=== PATIENT | male | born 1945 | race Caucasian/White ===

== ENCOUNTER 2023-07-24 22:46 | Observation (INO) | payer MEDICARE, OTHER, SELFPAY ==
[2023-07-24 19:12] VITALS: BMI 24.3
[2023-07-24 19:15] VITALS: BP 149/91
[2023-07-24 21:04] LABS: % Basophils 0.2 % (0-2); % Eosinophils 0.1 % (0-6); % Immature Granulocytes 0.5 % (0-0.5); % Lymphocytes 11.3 % (20.5-51.1); % Monocytes 7.7 % (1.7-9.3); % Neutrophils 80.2 % (42.2-75.2); Absolute Immature Granulocytes 0.1 10^3/uL (0-0.05); Absolute Lymphocytes 1.2 10^3/uL (1.2-3.4); Absolute Monocytes 0.8 10^3/uL (0.1-0.6); Absolute Neutrophils 8.4 10^3/uL (1.4-6.5); Hemoglobin 15.6 g/dL (13.0-18.0); Mean Corp Hgb Conc. 35.5 g/dL (33.0-37.0); Mean Corpuscular Hgb 31.8 pg (27.0-31.0); Mean Corpuscular Volume 89.6 fL (80.0-94.0); Mean Platelet Volume 10.4 fL (7.4-10.4); Nucleated Red Blood Cells % 0 % (-); Platelet Count 174 10^3/uL (130-400); Red Blood Cell Count 4.91 10^6/uL (4.70-6.10); Red Cell Dist. Width 12.9 % (11.5-14.5); White Blood Cell Count 10.5 10^3/uL (4.8-10.8)
[2023-07-24 21:11] LABS: Urine Albumin Negative (Neg - Trace); Urine Bilirubin Negative (Negative); Urine Character Clear (Clear); Urine Color Yellow; Urine Glucose Negative (Negative); Urine Ketone Negative (Negative); Urine Leukocyte Negative (Negative); Urine Nitrite Negative (Negative); Urine Occult Blood Negative (Negative); Urine Urobilinogen Negative (Neg - 1+)
[2023-07-24 21:13] LABS: Blood Urea Nitrogen 25 mg/dl (9-20); Calcium 9.8 mg/dl (8.4-10.2); Carbon Dioxide 23 mmol/L (22-30); Chloride 101 mmol/L (98-107); Estimated Creatinine Clearance 96 ml/min; Glucose 106 mg/dl (70-99); Potassium 3.7 mmol/L (3.5-5.1); Sodium 137 mmol/L (135-145); eGFR > 60.00
--- NOTE | 2023-07-24 21:36 | ED.GENMED ---
History of Present Illness
General
Chief Complaint: Fall
Source: patient and spouse
Time Seen by Provider: 07/24/23 20:45
Travel History
Have you had any contact with someone who has COVID-19?: No
Do you have any symptoms of coronavirus? Fever > 100 degrees, chills, cough, shortness of breath, sore throat, loss of taste or smell, muscle aches, or headache?: No
History of Present Illness
History of Present Illness:
77-year-old male with past medical history of Parkinson's disease, COPD, hypertension, hyperlipidemia, CAD, atrial fibrillation presenting to the emergency department after he had an accidental fall today injuring his right posterolateral ribs,
difficult time with deep inspiration secondary to pain, no other injury sustained in this fall. Spouse notes that patient has had 2-3 falls every day for the last week or so but has been falling more persistently over the last month. They note
that they recently moved to a new house which is the likely cause for increased falls over the last week. Patient is on Eliquis due to his history of atrial fibrillation. Patient normally ambulates with a cane. He denies any other concerns at
this time. Patient does note a history of substance abuse and states he is unable to take any opiate medications nor benzodiazepines.
Past History
Past History
ED Past Medical History: Arrthythmia (A. 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
ED Past Surgical History: Cardiac (Bypass surgery CABG times 09/2020) and Other (umbilical herniorrhaphy, surgical resection malignant melanoma)
Social History
Tobacco: Former smoker
Alcohol: Former (discontinued approximately 1989)
Drug: None
Personal: Single
Living: with family
Employment: Employed
Family History
Family History: Other
Review of Systems
Review of Systems
All Other Systems: ROS reviewed and negative except as documented in HPI and ROS
Phy Exam
Physical Exam
Physical Exam:
GENERAL: Alert , in no apparent distress
EYE: conjunctiva clear
NECK: Supple, no significant adenopathy.
ENT: o/p clr, mmm.
CARDIAC: Regular rate and rhythm
LUNGS: Clear breath sounds bilaterally, no acute respiratory distress, no wheezes/rales/rhonchi
Chest wall: Mild to moderate tenderness in the right posterior lateral ribs around rib 5. No flail chest
NEUROLOGICAL: Alert and oriented
SKIN: Warm and dry, skin intact.
MUSCULOSKELETAL: well perfused.
PSYCH: Normal and appropriate interaction.
Scores
Heart Failure Risk
Heart Failure Risk Score: Not Applicable
Heart Score for Chest Pain Patients
STEMI patient?: Not applicable
Withdrawal Assessment of Alcohol
Withdrawal Assessment Completed?: Not applicable
Course
Orders/Labs/Results
Orders:
Orders
07/24/23 19:19
EKG [Electrocardiogram (*1)] Urgent
Reason for Study: Fatigue / Weakness
EKG- Treatment ONCE
07/24/23 20:01
CR Ribs-right 3 Vw W/pa Chest* Urgent
Comment:
Reason For Exam: t
07/24/23 20:46
CT Head W/o Iv Contrast Urgent
Comment:
Reason For Exam: fall, on eliquis, known rib fx
07/24/23 21:00
Basic Metabolic Panel Urgent
Complete Blood Count/With Diff Urgent
07/24/23 21:04
Urinalysis Reflex To Culture Urgent
Date Specimen was Collected: 07/24/23
Time Specimen was Collected: 21:03
07/24/23 21:35
Acetaminophen [Tylenol] 1,000 mg PO NOW STA
Cyclobenzaprine HCl [Flexeril] 5 mg PO NOW STA
Lidocaine [Lidocaine 4% Patch] 1 patch TOPICAL NOW STA
07/24/23 22:09
Admit/Transfer Patient As Directed
Co-Sign Provider:
Level of Care: Observation services
Assign to:: Telemetry
Physician / Group: shauna
Diagnosis: ambulatory dysfunction
Reason for Telemetry: Arrhythmia
Date to Stop Telemetry: 07/27/23
Time to Stop Telemetry: 11:00
07/24/23 22:11
Code Status As Directed
Resuscitation Status: Full Code
07/27/23 11:00
DC Protocol for Telemetry ONCE
Abnormal Lab Results
07/24/23
21:00
MCH 31.8 H pg
(27.0-31.0)
Abs Immat Gran (auto) 0.1 H 10^3/uL
(0-0.05)
Absolute Neuts (auto) 8.4 H 10^3/uL
(1.4-6.5)
Absolute Monos (auto) 0.8 H 10^3/uL
(0.1-0.6)
Neutrophils % 80.2 H %
(42.2-75.2)
Lymphocytes % 11.3 L %
(20.5-51.1)
BUN 25 H mg/dl
(9-20)
Glucose 106 H mg/dl
(70-99)
07/24/23 21:00
07/24/23 21:00
Vital Signs
Initial and Last Documented VS:
Initial Vital Signs
Pulse Resp BP Pulse Ox
74 17 149/91 94
07/24/23 19:15 07/24/23 19:15 07/24/23 19:15 07/24/23 19:15
Last Documented Vital Signs
Pulse Resp BP Pulse Ox
71 16 152/90 94
07/24/23 22:15 07/24/23 22:15 07/24/23 22:15 07/24/23 22:15
MDM/Problems Addressed
Differential Diagnosis Includes:
Falls secondary to Parkinson's, deconditioning, electrolyte disturbance, rib fracture, pneumothorax, visceral injury
MDM/Problems Addressed:
77-year-old male presenting to the emergency department for evaluation after he sustained a fall today but has been falling excessively over the last few weeks. I suspect patient's falls are related to his Parkinson's disease but I have significant
concern for continued injury as well as possible head injury especially given the fact patient is anticoagulated. Labs and x-ray were ordered from triage. I ordered a CT of the head as well due to patient's anticoagulated status. Will treat with
Tylenol as I need to avoid NSAIDs due to the patient's anticoagulated status as well as he is unable to take any opioids or benzodiazepines. Cyclobenzaprine and Lidoderm patch ordered as well for pain.
Chronic conditions affecting care: Neurological disorder
Acute Exacerbation and/or Progression of Chronic Illness: Neurological disorder
*Radiology
Radiology exam reviewed: preliminary read by ED provider (Fifth and sixth rib fracture) and radiology read reviewed
*Pulse Oximetry
Patient hypoxic: no
*EKG
Interpreted by ED Provider?: Yes
Comparison EKG: changes noted
Heart Rate: 74
Rate: normal
Rhythm: sinus and PAC's
*Critical Care Note
Total Time (30-74mins, 75-104mins- exclusive of procedures): Not Applicable
Data Reviewed
Review of Other/Old Records Reveals: Labs and Radiology Studies
Source: patient and family
Patient Management
Discussion with other providers: Hospitalist
Escalation/DeEscalation of care consider admission/obs:
Hospitalist is aware and accepts patient for continued evaluation and treatment for his rib fractures as well as to likely be seen by physical therapy and patient will likely need to be seen by cardiology to determine risk versus benefit of
continued anticoagulation status with his multiple falls.
ED Attending Note
-
Portions of this chart may have been created with voice recognition software.� Occasional wrong word or��sound alike� substitutions may have occurred due to the inherent limitations of voice recognition software.
Discharge Plan
Departure
Patient Disposition: Admit
Date of Disposition: 07/24/23
Time of Disposition: 21:36
Presentation/result/management discussed w/ accepting MD/DO: Hospitalist
Discharge Problem:
Right rib fracture, Parkinson's disease, Multiple falls
Interventions
Interventions:
*Risk Screen - Suicide Last Done: 07/24/23 19:15
*General Assessment Last Done: 07/24/23 19:15
*Neglect/Abuse Screening Last Done: 07/24/23 19:15
*ED COVID-19 Vaccine History Last Done: 07/24/23 19:15
ED-Musculoskeletal Assessment Last Done: 07/24/23 20:42
ED- Neurological Assessment Last Done: 07/24/23 20:42
ED-Skin Assessment Last Done: 07/24/23 20:42
--- NOTE | 2023-07-24 21:40 | HPS.HSE ---
Addendum entered and electronically signed by Luisa Portillo MD 07/24/23 22:31:
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
falls after moving into a new house recently.� CT head negative.� Rib x-ray shows nondisplaced fractures of posterior lateral right fifth and sixth ribs.� Patient already took Eliquis tonight.� Tylenol, lidocaine patch, Flexeril for pain.� Patient
refusing benzodiazepines and opiates due to worsening mental status with Parkinson's.� PT/OT.
Original Note:
Family Physician
-
Family Physician: Yari Webb
Chief Complaint
-
fall
back pain
History of Present Illness
77 year old with PMH for atrial, fib, CAD, cancer, COPD, GERD, HTN, HLD, Parkinson presented to us with frequent fall since moved to the new house on Thursday. he did not get adjusted to the new house. as per he is losing his balance. denied
dizzy, lightheaded or syncope. denied fever, chills, chest pain, sob.denied abdominal pain,n,v,d. denied dysuria or hematuria. since Thursday, he fell three times. denied hitting his head. he fell on his right side all the time.
Ribs x ray with lateral right fifth and sixth ribs.�received Flexeril, lidocaine in the ER. admitting for further managment.
Medical History
Past Medical History
Past Medical History: Reports Other
Additional Past Medical History:
Parkinson disease
atrial fib
cad
copd
gerd
htn
hld
Past Surgical History: Reports Other
Additional Past Surgical History:
coronary artery bypass graft
umbical herniorrhaphy,
surgical resection of malignant melanoma
Social History
Tobacco: Former Smoker
Alcohol: Former
Drug: None
Personal:
Living: With Family
Family History
Family History: Not pertinent
Allergies / Home Medications
Allergies reflects when Allergies were last updated in [facility].
Home Medications with original date entered in [facility]
Allergy/Medication List:
Allergies
Allergy/AdvReac Type Severity Reaction Status Date / Time
atropine Allergy nose bleeds Verified 07/25/22 05:24
cat dander Allergy Hayfever Verified 07/25/22 05:24
house dust Allergy Hayfever Verified 07/25/22 05:24
house dust mite Allergy Hayfever Verified 07/25/22 05:24
iodine Allergy Anaphylaxis Verified 07/25/22 05:24
lorazepam [From Ativan] Allergy change in Verified 07/25/22 05:24
mentation
midodrine Allergy hallucinati Verified 07/25/22 05:24
on
Opioids-Meperidine and Allergy Unknown Verified 07/25/22 05:24
Related
zolpidem [From Ambien] Allergy hallucinations/ Verified 07/25/22 05:24
change in
mentation
Home Medications
albuterol sulfate 90 mcg/actuation aerosol inhaler 1 puff inhalation R Q4HPRN PRN sob,copd 10/22/20
atorvastatin 80 mg tablet 80 mg PO HS High cholesterol 10/22/20
duloxetine 60 mg capsule,delayed release 60 mg PO DAILY Depression 10/01/21
finasteride 5 mg tablet 5 mg PO DAILY Urinary issue 10/01/21
Saccharomyces boulardii 250 mg capsule 250 mg PO DAILY Supplement 03/04/22
apixaban 5 mg tablet (Eliquis) 5 mg PO BID Blood clot prevention/tx 03/04/22
fludrocortisone 0.1 mg tablet 0.1 mg PO DAILY Orthostatic hypotension #30 tabs 03/07/22
ferrous sulfate 325 mg (65 mg iron) tablet 325 mg PO Q48H Supplement 06/20/22
cholecalciferol (vitamin D3) 25 mcg (1,000 unit) capsule (Vitamin D3) 25 mcg PO DAILY Supplement 06/21/22
docusate sodium 100 mg capsule (Colace) 100 mg PO BIDPRN PRN constipation 06/21/22
acetaminophen 500 mg tablet 1,000 mg PO TID@0700,1300,2000 PRN mild pain 07/24/23
albuterol sulfate 90 mcg/actuation aerosol inhaler 1 puff inhalation R DAILY 07/24/23
ascorbic acid (vitamin C) 500 mg tablet (Vitamin C) 500 mg PO Q48H@1100 07/24/23
benralizumab 30 mg/mL subcutaneous syringe (Fasenra) 30 mg SC .Q6-8WEEKS 07/24/23
carbidopa ER 61.25 mg-levodopa 245 mg capsule,extended release (Rytary) 1 cap PO TID 07/24/23
fluticasone fur. 100 mcg-umeclid 62.5 mcg-vilant 25 mcg inhalat.powder (Trelegy Ellipta) 1 inh inhalation R DAILY 07/24/23
magnesium 1 tab PO HS 07/24/23
melatonin 10 mg tablet,extended release 10 mg PO HS 07/24/23
mirabegron 50 mg tablet,extended release 24 hr (Myrbetriq) 50 mg PO HS 07/24/23
nifedipine 60 mg tablet,extended release 60 mg PO BID 07/24/23
omeprazole 20 mg capsule,delayed release 20 mg PO DAILY 07/24/23
sennosides 8.6 mg tablet (senna) 17.2 mg PO HS 07/24/23
vitamin B complex 1 tab PO DAILY@1400 07/24/23
Review of Systems
-
Constitutional: Reports No Symptoms
EENT: Reports No Symptoms
Respiratory: Reports No Symptoms
Cardiac: Reports No Symptoms
Abdomen/GI: Reports No Symptoms
: Reports No Symptoms
Musculoskeletal: Reports Other (right sided ribs pain)
Skin: Reports No Symptoms
Neurological: Reports No Symptoms
Endocrine: Reports No Symptoms
Hematologic/Lymphatic: Reports No Symptoms
Psych: Reports No Symptoms
Physical Exam
Vital Signs
Vital Signs
Pulse Resp BP Pulse Ox
74 17 149/91 94
07/24/23 19:15 07/24/23 19:15 07/24/23 19:15 07/24/23 19:15
Physical Exam
General: Well Developed, Well Nourished and No Apparent Distress
HEENT: NormoCephalic, Moist mucous membranes and Atraumatic
Respiratory: Clear
Cardiac: S1/S2 and Regular Rhythm; No Murmur or Rub
GI: Soft, Non Tender, Non Distended and Normal Bowel Sounds; No Organomegaly
Rectal: Deferred by Provider
Musculoskeletal: No Clubbing, No Cyanosis and No Edema
Skin: No Rash
Neuro: AO x 3 and Nonfocal/grossly intact
Psych: Calm
Laboratory Results
-
07/24/23 21:00
07/24/23 21:00
Data Reviewed
-
Diagnostic Radiology: Report Reviewed by me
Lab Data: Labs Reviewed by me
Impression/Plan
-
# Frequent falls/ ambulatory dysfunction/rib fracture
-PT/OT consult
-Obtain orthostatics
-Head CT with impression of No acute intracranial process.Moderate volume loss. Moderate leukoaraiosis most consistent with chronic small vessel disease.Moderate atherosclerotic vascular disease.
-Ribs, chest x-ray with impression of Nondisplaced fractures of the posterior lateral right fifth and sixth ribs. No pneumothorax.Mild bibasilar atelectasis and pleural parenchymal changes right greater than left. cardiomegaly.
-EKG did reveal sinus rhythm with a degree AV block with PACs, right bundle branch block
-Flexeril
-lidocaine patch
-Tylenol 1000 TID
#ASCVD HX
�- Continue� ASA
-� cw Eliquis
�- Note no prior history of coronary stenting.
#hxt of COPD
-not in acute exacerbation
-nebs from home continued
#HLD
-statin continued
#HTN
-nifedipine continued
#GERD
-PPI continued
�
# paroxysmal A Fib� unable to specify
-eliquis continued
-EKG as above
# Parkinson's Disease with chronic� gait dysfunction, seems advanced with cognitive impairment.
�- Continue carbidopa-levodopa
#depression
-duloxetine continued
#iron def anemia
=ferrous sulfate continued
#orthostatic hypotension
-fludrocortisone continued
# BPH
�- Stable.� Continue finasteride / tamsulosin.
DVT Prophylaxis:� Eliquis
Code Status:� Full
[2023-07-24] MEDS: FLEXERIL 5 MG PO (22:06)
[2023-07-24] MEDS: TYLENOL 1000 MG PO (22:06)
[2023-07-24] MEDS: LIDOCAINE 4% PATCH 1 PATCH TOPICAL (22:11)
[2023-07-24 22:15] VITALS: BP 152/90
[2023-07-24 23:49] VITALS: BP 146/96
[2023-07-24 23:51] VITALS: BMI 23.8
[2023-07-25] VITALS (8 sets, daily range): BP systolic 82–154; BP diastolic 53–94; PULSE 75–80; O2SAT 92; BMI 23.8
[2023-07-25] MEDS: TYLENOL 1000 MG PO ×3 (06:08→21:51)
[2023-07-25] MEDS: FLEXERIL 5 MG PO (06:09)
[2023-07-25 07:13] LABS: Hematocrit 42.7 % (39.0-52.0); Hemoglobin 14.9 g/dL (13.0-18.0); Mean Corp Hgb Conc. 34.9 g/dL (33.0-37.0); Mean Corpuscular Hgb 30.9 pg (27.0-31.0); Mean Corpuscular Volume 88.6 fL (80.0-94.0); Mean Platelet Volume 10.4 fL (7.4-10.4); Platelet Count 165 10^3/uL (130-400); Red Blood Cell Count 4.82 10^6/uL (4.70-6.10); Red Cell Dist. Width 12.9 % (11.5-14.5); White Blood Cell Count 7.4 10^3/uL (4.8-10.8)
[2023-07-25 07:40] LABS: Blood Urea Nitrogen 17 mg/dl (9-20); Calcium 9.3 mg/dl (8.4-10.2); Carbon Dioxide 24 mmol/L (22-30); Chloride 105 mmol/L (98-107); Estimated Creatinine Clearance 115 ml/min; Glucose 97 mg/dl (70-99); Potassium 3.3 mmol/L (3.5-5.1); Sodium 135 mmol/L (135-145); eGFR > 60.00
[2023-07-25] MEDS: ProAIR HFA INHALER 1 PUFF INH (07:43)
[2023-07-25] MEDS: NON-FORMULARY ITEM 1 INH INH (07:45)
[2023-07-25] MEDS: NON-FORMULARY ITEM 1 CAP PO ×6 (08:59→21:51)
[2023-07-25] MEDS: PROCARDIA XL (EXTENDED RELEASE) 60 MG PO ×2 (08:59→20:35)
[2023-07-25] MEDS: PROTONIX 40 MG PO (08:59)
[2023-07-25] MEDS: COLACE 100 MG PO (08:59)
[2023-07-25] MEDS: ELIQUIS 5 MG PO ×2 (08:59→20:34)
[2023-07-25] MEDS: FLORINEF 0.100000000000000006 MG PO (08:59)
[2023-07-25] MEDS: VITAMIN D3 (cholecalciferol) 50 MCG PO (08:59)
[2023-07-25] MEDS: FLORASTOR 250 MG PO (08:59)
[2023-07-25] MEDS: LIDOCAINE 4% PATCH 1 PATCH TOPICAL (09:00)
[2023-07-25] MEDS: PROSCAR 5 MG PO (09:03)
--- NOTE | 2023-07-25 10:55 | W.PN.HOSP.TC ---
Today's Communication/Plan
-
.
Assessment / Plan
Assessment / Plan
Physical Exam
General: Chronically ill looking. No Apparent Distress
HEENT: Normocephalic, Moist mucous membranes and Atraumatic
Respiratory: limited, no wheezes.
Cardiac: S1/S2 and Regular Rhythm; No Murmur or Rub
GI: Soft, Non Tender, Non Distended.
Rectal: No rectal bleeding.
Musculoskeletal: No Edema
Skin: No Rash
Neuro: AO to self and surroundings , he followed commands. + stiffness noted on exam c/w his illness.
Psych: Calm
# Ribs pain
X- ray showed nondisplaced fractures of the posterior lateral right fifth and sixth ribs. No pneumothorax. Mild bibasilar atelectasis and pleural parenchymal changes right greater than left.
C/W Tylenol TID. Add PRN low dose Tramadol.
Encouraged to take deep breaths.
# Frequent falls/ ambulatory dysfunction
Patient has Parkinson's disease
Will c/w PT/OT
-Head CT with impression of No acute intracranial process.Moderate volume loss. Moderate leukoaraiosis most consistent with chronic small vessel disease.Moderate atherosclerotic vascular disease.
-Ribs, chest x-ray with impression of Nondisplaced fractures of the posterior lateral right fifth and sixth ribs. No pneumothorax.Mild bibasilar atelectasis and pleural parenchymal changes right greater than left. cardiomegaly.
-EKG did reveal sinus rhythm with a degree AV block with PACs, right bundle branch block
-Stopped Flexeril, it will not help.
-lidocaine patch
-Tylenol 1000 TID
- Can add low dose Tramadol if Tylenol does not help. was concerned about use of opioid.
#CAD
No chest pain.
�- Continue� ASA
-� cw Eliquis
�- Note no prior history of coronary stenting.
# Hypokalemia
c/w oral KCl.
#hxt of COPD/ Pulmonary atelectasis.
-not in acute exacerbation
-nebs from home continued
#HLD
-statin continued
#Primary HTN
-nifedipine continued
#GERD
-PPI continued
�
# paroxysmal A Fib�
-Eliquis continued
-EKG as above
# Parkinson's Disease with chronic� gait dysfunction, seems advanced with cognitive impairment.
�- Continue carbidopa-levodopa
#depression
-duloxetine continued
#iron def anemia
=ferrous sulfate continued
#orthostatic hypotension
-fludrocortisone continued
# BPH
�- Stable.� Continue finasteride / tamsulosin.
DVT Prophylaxis:� Eliquis
Code Status:� Full
Total time spent to see the patient, examine the patient on the floor, review data and lab results, discuss treatment plan with patient, and nursing staff around 55 minutes
Anticipated Discharge: 24 - 48 hours
Subjective/Interval History
-
Date of Service: July 25, 2023
Right rib pain
No sob
No chest pain
Objective Data
-
Labs:
Laboratory Results
07/25/23
06:37
WBC 7.4
Hgb 14.9
Hct 42.7
Plt Count 165
Sodium 135
Potassium 3.3 L
Chloride 105
Carbon Dioxide 24
BUN 17
Creatinine 0.6 L
Glucose 97
Calcium 9.3
Vital Signs:
Vital Signs
Temp Pulse Resp BP Pulse Ox
98.0 F 73 16 127/81 92
07/25/23 07:00 07/25/23 08:59 07/25/23 07:47 07/25/23 08:59 07/25/23 07:47
I&O
07/24/23 07/25/23 07/26/23
06:59 06:59 06:59
Intake Total 60 / 60
Output Total 100 / 100 250 / 250
Balance -40 / -40 -250 / -250
--- NOTE | 2023-07-25 13:32 | CM ---
Addendum entered by Nimco Arriaga 07/25/23 14:33:
CM spoke with patient and she is reluctant to complete OBS/MILES form and would like patient to go to [facility] or SNF as she does not feel that patient is able to come home. Patient open to [facility] referral if [facility] is not able to accept him and
does not want patient to go to [facility].
Original Note:
Patient seen at bedside, patient states that he lives with his in a 2 story home with a walker and a cane. Patient confirmed his Parkinsons and stated that his is coming this am. CM reviewed OBS/MILES form and provided form for patient to
review with . Patient stated that he did not have VN services prior to admission. CM will continue to follow for discharge planning needs.
Plan; home with VN vs SNF
[2023-07-25] MEDS: CYMBALTA DELAYED RELEASE 60 MG PO (14:30)
[2023-07-25] MEDS: LIPITOR 80 MG PO (20:37)
[2023-07-25] MEDS: SENOKOT 17.1999999999999993 MG PO (20:37)
[2023-07-25] MEDS: NON-FORMULARY ITEM 50 MG PO (21:51)
[2023-07-25] MEDS: MELATONIN 10 MG PO (21:51)
[2023-07-26 03:50] VITALS: BP 155/89
[2023-07-26] MEDS: NON-FORMULARY ITEM 1 INH INH (07:14)
[2023-07-26] MEDS: ProAIR HFA INHALER 1 PUFF INH (07:14)
[2023-07-26 07:30] VITALS: BP 124/73
[2023-07-26] MEDS: PROCARDIA XL (EXTENDED RELEASE) 60 MG PO (08:58)
[2023-07-26] MEDS: PROTONIX 40 MG PO (08:58)
[2023-07-26] MEDS: TYLENOL 1000 MG PO ×3 (08:58→21:41)
[2023-07-26] MEDS: LIDOCAINE 4% PATCH 1 PATCH TOPICAL (09:02)
[2023-07-26] MEDS: NON-FORMULARY ITEM 1 CAP PO ×6 (09:02→23:09)
[2023-07-26] MEDS: FLORINEF 0.100000000000000006 MG PO (09:03)
[2023-07-26] MEDS: ELIQUIS 5 MG PO ×2 (09:03→21:41)
[2023-07-26] MEDS: PROSCAR 5 MG PO (09:03)
--- NOTE | 2023-07-26 10:37 | W.PN.HOSP.TC ---
Today's Communication/Plan
-
.
Assessment / Plan
Assessment / Plan
Physical Exam
General: Chronically ill looking. No Apparent Distress
HEENT: Normocephalic, Moist mucous membranes and Atraumatic
Respiratory: limited, no wheezes.
Cardiac: S1/S2 and Regular Rhythm; No Murmur or Rub
GI: Soft, Non Tender, Non Distended.
Rectal: No rectal bleeding.
Musculoskeletal: No Edema
Skin: No Rash
Neuro: AO to self and surroundings , he followed commands. + stiffness noted on exam c/w his illness.
Psych: Calm
# Ribs pain
X- ray showed nondisplaced fractures of the posterior lateral right fifth and sixth ribs. No pneumothorax. Mild bibasilar atelectasis and pleural parenchymal changes right greater than left.
C/W Tylenol TID. Add PRN low dose Tramadol.
Encouraged to take deep breaths.
# Frequent falls/ ambulatory dysfunction
Patient has Parkinson's disease
Will c/w PT/OT
wants acute rehab. Consulted Dr Coelho
-Head CT with impression of No acute intracranial process.Moderate volume loss. Moderate leukoaraiosis most consistent with chronic small vessel disease.Moderate atherosclerotic vascular disease.
-Ribs, chest x-ray with impression of Nondisplaced fractures of the posterior lateral right fifth and sixth ribs. No pneumothorax.Mild bibasilar atelectasis and pleural parenchymal changes right greater than left. cardiomegaly.
-EKG did reveal sinus rhythm with a degree AV block with PACs, right bundle branch block
-Stopped Flexeril, it will not help.
-lidocaine patch
-Tylenol 1000 TID
- Can add low dose Tramadol if Tylenol does not help. was concerned about use of opioid.
#orthostatic hypotension
Most likely due to autonomic dysregulation associated with Parkinson's disease
Still significant upon PT evaluation
will cut back on his Nifedipine from 60 BID to once a day.
-fludrocortisone continued
#CAD
No chest pain.
�- Continue� ASA
-� cw Eliquis
�- Note no prior history of coronary stenting.
# Hypokalemia
c/w oral KCl.
#hxt of COPD/ Pulmonary atelectasis.
-not in acute exacerbation
-nebs from home continued
#HLD
-statin continued
#Primary HTN
-nifedipine continued
#GERD
-PPI continued
�
# paroxysmal A Fib�
-Eliquis continued
-EKG as above
# Parkinson's Disease with chronic� gait dysfunction, seems advanced with cognitive impairment.
�- Continue carbidopa-levodopa
#depression
-duloxetine continued
#iron def anemia
=ferrous sulfate continued
# BPH
�- Stable.� Continue finasteride / tamsulosin.
DVT Prophylaxis:� Eliquis
Code Status:� Full
Total time spent to see the patient, examine the patient on the floor, review data and lab results, discuss treatment plan with patient, and nursing staff around 55 minutes
Anticipated Discharge: Within 24 hours
Subjective/Interval History
-
Date of Service: July 26, 2023
No sob
No chest pain
same rib pain
Objective Data
-
Vital Signs:
Vital Signs
Temp Pulse Resp BP Pulse Ox
97.8 F 78 18 124/73 90
07/26/23 07:30 07/26/23 08:58 07/26/23 07:30 07/26/23 08:58 07/26/23 07:30
I&O
07/25/23 07/26/23 07/27/23
06:59 06:59 06:59
Intake Total 60 / 60 210 / 210
Output Total 100 / 100 1150 / 1150
Balance -40 / -40 -940 / -940
--- NOTE | 2023-07-26 13:15 | CM ---
Referrals sent to [facility], awaiting response. CM will continue to follow for discharge planning needs.
PLan; SNF vs Acute Rehab
[2023-07-26] MEDS: CYMBALTA DELAYED RELEASE 60 MG PO (14:10)
[2023-07-26 15:30] VITALS: BP 119/75
[2023-07-26] MEDS: LIPITOR 80 MG PO (21:42)
[2023-07-26] MEDS: SENOKOT 17.1999999999999993 MG PO (21:47)
[2023-07-26] MEDS: NON-FORMULARY ITEM 50 MG PO (23:08)
[2023-07-26] MEDS: MELATONIN 10 MG PO (23:08)
[2023-07-26 23:37] VITALS: BP 152/84
[2023-07-27 07:30] VITALS: BP 148/95
[2023-07-27] MEDS: PROCARDIA XL (EXTENDED RELEASE) 60 MG PO (08:27)
[2023-07-27] MEDS: ELIQUIS 5 MG PO (08:27)
[2023-07-27] MEDS: TYLENOL 1000 MG PO ×3 (08:27→22:57)
[2023-07-27] MEDS: FLORINEF 0.100000000000000006 MG PO (08:27)
[2023-07-27] MEDS: PROTONIX 40 MG PO (08:27)
[2023-07-27] MEDS: LIDOCAINE 4% PATCH 1 PATCH TOPICAL (08:27)
[2023-07-27] MEDS: PROSCAR 5 MG PO (08:28)
[2023-07-27] MEDS: NON-FORMULARY ITEM 1 CAP PO ×6 (08:28→22:58)
--- NOTE | 2023-07-27 08:28 | W.PN.HOSP.TC ---
Today's Communication/Plan
-
Psychiatry evaluation. Monitor mental status and behavior. Stop Eliquis and start aspirin.
Assessment / Plan
Assessment / Plan
Physical Exam
General: Chronically ill looking. No Apparent Distress
HEENT: Normocephalic, Moist mucous membranes and Atraumatic
Respiratory: limited, no wheezes.
Cardiac: S1/S2 and Regular Rhythm; No Murmur or Rub
GI: Soft, Non Tender, Non Distended.
Rectal: No rectal bleeding.
Musculoskeletal: No Edema
Skin: No Rash
Neuro: Alert and disoriented, he followed simple commands. + Increased rigidity noted on exam c/w his illness.
Psych: Calm
A/P:
#Metabolic encephalopathy/delirium
Psychiatry consult
Discussed with significant other today and she tells me he has periods of cognitive decline prior to admission and that he is also very sensitive to medications.
She wants him to go to rehab but I expressed concerns about his mentation now before he move forward with any rehabilitation program so we will reevaluate.
Noticed CT scan of the head on 07/24 unremarkable for acute findings.
Will review all his medications to make sure no contributing factors.
# Ribs pain
X- ray showed nondisplaced fractures of the posterior lateral right fifth and sixth ribs. No pneumothorax. Mild bibasilar atelectasis and pleural parenchymal changes right greater than left.
C/W Tylenol TID. Hold off on Tramadol-do not see order at this point, anyway.
Encouraged to take deep breaths.
# Frequent falls/ ambulatory dysfunction
Patient has Parkinson's disease
Will c/w PT/OT
wants acute rehab. Consulted Dr Coelho
-Head CT with impression of No acute intracranial process.Moderate volume loss. Moderate leukoaraiosis most consistent with chronic small vessel disease.Moderate atherosclerotic vascular disease.
-Ribs, chest x-ray with impression of Nondisplaced fractures of the posterior lateral right fifth and sixth ribs. No pneumothorax.Mild bibasilar atelectasis and pleural parenchymal changes right greater than left. cardiomegaly.
-EKG did reveal sinus rhythm with a degree AV block with PACs, right bundle branch block
-Stopped Flexeril, it will not help. I agree no Flexeril
-lidocaine patch
-Tylenol 1000 TID
-Avoid narcotics
#orthostatic hypotension
Most likely due to autonomic dysregulation associated with Parkinson's disease
Still significant upon PT evaluation
will cut back on his Nifedipine from 60 BID to once a day.
-fludrocortisone continued
#CAD
No chest pain.
�-Restarted ASA, to start tomorrow
�- Note no prior history of coronary stenting.
# Hypokalemia
c/w oral KCl.
#hxt of COPD/ Pulmonary atelectasis.
-not in acute exacerbation
-nebs from home continued
#HLD
-statin continued
#Primary HTN
-nifedipine continued but adjusted doses due to orthostasis
#GERD
-PPI continued
�
# paroxysmal A Fib�
-Discussed with exercise physiology professor who sees him outpatient Dr. Montez today on 07/27 and recommend to discontinue Eliquis and replace with aspirin given risk of falls and bleeding
-EKG as above
# Parkinson's Disease with chronic� gait dysfunction, seems advanced with cognitive impairment.
�- Continue carbidopa-levodopa
#depression
-duloxetine continued
#iron def anemia
=ferrous sulfate continued
# BPH
�- Stable.� Continue finasteride / tamsulosin.
DVT Prophylaxis:� Eliquis
Code Status:� Full
Total time spent on today's encounter was 52 minutes which included time spent in counseling the patient/family regarding diagnosis and treatment plan as listed above, goals of care, and symptom management. Case was discussed with nursing staff,
specialists, and care coordinators/case management. All labs and imaging personally reviewed by me. Remainder the time spent in detailed review of previous records, lab data, imaging, and other medical provider documentation.
Anticipated Discharge: 24 - 48 hours
Subjective/Interval History
-
Date of Service: July 27, 2023
Patient seen and examined. Alert and disoriented. RN reports agitation on and off.
Objective Data
-
Vital Signs:
Vital Signs
Temp Pulse Resp BP Pulse Ox
98.0 F 73 20 148/95 95
07/27/23 07:30 07/27/23 07:30 07/27/23 07:30 07/27/23 07:30 07/27/23 07:30
I&O
07/26/23 07/27/23 07/28/23
06:59 06:59 06:59
Intake Total 210 / 210 120 / 120
Output Total 1150 / 1150 650 / 650 350 / 350
Balance -940 / -940 -530 / -530 -350 / -350
[2023-07-27] MEDS: ProAIR HFA INHALER 1 PUFF INH (08:33)
[2023-07-27] MEDS: NON-FORMULARY ITEM 1 INH INH (08:33)
--- NOTE | 2023-07-27 09:11 | CON.MD ---
Documented by User: Kimberly Zhu PA-C 07/28/23 16:59
Consultation - Medical
-
Referring Provider: Gia Wallace
Chief Complaint: Ambulatory dysfunction/rib fractures/frequent falls
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
on 07/24/2023 after he had an accidental fall today injuring his right posterolateral ribs, difficult time with deep inspiration secondary to pain, no other injury sustained in this fall.� Spouse notes that patient has had 2-3 falls every day for the
last week or so but has been falling more persistently over the last month.� They note that they recently moved to a new house which is the likely cause for increased falls over the last week.� Patient is on Eliquis due to his history of atrial
fibrillation.� Patient normally ambulates with a cane. CT head negative.� Rib x-ray shows nondisplaced fractures of posterior lateral right fifth and sixth ribs.
Head CT with impression of No acute intracranial process.Moderate volume loss. Moderate leukoaraiosis most consistent with chronic small vessel disease.Moderate atherosclerotic vascular disease.
-Ribs, chest x-ray with impression of Nondisplaced fractures of the posterior lateral right fifth and sixth ribs. No pneumothorax.Mild bibasilar atelectasis and pleural parenchymal changes right greater than left. cardiomegaly.
-EKG did reveal sinus rhythm with a degree AV block with PACs, right bundle branch block
-Flexeril
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
Procedure History: coronary artery bypass graft, umbical herniorrhaphy, surgical resection of malignant melanoma
Family History: Non contributory
Social History:
Functional Level Premorbidly: Independent with cane, rolling walker. takes care of all household tasks.
Functional Level Currently: Decreased safety awareness and appeared to have difficulty following commands at times. Bed mobility�supine to sit�moderate assistance. Assist needed for legs and trunk. Manager Of Regulatory Affairs needed to assist patient with scooting
to edge of bed. Transfer�sit to stand-mod assist, stand to sit, stand/pivot/sit�max assist. Assist of 2 for lift off and balance. Standing patient becomes hypotensive and less responsive when standing. Ambulation deferred due to orthostatic
hypotension.
Tobacco:Former Smoker
Alcohol: Former
Drug use: Denies
Lives with: Family
24-hour assistance available:
Number of floors: Multilevel
# steps to enter: 3
# steps to second floor: Bedroom on second floor.
Potential First floor set up:
Driving: ?
Occupation: retired
�
Allergies:
Allergy/AdvReac Type Severity Reaction Status Date / Time
atropine Allergy nose bleeds Verified 07/25/22 05:24
cat dander Allergy Hayfever Verified 07/25/22 05:24
house dust Allergy Hayfever Verified 07/25/22 05:24
house dust mite Allergy Hayfever Verified 07/25/22 05:24
iodine Allergy Anaphylaxis Verified 07/25/22 05:24
lorazepam [From Ativan] Allergy change in Verified 07/25/22 05:24
mentation
midodrine Allergy hallucinati Verified 07/25/22 05:24
on
Opioids-Meperidine and Allergy parkinsons Verified 07/24/23 23:30
Related coma
zolpidem [From Ambien] Allergy hallucinations/ Verified 07/25/22 05:24
change in
mentation
Review of Systems:
Constitutional: (x) Normal _
Eye: (x) Normal _
Ear/Nose/Throat: (x) Normal _
Respiratory: (x) Normal _
Cardiovascular: (x) paroxysmal A-fib
Gastrointestinal: (x) Normal _
Genitourinary: (x) Normal _
Musculoskeletal: Right-sided rib pain, right flank, back, ambulatory dysfunction
Integumentary: (x) Normal _
Neurologic: (x) Parkinson disease
Psychiatric: (x) Normal _
Endocrine: (x) Normal _
Hematologic/Lymphatic: (x) Normal _
Allergic/Immunologic: (x) Normal _
Medications:
Active Current Visit Medication List
Category Date Time Status
Acetaminophen [Tylenol] Med 07/25/23 08:00 Active
1,000 mg PO TID
Albuterol [ProAIR HFA INHALER] Med 07/25/23 08:00 Active
1 puff INH R DAILY
Albuterol [ProAIR HFA INHALER] Med 07/24/23 23:26 Active
1 puff INH R Q4HPRN PRN
Aspirin Chewable [Low Strength Aspirin] Med 07/28/23 08:00 Active
81 mg PO DAILY
Atorvastatin [Lipitor] Med 07/25/23 22:00 Active
80 mg PO HS
Duloxetine Delayed Release [Cymbalta Delayed Release] Med 07/25/23 14:00 Active
60 mg PO DAILY@1400
Finasteride [Proscar] Med 07/25/23 08:00 Active
5 mg PO DAILY
Fludrocortisone Acetate [Florinef] Med 07/25/23 08:00 Active
0.1 mg PO DAILY
Flush (0.9% Sodium Chloride) [Flush (Nss)] Med 07/24/23 23:00 Active
See Dose Instructions IV PER PROTOCOL
Lidocaine [Lidocaine 4% Patch] Med 07/25/23 08:00 Active
1 patch TOPICAL DAILY
Melatonin Med 07/25/23 22:00 Active
10 mg PO HS
NIFEdipine EXTENDED RELEASE [Procardia Xl (Extended Med 07/27/23 08:00 Active
Release)]
60 mg PO DAILY
Nonf Med 07/25/23 08:00 Active
1 inh INH R DAILY
Pantoprazole [Protonix] Med 07/25/23 08:00 Active
40 mg PO DAILY
Remove Patch [Remove Lidocaine Patch] Med 07/25/23 20:00 Active
1 patch REMOVE DAILY@1999
Sennosides [Senokot] Med 07/25/23 22:00 Active
17.2 mg PO HS
carbidopa-levodopa [Rytary] Med 07/25/23 08:00 Active
0 cap PO TID
carbidopa-levodopa [Rytary] Med 07/25/23 08:00 Active
1 cap PO TID
mirabegron [Myrbetriq] Med 07/25/23 22:00 Active
50 mg PO HS
Vitals:
Temp Pulse Resp BP Pulse Ox
98.5 F 74 14 154/105 92
07/28/23 07:00 07/28/23 08:12 07/28/23 07:46 07/28/23 08:12 07/28/23 07:46
Height 6 ft
Actual Weight 79.56 kg
Body Mass Index (BMI) 23.8
Physical Exam:
General Appearance/Observation: Well-developed, well-nourished individual in no apparent distress.
Pain/Comfort Assessment: Right-sided rib pain, flank to back
Mood/Affect: Delirious, cognitively impaired
Integumentary/Operative Site:
�� Pressure Ulcer Evaluation: absent over heels.
�
�� Other Type of Wound: absent
��
Eyes: Conjunctiva/Lids: normal ��� Pupils: pupils equal round
Ears/Nose/Throat: oral mucosa moist,� throat-not fully visualized������������ Lips/Teeth/Gums: unable to fully visualize
Neck: muscle tightness
Cardiovascular: Heart: regular, no murmur
Pulses: dorsalis pedis 2+ bilaterally
Respiratory: Respiratory Effort/Chest Expansion: diminished ������ Auscultation: grossly clear to auscultation bilaterally
Gastrointestinal: abdomen not tender, no distension, normal abdominal bowel sounds
Genitourinary: No [place]. Adult brief
Extremities: Edema: None Cyanosis: None Trophic changes: None
Neurology Exam:
Orientation: Alert, not oriented to self, Time, except Place-said [place]
Memory: unable to assess. Mumbling, incoherent
Higher cortical function
Repetition:unable to assess
Comprehension:unable to assess
Two step command: n/a
Naming: n/a
Cranial Nerves: Unable to assess. Patient cognitively impaired and does not follow instructions.
� CNII: Pupillary light reflex: Intact��� Visual Field:
�� CN III, IV, : Extraocular muscles:
�� CN V: Facial Sensation at Forehead: Maxilla: Mandible:
�� CN VII: Facial movement: Symmetric
�� CN VIII: Hearing: Normal
�� CN IX/X: Speech & swallow: low volume Position of Uvula: not able to visualize
�� CN XI: Shoulder shrug:
�� CN XII: Tongue protrusion:
Sensory:
�� Light touch: Intact in bilateral upper and lower extremities
��
Reflexes:
�� Biceps: 3+ bilaterally
�� Brachioradialis: 3+ bilaterally
�� Triceps: 3+ bilaterally
�� Patellar: 2+ bilaterally
�� Achilles: 2+ bilaterally
�� Babinski: Down going bilaterally
�� Clonus: None
�� Gopi: Negative bilaterally- moderate tremor of hands
Cerebellar: Dysmetria/Ataxia: deferred
Musculoskeletal:
Motor: (Manual muscle scale 0-5) Unable to fully assess due to patient's cooperation. 2/
Tone: Increased tone in upper extremities. Elbows not fully extending
Range of Motion: Passively within normal limits in lower extremities
Lab Results
Labs
WBC 7.4 10^3/uL (4.8-10.8) 07/28/23 08:36
RBC 4.49 10^6/uL (4.70-6.10) L 07/28/23 08:36
Hgb 14.3 g/dL (13.0-18.0) 07/28/23 08:36
Hct 40.0 % (39.0-52.0) 07/28/23 08:36
MCV 89.1 fL (80.0-94.0) 07/28/23 08:36
MCH 31.8 pg (27.0-31.0) H 07/28/23 08:36
MCHC 35.8 g/dL (33.0-37.0) 07/28/23 08:36
RDW 13.0 % (11.5-14.5) 07/28/23 08:36
Plt Count 173 10^3/uL (130-400) 07/28/23 08:36
MPV 10.6 fL (7.4-10.4) H 07/28/23 08:36
Abs Immat Gran (auto) 0.0 10^3/uL (0-0.05) 07/28/23 08:36
Absolute Neuts (auto) 5.6 10^3/uL (1.4-6.5) 07/28/23 08:36
Absolute Lymphs (auto) 1.0 10^3/uL (1.2-3.4) L 07/28/23 08:36
Absolute Monos (auto) 0.7 10^3/uL (0.1-0.6) H 07/28/23 08:36
Absolute Eos (auto) 0.0 10^3/uL (0-0.7) 07/28/23 08:36
Absolute Basos (auto) 0.0 10^3/uL (0-0.2) 07/28/23 08:36
Immature Gran % 0.5 % (0-0.5) 07/28/23 08:36
Neutrophils % 76.7 % (42.2-75.2) H 07/28/23 08:36
Lymphocytes % 13.2 % (20.5-51.1) L 07/28/23 08:36
Monocytes % 9.5 % (1.7-9.3) H 07/28/23 08:36
Eosinophils % 0.0 % (0-6) 07/28/23 08:36
Basophils % 0.1 % (0-2) 07/28/23 08:36
Nucleated RBC % 0 % (-) 07/28/23 08:36
Sodium 136 mmol/L (135-145) 07/28/23 08:36
Potassium 3.8 mmol/L (3.5-5.1) 07/28/23 08:36
Chloride 107 mmol/L (98-107) 07/28/23 08:36
Carbon Dioxide 23 mmol/L (22-30) 07/28/23 08:36
BUN 18 mg/dl (9-20) 07/28/23 08:36
Creatinine 0.8 mg/dL (0.7-1.3) 07/28/23 08:36
Estimated Creat Clear 86 ml/min 07/28/23 08:36
eGFR > 60.00 07/28/23 08:36
Glucose 109 mg/dl (70-99) H 07/28/23 08:36
Calcium 9.3 mg/dl (8.4-10.2) 07/28/23 08:36
Urine Color Yellow 07/24/23 21:04
Urine Clarity Clear (Clear) 07/24/23 21:04
Urine pH 6.0 (5.0-9.0) 07/24/23 21:04
Ur Specific [place] 1.020 (<1.030) 07/24/23 21:04
Urine Ketones Negative (Negative) 07/24/23 21:04
Ur Occult Blood Reflex Negative (Negative) 07/24/23 21:04
Urine Nitrite (Reflex) Negative (Negative) 07/24/23 21:04
Urine Bilirubin Negative (Negative) 07/24/23 21:04
Urine Urobilinogen Negative (Neg - 1+) 07/24/23 21:04
Leukocyte Esterase Rfl Negative (Negative) 07/24/23 21:04
Urine Glucose Negative (Negative) 07/24/23 21:04
Urine Albumin (Reflex) Negative (Neg - Trace) 07/24/23 21:04
�
Diagnostic Results: as per HPI
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 Presented to ED on 07/24/[address] scan negative. Xrays shows nondisplaced fractures of posterior lateral right fifth and sixth ribs. Patient with ambulatory dysfunction and metabolic encephalopathy/delirium
Plan
PT/OT to increase independence with ADLs, improve balance, coordination, endurance, strength, mobility, community reintegration, decreased burden of care on others and family education.
Ambulatory Dysfunction/Fractures of 5th and 6th ribs. Would benefit from PT/OT
Cognitive impairment/delirium- psych follow up needed- Medication adjustments
Spasticity:� Adjust medications as needed.� Continue range of motion exercises and stretching program.�
Parkinson disease with chronic gait dysfunction- seems advanced with cognitive impairment. Continue carbidopa�levodopa
Falls: Likely multifactorial. Parkinson's disease: Medications adjustments as needed. Use cane, rolling waker
HTN: nifedipine dose was decreased to 30mg qd due to low blood pressure, monitor closely
Orthostatic hypotension- Continue fludrocortisone. Patient allergic to Midodrine-hallucinations. Adjust medication as needed. Consider compression stocking. monitor BMP
HLD: Statin
Coronary artery disease : Aspirin, statin, beta-gurpreet
Paroxysmal atrial fibrillation:� Eliquis d/isabelle per cardiology and replaced with aspirin. Rate control medications.������������������������������������������
BPH:�Continue finasteride / tamsulosin.
COPD: Continue nebulizer treatments as needed.�
Iron deficiency anemia: Likely multifactorial.� Continue ferrous sulfate and monitor.
Thrombocytopenia: Continue to monitor. With platelets less than 50,000 recommend keeping therapies to bedside. If platelets less than 20,000 will use further caution with activity levels and hold therapy for platelets less than 10,000.
Psych: depression. Psychology consult � Duloxetine. monitor mood.
Skin: monitor for pressure sores/rashes/lesions.
Pain: acetaminophen, Lidoderm patch, Bengay as needed.
Bowel: Colace and Senna, PRN bisacodyl.
Bladder: Time void, PVRs, PRN straight cath.
GI Prophylaxis: Pantoprazole
DVT Prophylaxis: Mechanical and aspirin
Pulmonary: Incentive spirometry
Safety: Continue to reinforce assistance with all transfers.
Code Status:� Full code
Dispo (date/plan/equipment needs): Home with family care.� Social history reviewed.
Functional and Medical Goals: Modified Independent with ADL�s, ambulation, transfers
Discharge Destination: Would recommend acute inpatient rehabilitation once medically stable and cognitively stable. Would appreciate Psych follow up.
Summary of recommendations:
- Discharge Destination: Acute inpatient rehabilitation for PT/OT to increase independence with ADLs back to his baseline, improve balance, coordination, endurance, strength, mobility, community reintegration, decreased burden of care on others and
family education.
Ambulatory Dysfunction/Fractures of 5th and 6th ribs. Would benefit from PT/OT
Cognitive Impairment/delirium- psych follow up needed- Medication adjustments as needed. Recommending repeating U/A to r/o UTI as potential cause for mental status change.
Spasticity:� Adjust medications as needed.� Continue range of motion exercises and stretching program.�
Parkinson disease with chronic gait dysfunction- seems advanced with cognitive impairment. Continue carbidopa�levodopa
Falls: Likely multifactorial. Parkinson's disease: Medications adjustments as needed. Use cane, rolling waker
HTN: nifedipine dose was decreased to 60mg qd due to low blood pressure, monitor closely
Orthostatic hypotension- Continue fludrocortisone. Patient allergic to Midodrine-hallucinations. Adjust medication as needed. Consider compression stocking. monitor BMP
Pain: acetaminophen, Lidoderm patch, Bengay as needed.
Bowel: Colace and Senna, PRN bisacodyl.
Bladder: Time void, PVRs, PRN straight cath.
GI Prophylaxis: Pantoprazole
DVT Prophylaxis: Mechanical
Pulmonary: Incentive spirometry
Paroxysmal atrial fibrillation:� Eliquis stopped per cardiology recommendation and replaced with aspirin due to risk of fall and bleeding. medications.��������������������
Thank you for allowing me to care for your patient. Please contact me with any questions or concerns.
This note was dictated using a voice recognition system. Please excuse any typographical errors from livestock agent. If you believe there are any discrepancies, please notify our office.

Documented by User: Yordy Coelho MD 07/28/23 21:14
Consultation - Medical
-
Referring Provider: Gia Wallace
Chief Complaint: Ambulatory dysfunction/rib fractures/frequent falls
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
on 07/24/2023 after he had an accidental fall today injuring his right posterolateral ribs, difficult time with deep inspiration secondary to pain, no other injury sustained in this fall.� Spouse notes that patient has had 2-3 falls every day for the
last week or so but has been falling more persistently over the last month.� They note that they recently moved to a new house which is the likely cause for increased falls over the last week.� Patient is on Eliquis due to his history of atrial
fibrillation.� Patient normally ambulates with a cane. CT head negative.� Rib x-ray shows nondisplaced fractures of posterior lateral right fifth and sixth ribs.
Head CT with impression of No acute intracranial process.Moderate volume loss. Moderate leukoaraiosis most consistent with chronic small vessel disease.Moderate atherosclerotic vascular disease.
-Ribs, chest x-ray with impression of Nondisplaced fractures of the posterior lateral right fifth and sixth ribs. No pneumothorax.Mild bibasilar atelectasis and pleural parenchymal changes right greater than left. cardiomegaly.
-EKG did reveal sinus rhythm with a degree AV block with PACs, right bundle branch block
-Flexeril
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
Procedure History: coronary artery bypass graft, umbical herniorrhaphy, surgical resection of malignant melanoma
Family History: Non contributory
Social History:
Functional Level Premorbidly: Independent with cane, rolling walker. takes care of all household tasks.
Functional Level Currently: Decreased safety awareness and appeared to have difficulty following commands at times. Bed mobility�supine to sit�moderate assistance. Assist needed for legs and trunk. Manager Of Regulatory Affairs needed to assist patient with scooting
to edge of bed. Transfer�sit to stand-mod assist, stand to sit, stand/pivot/sit�max assist. Assist of 2 for lift off and balance. Standing patient becomes hypotensive and less responsive when standing. Ambulation deferred due to orthostatic
hypotension.
Tobacco:Former Smoker
Alcohol: Former
Drug use: Denies
Lives with: Family
24-hour assistance available: Yes
Number of floors: Multilevel
# steps to enter: 3
# steps to second floor: full flight
Potential First floor set up: Possibly
Driving: No
Occupation: retired
�
Allergies:
Allergy/AdvReac Type Severity Reaction Status Date / Time
atropine Allergy nose bleeds Verified 07/25/22 05:24
cat dander Allergy Hayfever Verified 07/25/22 05:24
house dust Allergy Hayfever Verified 07/25/22 05:24
house dust mite Allergy Hayfever Verified 07/25/22 05:24
iodine Allergy Anaphylaxis Verified 07/25/22 05:24
lorazepam [From Ativan] Allergy change in Verified 07/25/22 05:24
mentation
midodrine Allergy hallucinati Verified 07/25/22 05:24
on
Opioids-Meperidine and Allergy parkinsons Verified 07/24/23 23:30
Related coma
zolpidem [From Ambien] Allergy hallucinations/ Verified 07/25/22 05:24
change in
mentation
Review of Systems:
Constitutional: (x) abNormal _ fatigue
Eye: (x) Normal _
Ear/Nose/Throat: (x) Normal _
Respiratory: (x) Normal _
Cardiovascular: (x) paroxysmal A-fib
Gastrointestinal: (x) abNormal _constipation history
Genitourinary: (x) Normal _
Musculoskeletal: Right-sided rib pain, right flank, back, ambulatory dysfunction
Integumentary: (x) Normal _
Neurologic: (x) Parkinson disease
Psychiatric: (x) Normal _
Endocrine: (x) Normal _
Hematologic/Lymphatic: (x) Normal _
Allergic/Immunologic: (x) Normal _
Medications:
Active Current Visit Medication List
Category Date Time Status
Acetaminophen [Tylenol] Med 07/25/23 08:00 Active
1,000 mg PO TID
Albuterol [ProAIR HFA INHALER] Med 07/25/23 08:00 Active
1 puff INH R DAILY
Albuterol [ProAIR HFA INHALER] Med 07/24/23 23:26 Active
1 puff INH R Q4HPRN PRN
Aspirin Chewable [Low Strength Aspirin] Med 07/28/23 08:00 Active
81 mg PO DAILY
Atorvastatin [Lipitor] Med 07/25/23 22:00 Active
80 mg PO HS
Duloxetine Delayed Release [Cymbalta Delayed Release] Med 07/25/23 14:00 Active
60 mg PO DAILY@1400
Finasteride [Proscar] Med 07/25/23 08:00 Active
5 mg PO DAILY
Fludrocortisone Acetate [Florinef] Med 07/25/23 08:00 Active
0.1 mg PO DAILY
Flush (0.9% Sodium Chloride) [Flush (Nss)] Med 07/24/23 23:00 Active
See Dose Instructions IV PER PROTOCOL
Lidocaine [Lidocaine 4% Patch] Med 07/25/23 08:00 Active
1 patch TOPICAL DAILY
Melatonin Med 07/25/23 22:00 Active
10 mg PO HS
NIFEdipine EXTENDED RELEASE [Procardia Xl (Extended Med 07/27/23 08:00 Active
Release)]
60 mg PO DAILY
Nonf Med 07/25/23 08:00 Active
1 inh INH R DAILY
Pantoprazole [Protonix] Med 07/25/23 08:00 Active
40 mg PO DAILY
Remove Patch [Remove Lidocaine Patch] Med 07/25/23 20:00 Active
1 patch REMOVE DAILY@1999
Sennosides [Senokot] Med 07/25/23 22:00 Active
17.2 mg PO HS
carbidopa-levodopa [Rytary] Med 07/25/23 08:00 Active
0 cap PO TID
carbidopa-levodopa [Rytary] Med 07/25/23 08:00 Active
1 cap PO TID
mirabegron [Myrbetriq] Med 07/25/23 22:00 Active
50 mg PO HS
Vitals:
Temp Pulse Resp BP Pulse Ox
98.5 F 74 14 154/105 92
07/28/23 07:00 07/28/23 08:12 07/28/23 07:46 07/28/23 08:12 07/28/23 07:46
Height 6 ft
Actual Weight 79.56 kg
Body Mass Index (BMI) 23.8
Physical Exam:
General Appearance/Observation: Well-developed, well-nourished male in no apparent distress. Mild tremor.
Pain/Comfort Assessment: Right-sided rib pain, flank to back
Mood/Affect: Anxious
Integumentary/Operative Site:
�� Pressure Ulcer Evaluation: absent over heels.
Eyes: Conjunctiva/Lids: normal ��� Pupils: pupils equal round
Ears/Nose/Throat: oral mucosa moist,� throat-not fully visualized������������ Lips/Teeth/Gums: unable to fully visualize
Neck: muscle tightness
Cardiovascular: Heart: regular, no murmur
Pulses: dorsalis pedis 2+ bilaterally
Respiratory: Respiratory Effort/Chest Expansion: diminished ������ Auscultation: grossly clear to auscultation bilaterally
Gastrointestinal: abdomen not tender, no distension, normal abdominal bowel sounds
Genitourinary: No [place]. Adult brief
Extremities: Edema: None Cyanosis: None Trophic changes: None
Neurology Exam:
Orientation: Alert, oriented to self. Not oriented to Time, except Place-said [place]
Memory: Able to recall some info. Impaired. Mumbling
Higher cortical function
Repetition:unable to assess
Comprehension:unable to assess
Two step command: impaired
Cranial Nerves: Limited with cognition and command following.
� CNII: Pupillary light reflex: Intact��� Visual Field: unable to assess
�� CN III, IV, : Extraocular muscles:
�� � CN V:�Facial Sensation�at�Forehead: Intact,�Maxilla: Intact,�Mandible: Intact
�� CN VII: Facial movement: Decreased facial movement bilaterally
�� CN VIII: Hearing: impaired
�� CN IX/X: Speech & swallow: Low volume, dysarthric. Position of Uvula: not able to visualize
�� CN XI: Shoulder shrug: symmetric
�� CN XII: Tongue protrusion:
Sensory:
�� Light touch: Intact in bilateral upper and lower extremities
��
Reflexes:
�� Biceps: 3+ bilaterally
�� Brachioradialis: 3+ bilaterally
�� Triceps: 3+ bilaterally
�� Patellar: 2+ bilaterally
�� Achilles: 2+ bilaterally
�� Babinski: Down going bilaterally
�� Clonus: None
�� Gopi: Negative bilaterally- moderate tremor of hands
Cerebellar: Dysmetria/Ataxia: deferred
Musculoskeletal:
�Motor: (Manual muscle scale 0-5)
� � �
Muscle� � ���� ���SA�� � ���EF� � ���� ���WE� � ���� ���EE� � ���� ���FF� � ���� ���FA� � ���� ���HF� � ���� ���KE� � ���� ���DF� � ���� ���EHL� � ���� ���PF�� �
� � ��Right� ���� � ���4� �5� �� �5� �5� �� 3� �5� �5� �� �5
� � ��Left�� � ��4� �5� � �5� �5� �� �3+ �5� �5� �� �5
� � ���� ����� ����� ����� ����� ����� ����� ����� ����� ����� ����� ����� �
Tone: Increased tone in upper extremities more than lower.
Range of Motion: Passively within normal limits in lower extremities
Lab Results
Labs
WBC 7.4 10^3/uL (4.8-10.8) 07/28/23 08:36
RBC 4.49 10^6/uL (4.70-6.10) L 07/28/23 08:36
Hgb 14.3 g/dL (13.0-18.0) 07/28/23 08:36
Hct 40.0 % (39.0-52.0) 07/28/23 08:36
MCV 89.1 fL (80.0-94.0) 07/28/23 08:36
MCH 31.8 pg (27.0-31.0) H 07/28/23 08:36
MCHC 35.8 g/dL (33.0-37.0) 07/28/23 08:36
RDW 13.0 % (11.5-14.5) 07/28/23 08:36
Plt Count 173 10^3/uL (130-400) 07/28/23 08:36
MPV 10.6 fL (7.4-10.4) H 07/28/23 08:36
Abs Immat Gran (auto) 0.0 10^3/uL (0-0.05) 07/28/23 08:36
Absolute Neuts (auto) 5.6 10^3/uL (1.4-6.5) 07/28/23 08:36
Absolute Lymphs (auto) 1.0 10^3/uL (1.2-3.4) L 07/28/23 08:36
Absolute Monos (auto) 0.7 10^3/uL (0.1-0.6) H 07/28/23 08:36
Absolute Eos (auto) 0.0 10^3/uL (0-0.7) 07/28/23 08:36
Absolute Basos (auto) 0.0 10^3/uL (0-0.2) 07/28/23 08:36
Immature Gran % 0.5 % (0-0.5) 07/28/23 08:36
Neutrophils % 76.7 % (42.2-75.2) H 07/28/23 08:36
Lymphocytes % 13.2 % (20.5-51.1) L 07/28/23 08:36
Monocytes % 9.5 % (1.7-9.3) H 07/28/23 08:36
Eosinophils % 0.0 % (0-6) 07/28/23 08:36
Basophils % 0.1 % (0-2) 07/28/23 08:36
Nucleated RBC % 0 % (-) 07/28/23 08:36
Sodium 136 mmol/L (135-145) 07/28/23 08:36
Potassium 3.8 mmol/L (3.5-5.1) 07/28/23 08:36
Chloride 107 mmol/L (98-107) 07/28/23 08:36
Carbon Dioxide 23 mmol/L (22-30) 07/28/23 08:36
BUN 18 mg/dl (9-20) 07/28/23 08:36
Creatinine 0.8 mg/dL (0.7-1.3) 07/28/23 08:36
Estimated Creat Clear 86 ml/min 07/28/23 08:36
eGFR > 60.00 07/28/23 08:36
Glucose 109 mg/dl (70-99) H 07/28/23 08:36
Calcium 9.3 mg/dl (8.4-10.2) 07/28/23 08:36
Urine Color Yellow 07/24/23 21:04
Urine Clarity Clear (Clear) 07/24/23 21:04
Urine pH 6.0 (5.0-9.0) 07/24/23 21:04
Ur Specific [place] 1.020 (<1.030) 07/24/23 21:04
Urine Ketones Negative (Negative) 07/24/23 21:04
Ur Occult Blood Reflex Negative (Negative) 07/24/23 21:04
Urine Nitrite (Reflex) Negative (Negative) 07/24/23 21:04
Urine Bilirubin Negative (Negative) 07/24/23 21:04
Urine Urobilinogen Negative (Neg - 1+) 07/24/23 21:04
Leukocyte Esterase Rfl Negative (Negative) 07/24/23 21:04
Urine Glucose Negative (Negative) 07/24/23 21:04
Urine Albumin (Reflex) Negative (Neg - Trace) 07/24/23 21:04
�
Diagnostic Results: as per HPI
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 Presented to ED on 07/24/[address] scan negative. Xrays shows nondisplaced fractures of posterior lateral right fifth and sixth ribs. Patient with ambulatory dysfunction and metabolic encephalopathy/delirium
Plan
PT/OT to increase independence with ADLs, improve balance, coordination, endurance, strength, mobility, community reintegration, decreased burden of care on others and family education.
Parkinson disease with chronic gait dysfunction- seems advanced with cognitive impairment. Continue carbidopa�levodopa
-Increased tone:� Adjust medications as needed.� Continue range of motion exercises and stretching program.�
Rib Fractures: of 5th and 6th ribs. PT/OT, pain control
Cognitive impairment/delirium- psych follow up needed- Medication adjustments
Hypophonia with dysarthria: Speech
Falls: Likely multifactorial. Parkinson's disease: Medications adjustments as needed. Use cane, rolling waker
HTN: nifedipine dose was decreased to 30mg qd due to low blood pressure, monitor closely
Orthostatic hypotension- fludrocortisone. Patient allergic to Midodrine?-hallucinations. Adjust medication as needed. Consider compression stocking. monitor BMP
HLD: Statin
Coronary artery disease : Aspirin, statin, beta-gurpreet
Paroxysmal atrial fibrillation:�Eliquis d/isabelle per cardiology and replaced with aspirin. Rate control medications.������������������������������������������
BPH:�Continue finasteride / tamsulosin.
COPD: Continue nebulizer treatments as needed.�
Iron deficiency anemia: Likely multifactorial.� Ferrous sulfate and monitor.
Psych: depression. Psychology consult � Duloxetine. monitor mood.
Skin: monitor for pressure sores/rashes/lesions.
Pain: acetaminophen, Lidoderm patch, Bengay as needed. Does not tolerate opioids well.
Chronic Constipation: Colace and Senna, PRN bisacodyl.
Bladder: Time void, PVRs, PRN straight cath. Mybetriq
GI Prophylaxis: Pantoprazole
DVT Prophylaxis: Mechanical and aspirin
Pulmonary: Incentive spirometry
Safety: Continue to reinforce assistance with all transfers.
Code Status:� Full code
Dispo (date/plan/equipment needs): Home with family care.� Social history reviewed.
Functional and Medical Goals: Modified Independent with ADL�s, ambulation, transfers
Discharge Destination: Would recommend acute inpatient rehabilitation once medically stable and cognitively stable. Would appreciate Psych follow up.
Attending Statement:
I saw and examined the patient today.� Reviewed care plan with patient, therapy, nursing, and physician pet care assistant.� I agree with the above subjective and physical exam, and plan as documented.
Summary of recommendations:
- Discharge Destination: Acute inpatient rehabilitation for PT/OT to increase independence with ADLs back to his baseline, improve balance, coordination, endurance, strength, mobility, community reintegration, decreased burden of care on others and
family education.
Ambulatory Dysfunction/Fractures of 5th and 6th ribs. Would benefit from PT/OT
Cognitive Impairment/delirium- psych follow up needed- Medication adjustments as needed. Recommending repeating U/A to r/o UTI as potential cause for mental status change.
Spasticity:� Adjust medications as needed.� Continue range of motion exercises and stretching program.�
Parkinson disease with chronic gait dysfunction- seems advanced with cognitive impairment. Continue carbidopa�levodopa
Falls: Likely multifactorial. Parkinson's disease: Medications adjustments as needed. Use cane, rolling waker
HTN: nifedipine dose was decreased to 60mg qd due to low blood pressure, monitor closely
Orthostatic hypotension- Continue fludrocortisone. Patient allergic to Midodrine-hallucinations. Adjust medication as needed. Consider compression stocking. monitor BMP
Pain: acetaminophen, Lidoderm patch, Bengay as needed. Does not tolerate opioids well.
Bowel: Colace and Senna, PRN bisacodyl.
Bladder: Time void, PVRs, PRN straight cath.
GI Prophylaxis: Pantoprazole
DVT Prophylaxis: Mechanical
Pulmonary: Incentive spirometry
Paroxysmal atrial fibrillation:� Eliquis stopped per cardiology recommendation and replaced with aspirin due to risk of fall and bleeding. medications.��������������������
Thank you for allowing me to care for your patient. Please contact me with any questions or concerns.
This note was dictated using a voice recognition system. Please excuse any typographical errors from livestock agent. If you believe there are any discrepancies, please notify our office.
[2023-07-27] MEDS: KCL 40 MEQ PO (14:38)
[2023-07-27] MEDS: CYMBALTA DELAYED RELEASE 60 MG PO (14:38)
--- NOTE | 2023-07-27 15:30 | CS.PSYCHR ---
Consult Summary - Psychiatry
-
Pt is a 77 yo male with history of Parkinson's, dementia, who presented after loss of balance and falling on right side. Pt found to have nondisplaced right rib fractures. Psychiatry asked to see due to delirium. Pt reportedly cannot tolerate
benzo's/Ativan or opioids.
Pt seen resting/ lying across bed, holding his hand up to the side of face/ear and talking into it as if it were a phone. Pt alert, fairly cooperative, calm, oriented to self and [place] only. No overt hallucinations, no agitation or aggression.
Psych hx: none noted other than previous consult for delirium 2020, possible hx of depression- Rx'd Cymbalta 60 mg QD
PMH: CAD S/P CABG 2020 with post-op delirium, COPD, GERD, HLD, KASSANDRA, Parkinson's dz
Neurology eval at 2021- cognitive impairment with some hallucinations, sx typical of Parkinson's dz
SH: unable to obtain
MSE: Pt calm, alert, oriented to self and [place], not to situation. Pt unable to give any history. No overt signs of psychosis
Imp: Dementia in setting of Parkinson's disease
R/o superimposed delirium, although pt is alert, sensorium appears mostly intact
Rec: If pt develops agitation, would consider lowest dose of Seroquel- 12.5 to 25 mg as needed, given dx of Parkinson's dz
Will follow
[2023-07-27 15:45] VITALS: BP 130/82
--- NOTE | 2023-07-27 16:19 | CM ---
Chart reviewed.
Family requesting [facility]/snf
For PM&R consult
Jacek at [facility] following
security services manager will follow for d/c needs
--- NOTE | 2023-07-27 20:51 | PTCARENOTE ---
At beginning of shift, pt's at bedside and voicing her concerns of pt's declining mental state. at that times, pt aaox3, ate dinner with . Pt's family left at approx 1999. During 2099 rounds, this RN and PCT attempted to change pt, where he
became agitated and combative. Pt stating that he is 'going to neri this place to the ground,' calling staff profanities. Attempted to explain, educate and assess pt's orientation, pt refused and replied 'why don't you leave me the hell alone.'
Bed alarm remains active.
[2023-07-27] MEDS: MELATONIN 10 MG PO (22:58)
[2023-07-27] MEDS: LIPITOR PO (23:04)
[2023-07-27] MEDS: NON-FORMULARY ITEM PO (23:05)
[2023-07-27] MEDS: SENOKOT PO (23:05)
--- NOTE | 2023-07-28 00:10 | PTCARENOTE ---
Assumed care of Pt. assessment unchanged. Pt cooperative but confused. condom cath replaced. pt changed and repositioned. Pt ripped off condom cath and threw it on the floor. Pt has attends in place, c/d/i.
[2023-07-28 07:00] VITALS: BP 154/105
[2023-07-28] MEDS: ProAIR HFA INHALER 1 PUFF INH (07:43)
[2023-07-28] MEDS: NON-FORMULARY ITEM 1 INH INH (07:43)
[2023-07-28] MEDS: PROTONIX 40 MG PO (08:12)
[2023-07-28] MEDS: TYLENOL 1000 MG PO ×3 (08:12→21:56)
[2023-07-28] MEDS: PROCARDIA XL (EXTENDED RELEASE) 60 MG PO (08:12)
[2023-07-28] MEDS: FLORINEF 0.100000000000000006 MG PO (08:13)
[2023-07-28] MEDS: PROSCAR 5 MG PO (08:13)
[2023-07-28] MEDS: LOW STRENGTH ASPIRIN 81 MG PO (08:13)
[2023-07-28] MEDS: NON-FORMULARY ITEM 1 CAP PO ×6 (08:14→21:59)
[2023-07-28] MEDS: LIDOCAINE 4% PATCH 1 PATCH TOPICAL (08:15)
--- NOTE | 2023-07-28 08:47 | W.PN.HOSP.TC ---
Today's Communication/Plan
-
rehab eval
Assessment / Plan
Assessment / Plan
Physical Exam
General: Chronically ill looking. No Apparent Distress
HEENT: Normocephalic, Moist mucous membranes and Atraumatic
Respiratory: limited, no wheezes.
Cardiac: S1/S2 and Regular Rhythm; No Murmur or Rub
GI: Soft, Non Tender, Non Distended.
Rectal: No rectal bleeding.
Musculoskeletal: No Edema
Skin: No Rash
Neuro: Alert and disoriented, he followed simple commands. + Increased rigidity noted on exam c/w his illness.
Psych: Calm
A/P:
Metabolic encephalopathy/delirium--> appreciated psych consult, can use low-dose Seroquel if agitation develops. CT of the head unremarkable. Updated significant other, Jeanie. Awaiting for rehab evaluation.
Ribs pain--> continue Tylenol and Lidoderm patch; pain appears controlled
Frequent falls/ ambulatory dysfunction--> PT OT recommends skilled rehab, rehab eval pending, if not acute rehab then likely will need subacute rehab. CM on board.
Parkinson's disease--> continue carbidopa levodopa home doses, PT eval.
Orthostatic hypotension-->cut back on his Nifedipine from 60 BID to once a day, cont fludrocortisone, monitor orthostatic
CAD-->no chest pain, restarted ASA
Hypokalemia--> improved
COPD and atelectasis--> stable, continue home inhalers
HLD--> cont statin
HTN--> cont nifedipine continued but adjusted doses due to orthostasis
GERD--> cont PPI
�
Paroxysmal A Fib--> discussed with hookman yesterday (Dr. Montez) and recommend to discontinue Eliquis and replace with aspirin given risk of falls and bleeding
Depression--> cont duloxetine
Iron def anemia--> cont ferrous sulfate
BPH-->stable, continue finasteride / tamsulosin.
DVT Prophylaxis--> SCD
Code Status-->Full
Anticipated Discharge: 24 - 48 hours
Subjective/Interval History
-
Date of Service: July 28, 2023
Patient alert but pleasantly disoriented.
Objective Data
-
Labs:
Laboratory Results
07/28/23
08:36
WBC Pending
Hgb Pending
Hct Pending
Plt Count Pending
Sodium Pending
Potassium Pending
Chloride Pending
Carbon Dioxide Pending
BUN Pending
Creatinine Pending
Glucose Pending
Calcium Pending
Vital Signs:
Vital Signs
Temp Pulse Resp BP Pulse Ox
98.5 F 74 14 154/105 92
07/28/23 07:00 07/28/23 08:12 07/28/23 07:46 07/28/23 08:12 07/28/23 07:46
I&O
07/27/23 07/28/23 07/29/23
06:59 06:59 06:59
Intake Total 120 / 120 440 / 440
Output Total 650 / 650 1050 / 1050
Balance -530 / -530 -610 / -610
Review of Systems
-
Unable to obtain full review of systems at this time due to: Dementia
[2023-07-28 09:03] LABS: % Basophils 0.1 % (0-2); % Immature Granulocytes 0.5 % (0-0.5); % Lymphocytes 13.2 % (20.5-51.1); % Monocytes 9.5 % (1.7-9.3); % Neutrophils 76.7 % (42.2-75.2); Absolute Monocytes 0.7 10^3/uL (0.1-0.6); Absolute Neutrophils 5.6 10^3/uL (1.4-6.5); Hemoglobin 14.3 g/dL (13.0-18.0); Mean Corp Hgb Conc. 35.8 g/dL (33.0-37.0); Mean Corpuscular Hgb 31.8 pg (27.0-31.0); Mean Corpuscular Volume 89.1 fL (80.0-94.0); Mean Platelet Volume 10.6 fL (7.4-10.4); Nucleated Red Blood Cells % 0 % (-); Platelet Count 173 10^3/uL (130-400); Red Blood Cell Count 4.49 10^6/uL (4.70-6.10); White Blood Cell Count 7.4 10^3/uL (4.8-10.8)
[2023-07-28 09:10] LABS: Blood Urea Nitrogen 18 mg/dl (9-20); Calcium 9.3 mg/dl (8.4-10.2); Carbon Dioxide 23 mmol/L (22-30); Chloride 107 mmol/L (98-107); Estimated Creatinine Clearance 86 ml/min; Glucose 109 mg/dl (70-99); Potassium 3.8 mmol/L (3.5-5.1); Sodium 136 mmol/L (135-145); eGFR > 60.00
[2023-07-28 11:00] VITALS: BP 152/96
[2023-07-28] MEDS: CYMBALTA DELAYED RELEASE 60 MG PO (15:00)
[2023-07-28 15:36] VITALS: BP 161/118
[2023-07-28 16:00] VITALS: BP 156/98
[2023-07-28] MEDS: LIPITOR 80 MG PO (21:56)
[2023-07-28] MEDS: MELATONIN 10 MG PO (21:56)
[2023-07-28] MEDS: NON-FORMULARY ITEM 50 MG PO (21:58)
[2023-07-28] MEDS: SENOKOT PO (22:45)
[2023-07-28 23:20] VITALS: BP 157/80
[2023-07-29 07:00] VITALS: BP 148/88
[2023-07-29 07:31] LABS: Blood Urea Nitrogen 22 mg/dl (9-20); Calcium 9.5 mg/dl (8.4-10.2); Carbon Dioxide 20 mmol/L (22-30); Chloride 105 mmol/L (98-107); Estimated Creatinine Clearance 99 ml/min; Glucose 100 mg/dl (70-99); Potassium 3.8 mmol/L (3.5-5.1); Sodium 137 mmol/L (135-145); eGFR > 60.00
[2023-07-29] MEDS: ProAIR HFA INHALER 1 PUFF INH (07:36)
[2023-07-29] MEDS: NON-FORMULARY ITEM 1 INH INH (07:36)
[2023-07-29] MEDS: TYLENOL 1000 MG PO ×3 (08:08→21:52)
[2023-07-29] MEDS: PROCARDIA XL (EXTENDED RELEASE) 60 MG PO (08:08)
[2023-07-29] MEDS: PROSCAR 5 MG PO (08:08)
[2023-07-29] MEDS: PROTONIX 40 MG PO (08:09)
[2023-07-29] MEDS: LOW STRENGTH ASPIRIN 81 MG PO (08:09)
[2023-07-29] MEDS: FLORINEF 0.100000000000000006 MG PO (08:09)
[2023-07-29] MEDS: NON-FORMULARY ITEM 1 CAP PO ×6 (08:09→21:53)
[2023-07-29] MEDS: LIDOCAINE 4% PATCH TOPICAL ×2 (08:09→08:15)
[2023-07-29 11:00] VITALS: BP 134/87; BP 144/77; PULSE 59; PULSE 62
--- NOTE | 2023-07-29 11:27 | W.PN.UPDATE ---
Update Note
Progress Note Update
patient seen chart reviewed. discussed w nursing. the patient today is calm although he has had periods of agitation . he was almost sleeping but woke when i spoke to him although did not speak. he remains confused. he seemed uncomfortable in bed
(legs were hanging off and body was at an angle). he was cooperative with community organization aide and this proposal manager writer repositioning him although he offered little in the way of communication. he is taking cymbalta for depression. dr romo suggested seroquel if
he needs something for agitation which given PD is a reasonable choice. psych will sign off. please call us if you need us to return.
--- NOTE | 2023-07-29 12:25 | W.PN.HOSP.TC ---
Today's Communication/Plan
-
Continue current care
Assessment / Plan
Assessment / Plan
Gen-awake, alert, NAD
HEENT-NC, AT, anicteric, clear oral mm
Neck-supple
CV-reg, no M, +S1/S2
Lungs-clear B/L
Abd-soft, NT, ND
Ext-no edema
Musculoskeletal-no cyanosis, clubbing
Skin-warm and dry
Neuro-grossly non-focal
Psych-calm, cooperative
Acute metabolic encephalopathy/delirium--> appreciated psych consult, can use low-dose Seroquel if agitation develops. CT of the head unremarkable. Updated significant other, Jeanie. Awaiting for rehab evaluation.
Acute nondisplaced traumatic rib fractures - continue Tylenol and Lidoderm patch; pain appears controlled. X-ray confirms nondisplaced fractures of the posterior lateral right fifth and sixth ribs. No pneumothorax. Suspect rib fractures due to
fall prior to admission.
Frequent falls/ ambulatory dysfunction--> PT OT recommends skilled rehab, rehab eval pending, if not acute rehab then likely will need subacute rehab. CM on board.
Parkinson's disease--> continue carbidopa levodopa home doses, PT eval.
Orthostatic hypotension-->cut back on his Nifedipine from 60 BID to once a day, cont fludrocortisone, monitor orthostatic
CAD-->no chest pain, restarted ASA
Hypokalemia--> improved
COPD and atelectasis--> stable, continue home inhalers
HLD--> cont statin
Essential HTN--> cont nifedipine continued but adjusted doses due to orthostasis
GERD--> cont PPI
�
Paroxysmal A Fib--> discussed with field artillery senior sergeant yesterday (Dr. Montez) and recommend to discontinue Eliquis and replace with aspirin given risk of falls and bleeding
Depression--> cont duloxetine
Iron def anemia--> cont ferrous sulfate
BPH-->stable, continue finasteride / tamsulosin.
DVT Prophylaxis--> SCD
Code Status-->Full
Dispo -will need SNF versus long-term care.
Anticipated Discharge: Within 24 hours
Subjective/Interval History
-
Date of Service: July 29, 2023
Patient seen and examined. Confused, no complaints.
Objective Data
-
Labs:
Laboratory Results
07/29/23
06:09
Sodium 137
Potassium 3.8
Chloride 105
Carbon Dioxide 20 L
BUN 22 H
Creatinine 0.7
Glucose 100 H
Calcium 9.5
Vital Signs:
Vital Signs
Temp Pulse Resp BP Pulse Ox
98.1 F 63 16 148/88 94
07/29/23 07:00 07/29/23 08:08 07/29/23 07:40 07/29/23 08:08 07/29/23 07:40
I&O
07/28/23 07/29/23 07/30/23
06:59 06:59 06:59
Intake Total 440 / 440 120 / 120
Output Total 1050 / 1050
Balance -610 / -610 120 / 120
Review of Systems
-
Unable to obtain full review of systems at this time due to: Dementia
[2023-07-29 12:38] VITALS: BP 129/80; BP 159/90; PULSE 66; O2SAT 93
[2023-07-29 12:39] VITALS: BP 129/80; BP 159/90; PULSE 66; O2SAT 93
--- NOTE | 2023-07-29 14:57 | CM ---
Spoke with attending who stated that patient will most likely need SNF. Made attending aware of obs status. Spoke with PT. Patient becoming increasingly confused. PT stated that patient struggling to participate in PT for the entire duration if at
all and has become increasingly paranoid.
Plan: Case management will continue to follow and assist with discharge planning. Patient is observation status and has Medicare therefore has not received a 3 night stay for SNF.
[2023-07-29 15:00] VITALS: BP 108/70
[2023-07-29] MEDS: CYMBALTA DELAYED RELEASE 60 MG PO (15:30)
[2023-07-29] MEDS: LIPITOR 80 MG PO (21:52)
[2023-07-29] MEDS: SENOKOT 17.1999999999999993 MG PO (21:52)
[2023-07-29] MEDS: MELATONIN 10 MG PO (21:52)
[2023-07-29] MEDS: NON-FORMULARY ITEM 50 MG PO (21:53)
[2023-07-29 23:00] VITALS: BP 122/75
--- NOTE | 2023-07-30 03:11 | W.PN.UPDATE ---
Update Note
Progress Note Update
RN notified patient woke up agitated. stable VS. no other complains. Will give Seroquel 25 mg PO x1 per psych recommendation.
[2023-07-30] MEDS: SEROQUEL 25 MG PO (03:18)
[2023-07-30 07:00] VITALS: BP 152/88
[2023-07-30] MEDS: NON-FORMULARY ITEM 1 INH INH (07:45)
[2023-07-30] MEDS: ProAIR HFA INHALER 1 PUFF INH (07:45)
[2023-07-30] MEDS: NON-FORMULARY ITEM 61.25 CAP PO ×3 (07:49→21:15)
[2023-07-30] MEDS: NON-FORMULARY ITEM 1 CAP PO ×3 (07:49→21:08)
[2023-07-30] MEDS: TYLENOL 1000 MG PO ×3 (07:51→21:09)
[2023-07-30] MEDS: PROSCAR 5 MG PO (07:52)
[2023-07-30] MEDS: PROCARDIA XL (EXTENDED RELEASE) 60 MG PO (07:52)
[2023-07-30] MEDS: FLORINEF 0.100000000000000006 MG PO (07:52)
[2023-07-30] MEDS: PROTONIX 40 MG PO (07:52)
[2023-07-30] MEDS: LOW STRENGTH ASPIRIN 81 MG PO (07:52)
[2023-07-30] MEDS: LIDOCAINE 4% PATCH 1 PATCH TOPICAL (07:53)
--- NOTE | 2023-07-30 09:09 | W.PN.HOSP.TC ---
Addendum entered and electronically signed by Guillermo Nuno DO 07/30/23 14:41:
If there is any potential for improvement in his strength, then SNF is warranted.
Can subsequently transition him to director long term care care afterwards. Discussed with case management.
Addendum entered and electronically signed by Guillermo Nuno DO 07/30/23 11:27:
I updated patient's significant other (Jeanie) on the phone.
I mentioned that unfortunately [facility] does not meet criteria for inpatient and therefore it will be very difficult placing him in rehab.
I believe he would best be served in long-term care such as a memory care unit. I also believe that even if we could get him to SNF his delirium may worsen.
He may need to be transition to hospice as his dementia and Parkinson's progresses over time. This was also mention to his significant other. All questions were answered.
Discussed with case management.
Original Note:
Today's Communication/Plan
-
Discharge planning
Assessment / Plan
Assessment / Plan
Gen-awake, alert, NAD
HEENT-NC, AT, anicteric, clear oral mm
Neck-supple
CV-reg, no M, +S1/S2
Lungs-clear B/L
Abd-soft, NT, ND
Ext-no edema
Musculoskeletal-no cyanosis, clubbing
Skin-warm and dry
Neuro-grossly non-focal
Psych-calm, cooperative
Acute metabolic encephalopathy/delirium--> appreciated psych consult, can use low-dose Seroquel if agitation develops. CT of the head unremarkable.
Acute nondisplaced traumatic rib fractures - continue Tylenol and Lidoderm patch; pain appears controlled. X-ray confirms nondisplaced fractures of the posterior lateral right fifth and sixth ribs. No pneumothorax. Suspect rib fractures due to
fall prior to admission.
Frequent falls/ ambulatory dysfunction--> PT OT recommends skilled rehab.
Parkinson's disease--> continue carbidopa levodopa home doses, PT eval.
Orthostatic hypotension-->cut back on his Nifedipine from 60 BID to once a day, cont fludrocortisone, monitor orthostatic
CAD-->no chest pain, restarted ASA
Hypokalemia--> improved
COPD and atelectasis--> stable, continue home inhalers
HLD--> cont statin
Essential HTN--> cont nifedipine continued but adjusted doses due to orthostasis
GERD--> cont PPI
�
Paroxysmal A Fib--> discussed with fur sorter yesterday (Dr. Montez) and recommend to discontinue Eliquis and replace with aspirin given risk of falls and bleeding
Depression--> cont duloxetine
Iron def anemia--> cont ferrous sulfate
BPH-->stable, continue finasteride / tamsulosin.
DVT Prophylaxis--> SCD
Code Status-->Full
Dispo -ideally needs long-term care such as a memory care unit for his dementia. Case management aware. Medically stable for placement.
Anticipated Discharge: Today
Subjective/Interval History
-
Date of Service: July 30, 2023
Patient seen and examined. No new complaints. Was sleeping when I walked in.
Objective Data
-
Vital Signs:
Vital Signs
Temp Pulse Resp BP Pulse Ox
98.0 F 67 16 152/88 94
07/30/23 07:00 07/30/23 08:01 07/30/23 08:01 07/30/23 07:52 07/30/23 08:01
I&O
07/29/23 07/30/23 07/31/23
06:59 06:59 06:59
Intake Total 120 / 120
Output Total 250 / 250
Balance 120 / 120 -250 / -250
Review of Systems
-
Unable to obtain full review of systems at this time due to: Dementia
History Source: Patient
All other systems: Reviewed and negative
--- NOTE | 2023-07-30 12:00 | CM ---
Addendum entered by Cristy José, [facility] 07/30/23 17:27:
Placed a call to patient's S.O and reviewed that the following faciltiies will take patient on a waiver: , [facility], [facility], [facility], [facility], [facility], [facility], [facility], [email or web address],
[facility], [facility].
Patient's S.O choice in this order 1. [facility] 2. [facility] 3. [place] 4. [facility].
Will fax through [employer]
Addendum entered by Cristy José [facility] 07/30/23 14:53:
Spoke with supervisor carding and [facility] area representative, Perla, who stated that she had just been educated about a waiver in which patient may be eligible which would bypass the 3 night stay obstacle.
Spoke with attending who stated that he is going to right a note stating that patient is appropriate.
Addendum entered by Cristy José, [facility] 07/30/23 14:50:
Spoke with patient's s.o who called back. She was updated that patient is obs status and therefore he won't have coverage for SNF. Patient's s.o was upset as she stated that he really needs rehab.
Original Note:
Spoke with attending who requested that patient's S.O get a call as she had a lot of questions. Placed a call to patient's S.O however a female picked up and stated that she was in the shower. Will return call if no return call has been received.
Plan: Case management will continue to follow and assist with discharge planning. Will discuss plan with S.O for discharge.
[2023-07-30 15:00] VITALS: BP 122/78
[2023-07-30] MEDS: CYMBALTA DELAYED RELEASE 60 MG PO (15:09)
[2023-07-30] MEDS: LIPITOR 80 MG PO (21:09)
[2023-07-30] MEDS: MELATONIN 10 MG PO (21:09)
[2023-07-30] MEDS: NON-FORMULARY ITEM 50 MG PO (21:10)
[2023-07-30] MEDS: SENOKOT 17.1999999999999993 MG PO (21:10)
[2023-07-30 23:00] VITALS: BP 121/69
[2023-07-31] MEDS: TYLENOL 650 MG PO (03:31)
[2023-07-31 07:00] VITALS: BP 146/90
[2023-07-31] MEDS: ProAIR HFA INHALER 1 PUFF INH (07:57)
[2023-07-31] MEDS: FLORINEF 0.100000000000000006 MG PO (07:58)
[2023-07-31] MEDS: PROCARDIA XL (EXTENDED RELEASE) 60 MG PO (07:58)
[2023-07-31] MEDS: TYLENOL 1000 MG PO ×3 (07:58→21:16)
[2023-07-31] MEDS: PROTONIX 40 MG PO (07:58)
[2023-07-31] MEDS: LOW STRENGTH ASPIRIN 81 MG PO (07:58)
[2023-07-31] MEDS: NON-FORMULARY ITEM 1 INH INH (07:58)
[2023-07-31] MEDS: NON-FORMULARY ITEM 1 CAP PO ×6 (07:59→21:18)
[2023-07-31] MEDS: PROSCAR 5 MG PO (07:59)
[2023-07-31] MEDS: LIDOCAINE 4% PATCH 1 PATCH TOPICAL (08:00)
[2023-07-31 10:59] VITALS: BP 144/85; BP 164/91; PULSE 64; PULSE 69
--- NOTE | 2023-07-31 13:34 | W.PN.HOSP.TC ---
Today's Communication/Plan
-
DC to rehab when bed available
Assessment / Plan
Assessment / Plan
Acute metabolic encephalopathy/delirium--> appreciated psych consult, can use low-dose Seroquel if agitation develops. CT of the head unremarkable. Patient calm and cooperative.
Acute nondisplaced traumatic rib fractures - continue Tylenol and Lidoderm patch; pain appears controlled. X-ray confirms nondisplaced fractures of the posterior lateral right fifth and sixth ribs. No pneumothorax. Suspect rib fractures due to
fall prior to admission. Pain adequately controlled.
Frequent falls/ ambulatory dysfunction--> PT OT recommends skilled rehab.
Parkinson's disease--> continue carbidopa levodopa home doses, PT eval.
Orthostatic hypotension-->cut back on his Nifedipine from 60 BID to once a day, cont fludrocortisone, monitor orthostatic
CAD-->no chest pain, restarted ASA
COPD and atelectasis--> stable, continue home inhalers
HLD--> cont statin
Essential HTN--> cont nifedipine continued but adjusted doses due to orthostasis
GERD--> cont PPI
�
Paroxysmal A Fib--> Dr Nuno discussed with director global development (Dr. Montez) and recommend to discontinue Eliquis and replace with aspirin given risk of falls and bleeding
Depression--> cont duloxetine
Iron def anemia--> cont ferrous sulfate
BPH-->stable, continue finasteride / tamsulosin.
DVT Prophylaxis--> SCD
Code Status-->Full
Dispo -ideally needs long-term care such as a memory care unit for his dementia. Case management aware. Medically stable for placement.
Anticipated Discharge: Today
Subjective/Interval History
-
Date of Service: July 31, 2023
Adequate pain control from the right chest wall. No shortness of breath. No fever or chills. No cough.
Objective Data
-
Vital Signs:
Vital Signs
Temp Pulse Resp BP Pulse Ox
97.6 F 63 16 146/90 96
07/31/23 07:00 07/31/23 07:55 07/31/23 07:55 07/31/23 07:00 07/31/23 08:15
I&O
07/30/23 07/31/23 08/01/23
06:59 06:59 06:59
Intake Total 720 / 720
Output Total 250 / 250 550 / 550
Balance -250 / -250 170 / 170
Review of Systems
-
Abdomen/GI: Denies Abdominal Pain, Nausea or Vomiting
Neuro: Denies Dizzy
Physical Exam
-
General: No Apparent Distress
HEENT: Moist Mucous Membranes
Respiratory: Clear to Auscultation and Non Labored Respirations; Negative Accessory Resp Muscle Use
Cardiac: Regular Rhythm and S1/S2; Negative Tachycardic
GI: Soft
Neuro: AO x 3
[2023-07-31] MEDS: CYMBALTA DELAYED RELEASE 60 MG PO (13:44)
[2023-07-31 15:00] VITALS: BP 115/78
--- NOTE | 2023-07-31 15:48 | CM ---
Addendum entered by DAYAMI Rich 07/31/23 16:47:
Will continue to attempt to find a bed.
Addendum entered by BEL RichW 07/31/23 16:44:
Received call from Ebony in admissions at [facility] who stated that she does not have any male beds.
Original Note:
Reviewed chart, [facility] Perla lowery called facilities which are in network with [facility] however was not successful in finding a bed. She placed a call to all facilities in the network however was unsuccessful. Resent referrals. Placed a call to
[facility] and spoke with Dipika who stated that she has no male beds this weekend.
Placed a call to Lynn in admissions at [facility] who stated that she can accept an application and potentially accept patient private pay.
Will keep trying facilities.
Plan: Case management will continue to follow and assist with discharge planning. Hopeful transfer to facility under [facility] waiver.
[2023-07-31 16:27] VITALS: BP 108/70; BP 112/66; PULSE 71; O2SAT 95
[2023-07-31] MEDS: NON-FORMULARY ITEM 50 MG PO (21:14)
[2023-07-31] MEDS: MELATONIN 10 MG PO (21:17)
[2023-07-31] MEDS: SENOKOT 17.1999999999999993 MG PO (21:17)
[2023-07-31] MEDS: LIPITOR 80 MG PO (21:17)
[2023-07-31 23:39] VITALS: BP 124/87; BP 141/90; PULSE 70; PULSE 72
[2023-08-01 08:20] VITALS: BP 157/98
[2023-08-01] MEDS: NON-FORMULARY ITEM 1 INH INH (08:50)
[2023-08-01] MEDS: ProAIR HFA INHALER 1 PUFF INH (08:51)
[2023-08-01] MEDS: TYLENOL 1000 MG PO ×3 (08:56→21:07)
[2023-08-01] MEDS: LOW STRENGTH ASPIRIN 81 MG PO (08:56)
[2023-08-01] MEDS: PROTONIX 40 MG PO (08:56)
[2023-08-01] MEDS: PROCARDIA XL (EXTENDED RELEASE) 60 MG PO (08:56)
[2023-08-01] MEDS: FLORINEF 0.100000000000000006 MG PO (08:57)
[2023-08-01] MEDS: NON-FORMULARY ITEM 1 CAP PO ×6 (08:57→21:03)
[2023-08-01] MEDS: PROSCAR 5 MG PO (08:57)
[2023-08-01] MEDS: LIDOCAINE 4% PATCH 1 PATCH TOPICAL (08:57)
--- NOTE | 2023-08-01 10:00 | W.PN.HOSP.TC ---
Today's Communication/Plan
-
Ongoing disposition efforts
Assessment / Plan
Assessment / Plan
Acute metabolic encephalopathy/delirium--> appreciated psych consult, can use low-dose Seroquel if agitation develops. CT of the head unremarkable. Patient remains calm and cooperative.
Acute nondisplaced traumatic rib fractures - continue Tylenol and Lidoderm patch; pain appears controlled. X-ray confirms nondisplaced fractures of the posterior lateral right fifth and sixth ribs. No pneumothorax. Suspect rib fractures due to
fall prior to admission. Pain adequately controlled.
Frequent falls/ ambulatory dysfunction--> PT OT recommends skilled rehab.
Parkinson's disease--> continue carbidopa levodopa home doses, PT eval.
Orthostatic hypotension-->cut back on his Nifedipine from 60 BID to once a day, cont fludrocortisone, monitor orthostatic
CAD-->no chest pain, restarted ASA
COPD and atelectasis--> stable, continue home inhalers
HLD--> cont statin
Essential HTN--> cont nifedipine continued but adjusted doses due to orthostasis
GERD--> cont PPI
�
Paroxysmal A Fib--> Dr Nuno discussed with barrel rifler hook (Dr. Montez) and recommend to discontinue Eliquis and replace with aspirin given risk of falls and bleeding
Depression--> cont duloxetine
Iron def anemia--> cont ferrous sulfate
BPH-->stable, continue finasteride / tamsulosin.
DVT Prophylaxis--> SCD
Code Status-->Full
Dispo -ideally needs long-term care such as a memory care unit for his dementia. Case management aware. Medically stable for placement.
Await placement
Anticipated Discharge: Today
Subjective/Interval History
-
Date of Service: August 01, 2023
Improved pain from the right ribs. Denies any dizziness with standing.
Objective Data
-
Vital Signs:
Vital Signs
Temp Pulse Resp BP Pulse Ox
98.5 F 69 16 157/98 95
08/01/23 08:20 08/01/23 08:55 08/01/23 08:55 08/01/23 08:20 08/01/23 08:55
I&O
07/31/23 08/01/23 08/02/23
06:59 06:59 06:59
Intake Total 720 / 720 960 / 960
Output Total 550 / 550 100 / 100
Balance 170 / 170 860 / 860
Review of Systems
-
Constitutional: Denies Fever
EENT: Denies Sore Throat
Respiratory: Denies Cough or Trouble Breathing
Cardiac: Denies Chest Pain
Abdomen/GI: Denies Abdominal Pain, Nausea or Vomiting
Physical Exam
-
General: No Apparent Distress
HEENT: Moist Mucous Membranes
Respiratory: Clear to Auscultation
Cardiac: Regular Rhythm and S1/S2
GI: Soft
Neuro: AO x 3
Psych: Calm; Negative Confused
[2023-08-01] MEDS: CYMBALTA DELAYED RELEASE 60 MG PO (13:20)
[2023-08-01 15:07] VITALS: BP 129/73
[2023-08-01 17:39] VITALS: BP 134/76; BP 142/82; PULSE 71; PULSE 80
[2023-08-01] MEDS: SENOKOT 17.1999999999999993 MG PO (21:06)
[2023-08-01] MEDS: LIPITOR 80 MG PO (21:07)
[2023-08-01] MEDS: MELATONIN 10 MG PO (21:07)
[2023-08-01] MEDS: NON-FORMULARY ITEM 50 MG PO (21:08)
[2023-08-01 23:23] VITALS: BP 156/95
[2023-08-01 23:24] VITALS: BP 155/86; BP 156/95; PULSE 72; PULSE 73
[2023-08-02 07:23] VITALS: BP 157/108
[2023-08-02] MEDS: NON-FORMULARY ITEM 1 CAP PO ×6 (07:31→22:00)
[2023-08-02] MEDS: LIDOCAINE 4% PATCH 1 PATCH TOPICAL (07:32)
[2023-08-02] MEDS: PROCARDIA XL (EXTENDED RELEASE) 60 MG PO (07:33)
[2023-08-02] MEDS: PROSCAR 5 MG PO (07:34)
[2023-08-02] MEDS: FLORINEF 0.100000000000000006 MG PO (07:34)
[2023-08-02] MEDS: PROTONIX 40 MG PO (07:34)
[2023-08-02] MEDS: LOW STRENGTH ASPIRIN 81 MG PO (07:34)
[2023-08-02] MEDS: TYLENOL 1000 MG PO ×3 (07:34→21:59)
[2023-08-02] MEDS: NON-FORMULARY ITEM 1 INH INH (08:57)
[2023-08-02] MEDS: ProAIR HFA INHALER 1 PUFF INH (08:57)
[2023-08-02 10:31] VITALS: BMI 23.8
--- NOTE | 2023-08-02 11:49 | W.PN.HOSP.TC ---
Today's Communication/Plan
-
Ongoing dispo efforts
Assessment / Plan
Assessment / Plan
Acute metabolic encephalopathy/delirium--> appreciated psych consult, can use low-dose Seroquel if agitation develops. CT of the head unremarkable. Patient remains calm and cooperative.
Acute nondisplaced traumatic rib fractures - continue Tylenol and Lidoderm patch; pain appears controlled. X-ray confirms nondisplaced fractures of the posterior lateral right fifth and sixth ribs. No pneumothorax. Suspect rib fractures due to
fall prior to admission. Pain adequately controlled.
Frequent falls/ ambulatory dysfunction--> PT OT recommends skilled rehab.
Parkinson's disease--> continue carbidopa levodopa home doses, PT eval.
Orthostatic hypotension-->cut back on his Nifedipine from 60 BID to once a day, cont fludrocortisone, monitor orthostatic
CAD-->no chest pain, restarted ASA
COPD and atelectasis--> stable, continue home inhalers
HLD--> cont statin
Essential HTN--> cont nifedipine continued but adjusted doses due to orthostasis
GERD--> cont PPI
�
Paroxysmal A Fib--> Dr Nuno discussed with bonding molder (Dr. Montez) and recommend to discontinue Eliquis and replace with aspirin given risk of falls and bleeding
Depression--> cont duloxetine
Iron def anemia--> cont ferrous sulfate
BPH-->stable, continue finasteride / tamsulosin.
DVT Prophylaxis--> SCD
Code Status-->Full
Dispo - Medically stable for DC
Await placement
Anticipated Discharge: Within 24 hours
Subjective/Interval History
-
Date of Service: August 02, 2023
Pain okay from chest wall.
Is questioning whether he really needs to go to rehab. Advised him that we will have to follow with the PT today.
No shortness of breath.
Objective Data
-
Vital Signs:
Vital Signs
Temp Pulse Resp BP Pulse Ox
98.1 F 95 16 157/108 95
08/02/23 07:23 08/02/23 08:59 08/02/23 08:59 08/02/23 07:33 08/02/23 08:59
I&O
08/01/23 08/02/23 08/03/23
06:59 06:59 06:59
Intake Total 960 / 960 340 / 340
Output Total 100 / 100 350 / 350
Balance 860 / 860 -10 / -10
Review of Systems
-
Constitutional: Denies Fever
EENT: Denies Sore Throat
Respiratory: Denies Cough or Trouble Breathing
Abdomen/GI: Denies Abdominal Pain, Nausea or Vomiting
Neuro: Denies Dizzy
Physical Exam
-
General: No Apparent Distress
HEENT: Moist Mucous Membranes
Respiratory: Clear to Auscultation
Cardiac: Regular Rhythm and S1/S2
Neuro: AO x 3
Psych: Calm
[2023-08-02 12:44] VITALS: BP 118/80; PULSE 72; O2SAT 95
[2023-08-02] MEDS: CYMBALTA DELAYED RELEASE 60 MG PO (13:57)
[2023-08-02 15:03] VITALS: BP 127/86
[2023-08-02] MEDS: SENOKOT 17.1999999999999993 MG PO (21:59)
[2023-08-02] MEDS: LIPITOR 80 MG PO (21:59)
[2023-08-02] MEDS: MELATONIN 10 MG PO (21:59)
[2023-08-02] MEDS: NON-FORMULARY ITEM 50 MG PO (22:00)
[2023-08-02 23:14] VITALS: BP 159/78
[2023-08-03 05:26] VITALS: BMI 23.8
[2023-08-03 07:00] VITALS: BP 130/83
[2023-08-03] MEDS: TYLENOL 1000 MG PO ×2 (08:41→15:32)
[2023-08-03] MEDS: LOW STRENGTH ASPIRIN 81 MG PO (08:41)
[2023-08-03] MEDS: PROTONIX 40 MG PO (08:41)
[2023-08-03] MEDS: FLORINEF 0.100000000000000006 MG PO (08:41)
[2023-08-03] MEDS: PROCARDIA XL (EXTENDED RELEASE) 60 MG PO (08:41)
[2023-08-03] MEDS: NON-FORMULARY ITEM 1 CAP PO ×2 (08:42→15:33)
[2023-08-03] MEDS: NON-FORMULARY ITEM 61.25 CAP PO ×2 (08:42→15:32)
[2023-08-03] MEDS: PROSCAR 5 MG PO (08:42)
[2023-08-03] MEDS: LIDOCAINE 4% PATCH 1 PATCH TOPICAL (08:43)
[2023-08-03] MEDS: ProAIR HFA INHALER 1 PUFF INH (08:59)
[2023-08-03] MEDS: NON-FORMULARY ITEM 1 INH INH (08:59)
--- NOTE | 2023-08-03 10:31 | CM ---
Addendum entered by Cristy José [facility] 08/03/23 16:06:
Did not receive return call back from Allyson in admissions at . [place] back from Lona from [facility] who stated that she received authorization through the [facility] waiver for [facility].
Placed a call to [facility] and spoke with Dariana in admissions who confirmed acceptance. # For report [phone] and fax#[phone].
Placed a call to patient's S.O who stated that she is agreeable to [facility] as it is the only accepting facility thus far and patient is medically cleared.
Imm reviewed and on chart.
Medical necessity and transfer sheet provided to [employer].
Addendum entered by Cristy José [facility] 08/03/23 14:21:
Have not as of yet heard back from Allyson in admissions at . Received a return text from Lona from [facility] who stated that she received authorization for patient to go to [facility]. She requested that the Demographic sheet be faxed
along with Dr. Latif's note. Faxed all requested items to: [phone]. Faxed all information.
Addendum entered by Cristy José [facility] 08/03/23 12:33:
Placed a call to patient's S.O to update about acceptance at [facility]. She stated that as is under new ownership, she would like for them to be faxed a referral as well.
Placed a call to and spoke with Allyson in admissions who stated that referral should be sent and then she will review and render determination regarding acceptance.
Referral sent.
Will await determination.
Addendum entered by Cristy José [facility] 08/03/23 11:04:
Dariana called CM back and confirmed acceptance for patient. TT Lona [facility] who stated that the attending will need to write a note indicating that patient needs rehab and detail why. TT Dr. Latif to ask if he would write note so that
patient can have authorization under the [facility] waiver program. Awaiting confirmation.
Original Note:
Reviewed chart, [facility], sent message through [employer] that they may be able to take patient. Placed a call to Dariana in admissions who answered and stated that she will confirm with her staff. Advised her that patient is medically
stable and can be cleared for discharge per attending upon finding an accepting facility. She stated that she would return call.
Plan: Case management will continue to follow and assist with discharge planning/hopeful acceptance at [facility].
[2023-08-03 12:08] VITALS: BP 126/77
--- NOTE | 2023-08-03 12:41 | W.PN.HOSP.TC ---
Today's Communication/Plan
-
DC to rehab
Assessment / Plan
Assessment / Plan
Acute metabolic encephalopathy/delirium--> appreciated psych consult, can use low-dose Seroquel if agitation develops. CT of the head unremarkable. Patient remains calm and cooperative.
Acute nondisplaced traumatic rib fractures - continue Tylenol and Lidoderm patch; pain appears controlled. X-ray confirms nondisplaced fractures of the posterior lateral right fifth and sixth ribs. No pneumothorax. Suspect rib fractures due to
fall prior to admission. Pain adequately controlled.
Frequent falls/ ambulatory dysfunction--> PT OT continues to recommend skilled rehab.
Parkinson's disease--> continue carbidopa levodopa home doses, PT eval.
Orthostatic hypotension-->cut back on his Nifedipine from 60 BID to once a day, cont fludrocortisone, monitor orthostatic
CAD-->no chest pain, restarted ASA
COPD and atelectasis--> stable, continue home inhalers
HLD--> cont statin
Essential HTN--> cont nifedipine continued but adjusted doses due to orthostasis
GERD--> cont PPI
�
Paroxysmal A Fib--> Dr Nuno discussed with upholsterer limousine and hearse (Dr. Montez) and recommend to discontinue Eliquis and replace with aspirin given risk of falls and bleeding
Depression--> cont duloxetine
Iron def anemia--> cont ferrous sulfate
BPH-->stable, continue finasteride / tamsulosin.
DVT Prophylaxis--> SCD
Code Status-->Full
Dispo - Medically stable for DC
DW CM today
DC to rehab
More than 30 minutes spent in discharge including
Final examination of the patient
Summarizing hospital stay
Instructions for continuing care to all relevant caregivers
Preparation of discharge records, prescriptions, and referral forms
Total time spent (in minutes): 32
Anticipated Discharge: Today
Subjective/Interval History
-
Date of Service: August 03, 2023
He is voicing no specific complaints. Denies any chest pain or shortness of breath. No nausea vomiting.
He thought he was in a rehab already. Was easily able to direct him.
Denies RAYO .
Objective Data
-
Vital Signs:
Vital Signs
Temp Pulse Resp BP Pulse Ox
97.4 F 74 16 130/83 93
08/03/23 07:00 08/03/23 09:02 08/03/23 09:02 08/03/23 08:41 08/03/23 09:28
I&O
08/02/23 08/03/23 08/04/23
06:59 06:59 06:59
Intake Total 340 / 340 720 / 720
Output Total 350 / 350
Balance -10 / -10 720 / 720
Review of Systems
-
Constitutional: Denies Fever or Chills
EENT: Denies Sore Throat
Respiratory: Denies Cough or Trouble Breathing
Cardiac: Denies Chest Pain
Abdomen/GI: Denies Abdominal Pain, Nausea or Vomiting
Neuro: Denies Dizzy
Physical Exam
-
General: No Apparent Distress
HEENT: Moist Mucous Membranes
Respiratory: Clear to Auscultation
Cardiac: Regular Rhythm and S1/S2; Negative Tachycardic
GI: Soft and Nontender
Neuro: Awake, Alert, Oriented (self and person ) and No Motor Deficits
Psych: Calm; Negative Agitated
--- NOTE | 2023-08-03 12:48 | W.DS.TRANS ---
DC Summary - Pit Manager
-
Discharge Instructions:
Sleep Apnea Risk Intermediate
Discharge Diagnosis/Procedures Parkinson disease, ambulatory dysfunction, none
displaced traumatic rib fractures on the right
side after fall, acute metabolic encephalopathy
Orthostatic hypotension, CAD, paroxysmal atrial
fibrillation, essential hypertension
Diet 2 Gram Sodium
Activity As tolerated
Driving Restrictions Not until seen by your Dr
Bathing Restrictions None
Other Services PT,OT
Specialty Instructions Weigh Daily
Instructions:
Stand-Alone Forms:
Changes to Home Medications: Yes
Discharge Medications:
DC Medications w/original date entered in [facility]
albuterol sulfate 90 mcg/actuation aerosol inhaler 1 puff inhalation R Q4HPRN PRN sob,copd 10/22/20
atorvastatin 80 mg tablet 80 mg PO HS High cholesterol 10/22/20
duloxetine 60 mg capsule,delayed release 60 mg PO DAILY@1400 Depression 10/01/21
finasteride 5 mg tablet 5 mg PO DAILY Urinary issue 10/01/21
Saccharomyces boulardii 250 mg capsule 250 mg PO DAILY Supplement 03/04/22
fludrocortisone 0.1 mg tablet 0.1 mg PO DAILY Orthostatic hypotension #30 tabs 03/07/22
ferrous sulfate 325 mg (65 mg iron) tablet 325 mg PO Q48H@1100 Supplement 06/20/22
cholecalciferol (vitamin D3) 25 mcg (1,000 unit) capsule (Vitamin D3) 50 mcg PO DAILY Supplement 06/21/22
docusate sodium 100 mg capsule (Colace) 100 mg PO BID Constipation 06/21/22
acetaminophen 500 mg tablet 1,000 mg PO TID@0700,1300,2000 PRN mild pain 07/24/23
albuterol sulfate 90 mcg/actuation aerosol inhaler 1 puff inhalation R DAILY Lung/Breathing Issues 07/24/23
ascorbic acid (vitamin C) 500 mg tablet (Vitamin C) 500 mg PO Q48H@1100 Supplement 07/24/23
benralizumab 30 mg/mL subcutaneous syringe (Fasenra) 30 mg SC .Q6-8WEEKS Lung/Breathing Issues 07/24/23
carbidopa ER 23.75 mg-levodopa 95 mg capsule,extended release (Rytary) 1 cap PO TID Neurological Condition 07/24/23
carbidopa ER 61.25 mg-levodopa 245 mg capsule,extended release (Rytary) 1 cap PO TID Neurological Condition 07/24/23
fluticasone fur. 100 mcg-umeclid 62.5 mcg-vilant 25 mcg inhalat.powder (Trelegy Ellipta) 1 inh inhalation R DAILY Lung/Breathing Issues 07/24/23
magnesium 1 tab PO HS Supplement 07/24/23
melatonin 10 mg tablet,extended release 10 mg PO HS Sleep 07/24/23
mirabegron 50 mg tablet,extended release 24 hr (Myrbetriq) 50 mg PO HS Urinary Issue 07/24/23
omeprazole 20 mg capsule,delayed release 20 mg PO DAILY Gastrointestinal Issue 07/24/23
sennosides 8.6 mg tablet (senna) 17.2 mg PO HS Constipation 07/24/23
vitamin B complex 1 tab PO DAILY@1400 Supplement 07/24/23
aspirin 81 mg chewable tablet (Children's Aspirin) 81 mg PO DAILY #1 tab 08/03/23
nifedipine 60 mg tablet,extended release 60 mg PO DAILY #1 tab 08/03/23
Home Medication Changes
Change in medication-his Eliquis was switched to aspirin because of falls; dose of nifedipine decreased to once a day
Pending Results: No
[2023-08-03] MEDS: CYMBALTA DELAYED RELEASE 60 MG PO (13:02)
[2023-08-03 15:00] VITALS: BP 110/67
--- NOTE | 2023-08-03 15:29 | W.DCSUMMARY ---
Discharge Summary
Discharge Data
Date of Admission: 07/24/23
Date of Discharge: 08/03/23
-
Pending Results: No
Hospital Course
Primary diagnosis:
Acute nondisplaced traumatic right-sided rib fracture
Acute metabolic encephalopathy
Secondary diagnosis:
Frequent falls
Operative dysfunction
Parkinson's disease
Chronic orthostatic hypotension
Coronary artery disease
Essential hypertension
Paroxysmal atrial fibrillation
Depression
Hyperlipidemia
Gastroesophageal reflux disease
Hospital course:
Patient with known Parkinson's disease noted in the home and has been having frequent falls. He had 3 falls in his chart. So came to the ER. His review x-ray showed a right fifth and sixth rib fracture without any local complication. He was
having right-sided chest pain over the fractures but no hypoxia. Was able to manage with oral pain medication.
When physiatry interviewed apparently was having 2-3 falls every day for the week before presentation and also been falling more persistently over the last month.
It was suspected his falls are related to bladder dysfunction. He is known to have Parkinson disease. He had a CT head without any acute intracranial normalities. It was felt at this point that being on Eliquis for anticoagulation for A-fib has
more risk than benefit and after speaking with his frequency checker was switched to aspirin.
He was seen by PT and also manufacturing technology professor and felt he would require SNF and was discharged to SNF.
He had issues with the encephalopathy requiring medication for agitation suspected probably medication related and that resolved.
Consultants on board:
Psychiatry-Dr. Alejandro Engle
Discharge Plan
-
Patient Disposition: Fdc/SNF
Discharge Diagnosis/Procedures: Parkinson disease, ambulatory dysfunction, none displaced traumatic rib fractures on the right side after fall, acute metabolic encephalopathy
Orthostatic hypotension, CAD, paroxysmal atrial fibrillation, essential hypertension
Diet: 2 Gram Sodium
Activity: As tolerated
Driving Restrictions: Not until seen by your Dr
Bathing Restrictions: None
Other Services: PT and OT
Specialty Instructions: Weigh Daily- Call MD for wt gain/loss 3 lbs overnight/5 lbs in 1 week
Referrals:
Yari Webb MD [Family Provider] -
Prescriptions:
New
aspirin [Children's Aspirin] 81 mg Tablet,Chewable
81 mg PO DAILY Qty: 1 0RF
nifedipine 60 mg Tablet Extended Release
60 mg PO DAILY Qty: 1 0RF
Continued
atorvastatin 80 MG tablet
80 mg PO HS
albuterol sulfate 1 PUFF HFA aerosol inhaler
1 puff inhalation R Q4HPRN PRN (Reason: sob,copd)
finasteride 5 MG tablet
5 mg PO DAILY
duloxetine 60 MG capsule,delayed release(DR/EC)
60 mg PO DAILY@1400
Saccharomyces boulardii 250 mg Capsule
250 mg PO DAILY
fludrocortisone 0.1 mg Tablet
0.1 mg PO DAILY Qty: 30 0RF
ferrous sulfate 325 mg (65 mg iron) Tablet
325 mg PO Q48H@1100
docusate sodium [Colace] 100 mg Capsule
100 mg PO BID
cholecalciferol (vitamin D3) [Vitamin D3] 25 mcg (1,000 unit) Capsule
50 mcg PO DAILY
vitamin B complex Tablet Extended Release
1 tab PO DAILY@1400
ascorbic acid (vitamin C) [Vitamin C] 500 mg Tablet
500 mg PO Q48H@1100
omeprazole 20 mg capsule,delayed release(DR/EC)
20 mg PO DAILY
albuterol sulfate 90 mcg/actuation HFA aerosol inhaler
1 puff INHALATION R DAILY
Myrbetriq 50 mg tablet extended release 24 hr
50 mg PO HS
melatonin 10 mg Tablet Extended Release
10 mg PO HS
Rytary 61.25-245 mg capsule, extended release
1 cap PO TID
Trelegy Ellipta 100-62.5-25 mcg Blister With Device
1 inh INHALATION R DAILY
Fasenra 30 mg/mL Syringe
30 mg SC .Q6-8WEEKS
Patient Comments:
07/24/2023: Per spouse Pt is due for next dose on Thursday07/27/23
magnesium
1 tab PO HS
Patient Comments:
07/24/2023: Per Spouse pt takes MagMind by Georgina
sennosides [senna] 8.6 mg tablet
17.2 mg PO HS
acetaminophen 500 mg tablet
1,000 mg PO TID@0700,1300,2000 PRN (Reason: mild pain)
Rytary 23.75-95 mg Capsule, Extended Release
1 cap PO TID
Discontinued
Eliquis 5 MG tablet
5 mg PO BID
nifedipine 60 mg tablet extended release
60 mg PO BID
Discharge Orders:
Discharge Patient (As Directed); Ordered 08/03/23
Ordered By: Gerry Latif
== END 2023-08-03 19:00 ==
LOC: 3 WEST ACU 22:46
PROVIDERS: Hospitalist; Physician Assistant Medical; Registered Nurse; ADMITTING PHYSICIAN Hospitalist; ATTENDING PHYSICIAN Internal Medicine; CONSULT PHYSICIAN Physical Medicine & Rehabilitation; EMERGENCY PHYSICIAN Emergency Medicine; FAMILY PHYSICIAN Internal Medicine; OTHER PHYSICIAN Psychiatry & Neurology Psychiatry
DX: S22.41XA Multiple fractures of ribs, right side, initial encounter for closed fracture (principal); G20.A1 Parkinson's disease without dyskinesia, without mention of fluctuations; R41.0 Disorientation, unspecified; G93.41 Metabolic encephalopathy; F02.80 Dementia in other diseases classified elsewhere, unspecified severity, without behavioral disturbance, psychotic disturbance, mood disturbance, and anxiety; W19.XXXA Unspecified fall, initial encounter; Y93.9 Activity, unspecified; Y92.009 Unspecified place in unspecified non-institutional (private) residence as the place of occurrence of the external cause; R53.1 Weakness; R53.83 Other fatigue; I10 Essential (primary) hypertension; J44.9 Chronic obstructive pulmonary disease, unspecified; E78.5 Hyperlipidemia, unspecified; K21.9 Gastro-esophageal reflux disease without esophagitis; E78.00 Pure hypercholesterolemia, unspecified; I25.10 Atherosclerotic heart disease of native coronary artery without angina pectoris; F10.91 Alcohol use, unspecified, in remission; J30.89 Other allergic rhinitis; J98.11 Atelectasis; F11.11 Opioid abuse, in remission; N40.0 Benign prostatic hyperplasia without lower urinary tract symptoms; I95.1 Orthostatic hypotension; D50.9 Iron deficiency anemia, unspecified; F32.A Depression, unspecified; I73.9 Peripheral vascular disease, unspecified; I45.10 Unspecified right bundle-branch block; E87.6 Hypokalemia; D69.6 Thrombocytopenia, unspecified; J30.81 Allergic rhinitis due to animal (cat) (dog) hair and dander; I48.0 Paroxysmal atrial fibrillation; R29.6 Repeated falls; Z91.81 History of falling; Z79.01 Long term (current) use of anticoagulants; Z87.891 Personal history of nicotine dependence; Z86.11 Personal history of tuberculosis; Z95.1 Presence of aortocoronary bypass graft; Z85.820 Personal history of malignant melanoma of skin; M54.9 Dorsalgia, unspecified; Z88.5 Allergy status to narcotic agent; Z88.8 Allergy status to other drugs, medicaments and biological substances; Z91.041 Radiographic dye allergy status; Z79.51 Long term (current) use of inhaled steroids
CPT/HCPCS: 70450; 71101; 80048; 81003; 85025; 85027; 93005; 94640; 97116; 97129; 97163; 97167; 97530; 99285; G0378

== ENCOUNTER 2023-12-22 03:05 | Emergency (ER) | payer MEDICARE, OTHER, SELFPAY ==
[2023-12-22] VITALS (12 sets, daily range): BP systolic 148–204; BP diastolic 96–142; PULSE 73; O2SAT 92; BMI 23.3
[2023-12-22 05:59] LABS: % Basophils 0.1 % (0-2); % Immature Granulocytes 0.5 % (0-0.5); % Lymphocytes 13.3 % (20.5-51.1); % Monocytes 9.6 % (1.7-9.3); % Neutrophils 76.5 % (42.2-75.2); Absolute Lymphocytes 1.1 10^3/uL (1.2-3.4); Absolute Monocytes 0.8 10^3/uL (0.1-0.6); Absolute Neutrophils 6.3 10^3/uL (1.4-6.5); Hematocrit 41.6 % (39.0-52.0); Mean Corp Hgb Conc. 36.1 g/dL (33.0-37.0); Mean Corpuscular Hgb 31.4 pg (27.0-31.0); Mean Platelet Volume 10.3 fL (7.4-10.4); Nucleated Red Blood Cells % 0 % (-); Platelet Count 157 10^3/uL (130-400); Red Blood Cell Count 4.78 10^6/uL (4.70-6.10); Red Cell Dist. Width 12.8 % (11.5-14.5); White Blood Cell Count 8.3 10^3/uL (4.8-10.8)
--- NOTE | 2023-12-22 06:10 | ED.GENMED ---
History of Present Illness
General
Chief Complaint: Abdominal Pain
Source: patient
Exam Limitations: none
Time Seen by Provider: 12/22/23 06:03
Nursing documentation reviewed up to this point in time: agreed with
History of Present Illness
History of Present Illness:
78-year-old male history of Parkinson's, presents with lower pelvic pain right greater than left, fell a week ago
He states he tripped, no fever or chills, no chest pain he has chronic shortness of breath no dysuria or frequency, has been using Tylenol
No head strike
Past History
Past History
ED Past Medical History: Arrthythmia (A. 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
ED Past Surgical History: Cardiac (Bypass surgery CABG times 09/2020) and Other (umbilical herniorrhaphy, surgical resection malignant melanoma)
Social History
Tobacco: Former smoker
Alcohol: Former (discontinued approximately 1989)
Drug: None
Personal: Single
Living: with family
Employment: Employed
Family History
Family History: Other
Review of Systems
Review of Systems
All Other Systems: Not applicable
Constitutional: Denies fever, fatigue or chills
Respiratory: Reports trouble breathing (Chronic)
Cardiac: Reports no symptoms
ABD/GI: Reports abdominal pain (Points to the low pelvis right greater than left)
: Denies frequency or dark urine
Musculoskeletal: Reports muscle stiffness
Neurological: Reports weakness
Phy Exam
Physical Exam
Physical Exam:
Physical Exam
General: 78 male no overt signs of head or neck trauma
Neck: No jaundice no tongue bite
Heart: s1/s2 regular rate and rhythm, no murmur. equal radial pulses.
Lungs: Faint crackles at the
Abdomen: Soft minimal tenderness low anterior abdomen right greater than
Neuro: alert and oriented. Slight tremor, globally weak
Skin: no rash
Psychiatric: well kept. interactive and cooperative
Extremities: no edema.
Course
Orders/Labs/Results
Orders:
Orders
12/22/23 05:53
Complete Blood Count/With Diff Urgent
Comprehensive Metabolic Panel Urgent
Lipase Urgent
NT-proBNP Urgent
Comment: ADD ON
12/22/23 06:08
CR Chest - 2 Views Urgent
Comment:
Reason For Exam: sob
Pelvis, 1 or 2 Views CR [CR Pelvis - 1 Or 2 Views ] Urgent
Comment:
Reason For Exam: fall
12/22/23 06:11
Electrocardiogram (*1) Urgent
Reason for Study: Abnormal EKG
EKG- Treatment ONCE
12/22/23 07:16
Add On- LAB Urgent
Tests Added?: pBNP
12/22/23 07:30
Troponin I Urgent
12/22/23 08:47
Physical Therapy Consult [Pt Eval And Treat] Urgent
Activity Level: Out of Bed-Early Mobility
Abnormal Lab Results
12/22/23
05:53
MCH 31.4 H pg
(27.0-31.0)
Absolute Lymphs (auto) 1.1 L 10^3/uL
(1.2-3.4)
Absolute Monos (auto) 0.8 H 10^3/uL
(0.1-0.6)
Neutrophils % 76.5 H %
(42.2-75.2)
Lymphocytes % 13.3 L %
(20.5-51.1)
Monocytes % 9.6 H %
(1.7-9.3)
Glucose 106 H mg/dl
(70-99)
12/22/23 05:53
12/22/23 05:53
Vital Signs
Initial and Last Documented VS:
Initial Vital Signs
Temp Pulse Resp BP Pulse Ox
98.1 F 66 24 148/96 94
12/22/23 03:07 12/22/23 03:07 12/22/23 03:07 12/22/23 03:07 12/22/23 03:07
Last Documented Vital Signs
Temp Pulse Resp BP Pulse Ox
98.5 F 75 23 183/106 91
12/22/23 06:53 12/22/23 08:15 12/22/23 08:15 12/22/23 08:00 12/22/23 08:15
MDM/Problems Addressed
Differential Diagnosis Includes:
Deconditioning pelvic fracture electrolyte abnormality urinary tract pathology
MDM/Problems Addressed:
Fall with pelvic pain
Chronic conditions affecting care: Neurological disorder
Acute Exacerbation and/or Progression of Chronic Illness: Neurological disorder
*Radiology
Radiology exam reviewed: preliminary read by ED provider
*Pulse Oximetry
Patient hypoxic: no
Comment: 93
*EKG
Interpreted by ED Provider?: Yes
Interpretation: abnormal
Comparison EKG: no comparison EKG present
Heart Rate: 88
Rate: normal
QRS Pattern: right bundle branch block
Ischemia: non-specific ST changes
*Mash Filter Operator Interpretation
Rate: normal and Mash Filter Operator- N/A
Interpretation: normal
Heart Rate: 7
Rhythm: sinus
*Critical Care Note
Total Time (30-74mins, 75-104mins- exclusive of procedures): Not Applicable
Update Note
Update Note:
Update, apparent slip and fall, pelvic pain x-ray noted no obvious fracture labs are noted try some Tylenol or ibuprofen as per PT evaluation
Pulse ox is borderline chest x-ray looks underpenetrated his chronic dyspnea will check troponin, proBNP await formal report
proBNP troponin noted briefly reviewed physical therapy patient known to the service from previously, called, patient has an appointment with a outpatient physician today she would like to take him to
ED Attending Note
-
Portions of this chart may have been created with voice recognition software.� Occasional wrong word or��sound alike� substitutions may have occurred due to the inherent limitations of voice recognition software.
Discharge Plan
Departure
Patient Disposition: Home (Routine Discharge)
Date of Disposition: 12/22/23
Time of Disposition: 10:12
Patient with high blood pressure during this ER visit?: No
Condition: Good
Discharge Problem:
Orthostasis, Ambulatory dysfunction, Parkinson's disease
Prescriptions:
No Action
atorvastatin 80 MG tablet
80 mg PO HS
albuterol sulfate 1 PUFF HFA aerosol inhaler
1 puff inhalation R Q4HPRN PRN (Reason: sob,copd)
finasteride 5 MG tablet
5 mg PO DAILY
duloxetine 60 MG capsule,delayed release(DR/EC)
60 mg PO DAILY@1400
Saccharomyces boulardii 250 mg Capsule
250 mg PO DAILY
fludrocortisone 0.1 mg Tablet
0.1 mg PO DAILY Qty: 30 0RF
ferrous sulfate 325 mg (65 mg iron) Tablet
325 mg PO Q48H@1100
cholecalciferol (vitamin D3) [Vitamin D3] 25 mcg (1,000 unit) Capsule
50 mcg PO DAILY
vitamin B complex Tablet Extended Release
1 tab PO DAILY@1400
ascorbic acid (vitamin C) [Vitamin C] 500 mg Tablet
500 mg PO Q48H@1100
albuterol sulfate 90 mcg/actuation HFA aerosol inhaler
1 puff INHALATION R DAILY
mirabegron [Myrbetriq] 50 mg tablet extended release 24 hr
50 mg PO HS
melatonin 10 mg Tablet Extended Release
10 mg PO HS
Rytary 61.25-245 mg capsule, extended release
1 cap PO TID
Trelegy Ellipta 100-62.5-25 mcg Blister With Device
1 inh INHALATION R DAILY
Fasenra 30 mg/mL Syringe
30 mg SC .Q6-8WEEKS
Patient Comments:
07/24/2023: Per spouse Pt is due for next dose on Thursday07/27/23
magnesium
1 tab PO HS
Patient Comments:
07/24/2023: Per Spouse pt takes MagMind by Georgina
acetaminophen 500 mg tablet
1,000 mg PO TID@0700,1300,2000 PRN (Reason: mild pain)
Rytary 23.75-95 mg Capsule, Extended Release
1 cap PO TID
aspirin [Children's Aspirin] 81 mg Tablet,Chewable
81 mg PO DAILY Qty: 1 0RF
Referrals:
Yari Webb MD [Family Provider] -
Interventions
Interventions:
*Risk Screen - Suicide Last Done: 12/22/23 03:07
*General Assessment Last Done: 12/22/23 06:53
*Neglect/Abuse Screening Last Done: 12/22/23 03:07
ED- Fall Risk Assessment Last Done: 12/22/23 06:53
*ED COVID-19 Vaccine History Last Done: 12/22/23 06:53
PX-Juzfhc-Lasrpclsqc Assessment Last Done: 12/22/23 06:53
Discharge Date and Time
Print Language: YAKUT
[2023-12-22 06:17] LABS: ALT (SGPT) 13 U/L (0-50); AST (SGOT) 28 U/L (17-59); Albumin 4.4 g/dl (3.5-5.0); Alkaline Phosphatase 79 U/L (38-126); Blood Urea Nitrogen 20 mg/dl (9-20); Calcium 9.5 mg/dl (8.4-10.2); Carbon Dioxide 25 mmol/L (22-30); Chloride 104 mmol/L (98-107); Glucose 106 mg/dl (70-99); Lipase 111 U/L (23-300); Potassium 3.9 mmol/L (3.5-5.1); Sodium 137 mmol/L (135-145); Total Bilirubin 1.1 mg/dl (0.2-1.3); Total Protein 6.5 g/dl (6.3-8.2); eGFR > 60.00
--- NOTE | 2023-12-22 07:22 | EDRN ---
the pt started to call out, 'Nurse nurse please help me, help me', this RN and PCT entered the pts room and the pt stated that he had to urinate, this RN assisted the pt with urinating into the urinal with no issues, this RN noticed that an EKG was
ordered, PCT performed EKG, Troponin ordered, will draw and sent to lab, the pt is resting in the stretcher in the lowest position, side rails up x2, call shipman within reach, HOB elevated, no s/s of distress, the pt has intermittent central chest
pain that is 2/10 and sharp, the pt is AAO however the pt has periods of confusion, this RN will continue to re orient the pt, will continue to monitor the pt closely
--- NOTE | 2023-12-22 07:35 | EDRN ---
the pt started calling out, 'Please help me nurse help help', this RN entered the pts room and the pt stated to this RN, 'I have to pee i forget how to do it can you please help me', this RN provided the pt with the urinal and the pt was able to
urinate in urinal with no issues, this RN re oriented the pt to the use of the call shipman, this RN andrae and sent troponin, the pt was repositioned in stretcher for comfort, the pt is resting in stretcher in the lowest position, side rails up x2, call
shipman within reach, HOB elevated, no s/s of distress, will continue to monitor the pt closely
[2023-12-22 08:29] LABS: Troponin I < 0.012 ng/ml
[2023-12-22 08:56] LABS: NT-proBNP 111 pg/ml
--- NOTE | 2023-12-22 09:51 | EDRN ---
Physical therapy currently at the pts bedside
== END 2023-12-22 11:07 | disposition home or self-care (01) ==
LOC: EMR 03:05
PROVIDERS: EMERGENCY PHYSICIAN Emergency Medicine; FAMILY PHYSICIAN Internal Medicine
DX: G20.A1 Parkinson's disease without dyskinesia, without mention of fluctuations (principal); R10.2 Pelvic and perineal pain; R06.02 Shortness of breath; R07.89 Other chest pain; R26.2 Difficulty in walking, not elsewhere classified; W01.0XXA Fall on same level from slipping, tripping and stumbling without subsequent striking against object, initial encounter; I45.10 Unspecified right bundle-branch block; I48.91 Unspecified atrial fibrillation; I25.10 Atherosclerotic heart disease of native coronary artery without angina pectoris; I10 Essential (primary) hypertension; J44.9 Chronic obstructive pulmonary disease, unspecified; K21.9 Gastro-esophageal reflux disease without esophagitis; E78.00 Pure hypercholesterolemia, unspecified; R29.818 Other symptoms and signs involving the nervous system; Z95.1 Presence of aortocoronary bypass graft; Z85.820 Personal history of malignant melanoma of skin; Z87.891 Personal history of nicotine dependence; Z79.01 Long term (current) use of anticoagulants; Z79.82 Long term (current) use of aspirin; Z88.5 Allergy status to narcotic agent; Z88.8 Allergy status to other drugs, medicaments and biological substances; Z91.048 Other nonmedicinal substance allergy status
CPT/HCPCS: 99284; 71046; 72170; 80053; 83690; 83880; 84484; 85025; 93005

== ENCOUNTER 2024-02-17 15:05 | Observation (INO) | payer MEDICARE, OTHER, SELFPAY ==
[2024-02-17] VITALS (17 sets, daily range): BP systolic 130–199; BP diastolic 97–159; PULSE 73–74; O2SAT 94; BMI 21.8
[2024-02-17] MEDS: NSS 500 IV (06:35)
[2024-02-17 06:53] LABS: % Basophils 0.2 % (0-2); % Immature Granulocytes 0.5 % (0-0.5); % Lymphocytes 11.8 % (20.5-51.1); % Monocytes 8.2 % (1.7-9.3); % Neutrophils 79.3 % (42.2-75.2); Absolute Immature Granulocytes 0.1 10^3/uL (0-0.05); Absolute Lymphocytes 1.1 10^3/uL (1.2-3.4); Absolute Monocytes 0.8 10^3/uL (0.1-0.6); Absolute Neutrophils 7.6 10^3/uL (1.4-6.5); Hematocrit 43.7 % (39.0-52.0); Hemoglobin 15.4 g/dL (13.0-18.0); Mean Corp Hgb Conc. 35.2 g/dL (33.0-37.0); Mean Corpuscular Hgb 31.1 pg (27.0-31.0); Mean Corpuscular Volume 88.3 fL (80.0-94.0); Mean Platelet Volume 10.5 fL (7.4-10.4); Nucleated Red Blood Cells % 0 % (-); Platelet Count 179 10^3/uL (130-400); Red Blood Cell Count 4.95 10^6/uL (4.70-6.10); White Blood Cell Count 9.6 10^3/uL (4.8-10.8)
--- NOTE | 2024-02-17 06:57 | ED.GENMED ---
History of Present Illness
General
Chief Complaint: Weakness
Source: patient
Exam Limitations: none
Time Seen by Provider: 02/17/24 06:03
History of Present Illness
History of Present Illness:
78-year-old male states he got in a argument with his early this morning. This seemed to have prompted the phone call. Patient's is not here. Patient denies acute medical complaints. Has had gradual increasing weakness with his
Parkinson's but this has been a gradual process over months if not longer. Falls frequently.
Past History
Past History
ED Past Medical History: Arrthythmia (A. 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
ED Past Surgical History: Cardiac (Bypass surgery CABG times 09/2020) and Other (umbilical herniorrhaphy, surgical resection malignant melanoma)
Social History
Tobacco: Former smoker
Alcohol: Former (discontinued approximately 1989)
Drug: None
Personal: Single
Living: with family
Employment: Employed
Family History
Family History: Other
Review of Systems
Review of Systems
All Other Systems: Not applicable
Constitutional: Denies fever
Respiratory: Reports no symptoms
Cardiac: Reports no symptoms
ABD/GI: Reports no symptoms
Phy Exam
Physical Exam
Physical Exam:
GENERAL: Alert and oriented in no apparent distress. Generally weak and frail appearing. No sign of scalp or any other significant trauma
EYE: Orbits normal.
NECK: Supple, no significant adenopathy.
ENT: Pharynx without erythema
CARDIAC: Regular rate and rhythm without any obvious murmurs.
LUNGS: Clear breath sounds,normal
ABDOMEN: Soft, without focal tenderness or distention
NEUROLOGICAL: Alert and oriented , slow to answer questions. Nonfocal exam. Tremor mostly left arm.
SKIN: Warm and dry, no rash or lesion, no discoloration, skin intact.
MUSCULOSKELETAL: No edema,no deformity.Good color
PSYCH: Normal and appropriate interaction.
Course
Orders/Labs/Results
Orders:
Orders
02/17/24 06:13
Electrocardiogram (*1) Urgent
Reason for Study: Fatigue / Weakness
CT Head W/o Iv Contrast Urgent
Comment:
Reason For Exam: Progressive weakness. Frequent falls
Case Management Consult ONCE
Case Management Consult: Discharge Planning
IV Insert/Care/Rem.- Treatment PRN
0.9% Sodium Chloride 500 ml [Nss] 500 ml IV BOLUS
02/17/24 06:14
EKG- Treatment ONCE
02/17/24 06:35
Complete Blood Count/With Diff Urgent
Comprehensive Metabolic Panel Urgent
Urinalysis Reflex To Culture Urgent
Date Specimen was Collected: 02/17/24
Time Specimen was Collected: 06:17
02/17/24 Lunch
Regular
At Your Request: Non-Participating
02/17/24 14:46
Admit/Transfer Patient As Directed
Co-Sign Provider:
Level of Care: Observation services
Assign to:: Medical/Surgical
Physician / Group: Brittny Ashley
Diagnosis: ambulatory dysfunction
PRN Pain Medication Management As Directed
May give lesser potent ordered pain med per pt: Yes
preference::
Protocol:: Medication orders for pain may be administered in a
manner that supports deferring to patient preference
when the pt is:
- Requesting an ordered lesser potent pain medication.
Least to most potent pain medications are defined
as: acetaminophen < NSAID < tramadol < opioids
(morphine, oxycodone, hydromorphone).
- Requesting a lesser dose of the same medication IF
ORDERED.
- Requesting a less intrusive route of administration
if both routes are prescribed by the provider (PO <
IV).
02/17/24 14:48
Code Status As Directed
Resuscitation Status: Do not resuscitate
Reached after discussion with pt or family/Healthcare POA: Yes
DNR Bracelet Application ONCE
02/17/24 14:52
Duloxetine Delayed Release [Cymbalta Delayed Release] 60 mg PO NOW STA
02/17/24 16:23
Acetaminophen [Tylenol] 1,000 mg PO TIDPRN PRN
Albuterol [ProAIR HFA INHALER] 2 puff INH R Q4HPRN PRN
Aspirin Chewable [Low Strength Aspirin] 81 mg PO DAILY
Bisacodyl [Dulcolax] 10 mg RECTAL [id number] PRN
Docusate W/Senna [Senokot-S] 1 tablet PO BIDPRN PRN
Fludrocortisone Acetate [Florinef] 0.1 mg PO DAILY
Polyethylene Glycol Powder [Miralax] 17 grams PO DAILYPRN PRN
grwznivlfbw-thufcispy-bfszedxm [Trelegy Ellipta] 1 inh INH R DAILY
02/17/24 16:23
Activity As Directed
Activity Level: As Tolerated
Vital Signs As Directed
Frequency: Per unit guidelines
OT Consult [Ot Eval And Treat] Routine
Physical Therapy Consult [Pt Eval And Treat] Routine
Activity Level: As Tolerated
DX Deep Vein Thrombosis Video Routine
02/17/24 18:00
Enoxaparin Sodium [Lovenox] 40 mg SC QPM
02/17/24 22:00
Atorvastatin [Lipitor] 80 mg PO HS
Gabapentin [Neurontin] 100 mg PO HS
Melatonin 10 mg PO HS
Mirabegron Extended Release [Myrbetriq Extended Release] 50 mg PO HS
02/18/24 08:00
Albuterol [ProAIR HFA INHALER] 2 puff INH R DAILY
Finasteride [Proscar] 5 mg PO DAILY
Pantoprazole [Protonix] 40 mg PO DAILY
02/18/24 11:00
Ascorbic Acid [Vitamin C] 500 mg PO DAILY@1100
02/18/24 14:00
Duloxetine Delayed Release [Cymbalta Delayed Release] 60 mg PO DAILY@1400
Abnormal Lab Results
02/17/24
06:35
MCH 31.1 H pg
(27.0-31.0)
MPV 10.5 H fL
(7.4-10.4)
Abs Immat Gran (auto) 0.1 H 10^3/uL
(0-0.05)
Absolute Neuts (auto) 7.6 H 10^3/uL
(1.4-6.5)
Absolute Lymphs (auto) 1.1 L 10^3/uL
(1.2-3.4)
Absolute Monos (auto) 0.8 H 10^3/uL
(0.1-0.6)
Neutrophils % 79.3 H %
(42.2-75.2)
Lymphocytes % 11.8 L %
(20.5-51.1)
Glucose 111 H mg/dl
(70-99)
02/17/24 06:35
02/17/24 06:35
Vital Signs
Initial and Last Documented VS:
Initial Vital Signs
Temp Pulse Resp BP Pulse Ox
97.8 F 80 22 174/104 95
02/17/24 04:54 02/17/24 04:54 02/17/24 04:54 02/17/24 04:54 02/17/24 04:54
Last Documented Vital Signs
Temp Pulse Resp BP Pulse Ox
97.5 F 69 18 141/86 95
02/18/24 07:44 02/18/24 08:25 02/18/24 08:25 02/18/24 07:44 02/18/24 08:25
MDM/Problems Addressed
Differential Diagnosis Includes:
Patient seems somewhat unsure as to exactly what the goal in coming to the ER today is. This seems to be more of an ADL issue. We tried to call his significant other but the phone did not answer. Medical testing to rule out serious acute issue
which I think clinically is unlikely. We will get case management and physical therapy involved.
*Pulse Oximetry
Patient hypoxic: no
*EKG
Interpretation: abnormal
Comparison EKG: no changes
Heart Rate: 68
Rate: normal
Rhythm: sinus
[place]: normal axis
Interval: normal interval
QRS Pattern: right bundle branch block
Ischemia: no ischemia
*Critical Care Note
Total Time (30-74mins, 75-104mins- exclusive of procedures): Not Applicable
Update Note
Update Note:
Patient with progressive ADL issues gait issues. Clearly cannot be at home. Required 2 people to help him ambulate. Will admit medically.
ED Attending Note
-
Portions of this chart may have been created with voice recognition software.� Occasional wrong word or��sound alike� substitutions may have occurred due to the inherent limitations of voice recognition software.
Discharge Plan
Departure
Patient Disposition: Admit
Date of Disposition: 02/17/24
Time of Disposition: 12:38
Presentation/result/management discussed w/ accepting MD/DO: Hospitalist
Discharge Problem:
Severe ambulatory dysfunctional, Parkinson's disease
Interventions
Interventions:
*Risk Screen - Suicide Last Done: 02/17/24 06:40
*General Assessment Last Done: 02/17/24 04:54
*Neglect/Abuse Screening Last Done: 02/17/24 06:40
ED- Fall Risk Assessment Last Done: 02/17/24 04:54
*ED COVID-19 Vaccine History Last Done: 02/17/24 04:54
*Nursing Disposition Last Done: 02/17/24 16:19
ED- Cardiac Assessment Last Done: 02/17/24 06:40
ED- Neurological Assessment Last Done: 02/17/24 06:40
ED- Pulmonary Assessment Last Done: 02/17/24 06:40
Discharge Date and Time
Discharge Date/Time: 02/17/24 16:19
[2024-02-17 07:04] LABS: ALT (SGPT) 13 U/L (0-50); AST (SGOT) 32 U/L (17-59); Albumin 4.5 g/dl (3.5-5.0); Alkaline Phosphatase 81 U/L (38-126); Blood Urea Nitrogen 20 mg/dl (9-20); Calcium 9.5 mg/dl (8.4-10.2); Carbon Dioxide 28 mmol/L (22-30); Chloride 103 mmol/L (98-107); Estimated Creatinine Clearance 91 ml/min; Glucose 111 mg/dl (70-99); Potassium 3.8 mmol/L (3.5-5.1); Sodium 138 mmol/L (135-145); Total Bilirubin 1.1 mg/dl (0.2-1.3); Total Protein 6.7 g/dl (6.3-8.2); eGFR > 60.00
[2024-02-17 07:26] LABS: Urine Albumin Negative (Neg - Trace); Urine Bilirubin Negative (Negative); Urine Character Clear (Clear); Urine Color Yellow; Urine Glucose Negative (Negative); Urine Ketone Negative (Negative); Urine Leukocyte Negative (Negative); Urine Nitrite Negative (Negative); Urine Occult Blood Negative (Negative); Urine Urobilinogen Negative (Neg - 1+)
--- NOTE | 2024-02-17 10:01 | CM ---
Addendum entered by Katty Cisneros 02/17/24 15:59:
PCP: Dr. Yari Webb
Pharmacy: [facility] in [place]
Addendum entered by Katty Cisneros 02/17/24 15:42:
Spoke with and explained to her that patient is a [employer] patient and would qualify for waiver service. She verbalized understanding and agreed to plan
CM reviewed patient's chart. Spoke with patient at bedside. CM introduced self and role. Significant other, Jeanie, also in room.
Living situation: Patient lives with his significant. They live in a multi-level home. Steps to enter.
Finances: Patient denies any social insecurities. He is able to afford his housing, clothing, medications, food, utilities and transportation. He is retired.
DME/Ambulation: Per Jeanie, patient ambulates independently, but has been 'freezing up' more frequently and falling. He owns a walker, but refuses to use it.
Transportation: Patient's significant other, Jeanie will provide transportation once he is discharged. Patient does not drive.
Agreeable to home health care?: Yes, if needed.
ANTICIPATED DISCHARGE DISPOSITION:
Short term rehab vs. home health PT/OT.
CM will continue to follow case and available for further assistance.
Addendum entered by Katty Cisneros 02/17/24 11:28:
Patient's significant other, Jeanie, present in room. She shared that she is a bit overwhelmed with caring for patient. She also reiterated that patient is not able to afford STR. She shared with CM that patient was referred to [facility] but no one
has given them a call back with an appointment. CM called [facility] and was told patient has a therapist for 02/24, but there is no time.
CM also shared that she would make a referral to [facility]. Jeanie and Raciel were agreeable to this.
Original Note:
CM consult placed for placement. Chart reviwed. Case discussed with attending. Per PT notes, patient is a mod-max assist and they were recommending STR. Explained recommendations to patient and that he has 'straight' medicare and it would be out of
pocket. Patient started to discuss that he needs to go the bathroom and has wet the whole bed. CM offered a urinal to patient, but realized he has a condom cath on. Patient could not grasp the concept of a condom cath. CM realized patient is
confused. He asked CM 'could you get me a couple more of those things'.
With patient's permission, CM called patient's significant other, Jeanie. She shared that patient may be more stiff because of not taking his meds this AM. She also shared, (before CM shared) that he can quickly aquire hospital delirium. CM then
shared that patient is confused and asking to go home because he has so much work to finish up and complete.
Jeanie shared that patient would not be able to afford rehab but that she'd be at the hospital in about 30-45 minutes. She'd like to give him his morning medication and see if he is less 'stiff' and more coherent once they are metabolizing in his
body. She also wants to ask the doctor for some gabapentin to see if that will also help with his side effects. She said it's worked in the past, but the dose of 300mg was too much for him and he was in 'like a coma'.
CM will discuss visiting nurses vs. private care givers once Jaenie arrives. Above shared with attending physician.
--- NOTE | 2024-02-17 14:06 | HPS.HSE ---
Family Physician
-
Family Physician: Yari Webb
Chief Complaint
-
gait imbalance
History of Present Illness
Mr. Raciel Lucas is a 78 yo man with hx atrial fibrillation on Eliquis, CAD (s/p CABG 09/2020), COPD, GERD, HTN, HLD, Parkinson's presents to the ER with increasing weakness in setting of Parkinson's with frequent falls.
Patient has had progressive weakness and trouble sleeping. Difficult for partner at home. He has had frequent falls.
currently denies pain, upset about staying in the hospital. No fevers/chills. No chest pain. No nausea/vomiting. No LE swelling.
He was hospitalized 08/08 for fall resulting in right 5th and 6th rib fracture.
Medical History
Past Medical History
Past Medical History: Reports Other
Additional Past Medical History:
Parkinson disease
atrial fib
cad
copd
gerd
htn
hld
Past Surgical History: Reports Other
Additional Past Surgical History:
coronary artery bypass graft
umbical herniorrhaphy,
surgical resection of malignant melanoma
Social History
Tobacco: Former Smoker
Alcohol: Former
Drug: None
Personal:
Living: With Family
Family History
Family History: Not pertinent
Allergies / Home Medications
Allergies reflects when Allergies were last updated in [facility].
Home Medications with original date entered in [facility]
Allergy/Medication List:
Allergies
Allergy/AdvReac Type Severity Reaction Status Date / Time
atropine Allergy nose bleeds Verified 02/17/24 04:54
cat dander Allergy Hayfever Verified 02/17/24 04:54
house dust Allergy Hayfever Verified 02/17/24 04:54
house dust mite Allergy Hayfever Verified 02/17/24 04:54
lorazepam [From Ativan] Allergy change in Verified 02/17/24 04:54
mentation
midodrine Allergy hallucinati Verified 02/17/24 04:54
on
Opioids-Meperidine and Allergy parkinsons Verified 02/17/24 04:54
Related coma
zolpidem [From Ambien] Allergy hallucinations/ Verified 02/17/24 04:54
change in
mentation
Home Medications
albuterol sulfate 90 mcg/actuation aerosol inhaler 2 puff inhalation R Q4HPRN PRN sob,copd 10/22/20
atorvastatin 80 mg tablet 80 mg PO HS High cholesterol 10/22/20
duloxetine 60 mg capsule,delayed release 60 mg PO DAILY@1400 Depression 10/01/21
finasteride 5 mg tablet 5 mg PO DAILY Urinary issue 10/01/21
Saccharomyces boulardii 250 mg capsule 250 mg PO DAILY Supplement 03/04/22
fludrocortisone 0.1 mg tablet 0.1 mg PO DAILY Orthostatic hypotension #30 tabs 03/07/22
ferrous sulfate 325 mg (65 mg iron) tablet 325 mg PO Q48H@1100 Supplement 06/20/22
cholecalciferol (vitamin D3) 25 mcg (1,000 unit) capsule (Vitamin D3) 100 mcg PO DAILY Supplement 06/21/22
acetaminophen 500 mg tablet 1,000 mg PO TIDPRN PRN mild pain 07/24/23
albuterol sulfate 90 mcg/actuation aerosol inhaler 2 puff inhalation R DAILY Lung/Breathing Issues 07/24/23
ascorbic acid (vitamin C) 500 mg tablet (Vitamin C) 500 mg PO DAILY@1100 Supplement 07/24/23
benralizumab 30 mg/mL subcutaneous syringe (Fasenra) 30 mg SC .Q6-8WEEKS asthma COPD 07/24/23
carbidopa ER 23.75 mg-levodopa 95 mg capsule,extended release (Rytary) 1 cap PO TID@0800,1400,1999 Neurological Condition 07/24/23
carbidopa ER 61.25 mg-levodopa 245 mg capsule,extended release (Rytary) 1 cap PO TID@0800,1400,1999 Neurological Condition 07/24/23
fluticasone fur. 100 mcg-umeclid 62.5 mcg-vilant 25 mcg inhalat.powder (Trelegy Ellipta) 1 inh inhalation R DAILY Lung/Breathing Issues 07/24/23
magnesium 1 tab PO HS Supplement 07/24/23
melatonin 10 mg tablet,extended release 10 mg PO HS Sleep 07/24/23
mirabegron 50 mg tablet,extended release 24 hr (Myrbetriq) 50 mg PO HS Urinary Issue 07/24/23
vitamin B complex 1 tab PO DAILY@1400 Supplement 07/24/23
aspirin 81 mg chewable tablet (Children's Aspirin) 81 mg PO DAILY #1 tab 08/03/23
Cbn/Cbd Gummy 1 dose PO HS 02/17/24
Poop Doc - Magnesium Product 1 dose PO DAILY 02/17/24
coenzyme Q10 10 mg capsule (Co Q-10) 30 mg PO QPM 02/17/24
milk thistle 150 mg capsule 300 mg PO DAILY Supplement 02/17/24
omeprazole 20 mg capsule,delayed release 20 mg PO DAILY 02/17/24
valerian root 500 mg capsule 500 mg PO HS 02/17/24
Review of Systems
-
History Source: Patient
A 12 point ROS was completed and negative except as noted: Yes
Physical Exam
Vital Signs
Vital Signs
Temp Pulse Resp BP Pulse Ox
97.8 F 81 24 167/107 91
02/17/24 04:54 02/17/24 10:18 02/17/24 10:18 02/17/24 09:30 02/17/24 09:30
Physical Exam
General: No Apparent Distress and Other (frail appearing)
Respiratory: Clear; No Wheezes
Cardiac: S1/S2 and Regular Rhythm
GI: Soft and Non Tender
Musculoskeletal: No Edema
Skin: Warm and Dry; No Rash
Neuro: Awake and Alert
Psych: Anxious
Laboratory Results
-
02/17/24 06:35
02/17/24 06:35
Laboratory Results
Total Bilirubin 1.1 mg/dl (0.2-1.3) 02/17/24 06:35
AST 32 U/L (17-59) 02/17/24 06:35
ALT 13 U/L (0-50) 02/17/24 06:35
Alkaline Phosphatase 81 U/L (38-126) 02/17/24 06:35
Data Reviewed
-
Diagnostic Radiology: Report Reviewed by me
Lab Data: Labs Reviewed by me
Impression/Plan
-
Mr. Raciel Lucas is a 78 yo man with hx atrial fibrillation on Eliquis, CAD (s/p CABG 09/2020), COPD, GERD, HTN, HLD, Parkinson's presents to the ER with increasing weakness in setting of Parkinson's with frequent falls.
Triage VS: T 97.8, P 80, RR 22, BP 174/105, SpO2 95
LABS: WBC 9.6, Hg 15.4, PLT 179, Na 138, K+ 3.8, BUN 20, Cr 0.7, Glucose [address]
IMPRESSION:
No acute intracranial abnormalities.
Findings again seen compatible with diffuse cortical atrophy with nonspecific white matter changes as described above.
Parkinson's Disease
Insomnia
Ambulatory Dysfunction
Frequent Falls
-admit to observation
-PT/OT
-TELEGRAPH OPERATOR Rytary (left message for to bring in from home)
Lumbar Radiculopathy
-trial gabapentin 100mg PO qhs
-PT/OT
Coronary Artery Disease
-s/p CABG 09/2020
-TELEGRAPH OPERATOR aspirin/statin
GERD
-TELEGRAPH OPERATOR PPI
Orthostatic hypotension
-TELEGRAPH OPERATOR Fludrocortisone
BPH
-TELEGRAPH OPERATOR Finasteride
COPD
-TELEGRAPH OPERATOR inhalers
DVT PPx Lovenox subQ
DNR - discussed with at bedside
[2024-02-17] MEDS: NON-FORMULARY ITEM 1 UNIT PO ×4 (15:59→21:25)
[2024-02-17] MEDS: CYMBALTA DELAYED RELEASE 60 MG PO (16:01)
[2024-02-17] MEDS: LOVENOX 40 MG SC (17:06)
[2024-02-17] MEDS: FLORINEF 0.1 MG PO (17:11)
[2024-02-17] MEDS: LOW STRENGTH ASPIRIN 81 MG PO (17:11)
[2024-02-17] MEDS: SPIRIVA RESPIMAT 2.5 MCG 2 PUFF INH (19:29)
[2024-02-17] MEDS: SYMBICORT 80/4.5 MCG INHALER 2 PUFF INH (19:29)
[2024-02-17] MEDS: MELATONIN 10 MG PO (21:27)
[2024-02-17] MEDS: LIPITOR 80 MG PO (21:28)
[2024-02-17] MEDS: MYRBETRIQ EXTENDED RELEASE 50 MG PO (21:28)
[2024-02-17] MEDS: NEURONTIN 100 MG PO (21:28)
[2024-02-18 07:44] VITALS: BP 141/86
[2024-02-18] MEDS: ProAIR HFA INHALER 2 PUFF INH (08:18)
[2024-02-18] MEDS: SPIRIVA RESPIMAT 2.5 MCG 2 PUFF INH (08:18)
[2024-02-18] MEDS: SYMBICORT 80/4.5 MCG INHALER 2 PUFF INH ×2 (08:18→19:45)
[2024-02-18] MEDS: PROTONIX 40 MG PO (09:04)
[2024-02-18] MEDS: LOW STRENGTH ASPIRIN 81 MG PO (09:04)
[2024-02-18] MEDS: PROSCAR 5 MG PO (09:04)
[2024-02-18] MEDS: FLORINEF 0.1 MG PO (09:04)
[2024-02-18] MEDS: NON-FORMULARY ITEM 1 UNIT PO ×6 (09:05→20:08)
--- NOTE | 2024-02-18 10:36 | W.PN.HOSP.TC ---
Today's Communication/Plan
-
dispo planning
Assessment / Plan
Assessment / Plan
Mr. Raciel Lucas is a 78 yo man with hx atrial fibrillation on Eliquis, CAD (s/p CABG 09/2020), COPD, GERD, HTN, HLD, Parkinson's presents to the ER with increasing weakness in setting of Parkinson's with frequent falls.
HEAD CT
IMPRESSION:
No acute intracranial abnormalities.
Findings again seen compatible with diffuse cortical atrophy with nonspecific white matter changes as described above.
Parkinson's Disease
Insomnia
Ambulatory Dysfunction
Frequent Falls
-admitted to observation
-PT/OT
-PRESCRIPTION BENEFIT SPECIALIST Rytary
Lumbar Radiculopathy
-trial gabapentin 100mg PO qhs
-PT/OT
Coronary Artery Disease
-s/p CABG 09/2020
-PRESCRIPTION BENEFIT SPECIALIST aspirin/statin
GERD
-PRESCRIPTION BENEFIT SPECIALIST PPI
Orthostatic hypotension
-PRESCRIPTION BENEFIT SPECIALIST Fludrocortisone
BPH
-PRESCRIPTION BENEFIT SPECIALIST Finasteride
COPD
-PRESCRIPTION BENEFIT SPECIALIST inhalers
DVT PPx Lovenox subQ
DNR - discussed with at bedside
Anticipated Discharge: Within 24 hours
Subjective/Interval History
-
Date of Service: February 18, 2024
denies pain
Objective Data
-
Vital Signs:
Vital Signs
Temp Pulse Resp BP Pulse Ox
97.5 F 69 18 141/86 95
02/18/24 07:44 02/18/24 08:25 02/18/24 08:25 02/18/24 07:44 02/18/24 08:25
I&O
02/17/24 02/18/24 02/19/24
06:59 06:59 06:59
Output Total 500 / 500
Balance -500 / -500
Review of Systems
-
History Source: Patient
All other systems: Reviewed and negative
Physical Exam
-
General: No Apparent Distress and Appears Chronically Ill
HEENT: Moist Mucous Membranes
Respiratory: Clear to Auscultation
Cardiac: Regular Rhythm and S1/S2; Negative Tachycardic
GI: Soft and Nontender
Neuro: Awake and Alert
Psych: Calm; Negative Agitated
Data Reviewed
-
Diagnostic Radiology: Report Reviewed by me
Labs: Labs Reviewed by me
[2024-02-18] MEDS: NON-FORMULARY ITEM PO (10:37)
--- NOTE | 2024-02-18 10:40 | CM ---
Addendum entered by Nimco Arriaga 02/18/24 16:05:
[facility] has accepted patient, still waiting for PM&R/[place] assessment at patient significant other request.
Addendum entered by Nimco Arriaga 02/18/24 13:21:
Patient significant other spoke with CM and will review OBS/MILES form. She requested referral to [facility], physician updated and requested PM&R consult. Significant other also agreed to referrals to [facility] and possibly [facility]. CM will continue
to follow for discharge planning needs.
Original Note:
Patient sleeping. CM left VM for patient significant other to review OBS/MILES status and [facility] options. CM will continue to follow for discharge planning needs.
[2024-02-18] MEDS: VITAMIN C 500 MG PO (10:42)
[2024-02-18 11:20] VITALS: BP 137/95; BP 144/89; PULSE 67; O2SAT 94
[2024-02-18 11:31] VITALS: BP 137/95; BP 144/89; PULSE 67; O2SAT 94
[2024-02-18] MEDS: CYMBALTA DELAYED RELEASE 60 MG PO (14:14)
[2024-02-18 15:22] VITALS: BP 117/89
[2024-02-18] MEDS: NEURONTIN 100 MG PO ×2 (17:27→21:27)
[2024-02-18] MEDS: LOVENOX 40 MG SC (17:32)
--- NOTE | 2024-02-18 18:57 | CON.MD ---
Documented by User: Laura Ledbetter MD, Resident 02/19/24 14:55
Consultation - Medical
-
Referring Provider:
Chief Complaint: Progressive Weakness/ Ambulatory dysfunction/frequent falls
History of Present Illness: The patient is a 78-year-old male who presented to ER on 02/17/24 complaining from progressive weakness and having frequent falls. The patient has a PMH of A-fib (on Eliquis), CAD ( (s/p CABG 09/2020), GERD, HTN, HLD,
Parkinson's. Head CT was negative. The patient had been hospitalized on 08/08 for fall resulting in right 5th and 6th rib fracture. The patient was seen in his bed today and he reported he came to ER to understand if he had anything wrong with
health or not. He told that coming ER is the fastest way because he was feeling more weakness since last month. And this made him to feel nervous. Reported he started to fall more frequently in last 2 years and especially feels more weak since last
month. The patient reports theta he was given a walker last year but he prefers to use his cane.He understands that walker is safer for his situation. Reports he has his at home and his has difficulty of taking care of him.
Past Medical History: Parkinson disease, A-fib, CAD, COPD, GERD, HTN, HLD,
Procedure History: coronary artery bypass graft, umbical herniorrhaphy, surgical resection of malignant melanoma
Family History: Not pertinent
Social History:
Functional Level Premorbidly: By patient report, was ambulating with a cane
Functional Level Currently: Bed Mobility: -Supine to sit- Moderate assistance, -Sit to supine- Minimal assistance, -Rolling- Not tested, Transfer: -Sit to stand- Maximum assistance, -Stand to sit- Maximum assistance, -Stand/pivot/sit- Not tested ,
Ambulation was not assessed due safety concerns
Tobacco:Former Smoker
Alcohol: Former
Drug use: Denies
Lives with: Family
24-hour assistance available: No
Number of floors: Multilevel
# steps to enter: 3
# steps to second floor: Bedroom on second floor.
Potential First floor set up:
Driving: No
Occupation: retired
Allergies
Allergy/AdvReac Type Severity Reaction Status Date / Time
atropine Allergy nose bleeds Verified 02/17/24 04:54
cat dander Allergy Hayfever Verified 02/17/24 04:54
house dust Allergy Hayfever Verified 02/17/24 04:54
house dust mite Allergy Hayfever Verified 02/17/24 04:54
lorazepam [From Ativan] Allergy change in Verified 02/17/24 04:54
mentation
midodrine Allergy hallucinati Verified 02/17/24 04:54
on
Opioids-Meperidine and Allergy parkinsons Verified 02/17/24 04:54
Related coma
zolpidem [From Ambien] Allergy hallucinations/ Verified 02/17/24 04:54
change in
mentation
Home Medications
albuterol sulfate 90 mcg/actuation aerosol inhaler 2 puff inhalation R Q4HPRN PRN sob,copd 10/22/20
atorvastatin 80 mg tablet 80 mg PO HS High cholesterol 10/22/20
duloxetine 60 mg capsule,delayed release 60 mg PO DAILY@1400 Depression 10/01/21
finasteride 5 mg tablet 5 mg PO DAILY Urinary issue 10/01/21
Saccharomyces boulardii 250 mg capsule 250 mg PO DAILY Supplement 03/04/22
fludrocortisone 0.1 mg tablet 0.1 mg PO DAILY Orthostatic hypotension #30 tabs 03/07/22
ferrous sulfate 325 mg (65 mg iron) tablet 325 mg PO Q48H@1100 Supplement 06/20/22
cholecalciferol (vitamin D3) 25 mcg (1,000 unit) capsule (Vitamin D3) 100 mcg PO DAILY Supplement 06/21/22
acetaminophen 500 mg tablet 1,000 mg PO TIDPRN PRN mild pain 07/24/23
albuterol sulfate 90 mcg/actuation aerosol inhaler 2 puff inhalation R DAILY Lung/Breathing Issues 07/24/23
ascorbic acid (vitamin C) 500 mg tablet (Vitamin C) 500 mg PO DAILY@1100 Supplement 07/24/23
benralizumab 30 mg/mL subcutaneous syringe (Fasenra) 30 mg SC .Q6-8WEEKS asthma COPD 07/24/23
carbidopa ER 61.25 mg-levodopa 245 mg capsule,extended release (Rytary) 1 cap PO TID@0800,1400,1999 Neurological Condition 07/24/23
fluticasone fur. 100 mcg-umeclid 62.5 mcg-vilant 25 mcg inhalat.powder (Trelegy Ellipta) 1 inh inhalation R DAILY Lung/Breathing Issues 07/24/23
magnesium 1 tab PO HS Supplement 07/24/23
melatonin 10 mg tablet,extended release 10 mg PO HS Sleep 07/24/23
mirabegron 50 mg tablet,extended release 24 hr (Myrbetriq) 50 mg PO HS Urinary Issue 07/24/23
vitamin B complex 1 tab PO DAILY@1400 Supplement 07/24/23
aspirin 81 mg chewable tablet (Children's Aspirin) 81 mg PO DAILY #1 tab 08/03/23
Cbn/Cbd Gummy 1 dose PO HS Sleep 02/17/24
Poop Doc - Magnesium Product 1 dose PO DAILY Supplement 02/17/24
coenzyme Q10 10 mg capsule (Co Q-10) 30 mg PO QPM Supplement 02/17/24
milk thistle 150 mg capsule 300 mg PO DAILY Supplement 02/17/24
omeprazole 20 mg capsule,delayed release 20 mg PO DAILY Gastrointestinal Issue 02/17/24
valerian root 500 mg capsule 500 mg PO HS Supplement 02/17/24
carbidopa ER 23.75 mg-levodopa 95 mg capsule,extended release (Rytary) 1 cap PO TID@0800,1400,1999 Neurological Condition #90 caps 02/18/24
Review of Systems:
Constitutional: (x) Normal _
Eye: (x) Normal _
Ear/Nose/Throat: (x) Normal _
Respiratory: (x) Normal _
Cardiovascular: (x) paroxysmal A-fib
Gastrointestinal: (x) Normal _
Genitourinary: (x) Normal _
Musculoskeletal: (x) Some rigidity on Upper and lower Extremities
Integumentary: (x) Normal _
Neurologic: (x) Parkinson, Mild tremor, mild rigidity on bilateral upper and lower extremities
Psychiatric: (x) Normal _
Endocrine: (x) Normal _
Hematologic/Lymphatic: (x) Normal _
Allergic/Immunologic: (x) Normal _
Vitals:
Vital Signs
Temp Pulse Resp BP Pulse Ox
98 F 76 14 153/99 95
02/19/24 07:51 02/19/24 07:55 02/19/24 07:55 02/19/24 07:51 02/19/24 07:55
Physical Exam:
General Appearance/Observation: Elderly, adequate hygiene
Pain/Comfort Assessment: Denies
Mood/Affect: Appropriate
Integumentary/Operative Site:
Pressure Ulcer Evaluation: absent over heels.
Eyes: Conjunctiva/Lids: normal Pupils: pupils equal round and reactive to light and Accommodation
Ears/Nose/Throat: oral mucosa moist, throat clear. Lips/Teeth/Gums: normal
Neck: No muscle spasm or tenderness
Cardiovascular: Heart: regular, no murmur
Pulses: dorsalis pedis 2+ bilaterally
Respiratory: Respiratory Effort/Chest Expansion: normal Auscultation: Clear to auscultation bilaterally
Gastrointestinal: abdomen not tender, no distension, normal abdominal bowel sounds
Genitourinary: No Juarez
Rectal Exam: Deferred
Extremities: Edema: None Cyanosis: None Trophic changes: None
Neurology Exam:
Orientation: Alert, Oriented to self, Time, Place
Memory: Intact immediately
Comprehension: Intact
Two step command: Intact
Naming: some difficulty
Cranial Nerves:
CNII: Pupillary light reflex: Intact Visual Field: Intact
CN III, IV, : Extraocular muscles: Intact
CN V: Facial Sensation at Forehead: Intact, Maxilla: Intact, Mandible: Intact
CN VII: Facial movement: Symmetric
CN VIII: Hearing: Normal
CN IX/X: Speech & swallow: Normal, Position of Uvula: Midline
CN XI: Shoulder shrug: Symmetric
CN XII: Tongue protrusion: Midline
Sensory:
Light touch: Intact in bilateral upper and lower extremities
Reflexes:
Biceps: 1+ bilaterally
Brachioradialis: 1+ bilaterally
Triceps:1+ bilaterally
Patellar: 1+ bilaterally
Achilles:1+ bilaterally
Babinski: Down going bilaterally
Clonus: None
Gopi: Negative bilaterally
Cerebellar: Dysmetria/Ataxia: deferred
Musculoskeletal:
Motor: (Manual muscle scale 0-5)
Bilateral Upper and Lower Extremity Motor Muscle Strength 3- 4/5 due debility. Unable to fully assess due to patient's cooperation. No focal weakness
Tone:rigidity on extremities
Range of Motion: Passively within normal limits in all extremities
Lab Results
Laboratory Data
Total Bilirubin 1.1 mg/dl (0.2-1.3) 02/17/24 06:35
AST 32 U/L (17-59) 02/17/24 06:35
ALT 13 U/L (0-50) 02/17/24 06:35
Alkaline Phosphatase 81 U/L (38-126) 02/17/24 06:35
Diagnostic Results: as per HPI
02/17/24:Head CT: IMPRESSION: No acute intracranial abnormalities. Findings again seen compatible with diffuse cortical atrophy with nonspecific white matter changes as described above
Assessment
78 year old male presented to ER with the concern of his frequent falls and feeling progressive weakness since last month. The patient reported he started to have more falls since last 2 years and receiving home care 2 days/week. The patient
reports having difficulty using walker and prefers having his cane while walking. During examination, patient fall asleep 2 times and he easily woke up with verbal stimulation. Head CT negative. The patient has ambulatory dysfunction and
Parkinson.
Plan
PM&R PT/OT to increase independence with ADLs, improve balance, coordination, endurance, strength, mobility, community reintegration, decreased burden of care on others and family education. SNF is the appropriate for the patient to improve his
physical skills.
Falls: Likely multifactorial, PT/OT
-Parkinson's Disease: On Carbidopa/Levodopa. Needs Neurology follow up. Neurology input would be appreciated
Insomnia: Melatonin
A-fib:Eliquis stopped per cardiology recommendation and replaced with aspirin due to risk of fall and bleeding at previous admission on 07/27/23 (Per chart, Had been discussed with his fashion marketer who sees him outpatient Dr. Montez on 07/27/23
and recommend to discontinue Eliquis and replace with aspirin given risk of falls and bleeding)
Spasticity: Continue range of motion exercises and stretching program.
Lumbar Radiculopathy: gabapentin 100mg PO qhs, PT/OT
Coronary Artery Disease: (CABG 09/2020) aspirin, statin
GERD: PPI
Orthostatic hypotension: Continue fludrocortisone. Patient allergic to Midodrine-hallucinations. Adjust medication as needed. Consider compression stocking. monitor BMP
BPH: Continue finasteride / tamsulosin.
COPD: Continue nebulizer treatments as needed.
DVT: Lovenox subQ and mechanical
Psych:Monitor mood, adjust medications as needed.
Skin: monitor for pressure sores/rashes/lesions.
Pain: acetaminophen or oxycodone as needed.
Bowel: Colace and Senna, PRN bisacodyl.
Bladder: Time void, PVRs, PRN straight cath.
Pulmonary: Incentive spirometry
Safety: Continue to reinforce assistance with all transfers.
Code Status: DNR - discussed with at bedside
Dispo (date/plan/equipment needs): SNF
Functional and Medical Goals: Modified Independent with ADL�s, ambulation, transfers
Discharge Destination: Would recommend SNF( Custodial Facility) once medically stable.
Please do not hesitate to contact me with any questions or concerns. Thanks Dr Coelho for involving me in this patient`s care.
Laura Ledbetter MD
[facility]

Documented by User: Yordy Coelho MD 02/19/24 18:05
Consultation - Medical
-
Referring Provider:
Chief Complaint: Progressive Weakness/ Ambulatory dysfunction/frequent falls
History of Present Illness: The patient is a 78-year-old male who presented to ER on 02/17/24 complaining from progressive weakness and having frequent falls. The patient has a PMH of A-fib (on Eliquis), CAD ( (s/p CABG 09/2020), GERD, HTN, HLD,
Parkinson's. Head CT was negative. The patient had been hospitalized on 08/08 for fall resulting in right 5th and 6th rib fracture. The patient was seen in his bed today and he reported he came to ER to understand if he had anything wrong with
health or not. He told that coming ER is the fastest way because he was feeling more weakness since last month. And this made him to feel nervous. Reported he started to fall more frequently in last 2 years and especially feels more weak since last
month. The patient reports theta he was given a walker last year but he prefers to use his cane.He understands that walker is safer for his situation. Reports he has his at home and his has difficulty of taking care of him.
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
Procedure History: coronary artery bypass graft, umbical herniorrhaphy, surgical resection of malignant melanoma
Family History: None pertinent
Social History:
Functional Level Premorbidly: By patient report, was ambulating with a cane
Functional Level Currently: Bed Mobility: -Supine to sit- Moderate assistance, -Sit to supine- Minimal assistance, -Rolling- Not tested, Transfer: -Sit to stand- Maximum assistance, -Stand to sit- Maximum assistance, -Stand/pivot/sit- Not tested ,
Ambulation was not assessed due safety concerns
Tobacco:Former Smoker
Alcohol: Former
Drug use: Denies
Lives with: Family
24-hour assistance available: No
Number of floors: Multilevel
# steps to enter: 3
# steps to second floor: Bedroom on second floor.
Potential First floor set up: Yes
Driving: No
Occupation: retired
Allergies
Allergy/AdvReac Type Severity Reaction Status Date / Time
atropine Allergy nose bleeds Verified 02/17/24 04:54
cat dander Allergy Hayfever Verified 02/17/24 04:54
house dust Allergy Hayfever Verified 02/17/24 04:54
house dust mite Allergy Hayfever Verified 02/17/24 04:54
lorazepam [From Ativan] Allergy change in Verified 02/17/24 04:54
mentation
midodrine Allergy hallucinati Verified 02/17/24 04:54
on
Opioids-Meperidine and Allergy parkinsons Verified 02/17/24 04:54
Related coma
zolpidem [From Ambien] Allergy hallucinations/ Verified 02/17/24 04:54
change in
mentation
Home Medications
albuterol sulfate 90 mcg/actuation aerosol inhaler 2 puff inhalation R Q4HPRN PRN sob,copd 10/22/20
atorvastatin 80 mg tablet 80 mg PO HS High cholesterol 10/22/20
duloxetine 60 mg capsule,delayed release 60 mg PO DAILY@1400 Depression 10/01/21
finasteride 5 mg tablet 5 mg PO DAILY Urinary issue 10/01/21
Saccharomyces boulardii 250 mg capsule 250 mg PO DAILY Supplement 03/04/22
fludrocortisone 0.1 mg tablet 0.1 mg PO DAILY Orthostatic hypotension #30 tabs 03/07/22
ferrous sulfate 325 mg (65 mg iron) tablet 325 mg PO Q48H@1100 Supplement 06/20/22
cholecalciferol (vitamin D3) 25 mcg (1,000 unit) capsule (Vitamin D3) 100 mcg PO DAILY Supplement 06/21/22
acetaminophen 500 mg tablet 1,000 mg PO TIDPRN PRN mild pain 07/24/23
albuterol sulfate 90 mcg/actuation aerosol inhaler 2 puff inhalation R DAILY Lung/Breathing Issues 07/24/23
ascorbic acid (vitamin C) 500 mg tablet (Vitamin C) 500 mg PO DAILY@1100 Supplement 07/24/23
benralizumab 30 mg/mL subcutaneous syringe (Fasenra) 30 mg SC .Q6-8WEEKS asthma COPD 07/24/23
carbidopa ER 61.25 mg-levodopa 245 mg capsule,extended release (Rytary) 1 cap PO TID@0800,1400,1999 Neurological Condition 07/24/23
fluticasone fur. 100 mcg-umeclid 62.5 mcg-vilant 25 mcg inhalat.powder (Trelegy Ellipta) 1 inh inhalation R DAILY Lung/Breathing Issues 07/24/23
magnesium 1 tab PO HS Supplement 07/24/23
melatonin 10 mg tablet,extended release 10 mg PO HS Sleep 07/24/23
mirabegron 50 mg tablet,extended release 24 hr (Myrbetriq) 50 mg PO HS Urinary Issue 07/24/23
vitamin B complex 1 tab PO DAILY@1400 Supplement 07/24/23
aspirin 81 mg chewable tablet (Children's Aspirin) 81 mg PO DAILY #1 tab 08/03/23
Cbn/Cbd Gummy 1 dose PO HS Sleep 02/17/24
Poop Doc - Magnesium Product 1 dose PO DAILY Supplement 02/17/24
coenzyme Q10 10 mg capsule (Co Q-10) 30 mg PO QPM Supplement 02/17/24
milk thistle 150 mg capsule 300 mg PO DAILY Supplement 02/17/24
omeprazole 20 mg capsule,delayed release 20 mg PO DAILY Gastrointestinal Issue 02/17/24
valerian root 500 mg capsule 500 mg PO HS Supplement 02/17/24
carbidopa ER 23.75 mg-levodopa 95 mg capsule,extended release (Rytary) 1 cap PO TID@0800,1400,2000 Neurological Condition #90 caps 02/18/24
Review of Systems:
Constitutional: (x) Normal _
Eye: (x) Normal _
Ear/Nose/Throat: (x) Normal _
Respiratory: (x) Normal _
Cardiovascular: (x) paroxysmal A-fib
Gastrointestinal: (x) Normal _
Genitourinary: (x) Normal _
Musculoskeletal: (x) Some rigidity on Upper and lower Extremities
Integumentary: (x) Normal _
Neurologic: (x) Parkinson, Mild tremor, mild rigidity on bilateral upper and lower extremities
Psychiatric: (x) Normal _
Endocrine: (x) Normal _
Hematologic/Lymphatic: (x) Normal _
Allergic/Immunologic: (x) Normal _
Vitals:
Vital Signs
Temp Pulse Resp BP Pulse Ox
98 F 76 14 153/99 95
02/19/24 07:51 02/19/24 07:55 02/19/24 07:55 02/19/24 07:51 02/19/24 07:55
Physical Exam:
General Appearance/Observation: Elderly, adequate hygiene
Pain/Comfort Assessment: Denies
Mood/Affect: Appropriate
Integumentary/Operative Site:
Pressure Ulcer Evaluation: absent over heels.
Eyes: Conjunctiva/Lids: normal Pupils: pupils equal round and reactive to light and Accommodation
Ears/Nose/Throat: oral mucosa moist, throat clear. Lips/Teeth/Gums: normal
Neck: No muscle spasm or tenderness
Cardiovascular: Heart: regular, no murmur
Pulses: dorsalis pedis 2+ bilaterally
Respiratory: Respiratory Effort/Chest Expansion: normal Auscultation: Clear to auscultation bilaterally
Gastrointestinal: abdomen not tender, no distension, normal abdominal bowel sounds
Genitourinary: No Juarez
Rectal Exam: Deferred
Extremities: Edema: None Cyanosis: None Trophic changes: None
Neurology Exam:
Orientation: Alert, Oriented to self, Time, Place
Memory: Intact immediately
Comprehension: Intact
Two step command: Intact
Naming: some difficulty
Cranial Nerves:
CNII: Pupillary light reflex: Intact Visual Field: Intact
CN III, IV, : Extraocular muscles: Intact
CN V: Facial Sensation at Forehead: Intact, Maxilla: Intact, Mandible: Intact
CN VII: Facial movement: Symmetric
CN VIII: Hearing: Normal
CN IX/X: Speech & swallow: Normal, Position of Uvula: Midline
CN XI: Shoulder shrug: Symmetric
CN XII: Tongue protrusion: Midline
Sensory:
Light touch: Intact in bilateral upper and lower extremities
Reflexes:
Biceps: 1+ bilaterally
Brachioradialis: 1+ bilaterally
Triceps:1+ bilaterally
Patellar: 1+ bilaterally
Achilles:1+ bilaterally
Babinski: Down going bilaterally
Clonus: None
Gopi: Negative bilaterally
Cerebellar: Dysmetria/Ataxia: deferred
Musculoskeletal:
Motor: (Manual muscle scale 0-5)
Bilateral Upper and Lower Extremity Motor Muscle Strength 3- 4/5 with trouble following commands consistently. Unable to fully assess due to patient's cooperation. No focal weakness
Tone:rigidity on extremities
Range of Motion: Passively within normal limits in all extremities
Lab Results
Laboratory Data
Total Bilirubin 1.1 mg/dl (0.2-1.3) 02/17/24 06:35
AST 32 U/L (17-59) 02/17/24 06:35
ALT 13 U/L (0-50) 02/17/24 06:35
Alkaline Phosphatase 81 U/L (38-126) 02/17/24 06:35
Diagnostic Results: as per HPI
02/17/24:Head CT: IMPRESSION: No acute intracranial abnormalities. Findings again seen compatible with diffuse cortical atrophy with nonspecific white matter changes as described above
Assessment
78 year old male presented to ER with the concern of his frequent falls and feeling progressive weakness since last month. The patient reported he started to have more falls since last 2 years and receiving home care 2 days/week. The patient
reports having difficulty using walker and prefers having his cane while walking. During examination, patient fall asleep 2 times and he easily woke up with verbal stimulation. Head CT negative. The patient has ambulatory dysfunction and
Parkinson.
Plan
PM&R: PT/OT to increase independence with ADLs, improve balance, coordination, endurance, strength, mobility, community reintegration, decreased burden of care on others and family education. SNF is the appropriate for the patient to improve his
physical skills.
Falls: Likely multifactorial, PT/OT
-Parkinson's Disease: Carbidopa/Levodopa. Needs Neurology follow up.
Insomnia: Melatonin. If agitation occurs could trial trazodone or low dose seroquel.
A-fib:Eliquis stopped per cardiology recommendation and replaced with aspirin due to risk of fall and bleeding at previous admission on 07/27/23 (Per chart, Had been discussed with his fashion marketer who sees him outpatient Dr. Montez on 07/27/23
and recommend to discontinue Eliquis and replace with aspirin given risk of falls and bleeding)
Lumbar Radiculopathy: gabapentin 100mg PO qhs, PT/OT
Coronary Artery Disease: (CABG 09/2020) aspirin, statin
GERD: PPI
Orthostatic hypotension: fludrocortisone. Patient noted allergic to Midodrine with hallucinations, but that is not likely, more likely from Parkinson's disease and medications for Parkinson's. Adjust medication as needed. Consider compression
stocking. monitor BMP
BPH: finasteride / tamsulosin.
COPD: nebulizer treatments as needed.
DVT: Lovenox subQ and mechanical
Psych:Monitor mood, adjust Cymbalta as needed.
Skin: monitor for pressure sores/rashes/lesions.
Pain: acetaminophen as needed.
Chronic Constipation: Colace and Senna, PRN bisacodyl.
Bladder: Time void, PVRs, PRN straight cath. On Myrbetriq
Pulmonary: Incentive spirometry
Safety: Continue to reinforce assistance with all transfers.
Code Status: DNR - discussed with at bedside
Dispo (date/plan/equipment needs): SNF
Functional and Medical Goals: Modified Independent with ADL�s, ambulation, transfers
Discharge Destination: Would recommend SNF( Custodial Facility) once medically stable.
Please do not hesitate to contact me with any questions or concerns. Thanks Dr Coelho for involving me in this patient`s care.
Laura Ledbetter MD
[facility]
Attending Statement:
I saw and examined the patient with resident today. Reviewed care plan with patient and resident. I agree with the above subjective and physical exam, and plan as documented with adjustments made as necessary. 78-year-old male known to me from
prior consult in July 2023 with similar concerns. Overall he will benefit from a detention facility program.
[2024-02-18] MEDS: LIPITOR 80 MG PO (21:27)
[2024-02-18] MEDS: MYRBETRIQ EXTENDED RELEASE 50 MG PO (21:27)
[2024-02-18] MEDS: MELATONIN 10 MG PO (21:27)
[2024-02-18 22:21] VITALS: BMI 21.8
[2024-02-18 23:10] VITALS: BP 106/71
[2024-02-19 07:51] VITALS: BP 153/99
[2024-02-19] MEDS: ProAIR HFA INHALER 2 PUFF INH (07:51)
[2024-02-19] MEDS: SYMBICORT 80/4.5 MCG INHALER 2 PUFF INH (07:51)
[2024-02-19] MEDS: SPIRIVA RESPIMAT 2.5 MCG 2 PUFF INH (07:51)
[2024-02-19] MEDS: LOW STRENGTH ASPIRIN 81 MG PO (08:07)
[2024-02-19] MEDS: PROSCAR 5 MG PO (08:07)
[2024-02-19] MEDS: PROTONIX 40 MG PO (08:07)
[2024-02-19] MEDS: NON-FORMULARY ITEM 1 UNIT PO ×4 (08:07→14:33)
[2024-02-19] MEDS: FLORINEF 0.1 MG PO (08:07)
--- NOTE | 2024-02-19 11:14 | CM ---
Addendum entered by Nimco Arriaga 02/19/24 15:28:
CM spoke at length with patient and patient sister to explain options and now here to talk to patient.
Addendum entered by Nimco Arriaga 02/19/24 13:30:
[facility] auth in place per Perla from [facility]. Patient can be transferred to [facility] today. Patient aware. Please call report to [phone]. CM will continue to follow for discharge planning needs.
Original Note:
Patient seen at bedside. Patient seen by PM&R and per liaison from [facility] patient does not qualify for Acute Rehab. Patient notified. Per plan to transfer to [facility]. CM sent tt to [facility] lifeline representatives and requested SNF
recommendation from physician. CM will need to obtain authorization with waiver from [facility]. CM will continue to follow for discharge planning needs.
Plan; transfer to SNF when Auth confirmed.
[2024-02-19] MEDS: VITAMIN C 500 MG PO (11:26)
--- NOTE | 2024-02-19 11:40 | W.PN.HOSP.TC ---
Today's Communication/Plan
-
dispo planning
Assessment / Plan
Assessment / Plan
Mr. Raciel Lucas is a 78 yo man with hx atrial fibrillation on Eliquis, CAD (s/p CABG 09/2020), COPD, GERD, HTN, HLD, Parkinson's presents to the ER with increasing weakness in setting of Parkinson's with frequent falls.
HEAD CT
IMPRESSION:
No acute intracranial abnormalities.
Findings again seen compatible with diffuse cortical atrophy with nonspecific white matter changes as described above.
Parkinson's Disease
Insomnia
Ambulatory Dysfunction
Frequent Falls
-admitted to observation
-PT/OT - patient qualifies for a SNF rehab stay based on therapy evaluations. I recommend SNF for rehab in setting of ambulatory dysfunction from Parkinson's disease.
-ADJUNCT IN[employer]OMEN[employer] Rytary
Lumbar Radiculopathy
-trial gabapentin 100mg PO qhs
-PT/OT
Coronary Artery Disease
-s/p CABG 09/2020
-ADJUNCT IN[employer] aspirin/statin
GERD
-ADJUNCT IN[employer] PPI
Orthostatic hypotension
-ADJUNCT IN[employer]CTOR [employer]OMEN[employer]IES Fludrocortisone
BPH
-ADJUNCT IN[employer]CTOR [employer]OMEN[employer]IES Finasteride
COPD
-ADJUNCT IN[employer]OM[employer] inhalers
DVT PPx Lovenox subQ
DNR - discussed with at bedside
Anticipated Discharge: Within 24 hours
Subjective/Interval History
-
Date of Service: February 19, 2024
no new complaints
denies pain
Objective Data
-
Vital Signs:
Vital Signs
Temp Pulse Resp BP Pulse Ox
98 F 76 14 153/99 95
02/19/24 07:51 02/19/24 07:55 02/19/24 07:55 02/19/24 07:51 02/19/24 08:00
I&O
02/18/24 02/19/24 02/20/24
06:59 06:59 06:59
Intake Total 1320 / 1320
Output Total 500 / 500
Balance -500 / -500 1320 / 1320
Review of Systems
-
History Source: Patient
All other systems: Reviewed and negative
Physical Exam
-
General: No Apparent Distress and Appears Chronically Ill
HEENT: Moist Mucous Membranes
Respiratory: Clear to Auscultation
Cardiac: Regular Rhythm and S1/S2; Negative Tachycardic
GI: Soft and Nontender
Neuro: Awake and Alert
Psych: Calm; Negative Agitated
Data Reviewed
-
Diagnostic Radiology: Report Reviewed by me
Labs: Labs Reviewed by me
--- NOTE | 2024-02-19 13:35 | W.DS.TRANS ---
DC Summary - [employer]
-
Discharge Instructions:
Discharge Diagnosis/Procedures progressive Parkinson's disease; lumbar
radiculopathy
Diet Regular
Activity As tolerated
Driving Restrictions No driving
Bathing Restrictions None
Other Services PT,OT
Instructions:
Stand-Alone Forms:
Changes to Home Medications: Yes
Discharge Medications:
DC Medications w/original date entered in [employer]
albuterol sulfate 90 mcg/actuation aerosol inhaler 2 puff inhalation R Q4HPRN PRN sob,copd 10/22/20
atorvastatin 80 mg tablet 80 mg PO HS High cholesterol 10/22/20
duloxetine 60 mg capsule,delayed release 60 mg PO DAILY@1400 Depression 10/01/21
finasteride 5 mg tablet 5 mg PO DAILY Urinary issue 10/01/21
Saccharomyces boulardii 250 mg capsule 250 mg PO DAILY Supplement 03/04/22
fludrocortisone 0.1 mg tablet 0.1 mg PO DAILY Orthostatic hypotension #30 tabs 03/07/22
ferrous sulfate 325 mg (65 mg iron) tablet 325 mg PO Q48H@1100 Supplement 06/20/22
cholecalciferol (vitamin D3) 25 mcg (1,000 unit) capsule (Vitamin D3) 100 mcg PO DAILY Supplement 06/21/22
acetaminophen 500 mg tablet 1,000 mg PO TIDPRN PRN mild pain 07/24/23
albuterol sulfate 90 mcg/actuation aerosol inhaler 2 puff inhalation R DAILY Lung/Breathing Issues 07/24/23
ascorbic acid (vitamin C) 500 mg tablet (Vitamin C) 500 mg PO DAILY@1100 Supplement 07/24/23
benralizumab 30 mg/mL subcutaneous syringe (Fasenra) 30 mg SC .Q6-8WEEKS asthma COPD 07/24/23
carbidopa ER 61.25 mg-levodopa 245 mg capsule,extended release (Rytary) 1 cap PO TID@0800,1400,2000 Neurological Condition 07/24/23
fluticasone fur. 100 mcg-umeclid 62.5 mcg-vilant 25 mcg inhalat.powder (Trelegy Ellipta) 1 inh inhalation R DAILY Lung/Breathing Issues 07/24/23
magnesium 1 tab PO HS Supplement 07/24/23
melatonin 10 mg tablet,extended release 10 mg PO HS Sleep 07/24/23
mirabegron 50 mg tablet,extended release 24 hr (Myrbetriq) 50 mg PO HS Urinary Issue 07/24/23
vitamin B complex 1 tab PO DAILY@1400 Supplement 07/24/23
aspirin 81 mg chewable tablet (Children's Aspirin) 81 mg PO DAILY #1 tab 08/03/23
Cbn/Cbd Gummy 1 dose PO HS Sleep 02/17/24
Poop Doc - Magnesium Product 1 dose PO DAILY Supplement 02/17/24
coenzyme Q10 10 mg capsule (Co Q-10) 30 mg PO QPM Supplement 02/17/24
milk thistle 150 mg capsule 300 mg PO DAILY Supplement 02/17/24
omeprazole 20 mg capsule,delayed release 20 mg PO DAILY Gastrointestinal Issue 02/17/24
valerian root 500 mg capsule 500 mg PO HS Supplement 02/17/24
carbidopa ER 23.75 mg-levodopa 95 mg capsule,extended release (Rytary) 1 cap PO TID@0800,1400,2000 Neurological Condition #90 caps 02/18/24
gabapentin 100 mg capsule 100 mg PO HS #30 caps 02/19/24
Home Medication Changes
addition of Gabapentin
Pending Results: No
[2024-02-19] MEDS: CYMBALTA DELAYED RELEASE 60 MG PO (14:33)
[2024-02-19 15:28] VITALS: BP 137/90
--- NOTE | 2024-02-19 15:47 | W.DCSUMMARY ---
Discharge Summary
Discharge Data
Date of Admission: 02/17/24
Date of Discharge: 02/19/24
-
Pending Results: No
Hospital Course
Discharging Physician : Dr. Brittny Ashley
Disposition : SNF
Primary care physician : Dr. Yari Webb
Principal Discharge diagnosis : Ambulatory Dysfunction, progression of Parkinson's
Hospital Course :
Mr. Raciel Lucas is a 78 yo man with hx atrial fibrillation on Eliquis, CAD (s/p CABG 09/2020), COPD, GERD, HTN, HLD, Parkinson's presents to the ER with increasing weakness in setting of Parkinson's with frequent falls. Triage vitals stable, labs
unremarkable. He was admitted to observation and PT/OT ordered. SNF recommended. He was started on Gabapentin for lumbar radiculopathy and this improved symptoms.
Time spent on discharge was 31 minutes.
Important imaging findings :
HEAD CT
IMPRESSION:
No acute intracranial abnormalities.
Findings again seen compatible with diffuse cortical atrophy with nonspecific white matter changes as described above.
Procedure findings :
Discharge Plan
-
Patient Disposition: Residential/SNF
Discharge Diagnosis/Procedures: progressive Parkinson's disease; lumbar radiculopathy
Diet: Regular
Activity: As tolerated
Driving Restrictions: No driving
Bathing Restrictions: None
Other Services: PT and OT
Referrals:
Yari Webb MD [Family Provider] - in less than 1 week
Additional Discharge Medication Instructions: new start Gabapentin 100mg in evening
Prescriptions:
New
gabapentin 100 mg Capsule
100 mg PO HS Qty: 30 0RF
Continued
atorvastatin 80 MG tablet
80 mg PO HS
albuterol sulfate 1 PUFF HFA aerosol inhaler
2 puff inhalation R Q4HPRN PRN (Reason: sob,copd)
finasteride 5 MG tablet
5 mg PO DAILY
duloxetine 60 MG capsule,delayed release(DR/EC)
60 mg PO DAILY@1400
Saccharomyces boulardii 250 mg Capsule
250 mg PO DAILY
fludrocortisone 0.1 mg Tablet
0.1 mg PO DAILY Qty: 30 0RF
ferrous sulfate 325 mg (65 mg iron) Tablet
325 mg PO Q48H@1100
cholecalciferol (vitamin D3) [Vitamin D3] 25 mcg (1,000 unit) Capsule
100 mcg PO DAILY
vitamin B complex Tablet Extended Release
1 tab PO DAILY@1400
ascorbic acid (vitamin C) [Vitamin C] 500 mg Tablet
500 mg PO DAILY@1100
albuterol sulfate 90 mcg/actuation HFA aerosol inhaler
2 puff INHALATION R DAILY
mirabegron [Myrbetriq] 50 mg tablet extended release 24 hr
50 mg PO HS
melatonin 10 mg Tablet Extended Release
10 mg PO HS
Rytary 61.25-245 mg capsule, extended release
1 cap PO TID@0800,1400,2000
Trelegy Ellipta 100-62.5-25 mcg Blister With Device
1 inh INHALATION R DAILY
Fasenra 30 mg/mL Syringe
30 mg SC .Q6-8WEEKS
magnesium
1 tab PO HS
Patient Comments:
07/24/2023: Per Spouse pt takes MagMind by Georgina
acetaminophen 500 mg tablet
1,000 mg PO TIDPRN PRN (Reason: mild pain)
aspirin [Children's Aspirin] 81 mg Tablet,Chewable
81 mg PO DAILY Qty: 1 0RF
valerian root 500 mg Capsule
500 mg PO HS
coenzyme Q10 [Co Q-10] 10 mg Capsule
30 mg PO QPM
milk thistle 150 mg Capsule
300 mg PO DAILY
omeprazole 20 mg Capsule,Delayed Release(Dr/Ec)
20 mg PO DAILY
Cbn/Cbd Gummy
1 dose PO HS
Poop Doc - Magnesium Product
1 dose PO DAILY
Rytary 23.75-95 mg Capsule, Extended Release
1 cap PO TID@0800,1400,2000 Qty: 90 0RF
Discharge Orders:
Discharge Patient (As Directed); Ordered 02/19/24
Ordered By: Brittny Ashley
Discharge Date and Time
Print Language: [place] CITIZ[place]
== END 2024-02-19 17:30 ==
LOC: 3 WEST ACU 15:05
PROVIDERS: ADMITTING PHYSICIAN Student in an Organized Health Care Education/Training Program; CONSULT PHYSICIAN Physical Medicine & Rehabilitation; EMERGENCY PHYSICIAN Emergency Medicine; FAMILY PHYSICIAN Internal Medicine
DX: R26.2 Difficulty in walking, not elsewhere classified (principal); R53.1 Weakness; G20.A1 Parkinson's disease without dyskinesia, without mention of fluctuations; F02.818 Dementia in other diseases classified elsewhere, unspecified severity, with other behavioral disturbance; I25.10 Atherosclerotic heart disease of native coronary artery without angina pectoris; J44.9 Chronic obstructive pulmonary disease, unspecified; E78.00 Pure hypercholesterolemia, unspecified; I10 Essential (primary) hypertension; K21.9 Gastro-esophageal reflux disease without esophagitis; I48.91 Unspecified atrial fibrillation; G47.00 Insomnia, unspecified; G31.9 Degenerative disease of nervous system, unspecified; I45.10 Unspecified right bundle-branch block; M54.16 Radiculopathy, lumbar region; I95.1 Orthostatic hypotension; N40.0 Benign prostatic hyperplasia without lower urinary tract symptoms; F10.91 Alcohol use, unspecified, in remission; Z79.01 Long term (current) use of anticoagulants; Z66 Do not resuscitate; Z88.5 Allergy status to narcotic agent; Z88.8 Allergy status to other drugs, medicaments and biological substances; Z79.51 Long term (current) use of inhaled steroids; Z79.82 Long term (current) use of aspirin; Z79.52 Long term (current) use of systemic steroids; Z86.16 Personal history of COVID-19; Z02.2 Encounter for examination for admission to residential institution; Z87.891 Personal history of nicotine dependence; Z95.1 Presence of aortocoronary bypass graft; Z85.820 Personal history of malignant melanoma of skin; Z86.11 Personal history of tuberculosis
CPT/HCPCS: 70450; 80053; 81003; 85025; 93005; 94640; 96360; 97166; 97530; 99285; G0378

== ENCOUNTER 2024-06-10 11:09 | Inpatient (IN) | payer MEDICARE, OTHER, SELFPAY ==
[2024-06-07 19:12] VITALS: BP 146/92
--- NOTE | 2024-06-07 21:37 | ED.GENMED ---
History of Present Illness
<Archie Keita DO, Resident - Last Filed: 06/07/24 22:33>
General
Chief Complaint: Fall
Source: patient and family
Time Seen by Provider: 06/07/24 20:43
History of Present Illness
History of Present Illness:
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 His reports this is his
third fall within 24 hours. She reports that recently he was started on trazodone and gabapentin for restlessness at night, apparently he is very restless walks around naked at night and was started on these medications recently. They have an
appointment scheduled with a neuro psychiatrist to discuss polypharmacy at some point. Patient reports during these 3 falls he hit his right elbow twice and fell onto his back. Patient reports that this most recent episode he lost his balance and
fell backwards after hitting the corner of a wall and slid onto his butt. Patient reports not losing consciousness and not hitting his head. Patient also reports he was taken off Eliquis recently as he has had multiple falls. As for now he is
complaining of slight disorientation and left-sided rib pain.
Past History
<Archie Keita DO, Resident - Last Filed: 06/07/24 22:33>
Past History
ED Past Medical History: Arrthythmia (A. 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
ED Past Surgical History: Cardiac (Bypass surgery CABG times 09/2020) and Other (umbilical herniorrhaphy, surgical resection malignant melanoma)
Social History
Tobacco: Former smoker
Alcohol: Former (discontinued approximately 1989)
Drug: None
Personal: Single
Living: with family
Employment: Employed
Family History
Family History: Other
Review of Systems
<Archie Keita DO, Resident - Last Filed: 06/07/24 22:33>
Review of Systems
Constitutional: Reports sleep disturbance
EENT: Reports no symptoms
Respiratory: Reports no symptoms
Cardiac: Reports no symptoms
ABD/GI: Reports no symptoms
: Reports no symptoms
Musculoskeletal: Reports other (Left-sided rib pain)
Neurological: Reports other (Disorientation)
Phy Exam
<Archie Keita DO, Resident - Last Filed: 06/07/24 22:33>
General Physical Exam
General Presentation: well appearing and no apparent distress
General Skin: warm and dry
Cardiovascular Exam
Cardiovascular Exam: regular rate/rhythm, no edema and no murmur
Pulmonary Exam
Pulmonary Exam: lungs clear (Exam limited due to poor respiratory effort) and no respiratory distress
Gastrointestinal Exam
Gastrointestinal Exam: non tender, soft and non distended
Neurological Exam
Neurological Exam: alert, oriented x3, CN II-XII intact, no motor deficits, no sensory deficits and speech normal
Musculoskeletal Exam
Musculoskeletal Exam: other (Left-sided ribs tender to palpation, right nontender to palpation)
Course
<Archie Keita DO, Resident - Last Filed: 06/07/24 22:33>
Orders/Labs/Results
Orders:
Orders
06/07/24 19:14
Ribs, Left 3 View W/PA Chest CR [CR Ribs-left 3 Vw W/pa Chest] Urgent
Comment:
Reason For Exam: pain s/p fall
06/07/24 21:45
Acetaminophen [Tylenol] 1,000 mg PO NOW STA
06/07/24 21:47
0.9% Sodium Chloride 1000 ml [Nss] 1,000 ml IV BOLUS
06/07/24 22:15
Complete Blood Count/No Diff Urgent
Comprehensive Metabolic Panel Urgent
Urinalysis Reflex To Culture Urgent
Date Specimen was Collected: 06/07/24
Time Specimen was Collected: 22:09
06/07/24 22:31
CT Chest W/o Iv Contrast Urgent
Comment:
Reason For Exam: Left-sided fall/rib fracture
CT Head W/o Iv Contrast Urgent
Comment:
Reason For Exam: Increased confusion
Vital Signs
Initial and Last Documented VS:
Initial Vital Signs
Temp Pulse Resp BP Pulse Ox
98.7 F 71 16 146/92 98
06/07/24 19:12 06/07/24 19:12 06/07/24 19:12 06/07/24 19:12 06/07/24 19:12
Last Documented Vital Signs
Temp Pulse Resp BP Pulse Ox
98.7 F 71 16 146/92 98
06/07/24 19:12 06/07/24 19:12 06/07/24 19:12 06/07/24 19:12 06/07/24 19:12
<Trinidad Almonte MD - Last Filed: 06/07/24 22:48>
Orders/Labs/Results
Orders:
Orders
06/07/24 19:14
Ribs, Left 3 View W/PA Chest CR [CR Ribs-left 3 Vw W/pa Chest] Urgent
Comment:
Reason For Exam: pain s/p fall
06/07/24 21:45
Acetaminophen [Tylenol] 1,000 mg PO NOW STA
06/07/24 21:47
0.9% Sodium Chloride 1000 ml [Nss] 1,000 ml IV BOLUS
06/07/24 22:15
Complete Blood Count/No Diff Urgent
Comprehensive Metabolic Panel Urgent
Urinalysis Reflex To Culture Urgent
Date Specimen was Collected: 06/07/24
Time Specimen was Collected: 22:09
06/07/24 22:31
CT Chest W/o Iv Contrast Urgent
Comment:
Reason For Exam: Left-sided fall/rib fracture
CT Head W/o Iv Contrast Urgent
Comment:
Reason For Exam: Increased confusion
Vital Signs
Initial and Last Documented VS:
Initial Vital Signs
Temp Pulse Resp BP Pulse Ox
98.7 F 71 16 146/92 98
06/07/24 19:12 06/07/24 19:12 06/07/24 19:12 06/07/24 19:12 06/07/24 19:12
Last Documented Vital Signs
Temp Pulse Resp BP Pulse Ox
98.7 F 71 16 146/92 98
06/07/24 19:12 06/07/24 19:12 06/07/24 19:12 06/07/24 19:12 06/07/24 19:12
<Archie Keita DO, Resident - Last Filed: 06/07/24 22:33>
MDM/Problems Addressed
Differential Diagnosis Includes:
Ambulatory dysfunction, Parkinson's, polypharmacy
MDM/Problems Addressed:
78-year-old male past medical significant for Parkinson's with multiple ED visits and hospital admissions for recurrent falls and ambulatory dysfunction
reports this was his third fall in the past 24 hours, most recent fall patient lost his balance fell backwards hit his back and slid down onto his butt. Denies hitting his head or loss of consciousness. Patient reports not taking blood
thinners as these were discontinued due to his recurrent falls
Patient was recently started on trazodone and gabapentin for restlessness at night, reports he is more disoriented recently and having more ambulatory dysfunction. Very likely component of polypharmacy. They have a appointment with a
neuropsychiatrist at some point to discuss polypharmacy
Neuro exam within normal limits, cranial nerves fully intact, no focal neurologic deficits present on exam
Patient is complaining of left-sided rib pain. Rib radiograph was performed which demonstrated likely left eighth rib nondisplaced fracture
Symptomatic management with p.o. Tylenol, IV fluids
Will check CBC, CMP and urinalysis
Very likely patient will require admission or at least observation due to his recurrent ambulatory dysfunction and falls. He is not safe to discharge home will very likely need care home rehab and PT OT/correctional counselor/case manager
Will order CT head noncontrast as patient has been having increased confusion
Will order CT chest noncontrast to confirm left-sided eighth nondisplaced rib fracture seen on radiographs
Chronic conditions affecting care: Neurological disorder (Parkinson's disorder)
Acute Exacerbation and/or Progression of Chronic Illness: Neurological disorder (Parkinson's disorder/ambulatory dysfunction)
<Archie Keita DO, Resident - Last Filed: 06/07/24 22:33>
*Critical Care Note
Total Time (30-74mins, 75-104mins- exclusive of procedures): Not Applicable
ED Attending Note
<Archie Keita DO, Resident - Last Filed: 06/07/24 22:33>
-
Portions of this chart may have been created with voice recognition software.� Occasional wrong word or��sound alike� substitutions may have occurred due to the inherent limitations of voice recognition software.
<Trinidad Almonte MD - Last Filed: 06/07/24 22:48>
ED Attending Note
Patient seen and examined by attending physician: Yes
I performed a history and physical exam of patient and discussed management with resident, I reviewed resident's note and agree with documented findings and plan of care.: Yes
ED Attending Note:
Patient appears nontoxic. He is breathing comfortably. He has a nonfocal neurological exam. My concerns are his safety, given he is fallen 3 times in 24 hours and his family reports he has had more disorientation and visual hallucinations, which
is unusual for him.
Discharge Plan
Departure
Prescriptions:
No Action
atorvastatin 80 MG tablet
80 mg PO HS
albuterol sulfate 1 PUFF HFA aerosol inhaler
2 puff inhalation R Q4HPRN PRN (Reason: sob,copd)
finasteride 5 MG tablet
5 mg PO DAILY
duloxetine 60 MG capsule,delayed release(DR/EC)
60 mg PO DAILY@1400
Saccharomyces boulardii 250 mg Capsule
250 mg PO DAILY
fludrocortisone 0.1 mg Tablet
0.1 mg PO DAILY Qty: 30 0RF
ferrous sulfate 325 mg (65 mg iron) Tablet
325 mg PO Q48H@1100
cholecalciferol (vitamin D3) [Vitamin D3] 25 mcg (1,000 unit) Capsule
100 mcg PO DAILY
vitamin B complex Tablet Extended Release
1 tab PO DAILY@1400
ascorbic acid (vitamin C) [Vitamin C] 500 mg Tablet
1,000 mg PO DAILY@1100
albuterol sulfate 90 mcg/actuation HFA aerosol inhaler
2 puff INHALATION R DAILY
mirabegron [Myrbetriq] 50 mg tablet extended release 24 hr
50 mg PO HS
melatonin 10 mg Tablet Extended Release
10 mg PO HS
Rytary 61.25-245 mg capsule, extended release
1 cap PO TID@0800,1400,2000
Trelegy Ellipta 100-62.5-25 mcg Blister With Device
1 inh INHALATION R DAILY
Fasenra 30 mg/mL Syringe
30 mg SC .Q6-8WEEKS
magnesium
1 tab PO HS
Patient Comments:
07/24/2023: Per Spouse pt takes MagMind by Georgina
acetaminophen 500 mg tablet
1,000 mg PO TIDPRN PRN (Reason: mild pain)
aspirin [Children's Aspirin] 81 mg Tablet,Chewable
81 mg PO DAILY Qty: 1 0RF
valerian root 500 mg Capsule
500 mg PO HS
coenzyme Q10 [Co Q-10] 10 mg Capsule
30 mg PO QPM
omeprazole 20 mg Capsule,Delayed Release(Dr/Ec)
20 mg PO DAILY
Poop Doc - Magnesium Product
1 dose PO DAILY
Rytary 23.75-95 mg Capsule, Extended Release
1 cap PO TID@0800,1400,2000 Qty: 90 0RF
milk thistle 500 mg Capsule
1,000 mg PO DAILY
gabapentin 100 mg capsule
200 mg PO HS
Referrals:
Yari Webb MD [Family Provider] -
Interventions
Interventions:
*Risk Screen - Suicide Last Done: 06/07/24 19:12
*General Assessment Last Done: 06/07/24 19:12
*Neglect/Abuse Screening Last Done: 06/07/24 19:12
*ED COVID-19 Vaccine History Last Done: 06/07/24 19:12
Discharge Date and Time
Print Language: BENGAL[place]
[2024-06-07 22:01] VITALS: BMI 22.3
[2024-06-07] MEDS: TYLENOL 1000 MG PO (22:02)
[2024-06-07] MEDS: NSS 1000 IV (22:38)
[2024-06-07 22:48] LABS: Urine Albumin Negative (Neg - Trace); Urine Bilirubin Negative (Negative); Urine Character Clear (Clear); Urine Color Yellow; Urine Glucose Negative (Negative); Urine Ketone Negative (Negative); Urine Leukocyte Negative (Negative); Urine Nitrite Negative (Negative); Urine Occult Blood Negative (Negative); Urine Specific Gravity 1.015 (<1.030); Urine Urobilinogen Negative (Neg - 1+)
[2024-06-07 22:52] LABS: Hematocrit 43.3 % (39.0-52.0); Mean Corp Hgb Conc. 34.6 g/dL (33.0-37.0); Mean Corpuscular Hgb 31.3 pg (27.0-31.0); Mean Corpuscular Volume 90.4 fL (80.0-94.0); Mean Platelet Volume 10.7 fL (7.4-10.4); Platelet Count 146 10^3/uL (130-400); Red Blood Cell Count 4.79 10^6/uL (4.70-6.10); Red Cell Dist. Width 12.7 % (11.5-14.5); White Blood Cell Count 7.6 10^3/uL (4.8-10.8)
[2024-06-07 23:05] LABS: ALT (SGPT) 11 U/L (0-50); AST (SGOT) 41 U/L (17-59); Albumin 4.4 g/dl (3.5-5.0); Alkaline Phosphatase 78 U/L (38-126); Blood Urea Nitrogen 19 mg/dl (9-20); Calcium 9.5 mg/dl (8.4-10.2); Carbon Dioxide 26 mmol/L (22-30); Chloride 102 mmol/L (98-107); Estimated Creatinine Clearance 109 ml/min; Glucose 137 mg/dl (70-99); Potassium 3.5 mmol/L (3.5-5.1); Sodium 136 mmol/L (135-145); Total Bilirubin 0.9 mg/dl (0.2-1.3); Total Protein 6.6 g/dl (6.3-8.2); eGFR > 60.00
[2024-06-07 23:35] VITALS: BP 170/94
[2024-06-08] VITALS (7 sets, daily range): BP systolic 140–177; BP diastolic 72–110; PULSE 75; O2SAT 84; BMI 21.1
--- NOTE | 2024-06-08 00:30 | HPS.HSE ---
Family Physician
-
Family Physician: Yari Webb
Chief Complaint
-
Fall
History of Present Illness
This is a 78-year-old with history of progressive Parkinson's disease, COPD not on home O2, hypertension, GERD, BPH was had multiple falls in the past presents to the emergency department with another fall.
Patient has had 3 falls in the last 24 hours. He recalls this falls. He attributes them to his Parkinson disease. He said that he tripped across the table and landed on his back and his most recent fall that caused him to come to the emergency
department. He is an alert and oriented patient however he cannot give detailed history. He denies any abdominal pain nausea or vomiting. He denies any dysuria or hematuria. He has been no recent diarrhea. Denies any major recent med changes.
It appears his gabapentin has been increased and he is on trazodone. Likely unsafe to return home.
In the emergency department blood pressure was 140/90 with a pulse of 71 and he was afebrile. CBC was unremarkable. Electrolytes were likewise within normal limits. BUN/creatinine were normal. LFTs were normal. UA is negative. Head CT was
unremarkable. CT of the chest shows a left eighth rib nondisplaced fracture.
Medical History
Past Medical History
Past Medical History: Reports Arrhythmia (Atrial fibrillation), CAD, Cancer (Malignant melanoma status post resection), COPD, GERD, HTN and Hypercholesterolemia
Additional Past Medical History:
Parkinson disease
Past Surgical History: Reports Cardiac (CABG)
Social History
Tobacco: Former Smoker
Alcohol: Former
Drug: None
Personal:
Living: With Family
Employment: Retired
Family History
Family History: Not pertinent
Allergies / Home Medications
Allergies reflects when Allergies were last updated in [employer].
Home Medications with original date entered in [employer]
Allergy/Medication List:
Allergies
Allergy/AdvReac Type Severity Reaction Status Date / Time
atropine Allergy nose bleeds Verified 12/24/24 19:12
cat dander Allergy Hayfever Verified 06/07/24 19:12
house dust Allergy Hayfever Verified 06/07/24 19:12
house dust mite Allergy Hayfever Verified 06/07/24 19:12
lorazepam [From Ativan] Allergy change in Verified 06/07/24 19:12
mentation
midodrine Allergy hallucinati Verified 06/07/24 19:12
on
Opioids-Meperidine and Allergy parkinsons Verified 06/07/24 19:12
Related coma
zolpidem [From Ambien] Allergy hallucinations/ Verified 06/07/24 19:12
change in
mentation
Home Medications
albuterol sulfate 90 mcg/actuation aerosol inhaler 2 puff inhalation R Q4HPRN PRN sob,copd 10/22/20
atorvastatin 80 mg tablet 80 mg PO HS High cholesterol 10/22/20
duloxetine 60 mg capsule,delayed release 60 mg PO DAILY@1400 Depression 10/01/21
finasteride 5 mg tablet 5 mg PO DAILY Urinary issue 10/01/21
Saccharomyces boulardii 250 mg capsule 250 mg PO DAILY Supplement 03/04/22
fludrocortisone 0.1 mg tablet 0.1 mg PO DAILY Orthostatic hypotension #30 tabs 03/07/22
ferrous sulfate 325 mg (65 mg iron) tablet 325 mg PO Q48H@1100 Supplement 06/20/22
cholecalciferol (vitamin D3) 25 mcg (1,000 unit) capsule (Vitamin D3) 100 mcg PO DAILY Supplement 06/21/22
acetaminophen 500 mg tablet 1,000 mg PO TIDPRN PRN mild pain 07/24/23
albuterol sulfate 90 mcg/actuation aerosol inhaler 2 puff inhalation R DAILY Lung/Breathing Issues 07/24/23
ascorbic acid (vitamin C) 500 mg tablet (Vitamin C) 1,000 mg PO DAILY@1100 Supplement 07/24/23
benralizumab 30 mg/mL subcutaneous syringe (Fasenra) 30 mg SC .Q6-8WEEKS asthma COPD 07/24/23
carbidopa ER 61.25 mg-levodopa 245 mg capsule,extended release (Rytary) 1 cap PO TID@0800,1400 Neurological Condition 07/24/23
fluticasone fur. 100 mcg-umeclid 62.5 mcg-vilant 25 mcg inhalat.powder (Trelegy Ellipta) 1 inh inhalation R DAILY Lung/Breathing Issues 07/24/23
magnesium 1 tab PO HS Supplement 07/24/23
melatonin 10 mg tablet,extended release 10 mg PO HS Sleep 07/24/23
mirabegron 50 mg tablet,extended release 24 hr (Myrbetriq) 50 mg PO HS Urinary Issue 07/24/23
vitamin B complex 1 tab PO DAILY@1400 Supplement 07/24/23
aspirin 81 mg chewable tablet (Children's Aspirin) 81 mg PO DAILY #1 tab 08/03/23
Poop Doc - Magnesium Product 1 dose PO DAILY Supplement 02/17/24
coenzyme Q10 10 mg capsule (Co Q-10) 30 mg PO QPM Supplement 02/17/24
omeprazole 20 mg capsule,delayed release 20 mg PO DAILY Gastrointestinal Issue 02/17/24
valerian root 500 mg capsule 500 mg PO HS Supplement 02/17/24
carbidopa ER 23.75 mg-levodopa 95 mg capsule,extended release (Rytary) 1 cap PO TID@0800, Neurological Condition #90 caps 02/18/24
gabapentin 100 mg capsule 200 mg PO HS 06/07/24
milk thistle 500 mg capsule 1,000 mg PO DAILY 06/07/24
Review of Systems
-
Unable to obtain full review of systems at this time due to: Dementia
Physical Exam
Vital Signs
Vital Signs
Temp Pulse Resp BP Pulse Ox
98.7 F 71 16 146/92 98
06/07/24 19:12 06/07/24 19:12 06/07/24 19:12 06/07/24 19:12 06/07/24 19:12
Physical Exam
General: No Apparent Distress, Comfortable and Conversant
HEENT: NormoCephalic, Anicteric, Moist mucous membranes, Atraumatic and PERRLA
Respiratory: Clear
Cardiac: S1/S2 and Regular Rhythm
Breast: Deferred by me
GI: Soft, Non Tender, Non Distended and Normal Bowel Sounds
Rectal: Deferred by Provider
Genito-urinary: Clear Urine and No costovertebral tender
Skin: Warm
Neuro: AO x 3
Hematologic/Lymphatic: No Lymphadenopathy
Psych: Calm
Laboratory Results
-
06/07/24 22:15
06/07/24 22:15
Laboratory Results
Total Bilirubin 0.9 mg/dl (0.2-1.3) 06/07/24 22:15
AST 41 U/L (17-59) 06/07/24 22:15
ALT 11 U/L (0-50) 06/07/24 22:15
Alkaline Phosphatase 78 U/L (38-126) 06/07/24 22:15
Data Reviewed
-
CT Scan: Report Reviewed by me
Lab Data: Labs Reviewed by me
Old Records: Reviewed
Impression/Plan
-
IMPRESSION:
Patient with history of Parkinson's disease who presents to the emergency department with recurrent falls. He has had multiple admissions for falls in the past. He now has left eighth rib fracture which is nondisplaced. No pneumothorax or
hemothorax. Head CT was unremarkable. His labs were reportedly within normal limits and shows no signs of an acute infection, metabolic or toxic encephalopathy.
PLAN:
Rib fracture - Non-displaced, no tissue damage or contusion
- admit to med/surg observation
- pain control
- incentive spirometry
- hold gabapentin for now
- PTOT
Parkinson's Disease - Chronic ambulatory dysfunction and myultiple falls
- continue his Rytary
- case management for possible dispo to care home
Coronary Artery Disease
-s/p CABG 09/2020
- aspirin/statin
GERD
- PPI
Orthostatic hypotension
- Fludrocortisone
BPH
-PULMONARY FELLOW Finasteride
COPD
-PULMONARY FELLOW inhalers
DVT PPx Lovenox subQ
Codes status -DNR - discussed with at bedside
--- NOTE | 2024-06-08 03:00 | PTCARENOTE ---
Patient received from ED, AAOX3, forgetful, confused conversation. apical regular. On room air. Has pain in left rib area, #20 g in right hand flushed and patent,
[2024-06-08] MEDS: TYLENOL 650 MG PO ×3 (03:45→15:55)
[2024-06-08] MEDS: SYMBICORT 80/4.5 MCG INHALER 2 PUFF INH (07:17)
[2024-06-08] MEDS: ProAIR HFA INHALER 2 PUFF INH (07:17)
[2024-06-08] MEDS: SPIRIVA RESPIMAT 2.5 MCG 2 PUFF INH (07:17)
[2024-06-08] MEDS: PROTONIX 40 MG PO (10:28)
[2024-06-08] MEDS: FEOSOL 325 MG PO (10:28)
[2024-06-08] MEDS: LOW STRENGTH ASPIRIN 81 MG PO (10:29)
[2024-06-08] MEDS: PROSCAR 5 MG PO (10:30)
[2024-06-08] MEDS: FLORINEF 0.1 MG PO (10:30)
[2024-06-08] MEDS: SEROQUEL 25 MG PO ×2 (10:42→22:39)
--- NOTE | 2024-06-08 11:00 | W.PN.HOSP.TC ---
Today's Communication/Plan
-
see A/P
Assessment / Plan
Assessment / Plan
HPI: 78-year-old with history of progressive Parkinson's disease, COPD not on home O2, hypertension, GERD, BPH, multiple falls in the past; presented with another fall.
Patient has had 3 falls in the last 24 hours. He recalls this falls. He attributes them to his Parkinson disease. He said that he tripped across the table and landed on his back and his most recent fall that caused him to come to the emergency
department.
He is an alert and oriented patient however he cannot give detailed history.
It appears his gabapentin has been increased and he is on trazodone. Likely unsafe to return home.
A/P:
# Frequent mechanical fall with left eighth rib non-displaced fracture, Acute on chronic moderate L1 compression fracture.
pain control with Tylenol
incentive spirometry
hold VERIFIER OPERATOR gabapentin for now
PT OT eval
# Parkinson's Disease with Chronic ambulatory dysfunction
# Dementia unclear type
Pt is awake, not orientated
continue VERIFIER OPERATOR Rytary
case management for possible dispo to skilled nursing
# Agitation
# Insomnia
Seroquel PRN and low dose 25 mg HS
Melatonin HS
hold VERIFIER OPERATOR Trazodone and gabapentin (more frequent falls since initiation of these meds)
# Coronary Artery Disease s/p CABG 09/2020
aspirin/statin
# GERD
PPI
# Orthostatic hypotension
Fludrocortisone
# BPH
VERIFIER OPERATOR Finasteride
# COPD
VERIFIER OPERATOR inhalers
DVT PPx Lovenox subQ
Codes status -DNR - discussed with at bedside
DW RN
DW at bedside
total time spent 51 min
Anticipated Discharge: 24 - 48 hours
Subjective/Interval History
-
Date of Service: June 08, 2024
Objective Data
-
Labs:
Laboratory Results
06/07/24
22:15
Sodium 136
Potassium 3.5
Chloride 102
Carbon Dioxide 26
BUN 19
Creatinine 0.6 L
Glucose 137 H
Calcium 9.5
Total Bilirubin 0.9
AST 41
ALT 11
Alkaline Phosphatase 78
Vital Signs:
Vital Signs
Temp Pulse Resp BP Pulse Ox
36.3 C 74 16 164/98 97
06/08/24 07:20 06/08/24 07:25 06/08/24 07:25 06/08/24 07:20 06/08/24 07:25
I&O
06/07/24 06/08/24 06/09/24
06:59 06:59 06:59
Output Total 525 / 525 500 / 500
Balance -525 / -525 -500 / -500
Review of Systems
-
Psych: Reports Anxious
Physical Exam
-
General: Well Developed, No Apparent Distress, Conversant and Appears Chronically Ill
Respiratory: Non Labored Respirations; Negative Accessory Resp Muscle Use
Cardiac: Regular Rhythm and S1/S2
GI: Soft and Nontender
Neuro: Awake and Alert
Psych: Calm, Agitated and Apparent Dementia; Negative Intact Judgement/Insight
Data Reviewed
-
Diagnostic Radiology: Report Reviewed by me
CT Scan: Report Reviewed by me
Labs: Labs Reviewed by me
--- NOTE | 2024-06-08 12:29 | CM ---
Addendum entered by Katty Cisneros 06/08/24 13:24:
1st choice for SNF is [facility], but they also enjoyed [facility]. NO [facility].
Original Note:
CM reviewed chart. Spoke with patient at bedside. CM introduced self and role. Significant other, Jeanie, also in room. Patient is here for several falls. Patient went to and was discharged from [facility] for STR around the end of
February. Per patient's partner, Jeanie, they placed him on gabapentin and trazadone, which she believes may be causing his falls.
PCP: Dr. Yari Webb
Pharmacy: [facility] on [address]
Per CM's note from ER visit in February, patient is a [facility] patient.
Living situation: Patient lives with his significant other. They live in a multi-level home. Steps to enter.
Finances: Patientsg Ware stated that they are depleting their recources due to renting a place and trying to sale their home. She has placed up a 'Go Fund Me'. They have been able to manage affording housing, clothing, medications, food,
utilities and transportation. He is retired.
DME/Ambulation: Per Jeanie, patient needs assistnace with ambulating. He owns a walker.
Transportation: Patient's significant other, Jeanie will provide transportation once he is discharged. Patient does not drive.
Agreeable to home health care?: Yes, if needed.
ANTICIPATED DISCHARGE DISPOSITION:
Short term rehab vs. home health PT/OT.
--- NOTE | 2024-06-08 13:08 | CM ---
Partner of patient had questions about Medicare days . explained that if he has been out of SNF for 60 days he goes back to having a full 100 days. He has been out of SNF since February. [facility]
[2024-06-08] MEDS: KCL 40 MEQ PO (15:40)
[2024-06-08] MEDS: CYMBALTA DELAYED RELEASE 60 MG PO (15:55)
[2024-06-08] MEDS: LOVENOX 40 MG SC (16:04)
[2024-06-08] MEDS: SYMBICORT 80/4.5 MCG INHALER INH (16:22)
--- NOTE | 2024-06-08 19:48 | PTCARENOTE ---
pt yelling at start of shift angry and uncooperative, putting electronics repair technician shipman frequently or yelling from room, c/o frequent urinations then not urinating. Upset he is here, wanting to speak to doctor. Aox2 but very confused conversation. Dr. Irene
started Seroquel 25mg and family came at same time which did help settle. In early PM hours pt urinating on self, place condom cathX2. Is stripping naked, fully naked. Repeat times in room placing clothes he strips everything off including brief and
IV for 2nd time ( notified ok to keep out.) Med sitter in place, along with alarms, but not stopping stripping. Tray table helps block nudity from mercer. Unable to keep clothes on. Did ask for 1:1 earlier in day, but unable too.
[2024-06-08] MEDS: NON-FORMULARY ITEM 1 CAP PO (20:45)
[2024-06-08] MEDS: NEURONTIN 100 MG PO (22:40)
[2024-06-08] MEDS: MELATONIN 5 MG PO (22:40)
[2024-06-08] MEDS: LIPITOR 80 MG PO (22:40)
[2024-06-08] MEDS: MYRBETRIQ EXTENDED RELEASE 50 MG PO (22:40)
[2024-06-09 00:30] VITALS: BP 150/90
[2024-06-09] MEDS: SPIRIVA RESPIMAT 2.5 MCG 2 PUFF INH (07:23)
[2024-06-09] MEDS: ProAIR HFA INHALER 2 PUFF INH (07:23)
[2024-06-09] MEDS: SYMBICORT 80/4.5 MCG INHALER 2 PUFF INH ×2 (07:23→19:03)
[2024-06-09 08:52] VITALS: BP 123/87
[2024-06-09] MEDS: PROSCAR 5 MG PO (09:14)
[2024-06-09] MEDS: FLORINEF 0.1 MG PO (09:14)
[2024-06-09] MEDS: LOW STRENGTH ASPIRIN 81 MG PO (09:14)
[2024-06-09] MEDS: PROTONIX 40 MG PO (09:14)
[2024-06-09] MEDS: NON-FORMULARY ITEM 1 CAP PO ×2 (09:15→20:44)
--- NOTE | 2024-06-09 10:46 | W.PN.HOSP.TC ---
Today's Communication/Plan
-
see A/P
Assessment / Plan
Assessment / Plan
HPI: 78-year-old with history of progressive Parkinson's disease, COPD not on home O2, hypertension, GERD, BPH, multiple falls in the past; presented with another fall.
Patient has had 3 falls in the last 24 hours. He recalls this falls. He attributes them to his Parkinson disease. He said that he tripped across the table and landed on his back and his most recent fall that caused him to come to the emergency
department.
He is an alert and oriented patient however he cannot give detailed history.
It appears his gabapentin has been increased and he is on trazodone. Likely unsafe to return home.
A/P:
# Frequent mechanical fall with left eighth rib non-displaced fracture, Acute on chronic moderate L1 compression fracture.
pain control with Tylenol
incentive spirometry
hold FORENSIC SCIENCE EXAMINER gabapentin
PT OT eval when able to participate
# Confusion/delirium/ Acute metabolic encephalopathy, possibly medication S/E
Seroquel was added yesterday for agitation, hold further with current confusion/delirium state
Stop FORENSIC SCIENCE EXAMINER gabapentin
NPO today with gentle IVF due to current delirium state
SPL when MS improves for diet recc
# Parkinson's Disease with Chronic ambulatory dysfunction
# Dementia unclear type
Pt is awake, not orientated
continue FORENSIC SCIENCE EXAMINER Rytary if able
case management for possible dispo to shelter
# Coronary Artery Disease s/p CABG 09/2020
aspirin/statin
# GERD
PPI
# Orthostatic hypotension
Fludrocortisone
# BPH
FORENSIC SCIENCE EXAMINER Finasteride
# COPD
FORENSIC SCIENCE EXAMINER inhalers
DVT PPx Lovenox subQ
Codes status -DNR - discussed with at bedside
DW RN
DW at bedside
total time spent 51 min
Anticipated Discharge: 24 - 48 hours
Subjective/Interval History
-
Date of Service: June 09, 2024
Objective Data
-
Vital Signs:
Vital Signs
Temp Pulse Resp BP Pulse Ox
36.6 C 77 18 123/87 90
06/09/24 08:52 06/09/24 08:52 06/09/24 08:52 06/09/24 08:52 06/09/24 08:52
I&O
06/08/24 06/09/24 06/10/24
06:59 06:59 06:59
Intake Total 720 / 720
Output Total 525 / 525 510 / 510
Balance -525 / -525 210 / 210
Review of Systems
-
Unable to obtain full review of systems at this time due to: Dementia and Acuity
Physical Exam
-
General: Well Developed and Appears Chronically Ill
Respiratory: Non Labored Respirations; Negative Accessory Resp Muscle Use
Cardiac: Regular Rhythm and S1/S2
GI: Soft and Nontender
Neuro: Awake
Psych: Calm, Confused and Apparent Dementia; Negative Intact Judgement/Insight
Data Reviewed
-
Diagnostic Radiology: Report Reviewed by me
CT Scan: Report Reviewed by me
Labs: Labs Reviewed by me
[2024-06-09] MEDS: NSS 1000 IV (11:15)
[2024-06-09] MEDS: NON-FORMULARY ITEM PO (13:08)
[2024-06-09 15:05] VITALS: BP 147/79
--- NOTE | 2024-06-09 15:18 | PTOTSP ---
Speech Therapy Evaluation:
Pt exhibits clinical signs of mild oropharyngeal dysphagia as characterized by decreased oral coordination, prolonged mastication and bolus formation, frequent pauses during oral management, and delayed cough with thin liquids. Assessment somewhat
limited d/t pt declining puree. Suspect acute on chronic swallow dysfunction related to history of Parkinson's, cognitive impairment, COPD, and GERD, compounded by current delirium state.
Recommend:
1. IDDSI Level 6 (soft and bite sized) solids; thin liquids
2. Medications as best tolerated
3. Full assistance and supervision with meals
4. Aspiration and reflux precautions: upright as physically able for all meals; upright at least 30 minutes following meals; small bites/sips; slow rate; alternate solids liquids; only feed pt when fully awake/alert
5. d/c oral diet if decline in SCOTTIE/mentation
6. ST to follow
[2024-06-09] MEDS: LOVENOX 40 MG SC (17:01)
[2024-06-09] MEDS: TYLENOL 650 MG PO (22:21)
[2024-06-09] MEDS: MELATONIN 5 MG PO (22:21)
[2024-06-09 23:10] VITALS: BP 152/83
[2024-06-10] MEDS: NSS 1000 IV (04:40)
--- NOTE | 2024-06-10 04:50 | PTCARENOTE ---
Addendum entered by Heike Urban RN 06/10/24 06:47:
Pt continuing to remove clothing stating 'I want to be naked.' Pt sexually inappropriate towards staff. RN continuing to redirect pt. Assessment ongoing.
Original Note:
Pt verbally inappropriate towards staff. Pt redirected and reoriented to room however pt continuing to be inappropriate. Assessment ongoing.
[2024-06-10] MEDS: TYLENOL 650 MG PO ×2 (06:33→23:33)
[2024-06-10] MEDS: SYMBICORT 80/4.5 MCG INHALER INH (08:30)
[2024-06-10] MEDS: ProAIR HFA INHALER INH (08:30)
[2024-06-10] MEDS: SPIRIVA RESPIMAT 2.5 MCG INH (08:30)
[2024-06-10 08:55] VITALS: BP 171/96
[2024-06-10] MEDS: PROSCAR 5 MG PO (09:02)
[2024-06-10] MEDS: NON-FORMULARY ITEM 1 CAP PO ×3 (09:02→20:41)
--- NOTE | 2024-06-10 11:41 | W.PN.HOSP.TC ---
Today's Communication/Plan
-
see A/P
Assessment / Plan
Assessment / Plan
HPI: 78-year-old with history of progressive Parkinson's disease, COPD not on home O2, hypertension, GERD, BPH, multiple falls in the past; presented with another fall.
Patient has had 3 falls in the last 24 hours. He recalls this falls. He attributes them to his Parkinson disease. He said that he tripped across the table and landed on his back and his most recent fall that caused him to come to the emergency
department.
He is an alert and oriented patient however he cannot give detailed history.
It appears his gabapentin has been increased and he is on trazodone. Likely unsafe to return home.
A/P:
# Frequent mechanical fall with left eighth rib non-displaced fracture, Acute on chronic moderate L1 compression fracture.
pain control with Tylenol
incentive spirometry
stopped TRAPEZE PERFORMER gabapentin
PT OT recc SNF with plan to transition to [facility] care
# Confusion/delirium/ Acute metabolic encephalopathy, 2/2 medication S/E
Seroquel was added, now stopped
stopped TRAPEZE PERFORMER gabapentin
Cont soft and bite size diet
# Parkinson's Disease with Chronic ambulatory dysfunction
# Dementia unclear type
Pt is awake, not orientated
continue TRAPEZE PERFORMER Rytary if able
Dispo: PT OT recc SNF with plan to transition to [facility] care
# Coronary Artery Disease s/p CABG 09/2020
aspirin/statin
# GERD
PPI
# Orthostatic hypotension
Fludrocortisone
# BPH
TRAPEZE PERFORMER Finasteride
# COPD
TRAPEZE PERFORMER inhalers
# Depression?
would like to wean pt off Duloxetine, decrease dose from 60 to 30 mg daily x7 days then stop
DVT PPx Lovenox subQ
Codes status -DNR - discussed with at bedside
Dispo: PT OT recc SNF with plan to transition to [facility] care
DW RN
DW at bedside
DW CM
total time spent 51 min
Anticipated Discharge: > 48 hours
Subjective/Interval History
-
Date of Service: June 10, 2024
Objective Data
-
Vital Signs:
Vital Signs
Temp Pulse Resp BP Pulse Ox
37.1 C 71 22 171/96 91
06/10/24 08:55 06/10/24 08:55 06/10/24 08:55 06/10/24 08:55 06/10/24 08:55
I&O
06/09/24 06/10/24 06/11/24
06:59 06:59 06:59
Intake Total 720 / 720 1080 / 1080
Output Total 510 / 510
Balance 210 / 210 1080 / 1080
[2024-06-10 12:45] VITALS: BP 149/81; PULSE 79; O2SAT 93
[2024-06-10] MEDS: CYMBALTA DELAYED RELEASE 30 MG PO (13:51)
[2024-06-10 14:39] VITALS: BP 141/90
--- NOTE | 2024-06-10 15:18 | CM ---
Chart reviewed
Status changed to inpatient
Spoke with pts SO/primary contact Jeanie
Discussed inpatient status/reviewed IMM
Discussed SNF options - [facility]
Referral sent in [facility]
Plan - SNF when medically stable
[2024-06-10] MEDS: LOVENOX 40 MG SC (17:20)
[2024-06-10] MEDS: SYMBICORT 80/4.5 MCG INHALER 2 PUFF INH (18:24)
[2024-06-10] MEDS: LIPITOR 80 MG PO (20:41)
[2024-06-10 23:32] VITALS: BP 159/96
--- NOTE | 2024-06-11 06:22 | PTCARENOTE ---
Pt slept most of the shift, requiring minimal redirection. Pt reman grossly incont of urine. Pt incont of 2 BM formed and soft this shift.
[2024-06-11 07:08] VITALS: BP 127/96
[2024-06-11] MEDS: ProAIR HFA INHALER 2 PUFF INH (07:59)
[2024-06-11] MEDS: SPIRIVA RESPIMAT 2.5 MCG 2 PUFF INH (08:00)
[2024-06-11] MEDS: SYMBICORT 80/4.5 MCG INHALER 2 PUFF INH ×2 (08:00→20:47)
[2024-06-11] MEDS: CYMBALTA DELAYED RELEASE 30 MG PO (08:52)
[2024-06-11] MEDS: PROSCAR 5 MG PO (08:52)
[2024-06-11] MEDS: LOW STRENGTH ASPIRIN 81 MG PO (08:52)
[2024-06-11] MEDS: DESENEX/MITRAZOL/ZEASORB 1 APPLIC TOPICAL ×2 (08:52→21:00)
[2024-06-11] MEDS: PROTONIX 40 MG PO (08:52)
[2024-06-11] MEDS: NON-FORMULARY ITEM 1 CAP PO ×3 (08:53→20:00)
[2024-06-11] MEDS: DESITIN MAXIMUM STRENGTH PASTE 1 APPLIC TOPICAL ×2 (08:53→20:00)
[2024-06-11] MEDS: LIDOCAINE 4% PATCH 2 PATCH TOPICAL (08:54)
--- NOTE | 2024-06-11 12:50 | W.PN.HOSP.TC ---
Today's Communication/Plan
-
see A/P
Dispo planning
Assessment / Plan
Assessment / Plan
HPI: 78-year-old with history of progressive Parkinson's disease, COPD not on home O2, hypertension, GERD, BPH, multiple falls in the past; presented with another fall.
Patient has had 3 falls in the last 24 hours. He recalls this falls. He attributes them to his Parkinson disease. He said that he tripped across the table and landed on his back and his most recent fall that caused him to come to the emergency
department.
He is an alert and oriented patient however he cannot give detailed history.
It appears his gabapentin has been increased and he is on trazodone. Likely unsafe to return home.
A/P:
# Frequent mechanical fall with left eighth rib non-displaced fracture, Acute on chronic moderate L1 compression fracture.
pain control with Tylenol
incentive spirometry
stopped MUD MIXER HELPER gabapentin
PT OT recc SNF with plan to transition to combat engineer care
# Confusion/delirium/ Acute metabolic encephalopathy, 2/2 medication S/E
Seroquel was added, now stopped
stopped MUD MIXER HELPER gabapentin
Cont soft and bite size diet per SPL eval
# Parkinson's Disease with Chronic ambulatory dysfunction
# Dementia unclear type
Pt is awake, not orientated
continue MUD MIXER HELPER Rytary if able
Dispo: PT OT recc SNF with plan to transition to residential care
# Coronary Artery Disease s/p CABG 09/2020
aspirin/statin
# GERD
PPI
# Orthostatic hypotension
Fludrocortisone
# BPH
MUD MIXER HELPER Finasteride
# COPD
MUD MIXER HELPER inhalers
# Depression?
would like to wean pt off Duloxetine, decrease dose from 60 to 30 mg daily x7 days then stop
DVT PPx Lovenox subQ
Codes status -DNR - discussed with at bedside
Dispo: PT OT rec SNF with plan to transition to residential care
Anticipated Discharge: 24 - 48 hours
Subjective/Interval History
-
Date of Service: June 11, 2024
Objective Data
-
Vital Signs:
Vital Signs
Temp Pulse Resp BP Pulse Ox
36.5 C 70 22 127/96 91
06/11/24 07:08 06/11/24 08:06 06/11/24 08:06 06/11/24 07:08 06/11/24 08:06
I&O
06/10/24 06/11/24 06/12/24
06:59 06:59 06:59
Intake Total 1080 / 1080 1350 / 1350
Balance 1080 / 1080 1350 / 1350
Review of Systems
-
Unable to obtain full review of systems at this time due to: Dementia and Acuity
Physical Exam
-
General: Well Developed and Appears Chronically Ill
Respiratory: Non Labored Respirations; Negative Accessory Resp Muscle Use
Cardiac: Regular Rhythm and S1/S2
GI: Soft and Nontender
Neuro: Other (sleeping, did not awake )
Psych: Calm, Confused and Apparent Dementia; Negative Intact Judgement/Insight
Data Reviewed
-
Diagnostic Radiology: Report Reviewed by me
CT Scan: Report Reviewed by me
Labs: Labs Reviewed by me
[2024-06-11 15:26] VITALS: BP 108/66
[2024-06-11] MEDS: LOVENOX 40 MG SC (17:40)
[2024-06-11] MEDS: LIPITOR 80 MG PO (19:59)
[2024-06-11] MEDS: TYLENOL 650 MG PO (19:59)
[2024-06-11 23:39] VITALS: BP 164/91
[2024-06-12 08:12] VITALS: BP 180/103
[2024-06-12] MEDS: LIDOCAINE 4% PATCH 2 PATCH TOPICAL (08:31)
[2024-06-12] MEDS: LOW STRENGTH ASPIRIN 81 MG PO (08:31)
[2024-06-12] MEDS: PROSCAR 5 MG PO (08:31)
[2024-06-12] MEDS: PROTONIX 40 MG PO (08:31)
[2024-06-12] MEDS: CYMBALTA DELAYED RELEASE 30 MG PO (08:31)
[2024-06-12] MEDS: DESITIN MAXIMUM STRENGTH PASTE 1 APPLIC TOPICAL ×2 (08:32→20:08)
[2024-06-12] MEDS: NON-FORMULARY ITEM 1 CAP PO ×3 (08:32→20:09)
[2024-06-12] MEDS: DESENEX/MITRAZOL/ZEASORB 1 APPLIC TOPICAL ×2 (08:34→20:09)
[2024-06-12] MEDS: ProAIR HFA INHALER 2 PUFF INH (09:07)
[2024-06-12] MEDS: SPIRIVA RESPIMAT 2.5 MCG 2 PUFF INH (09:08)
[2024-06-12] MEDS: SYMBICORT 80/4.5 MCG INHALER 2 PUFF INH ×2 (09:09→17:13)
--- NOTE | 2024-06-12 13:07 | PTOTSP ---
Speech Pathology
Initiated trials of regular textures this date in an attempt to advance diet. Good bolus acceptance. Self-fed all trials. Functional mastication/oral preparation of regular solids. Mild to moderate oral residue cleared with verbal prompt for thin
liquid wash. Cough w/ consecutive sips of thin liquid via straw. Advised pt and spouse to encourage small single sips for reduced aspiration risk. Recommend upgrade to regular textures with ABA TUTOR service to follow up re: assess tolerance.
Recommend:
1. IDDSI Level 7 (regular textures) solids; thin liquids
2. Medications as best tolerated
3. Full assistance and supervision with meals
4. Aspiration and reflux precautions: upright as physically able for all meals; upright at least 30 minutes following meals; small bites/sips; slow rate; alternate solids liquids; only feed pt when fully awake/alert
5. d/c oral diet if decline in SCOTTIE/mentation
6. ST to follow up x1 to assess tolerance as able
--- NOTE | 2024-06-12 13:19 | W.PN.HOSP.TC ---
Today's Communication/Plan
-
see A/P
Assessment / Plan
Assessment / Plan
HPI: 78-year-old with history of progressive Parkinson's disease, COPD not on home O2, hypertension, GERD, BPH, multiple falls in the past; presented with another fall.
Patient has had 3 falls in the last 24 hours. He recalls this falls. He attributes them to his Parkinson disease. He said that he tripped across the table and landed on his back and his most recent fall that caused him to come to the emergency
department.
He is an alert and oriented patient however he cannot give detailed history.
It appears his gabapentin has been increased and he is on trazodone. Likely unsafe to return home.
A/P:
# Frequent mechanical fall with left eighth rib non-displaced fracture, Acute on chronic moderate L1 compression fracture.
pain control with Tylenol
incentive spirometry
stopped TRIM SAWYER gabapentin
PT OT recc SNF with plan to transition to moth exterminator care
# Confusion/delirium/ Acute metabolic encephalopathy, 2/2 medication S/E,
MS improving
stopped TRIM SAWYER gabapentin
Diet advanced to regular thin liquid 06/12 per SPL eval
# Parkinson's Disease with Chronic ambulatory dysfunction
# Dementia unclear type
Pt is awake, not orientated
continue TRIM SAWYER Rytary if able
Dispo: PT OT recc SNF with plan to transition to penitentiary care
# Coronary Artery Disease s/p CABG 09/2020
aspirin/statin
# GERD
PPI
# Orthostatic hypotension
Fludrocortisone
# BPH
prefers to hold TRIM SAWYER Finasteride (stopped) and Mirabegron (has not started)
# COPD
TRIM SAWYER inhalers
# Depression?
would like to wean pt off Duloxetine, decreased dose from 60 to 30 mg daily x7 days then stop
# Hypertension
start low dose Norvasc 2.5 mg daily, increase dose if needed
IV hydralazine PRN
DVT PPx Lovenox subQ
Codes status -DNR - discussed with at bedside
Dispo: PT OT recc SNF with plan to transition to penitentiary care
DW in person
Anticipated Discharge: 24 - 48 hours
Subjective/Interval History
-
Date of Service: June 12, 2024
Objective Data
-
Vital Signs:
Vital Signs
Temp Pulse Resp BP Pulse Ox
36.3 C 69 16 180/103 93
06/12/24 08:12 06/12/24 08:12 06/12/24 08:12 06/12/24 08:12 06/12/24 08:12
I&O
06/11/24 06/12/24 06/13/24
06:59 06:59 06:59
Intake Total 1350 / 1350 460 / 460 240 / 240
Output Total 280 / 280
Balance 1350 / 1350 460 / 460 -40 / -40
Review of Systems
-
Unable to obtain full review of systems at this time due to: Dementia and Acuity
Physical Exam
-
General: Well Developed and Appears Chronically Ill
Respiratory: Non Labored Respirations; Negative Accessory Resp Muscle Use
Cardiac: Regular Rhythm and S1/S2
GI: Soft and Nontender
Neuro: Other (sleeping, did not awake )
Psych: Calm, Confused and Apparent Dementia; Negative Intact Judgement/Insight
Data Reviewed
-
Diagnostic Radiology: Report Reviewed by me
CT Scan: Report Reviewed by me
Labs: Labs Reviewed by me
[2024-06-12] MEDS: NORVASC 2.5 MG PO (14:01)
--- NOTE | 2024-06-12 15:15 | CM ---
Reviewed the chart notes and spoke with the patient's significant other Jeanie via telephone. Discussed with her that [facility] and [facility] have accepted the patient. [facility] is interested but concerned that the patient is looking
more like director long term care vs short term. Patient's significant other wants to wait a couple of more days to see how he has improved. Last PT evaluation 06/10 was max assist. CM continues to be available to patient/family and is monitoring medical plan
for needs at discharge.
Plan: Discharge plan to SNF/rehab for short term to possible director long term care.
[2024-06-12 16:03] VITALS: BP 140/85
[2024-06-12] MEDS: LOVENOX 40 MG SC (17:23)
--- NOTE | 2024-06-12 18:16 | PTCARENOTE ---
Patient much more alert today, oriented to person and place. Was awake much of the shift and mostly pleasant; did get agitated with turns, but quicky relaxed after care finished. Ate meals with assist.
[2024-06-12] MEDS: LIPITOR 80 MG PO (20:08)
[2024-06-12] MEDS: MELATONIN 3 MG PO (22:53)
[2024-06-12] MEDS: TYLENOL 650 MG PO (22:53)
[2024-06-12 23:13] VITALS: BP 145/87
[2024-06-13] MEDS: ProAIR HFA INHALER 2 PUFF INH ×2 (06:26→09:58)
[2024-06-13] MEDS: SYMBICORT 80/4.5 MCG INHALER 2 PUFF INH ×2 (06:26→20:18)
[2024-06-13] MEDS: SPIRIVA RESPIMAT 2.5 MCG 2 PUFF INH (06:26)
[2024-06-13 07:00] VITALS: BP 120/101
[2024-06-13 07:17] LABS: Hematocrit 45.6 % (39.0-52.0); Hemoglobin 15.7 g/dL (13.0-18.0); Mean Corp Hgb Conc. 34.4 g/dL (33.0-37.0); Mean Corpuscular Hgb 31.2 pg (27.0-31.0); Mean Corpuscular Volume 90.5 fL (80.0-94.0); Mean Platelet Volume 10.5 fL (7.4-10.4); Platelet Count 159 10^3/uL (130-400); Red Blood Cell Count 5.04 10^6/uL (4.70-6.10); Red Cell Dist. Width 12.4 % (11.5-14.5); White Blood Cell Count 6.5 10^3/uL (4.8-10.8)
[2024-06-13 07:29] LABS: Blood Urea Nitrogen 20 mg/dl (9-20); Calcium 9.2 mg/dl (8.4-10.2); Carbon Dioxide 22 mmol/L (22-30); Chloride 103 mmol/L (98-107); Estimated Creatinine Clearance 91 ml/min; Glucose 97 mg/dl (70-99); Magnesium 2.3 mg/dl (1.6-2.3); Potassium 3.6 mmol/L (3.5-5.1); Sodium 136 mmol/L (135-145); eGFR > 60.00
--- NOTE | 2024-06-13 08:46 | W.PN.HOSP.TC ---
Today's Communication/Plan
-
Discharge to short-term rehab when bed available
Assessment / Plan
Assessment / Plan
HPI: 78-year-old with history of progressive Parkinson's disease, COPD not on home O2, hypertension, GERD, BPH, multiple falls in the past; presented with another fall.
Patient has had 3 falls in the last 24 hours. He recalls this falls. He attributes them to his Parkinson disease. He said that he tripped across the table and landed on his back and his most recent fall that caused him to come to the emergency
department.
He is an alert and oriented patient however he cannot give detailed history.
It appears his gabapentin has been increased and he is on trazodone. Likely unsafe to return home.
A/P:
# Frequent mechanical fall with left eighth rib non-displaced fracture, Acute on chronic moderate L1 compression fracture.
Continue Tylenol, incentive spirometry
Stopped SUEDE BRUSHER gabapentin
PT OT recc SNF with plan to transition to intermission coordinator care
Discharge to short-term rehab when bed available
# Confusion/delirium/ Acute metabolic encephalopathy, 2/ medication S/E,
MS improving
Stopped SUEDE BRUSHER gabapentin
Diet advanced to regular thin liquid 06/12 per SPL eval
# Parkinson's Disease with Chronic ambulatory dysfunction
# Dementia unclear type
Pt is awake, not orientated
continue SUEDE BRUSHER Rytary if able
Dispo: PT OT recc SNF with plan to transition to retirement care
# Coronary Artery Disease s/p CABG 09/2020
Continue aspirin/statin
# GERD
PPI
# Orthostatic hypotension
Fludrocortisone
# BPH
prefers to hold SUEDE BRUSHER Finasteride (stopped) and Mirabegron (has not started)
# COPD
SUEDE BRUSHER inhalers
# Depression?
would like to wean pt off Duloxetine, decreased dose from 60 to 30 mg daily x7 days, last day 06/16/24
# Hypertension
Started low dose Norvasc 2.5 mg daily, increase dose if needed
IV hydralazine PRN
DVT PPx Lovenox subQ
Codes status -DNR - discussed with at bedside
Dispo: PT OT recc SNF with plan to transition to intermission coordinator care
Total time spent to see the patient on the floor, examine the patient, review data and lab results, discuss treatment plan with patient, nursing staff around 35 minutes.
Physical Exam
General: No acute distress
HEENT: Normocephalic, Atraumatic, EOMI, MMM
Respiratory: Clear to Auscultation bilaterally
Cardiac: Normal S1/S2, Regular Rate and Rhythm
GI: Soft, Nontender, Nondistended, Normal Bowel Sounds
Extremities: No Clubbing, Cyanosis, or Edema
Neuro: Pleasantly confused
Anticipated Discharge: Within 24 hours
Subjective/Interval History
-
Date of Service: June 13, 2024
Patient denies coughing. He had a bowel movement. No fever, no vomiting.
Objective Data
-
Labs:
Laboratory Results
06/13/24 06/13/24
05:54 05:55
WBC 6.5
Hgb 15.7
Hct 45.6
Plt Count 159
Sodium 136
Potassium 3.6
Chloride 103
Carbon Dioxide 22
BUN 20
Creatinine 0.7
Glucose 97
Calcium 9.2
Vital Signs:
Vital Signs
Temp Pulse Resp BP Pulse Ox
98.3 F 61 18 120/101 96
06/13/24 07:00 06/13/24 07:00 06/13/24 07:00 06/13/24 07:00 06/13/24 07:00
I&O
06/12/24 06/13/24 06/14/24
06:59 06:59 06:59
Intake Total 460 / 460 720 / 720
Output Total 705 / 705
Balance 460 / 460 15 15
[2024-06-13] MEDS: PROTONIX PO ×2 (09:50→10:18)
[2024-06-13] MEDS: NORVASC PO ×3 (09:50→14:59)
[2024-06-13] MEDS: CYMBALTA DELAYED RELEASE PO ×2 (09:50→10:18)
[2024-06-13] MEDS: LOW STRENGTH ASPIRIN PO ×2 (09:50→10:18)
[2024-06-13] MEDS: NON-FORMULARY ITEM PO ×3 (09:54→17:16)
[2024-06-13] MEDS: LIDOCAINE 4% PATCH 2 PATCH TOPICAL (09:54)
[2024-06-13] MEDS: DESITIN MAXIMUM STRENGTH PASTE 1 APPLIC TOPICAL ×2 (09:54→20:38)
[2024-06-13] MEDS: DESENEX/MITRAZOL/ZEASORB 1 APPLIC TOPICAL ×2 (09:55→20:38)
[2024-06-13 14:18] VITALS: BP 134/86; PULSE 67; O2SAT 92
--- NOTE | 2024-06-13 14:39 | CM ---
Chart reviewed
Spoke with Bianne - pts SO
Discussed SNF - 1st choice is [facility]. Updates sent in [facility]. Spoke with Lynn at [facility] - will review
Will update SO and physician when [facility] reviews referral
Plan - anticipate SNF when bed obtained
[2024-06-13] MEDS: NON-FORMULARY ITEM 1 CAP PO ×3 (14:49→20:37)
[2024-06-13 15:00] VITALS: BP 155/97
[2024-06-13] MEDS: CYMBALTA DELAYED RELEASE 30 MG PO (15:02)
[2024-06-13] MEDS: PROTONIX 40 MG PO (15:02)
[2024-06-13] MEDS: LOW STRENGTH ASPIRIN 81 MG PO (15:02)
[2024-06-13] MEDS: LOVENOX 40 MG SC (17:59)
[2024-06-13 18:08] LABS: Urine Albumin Trace (Neg - Trace); Urine Bilirubin Negative (Negative); Urine Character Very Cloudy (Clear); Urine Color Brown; Urine Glucose Negative (Negative); Urine Ketone Trace (Negative); Urine Leukocyte 1+ (Negative); Urine Nitrite Negative (Negative); Urine Occult Blood 4+ (Negative); Urine Specific Gravity 1.025 (<1.030); Urine Urobilinogen 1+ (Neg - 1+)
[2024-06-13 18:33] LABS: Urine White Cell >100 /HPF (0-5)
[2024-06-13] MEDS: LIPITOR 80 MG PO (21:07)
[2024-06-13 22:52] VITALS: BP 161/97
[2024-06-14 06:43] VITALS: BP 154/93
[2024-06-14] MEDS: SYMBICORT 80/4.5 MCG INHALER 2 PUFF INH (07:10)
[2024-06-14] MEDS: ProAIR HFA INHALER 2 PUFF INH (07:11)
[2024-06-14] MEDS: SPIRIVA RESPIMAT 2.5 MCG 2 PUFF INH (07:11)
--- NOTE | 2024-06-14 08:48 | PTCARENOTE ---
Addendum entered by Cassia Park RN 06/14/24 09:29:
920- Pt again found naked and incontinent of urine. Pt with confused conversation while RN in the room. Perineal care provided. Pt refusing to keep gown on, gown draped over pt. Breakfast arrived and pt set up to eat. Pt stating ' im not hungry,
maybe later'. Bed alarm engaged. Care remains ongoing.
Original Note:
0700 Pt yelling out during change of shift. Dayshift and maintenance mechanic 2nd shift RN in to pts room. Pt found naked, saturated in urine, trying to climb out of bed. Pt stating ' get me in the car'. When asked orientation questions pt responded ' 24, 25, and 28'
for date month and year and ' were at your house' for location. Hygiene provided, new bed linens and gown applied. Bed alarm engaged. Assessment ongoing.
0840 Pt continuing to intermittently yell out. RN into room, pt attempting to get OOB and removing gown/ brief. Pt stated ' i like to be naked'. Pt redirected and gown/ brief reapplied. Bed alarm engaged. Care ongoing.
--- NOTE | 2024-06-14 08:53 | W.PN.HOSP.TC ---
Today's Communication/Plan
-
Medically stable for discharge to short-term rehab today
Assessment / Plan
Assessment / Plan
HPI: 78-year-old with history of progressive Parkinson's disease, COPD not on home O2, hypertension, GERD, BPH, multiple falls in the past; presented with another fall.
Patient has had 3 falls in the last 24 hours. He recalls this falls. He attributes them to his Parkinson disease. He said that he tripped across the table and landed on his back and his most recent fall that caused him to come to the emergency
department.
He is an alert and oriented patient however he cannot give detailed history.
It appears his gabapentin has been increased and he is on trazodone. Likely unsafe to return home.
A/P:
# Frequent mechanical fall with left eighth rib non-displaced fracture, Acute on chronic moderate L1 compression fracture.
Continue Tylenol, incentive spirometry
Stopped HISTOLOGY ASSISTANT gabapentin
PT OT recc SNF with plan to transition to terminal block assembler care
Medically stable for discharge to short-term rehab today
# Confusion/delirium/ Acute metabolic encephalopathy, 2/2 medication S/E
Was previously on gabapentin, Seroquel, trazodone HISTOLOGY ASSISTANT
MS improving
Stopped HISTOLOGY ASSISTANT gabapentin
Diet advanced to regular thin liquid 06/12 per SPL eval
# Parkinson's Disease with Chronic ambulatory dysfunction
# Dementia unclear type
Pt is awake, not orientated
continue HISTOLOGY ASSISTANT Rytary if able
Dispo: PT OT recc SNF with plan to transition to terminal block assembler care
# Coronary Artery Disease s/p CABG 09/2020
Continue aspirin/statin
# GERD
PPI
# Orthostatic hypotension
Resume fludrocortisone upon discharge
# BPH
prefers to hold HISTOLOGY ASSISTANT Finasteride (stopped) and Mirabegron (has not started)
Discontinue finasteride and Mirabegron permanently
# COPD
HISTOLOGY ASSISTANT inhalers
# Depression?
would like to wean pt off Duloxetine, decreased dose from 60 to 30 mg daily x7 days, last day 06/16/24
# Hypertension
Started low dose Norvasc 2.5 mg daily -continue upon discharge
IV hydralazine PRN
DVT PPx Lovenox subQ
Codes status -DNR - discussed with at bedside
Dispo: PT OT recc SNF with plan to transition to [facility] care
Updated on phone 06/14, all questions answered
Physical Exam
General: No acute distress
HEENT: Normocephalic, Atraumatic, EOMI, MMM
Respiratory: Clear to Auscultation bilaterally
Cardiac: Normal S1/S2, Regular Rate and Rhythm
GI: Soft, Nontender, Nondistended, Normal Bowel Sounds
Extremities: No Clubbing, Cyanosis, or Edema
Neuro: Pleasantly confused
Anticipated Discharge: Today
Subjective/Interval History
-
Date of Service: June 14, 2024
Patient has chronic shortness of breath. Nursing staff reports he has been up since 1:30 in the morning. No fever, no vomiting.
Objective Data
-
Vital Signs:
Vital Signs
Temp Pulse Resp BP Pulse Ox
97.3 F 61 16 154/93 92
06/14/24 07:30 06/14/24 07:19 06/14/24 07:19 06/14/24 06:43 06/14/24 07:30
I&O
06/13/24 06/14/24 06/15/24
06:59 06:59 06:59
Intake Total 720 / 720 720 / 720
Output Total 705 / 705
Balance 720 / 720
[2024-06-14] MEDS: CYMBALTA DELAYED RELEASE 30 MG PO (08:54)
[2024-06-14] MEDS: LIDOCAINE 4% PATCH TOPICAL ×2 (08:54→09:01)
[2024-06-14] MEDS: PROTONIX 40 MG PO (08:54)
[2024-06-14] MEDS: LOW STRENGTH ASPIRIN 81 MG PO (08:54)
[2024-06-14] MEDS: NON-FORMULARY ITEM 1 CAP PO ×4 (08:55→13:20)
[2024-06-14] MEDS: NORVASC 2.5 MG PO (08:55)
[2024-06-14] MEDS: DESENEX/MITRAZOL/ZEASORB 1 APPLIC TOPICAL (08:57)
[2024-06-14] MEDS: DESITIN MAXIMUM STRENGTH PASTE 1 APPLIC TOPICAL (08:57)
--- NOTE | 2024-06-14 12:52 | PTCARENOTE ---
RN informed by Pt's significant other that significant other is requesting to speak with current attending and that the Pt be reassigned to another medical doctor. Dr Eli, NSG supervisor plastering and [facility] director made aware. Care remains ongoing.
--- NOTE | 2024-06-14 13:12 | W.DCSUMMARY ---
Discharge Summary
Discharge Data
Date of Admission: 06/08/24
Date of Discharge: 06/14/24
-
Pending Results: No
Hospital Course
Discharge diagnosis:
Recurrent mechanical falls
Left eighth rib nondisplaced fracture
Acute on chronic lumbar 1 compression fracture
Acute metabolic encephalopathy secondary to polypharmacy
Parkinson's disease for chronic ambulatory dysfunction
Dementia unclear type
Orthostatic hypotension
Benign prostatic hypertrophy
Chronic obstructive pulmonary disease
Essential hypertension
Depression
Possible urinary tract infection
Head CT:
No acute intracranial abnormality noted.
Chest CT:
1. Acute on chronic moderate L1 compression fracture.
2. A small sclerotic focus within the right anterior sixth rib may reflect benign sclerosis from healing prior rib injury. Recommend follow-up CT/bone scan to rule out neoplasm/metastasis.
Hospital course:
78-year-old male with a past medical history of Parkinson's disease, chronic ambulatory dysfunction, dementia, orthostatic hypotension, BPH, COPD, hypertension, and depression was admitted for recurrent mechanical falls and toxic metabolic
encephalopathy. Patient was taking trazodone and Seroquel prior to admission. He was hypersomnolent. These medications were discontinued, and he became more awake and alert.
Patient is on duloxetine 60 mg daily. His wished to wean him off of this medication. He was changed to 30 mg daily for 7 days. His last dose will be 06/16/2024, and then he can stop the medication.
Patient has orthostatic hypotension and is on fludrocortisone. He also has BPH and was on finasteride prior to admission. It was discussed with his that finasteride and Mirabegron may be contributing to his confusion and his falls. Therefore
these medications were discontinued. Patient's gabapentin was also discontinued.
Patient's blood pressure was elevated in the hospital, and he was started on amlodipine 2.5 mg daily.
Patient had foul-smelling urine. He did not have a fever, he did not have a leukocytosis. Urine analysis shows 1+ leukocyte esterase, greater than 100 WBCs. His urine culture is currently pending. Will treat with a 5-day course of Augmentin for
a possible urinary tract infection.
Patient's multiple medical conditions have been optimized. It is important to avoid polypharmacy in this patient as he is very sensitive to medications. He is discharged to short-term rehab. He needs to follow-up with his primary care doctor 1 week
after he leaves rehab.
Disposition: Short-term rehab
Discharge planning: Required 55 minutes
Discharge Plan
-
Patient Disposition: Detention/SNF
Discharge Diagnosis/Procedures: Parkinson's disease, chronic ambulatory dysfunction, dementia, frequent falls, left eighth rib fracture, L1 compression fracture, possible urinary tract infection, insomnia, hypertension
Condition: Fair
Diet: Regular
Activity: As tolerated
Driving Restrictions: No driving
Activity Restrictions/Additional Instructions:
Take duloxetine 30 mg daily for 2 days, then stop.
Take Augmentin twice a day for 5 days, then stop.
Follow-up with your primary care doctor 1 week after you leave rehab.
Referrals:
Yari Webb MD [Family Provider] - in less than 1 week
Prescriptions:
New
lidocaine 4 % Adhesive Patch,Medicated
2 patch topical DAILY Qty: 0 0RF
miconazole nitrate [Miconazorb AF] 2 % Powder
1 applic topical BID Qty: 0 0RF
amlodipine 2.5 mg Tablet
2.5 mg PO DAILY Qty: 0 0RF
amoxicillin-pot clavulanate 875-125 mg Tablet
1 tab PO Q12 5 Days Qty: 10 0RF
duloxetine 30 mg Capsule,Delayed Release(Dr/Ec)
30 mg PO DAILY 2 Days Qty: 2 0RF
Continued
atorvastatin 80 MG tablet
80 mg PO HS
albuterol sulfate 1 PUFF HFA aerosol inhaler
2 puff inhalation R Q4HPRN PRN (Reason: sob,copd)
Saccharomyces boulardii 250 mg Capsule
250 mg PO DAILY
fludrocortisone 0.1 mg Tablet
0.1 mg PO DAILY Qty: 30 0RF
ferrous sulfate 325 mg (65 mg iron) Tablet
325 mg PO Q48H@1100
cholecalciferol (vitamin D3) [Vitamin D3] 25 mcg (1,000 unit) Capsule
100 mcg PO DAILY
vitamin B complex Tablet Extended Release
1 tab PO DAILY@1400
ascorbic acid (vitamin C) [Vitamin C] 500 mg Tablet
1,000 mg PO DAILY@1100
albuterol sulfate 90 mcg/actuation HFA aerosol inhaler
2 puff INHALATION R DAILY
melatonin 10 mg Tablet Extended Release
10 mg PO HS
Rytary 61.25-245 mg capsule, extended release
1 cap PO TID@0800,1400,2000
Trelegy Ellipta 100-62.5-25 mcg Blister With Device
1 inh INHALATION R DAILY
Fasenra 30 mg/mL Syringe
30 mg SC .Q6-8WEEKS
magnesium
1 tab PO HS
Patient Comments:
07/24/2023: Per Spouse pt takes MagMind by Georgina
acetaminophen 500 mg tablet
1,000 mg PO TIDPRN PRN (Reason: mild pain)
aspirin [Children's Aspirin] 81 mg Tablet,Chewable
81 mg PO DAILY Qty: 1 0RF
valerian root 500 mg Capsule
500 mg PO HS
coenzyme Q10 [Co Q-10] 10 mg Capsule
30 mg PO QPM
omeprazole 20 mg Capsule,Delayed Release(Dr/Ec)
20 mg PO DAILY
Poop Doc - Magnesium Product
1 dose PO DAILY
Rytary 23.75-95 mg Capsule, Extended Release
1 cap PO TID@0800,1400,2000 Qty: 90 0RF
milk thistle 500 mg Capsule
1,000 mg PO DAILY
Discontinued
finasteride 5 MG tablet
5 mg PO DAILY
duloxetine 60 MG capsule,delayed release(DR/EC)
60 mg PO DAILY@1400
mirabegron [Myrbetriq] 50 mg tablet extended release 24 hr
50 mg PO HS
gabapentin 100 mg capsule
200 mg PO HS
Discharge Orders:
Discharge Patient (As Directed); Ordered 06/14/24
Ordered By: Madi Eli
Discharge Date and Time
Print Language: HUNGARIAN
--- NOTE | 2024-06-14 13:17 | CM ---
Addendum entered by Gaby Barahona 06/14/24 15:33:
Transport at 1845
Lynn at [facility] made aware
Updated Jeanie - aware of transport time
Addendum entered by Gaby Barahona 06/14/24 15:02:
Spoke with Jeanie - updated pt has bed at [facility]. Can admit today
Discussed IMM. Jeanie reports she has concerns regarding care and medications. Would like to discuss with physician prior to discharge
Dr Do updated. Reports will call and speak with SO
Original Note:
Pt medically ready for discharge
Spoke with SO Jeanie - prefers [facility], [facility] would be 2nd choice
[facility] can accept today
Dr Do updated
SO not in pts room when attempted to update. Called and left message on requesting call back
Plan - transfer to [facility]
R - [phone]
- [phone]
[2024-06-14] MEDS: AUGMENTIN 875 MG/125 MG 1 TABLET PO (13:19)
--- NOTE | 2024-06-14 15:19 | PTCARENOTE ---
Medications for discharge reviewed with Lina Via phone. All questions answered. Care remains ongoing.
--- NOTE | 2024-06-14 15:41 | PTCARENOTE ---
Pt restless yelling out ' lina' and trying to climb out of bed. Incontinence care provided PRN and pt redressed and he continues to remove gown and brief. Lina called and speaking with pt. Care remains ongoing.
[2024-06-14] MEDS: LOVENOX 40 MG SC (17:00)
[2024-06-14 17:19] VITALS: BP 120/61
== END 2024-06-14 19:05 | DRG 205 ==
LOC: 2 SOUTH 11:09
PROVIDERS: Internal Medicine; ADMITTING PHYSICIAN Internal Medicine; ATTENDING PHYSICIAN Family Medicine; EMERGENCY PHYSICIAN Emergency Medicine; FAMILY PHYSICIAN Internal Medicine
DX: S22.32XA Fracture of one rib, left side, initial encounter for closed fracture (principal); G92.8 Other toxic encephalopathy; S32.010A Wedge compression fracture of first lumbar vertebra, initial encounter for closed fracture; F05 Delirium due to known physiological condition; F02.83 Dementia in other diseases classified elsewhere, unspecified severity, with mood disturbance; F02.811 Dementia in other diseases classified elsewhere, unspecified severity, with agitation; N39.0 Urinary tract infection, site not specified; I48.0 Paroxysmal atrial fibrillation; G20.A1 Parkinson's disease without dyskinesia, without mention of fluctuations; R29.6 Repeated falls; E78.00 Pure hypercholesterolemia, unspecified; J44.9 Chronic obstructive pulmonary disease, unspecified; K21.9 Gastro-esophageal reflux disease without esophagitis; R44.1 Visual hallucinations; N40.0 Benign prostatic hyperplasia without lower urinary tract symptoms; G47.00 Insomnia, unspecified; I25.10 Atherosclerotic heart disease of native coronary artery without angina pectoris; F32.A Depression, unspecified; I95.1 Orthostatic hypotension; T43.215A Adverse effect of selective serotonin and norepinephrine reuptake inhibitors, initial encounter; T43.595A Adverse effect of other antipsychotics and neuroleptics, initial encounter; I10 Essential (primary) hypertension; W01.198A Fall on same level from slipping, tripping and stumbling with subsequent striking against other object, initial encounter; Y93.01 Activity, walking, marching and hiking; Y92.008 Other place in unspecified non-institutional (private) residence as the place of occurrence of the external cause; Z66 Do not resuscitate; Z86.11 Personal history of tuberculosis; Z87.891 Personal history of nicotine dependence; Z95.1 Presence of aortocoronary bypass graft; Z85.820 Personal history of malignant melanoma of skin; Z88.5 Allergy status to narcotic agent; Z88.8 Allergy status to other drugs, medicaments and biological substances
CPT/HCPCS: 70450; 71101; 71250; 80048; 80053; 81003; 81015; 83735; 85027; 87086; 92526; 92610; 94640; 96360; 97110; 97162; 97530; 99285

== ENCOUNTER → 2024-06-17 13:26 | Outpatient (REF) | payer MEDICARE, OTHER, SELFPAY ==
[2024-06-17 14:13] LABS: % Basophils 0.2 % (0-2); % Immature Granulocytes 0.3 % (0-0.5); % Lymphocytes 9.1 % (20.5-51.1); % Monocytes 10.6 % (1.7-9.3); % Neutrophils 79.8 % (42.2-75.2); Absolute Lymphocytes 0.9 10^3/uL (1.2-3.4); Absolute Monocytes 1.1 10^3/uL (0.1-0.6); Absolute Neutrophils 8.2 10^3/uL (1.4-6.5); Hematocrit 45.3 % (39.0-52.0); Hemoglobin 15.3 g/dL (13.0-18.0); Mean Corp Hgb Conc. 33.8 g/dL (33.0-37.0); Mean Corpuscular Hgb 31.5 pg (27.0-31.0); Mean Corpuscular Volume 93.4 fL (80.0-94.0); Mean Platelet Volume 11.3 fL (7.4-10.4); Nucleated Red Blood Cells % 0 % (-); Platelet Count 200 10^3/uL (130-400); Red Blood Cell Count 4.85 10^6/uL (4.70-6.10); Red Cell Dist. Width 12.3 % (11.5-14.5); White Blood Cell Count 10.3 10^3/uL (4.8-10.8)
[2024-06-17 14:43] LABS: Blood Urea Nitrogen 37 mg/dl (9-20); Calcium 9.8 mg/dl (8.4-10.2); Carbon Dioxide 22 mmol/L (22-30); Chloride 100 mmol/L (98-107); Glucose 115 mg/dl (70-99); Potassium 3.7 mmol/L (3.5-5.1); Sodium 138 mmol/L (135-145); eGFR > 60.00
== END ==
LOC: OLABP 13:26
PROVIDERS: ATTENDING PHYSICIAN Family Medicine
DX: G92.8 Other toxic encephalopathy (principal)
CPT/HCPCS: 36415; 80048; 85025

== ENCOUNTER 2024-07-08 18:13 | Observation (INO) | payer MEDICARE, OTHER, SELFPAY ==
[2024-07-08] VITALS (14 sets, daily range): BP systolic 88–186; BP diastolic 48–101; PULSE 71–72; O2SAT 92; BMI 20.8
[2024-07-08 11:30] LABS: % Immature Granulocytes 0.4 % (0-0.5); % Lymphocytes 12.1 % (20.5-51.1); % Monocytes 7.1 % (1.7-9.3); % Neutrophils 80.4 % (42.2-75.2); Absolute Monocytes 0.6 10^3/uL (0.1-0.6); Absolute Neutrophils 6.4 10^3/uL (1.4-6.5); Hematocrit 40.4 % (39.0-52.0); Hemoglobin 14.3 g/dL (13.0-18.0); Mean Corp Hgb Conc. 35.4 g/dL (33.0-37.0); Mean Corpuscular Hgb 31.4 pg (27.0-31.0); Mean Corpuscular Volume 88.6 fL (80.0-94.0); Mean Platelet Volume 10.7 fL (7.4-10.4); Nucleated Red Blood Cells % 0 % (-); Platelet Count 156 10^3/uL (130-400); Red Blood Cell Count 4.56 10^6/uL (4.70-6.10); Red Cell Dist. Width 12.8 % (11.5-14.5); White Blood Cell Count 7.9 10^3/uL (4.8-10.8)
--- NOTE | 2024-07-08 11:38 | CM ---
Addendum entered by Greta Niño RN 07/08/24 15:42:
[facility] does not have a bed.
Replaced By [facility] Cannot accept
[facility] cannot accept
[facility] cannot accept.
Patient is declining [facility] due to distance.
Addendum entered by Greta Niño RN 07/08/24 15:22:
Cm spoke with Kenisha at [facility]. She is confirming acceptance.
Addendum entered by Greta Niño RN 07/08/24 15:13:
Admission coordinator advised from [facility] that bed was given away and is no longer available. CM updated . She is agreeable to [facility].
[facility] no longer has a bed available.
Addendum entered by Greta Niño RN 07/08/24 14:26:
Patient is agreeable to [facility]. CM to confirm transfer details with admission coordinator.
Addendum entered by Greta Niño RN 07/08/24 12:44:
CM sent referrals to [facility]
Replaced By [facility]
Addendum entered by Greta Niño RN 07/08/24 12:38:
Patient's is expressing interest primarily in [facility]. She is unwilling to send patient to [facility], [facility], and [facility].
There are no beds available at [facility], [facility] or [place]. CM will continue bed search.
Addendum entered by Greta Niño RN 07/08/24 11:54:
LETICIA spoke with Shelly at [facility]. Patient was discharged 7 days ago with [facility] and back home to the care of his . changed her mine and asked for referral to [place]. Shelly placed referral for [facility] after patient was discharged to
[facility] providers. LTC discussions were had,but is selling their home and plans to look for LTC after house is sold.
CM will await further clinical information. LETICIA will send referral to [facility].
Addendum entered by Greta Niño RN 07/08/24 11:45:
[facility] does not have any beds until Thursday.
Original Note:
LETICIA reviewed medical records. LETICIA was consulted for placement. LETICIA left message for ISAI Martin at [facility] for collateral information regarding discharge planning.
[2024-07-08 12:02] LABS: ALT (SGPT) 11 U/L (0-50); AST (SGOT) 38 U/L (17-59); Alkaline Phosphatase 79 U/L (38-126); Blood Urea Nitrogen 18 mg/dl (9-20); Calcium 9.2 mg/dl (8.4-10.2); Carbon Dioxide 27 mmol/L (22-30); Chloride 102 mmol/L (98-107); Glucose 98 mg/dl (70-99); Potassium 3.7 mmol/L (3.5-5.1); Sodium 137 mmol/L (135-145); Total Bilirubin 0.9 mg/dl (0.2-1.3); Total Protein 6.2 g/dl (6.3-8.2); eGFR > 60.00
--- NOTE | 2024-07-08 12:14 | ED.GENMED ---
History of Present Illness
General
Chief Complaint: Fall
Source: patient
Exam Limitations: none
Time Seen by Provider: 07/08/24 10:20
Nursing documentation reviewed up to this point in time: agreed with
History of Present Illness
History of Present Illness:
78 y/o M with h/o parkinsons dementia, amb dysfunction, cabg, orthostatiuc hypotension
multiple falls
discharged from [facility] 1 week ago after fall on 06/07 causing L rib fx
while there, had multiple changes to meds, very sensitive to sleep aides and sedation meds and was in a parkinsons coma for a few days from seroquel
has chronic insomnia
wanders
came home and each day has been worse, waking every 30 minutes, getting up on his own and walking around and fell x 2, most recent was this morning; heard him fall
he has pain and bruising to L upper arm and L forearm pain
he is halluicnating at times, reaching for things that aren't there, spacial recogition is off, mumbling
she is attributing this to lack of sleep
pt wass like this in [facility] but not as bad and she has seen a decline since being home
pt has not had fever, vomiting, head injury, cp, sob, diarrhea
no h/o UTI
Past History
Past History
ED Past Medical History: Arrthythmia (A. 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
ED Past Surgical History: Cardiac (Bypass surgery CABG times 09/2020) and Other (umbilical herniorrhaphy, surgical resection malignant melanoma)
Social History
Tobacco: Former smoker
Alcohol: Former (discontinued approximately 1989)
Drug: None
Personal: Single
Living: with family
Employment: Employed
Family History
Family History: Other
Review of Systems
Review of Systems
Allergies reviewed?: Yes
All Other Systems: Not applicable
Phy Exam
Physical Exam
Physical Exam:
GENERAL: sleeping, arousable; slumped slightly to L and forward
HEAD: NCAT
NECK: kyphosis
EYE: pupils equal and reactive, EOMs intact.
ENT: o/p clr, mmm. no hemotympanum
CARDIAC: Regular rate and rhythm, no edema
LUNGS: Clear breath sounds bilaterally, no acute respiratory distress, no wheezes/rales/rhonchi
ABDOMEN: Soft, without focal tenderness, no r/g, no cvat
NEUROLOGICAL: drowsy, arousable; oriented x 2; disoriented to time; moves all extremities; mumbles some gibberish
SKIN: Warm and dry, bruising L Upper arm and L forearm
MUSCULOSKELETAL: L forearm tenderness mostly mid/distal forearm
painful movement of wrist
L upper arm bruising without tendern ess
no significant shoulder tendnerenss
PSYCH: cooperative;
Course
Orders/Labs/Results
Orders:
Orders
07/08/24 11:05
CT Cervical Spine W/o Iv Contr Urgent
Comment:
Reason For Exam: fall out of bed
CT Head W/o Iv Contrast Urgent
Comment:
Reason For Exam: fall out of bed, dementia
CR Forearm - Left 2 View Urgent
Comment:
Reason For Exam: fall l forearm pain
CR Humerus - Left Min 2 Views* Urgent
Comment:
Reason For Exam: fall left upper arm pain
07/08/24 11:15
Complete Blood Count/With Diff Urgent
Comprehensive Metabolic Panel Urgent
07/08/24 11:21
Case Management Consult ONCE
Case Management Consult: Discharge Planning
07/08/24 12:00
OT Consult [Ot Eval And Treat] Urgent
PT Consult [Pt Eval And Treat] Urgent
Activity Level: Ambulate
07/08/24 12:33
Urinalysis Reflex To Culture Urgent
Date Specimen was Collected: 07/08/24
Time Specimen was Collected: 12:25
Abnormal Lab Results
07/08/24 07/08/24
11:15 12:33
RBC 4.56 L 10^6/uL
(4.70-6.10)
MCH 31.4 H pg
(27.0-31.0)
MPV 10.7 H fL
(7.4-10.4)
Absolute Lymphs (auto) 1.0 L 10^3/uL
(1.2-3.4)
Neutrophils % 80.4 H %
(42.2-75.2)
Lymphocytes % 12.1 L %
(20.5-51.1)
Creatinine 0.6 L mg/dL
(0.7-1.3)
Total Protein 6.2 L g/dl
(6.3-8.2)
Urine Ketones Trace A
(Negative)
07/08/24 11:15
07/08/24 11:15
Vital Signs
Initial and Last Documented VS:
Initial Vital Signs
Temp Pulse Resp BP Pulse Ox
36.5 C 65 16 88/62 95
07/08/24 09:49 07/08/24 09:49 07/08/24 09:49 07/08/24 09:49 07/08/24 09:49
Last Documented Vital Signs
Temp Pulse Resp BP Pulse Ox
36.5 C 68 17 131/48 93
07/08/24 09:49 07/08/24 17:30 07/08/24 17:30 07/08/24 17:00 07/08/24 17:30
MDM/Problems Addressed
Differential Diagnosis Includes:
falls, parkinsons, insomnia, ams, weakness, uti, fracture
MDM/Problems Addressed:
78-year-old male history of Parkinson's with some memory issues at baseline, ambulatory dysfunction here with who is primary caregiver, recent admission at rehab after a fall in May causing rib fracture. says she believes he came
home too soon. He has been having trouble sleeping at night especially since discharge. Apparently while he was hospitalized he was given some sedating medications that made him sedated. He is very sensitive to any medication that causes
sedation. They took him off several medications to try to help with some of his delirium but does not believe that he was improved. When he came home he seemed okay as the days progressed over the last week he has had more and more delirium,
hallucinations, waking up frequently at night, roaming the halls, falls etc. Today he fell out of bed and she believes he fractured his arm. He has not had any urinary tract infections, fevers or chills. She is unaware of any head strike. Not on
any anticoagulation. Seems to be an acute exacerbation of the underlying issues with his Parkinson's and sleep disturbances and psych disorders. Patient was evaluated by me, he is drowsy but arousable, kyphotic, seems to be only tender to
palpation of his left forearm, there is no deformity, there are some bruising to his upper arm, there is no head injury signs. His vitals are stable, he did have some hypotensive blood pressures but he does have a history of labile blood pressure
and takes fludrocortisone. Patient's x-ray independently reviewed by me and he has a mid shaft ulnar fracture
splinted by associate medical director in volar splint
seen by CM, PT/OT
unforutnately despite multiple searches and almost a spot at [facility], pt was unable to be placed
will be admitted
*Critical Care Note
Total Time (30-74mins, 75-104mins- exclusive of procedures): Not Applicable
ED Attending Note
-
Portions of this chart may have been created with voice recognition software.� Occasional wrong word or��sound alike� substitutions may have occurred due to the inherent limitations of voice recognition software.
Discharge Plan
Departure
Patient Disposition: Admit
Date of Disposition: 07/08/24
Time of Disposition: 16:05
Admit to: Med/Surg
Presentation/result/management discussed w/ accepting MD/DO: Hospitalist
Patient with high blood pressure during this ER visit?: No
Condition: Fair
Discharge Problem:
Fracture of shaft of left ulna, Insomnia, Delirium, Ambulatory dysfunction
Prescriptions:
No Action
atorvastatin 80 MG tablet
80 mg PO HS
albuterol sulfate 1 PUFF HFA aerosol inhaler
2 puff inhalation R Q4HPRN PRN (Reason: sob,copd)
fludrocortisone 0.1 mg Tablet
0.1 mg PO DAILY Qty: 30 0RF
ferrous sulfate 325 mg (65 mg iron) Tablet
325 mg PO Q48H@1100
vitamin B complex Tablet Extended Release
1 tab PO DAILY@1400
melatonin 10 mg Tablet Extended Release
10 mg PO HS
Rytary 61.25-245 mg capsule, extended release
1 cap PO TID@0800,1400,2000
Trelegy Ellipta 100-62.5-25 mcg Blister With Device
1 inh INHALATION R DAILY
Fasenra 30 mg/mL Syringe
30 mg SC .Q6-8WEEKS
acetaminophen 500 mg tablet
1,000 mg PO TIDPRN PRN (Reason: mild pain)
aspirin [Children's Aspirin] 81 mg Tablet,Chewable
81 mg PO DAILY Qty: 1 0RF
valerian root 500 mg Capsule
500 mg PO HS
omeprazole 20 mg Capsule,Delayed Release(Dr/Ec)
20 mg PO DAILY
Rytary 23.75-95 mg Capsule, Extended Release
1 cap PO TID@0800,1400,2000 Qty: 90 0RF
lidocaine 4 % Adhesive Patch,Medicated
2 patch topical DAILY Qty: 0 0RF
trazodone 50 mg Tablet
50 mg PO HSPRN PRN (Reason: sleep)
magnesium oxide 250 mg magnesium Tablet
250 mg PO DAILY
duloxetine [Cymbalta] 60 mg Capsule,Delayed Release(Dr/Ec)
60 mg PO DAILY
Referrals:
Yari Webb MD [Family Provider] -
Interventions
Interventions:
*Risk Screen - Suicide Last Done: 07/08/24 09:49
*General Assessment Last Done: 07/08/24 09:49
*Neglect/Abuse Screening Last Done: 07/08/24 09:49
*ED COVID-19 Vaccine History Last Done: 07/08/24 17:36
ED-Musculoskeletal Assessment Last Done: 07/08/24 11:32
ED- Neurological Assessment Last Done: 07/08/24 11:32
ED-Skin Assessment Last Done: 07/08/24 11:32
Discharge Date and Time
Print Language: GREENLANDIC
[2024-07-08 12:48] LABS: Urine Albumin Negative (Neg - Trace); Urine Bilirubin Negative (Negative); Urine Character Clear (Clear); Urine Color Yellow; Urine Glucose Negative (Negative); Urine Ketone Trace (Negative); Urine Leukocyte Negative (Negative); Urine Nitrite Negative (Negative); Urine Occult Blood Negative (Negative); Urine Urobilinogen Negative (Neg - 1+)
--- NOTE | 2024-07-08 17:55 | HPS.HSE ---
Family Physician
-
Family Physician: Yari Webb
Chief Complaint
-
fall
History of Present Illness
78-year-old male past medical history of CAD status post CABG, orthostatic hypotension, Parkinson disease, dementia, COPD, hypertension, GERD, BPH, presenting with fall. Patient was discharged from [facility] 1 week ago after a fall on 06/07 causing
left rib fracture.
After patient came home he has been waking up every 30 minutes and while walking he fell twice. heard him fall. He has pain and bruising of the left upper arm and left forearm. He is hallucinating at times reaching for things that are not
there and spatial recognition is off.
While in [facility] Cymbalta and trazodone were held as well as gabapentin. This helped initially but patient continued to have hallucinations, insomnia and deterioration of mental status.
Patient has not had fever, vomiting, chest pain or shortness of breath or diarrhea. No urinary symptoms.
Medical History
Past Medical History
Past Medical History: Reports Other ( CAD status post CABG, orthostatic hypotension, Parkinson disease, dementia, COPD, hypertension, GERD, BPH)
Past Surgical History: Reports None
Social History
Tobacco: Non-smoker
Alcohol: None
Drug: None
Family History
Family History: Not pertinent
Allergies / Home Medications
Allergies reflects when Allergies were last updated in [employer].
Home Medications with original date entered in [employer]
Allergy/Medication List:
Allergies
Allergy/AdvReac Type Severity Reaction Status Date / Time
atropine Allergy nose bleeds Verified 07/08/24 09:54
cat dander Allergy Hayfever Verified 07/08/24 09:54
house dust Allergy Hayfever Verified 07/08/24 09:54
house dust mite Allergy Hayfever Verified 07/08/24 09:54
lorazepam [From Ativan] Allergy change in Verified 07/08/24 09:54
mentation
midodrine Allergy hallucinati Verified 07/08/24 09:54
on
Opioids-Meperidine and Allergy parkinsons Verified 07/08/24 09:54
Related coma
zolpidem [From Ambien] Allergy hallucinations/ Verified 07/08/24 09:54
change in
mentation
Home Medications
albuterol sulfate 90 mcg/actuation aerosol inhaler 2 puff inhalation R Q4HPRN PRN sob,copd 10/22/20
atorvastatin 80 mg tablet 80 mg PO HS High cholesterol 10/22/20
fludrocortisone 0.1 mg tablet 0.1 mg PO DAILY Orthostatic hypotension #30 tabs 03/07/22
ferrous sulfate 325 mg (65 mg iron) tablet 325 mg PO Q48H@1100 Supplement 06/20/22
acetaminophen 500 mg tablet 1,000 mg PO TIDPRN PRN mild pain 07/24/23
benralizumab 30 mg/mL subcutaneous syringe (Fasenra) 30 mg SC .Q6-8WEEKS asthma COPD 07/24/23
carbidopa ER 61.25 mg-levodopa 245 mg capsule,extended release (Rytary) 1 cap PO TID@0800,1400,1999 Neurological Condition 07/24/23
fluticasone fur. 100 mcg-umeclid 62.5 mcg-vilant 25 mcg inhalat.powder (Trelegy Ellipta) 1 inh inhalation R DAILY Lung/Breathing Issues 07/24/23
melatonin 10 mg tablet,extended release 10 mg PO HS Sleep 07/24/23
vitamin B complex 1 tab PO DAILY@1400 Supplement 07/24/23
aspirin 81 mg chewable tablet (Children's Aspirin) 81 mg PO DAILY #1 tab 08/03/23
omeprazole 20 mg capsule,delayed release 20 mg PO DAILY Gastrointestinal Issue 02/17/24
valerian root 500 mg capsule 500 mg PO HS Supplement 02/17/24
carbidopa ER 23.75 mg-levodopa 95 mg capsule,extended release (Rytary) 1 cap PO TID@0800,1400,1999 Neurological Condition #90 caps 02/18/24
lidocaine 4 % topical patch 2 patch topical DAILY #0 ea 06/14/24
duloxetine 60 mg capsule,delayed release (Cymbalta) 60 mg PO DAILY 07/08/24
magnesium oxide 250 mg PO DAILY 07/08/24
trazodone 50 mg tablet 50 mg PO HSPRN PRN sleep 07/08/24
Review of Systems
-
History Source: Patient
A 12 point ROS was completed and negative except as noted: Yes
Constitutional: Reports No Symptoms
EENT: Reports No Symptoms
Respiratory: Reports No Symptoms
Cardiac: Reports No Symptoms
Abdomen/GI: Reports No Symptoms
: Reports No Symptoms
Musculoskeletal: Reports No Symptoms
Skin: Reports No Symptoms
Neurological: Reports No Symptoms
Endocrine: Reports No Symptoms
Hematologic/Lymphatic: Reports No Symptoms
Psych: Reports No Symptoms
Physical Exam
Vital Signs
Vital Signs
Temp Pulse Resp BP Pulse Ox
97.7 F 68 17 131/48 93
07/08/24 09:49 07/08/24 17:30 07/08/24 17:30 07/08/24 17:00 07/08/24 17:30
Physical Exam
General: Well Developed, Well Nourished and No Apparent Distress
HEENT: NormoCephalic, Moist mucous membranes and Atraumatic
Respiratory: Clear
Cardiac: S1/S2 and Regular Rhythm; No Murmur or Rub
GI: Soft, Non Tender, Non Distended and Normal Bowel Sounds; No Organomegaly
Rectal: Deferred by Provider
Musculoskeletal: No Clubbing, No Cyanosis and No Edema
Skin: No Rash
Neuro: Nonfocal/grossly intact
Laboratory Results
-
07/08/24 11:15
07/08/24 11:15
Laboratory Results
Total Bilirubin 0.9 mg/dl (0.2-1.3) 07/08/24 11:15
AST 38 U/L (17-59) 07/08/24 11:15
ALT 11 U/L (0-50) 07/08/24 11:15
Alkaline Phosphatase 79 U/L (38-126) 07/08/24 11:15
Data Reviewed
-
Lab Data: Labs Reviewed by me
Old Records: Reviewed
Impression/Plan
-
IMPRESSION:
PLAN:
# Fall with mildly displaced fracture distal shaft of left ulna
-Splinted
-CT head, cervical spine x-ray negative.
-Seen by PT/OT and had a bed at [facility] but bed was given away
# Ongoing hallucinations/insomnia/altered mental status
-Thought to be secondary to medications so many sedating medications were previously held
-Possibly Parkinson's medications contributing
-Urinalysis unremarkable
-Check COVID and influenza
CAD status post CABG
-Continue aspirin, statin
Parkinson's disease
-Continue Rytary
Dementia/depression
-Hold
COPD
-Continue albuterol, Trelegy
Hypertension
Orthostatic hypotension
-Continue fludrocortisone
GERD
-Continue omeprazole
BPH
Insomnia
-Hold trazodone
Full code
DVT prophylaxis�heparin
Regular diet
[2024-07-08 18:37] LABS: COVID-19 Antigen Negative (Negative)
[2024-07-08] MEDS: NON-FORMULARY ITEM 1 CAP PO ×2 (21:01→21:02)
[2024-07-08] MEDS: LIPITOR 80 MG PO (21:03)
[2024-07-08] MEDS: MELATONIN 10 MG PO (21:03)
[2024-07-08] MEDS: HEPARIN 5000 UNITS SC (21:03)
[2024-07-08] MEDS: TYLENOL 1000 MG PO (22:10)
[2024-07-09 00:45] VITALS: BMI 20.8
[2024-07-09] MEDS: TYLENOL 1000 MG PO (03:05)
[2024-07-09] MEDS: SYMBICORT 80/4.5 MCG INHALER 2 PUFF INH ×2 (07:09→20:32)
[2024-07-09] MEDS: SPIRIVA RESPIMAT 2.5 MCG 2 PUFF INH (07:10)
[2024-07-09 07:46] VITALS: BP 164/97
[2024-07-09] MEDS: MAGNESIUM OXIDE 250 MG PO (08:14)
[2024-07-09] MEDS: NON-FORMULARY ITEM 1 CAP PO ×6 (08:14→20:40)
[2024-07-09] MEDS: PROTONIX 40 MG PO (08:15)
[2024-07-09] MEDS: FLORINEF 0.1 MG PO (08:15)
[2024-07-09] MEDS: LOW STRENGTH ASPIRIN 81 MG PO (08:15)
[2024-07-09] MEDS: HEPARIN 5000 UNITS SC ×2 (08:15→20:41)
[2024-07-09 09:19] LABS: % Basophils 0.2 % (0-2); % Immature Granulocytes 0.4 % (0-0.5); % Lymphocytes 17.7 % (20.5-51.1); % Monocytes 8.7 % (1.7-9.3); Absolute Lymphocytes 0.9 10^3/uL (1.2-3.4); Absolute Monocytes 0.5 10^3/uL (0.1-0.6); Absolute Neutrophils 3.8 10^3/uL (1.4-6.5); Hematocrit 42.1 % (39.0-52.0); Hemoglobin 14.6 g/dL (13.0-18.0); Mean Corp Hgb Conc. 34.7 g/dL (33.0-37.0); Mean Corpuscular Hgb 31.1 pg (27.0-31.0); Mean Corpuscular Volume 89.6 fL (80.0-94.0); Mean Platelet Volume 11.1 fL (7.4-10.4); Nucleated Red Blood Cells % 0 % (-); Platelet Count 146 10^3/uL (130-400); Red Cell Dist. Width 12.7 % (11.5-14.5); White Blood Cell Count 5.3 10^3/uL (4.8-10.8)
[2024-07-09 09:28] LABS: ALT (SGPT) < 10 U/L (0-50); AST (SGOT) 33 U/L (17-59); Albumin 3.8 g/dl (3.5-5.0); Alkaline Phosphatase 76 U/L (38-126); Blood Urea Nitrogen 12 mg/dl (9-20); Carbon Dioxide 27 mmol/L (22-30); Chloride 102 mmol/L (98-107); Estimated Creatinine Clearance 104 ml/min; Glucose 89 mg/dl (70-99); Potassium 3.3 mmol/L (3.5-5.1); Sodium 137 mmol/L (135-145); Total Bilirubin 1.1 mg/dl (0.2-1.3); Total Protein 5.9 g/dl (6.3-8.2); eGFR > 60.00
[2024-07-09 11:15] VITALS: BP 152/96
--- NOTE | 2024-07-09 13:23 | W.PN.HOSP.TC ---
Today's Communication/Plan
-
ortho eval
monitor mentation
eventual snf placement
Assessment / Plan
Assessment / Plan
Fall with mildly displaced fracture distal shaft of left ulna
-Splinted
-CT head, cervical spine x-ray negative.
-Seen by PT/OT and had a bed at [facility] but bed was given away
-Orthopedic surgery consulted for evaluation
Ongoing hallucinations/insomnia/altered mental status
-Thought to be secondary to medications so many sedating medications were previously held
-Urinalysis unremarkable
-COVID/influenza negative
-Patient may have advanced Parkinson's causing some of the mentation change/hallucination
CAD status post CABG
-Continue aspirin, statin
Parkinson's disease
-Continue Rytary
Dementia/depression
-Hold
COPD
-Continue albuterol, Trelegy
Hypertension
Orthostatic hypotension
-Continue fludrocortisone
GERD
-Continue omeprazole
BPH
Insomnia
-Hold trazodone
Full code
DVT prophylaxis�heparin
Anticipated Discharge: 24 - 48 hours
Subjective/Interval History
-
Date of Service: July 09, 2024
Not voicing any complaints
Somewhat somnolent
No reported acute issues
Objective Data
-
Labs:
Laboratory Results
07/09/24
08:08
WBC 5.3
Hgb 14.6
Hct 42.1
Plt Count 146
Sodium 137
Potassium 3.3 L
Chloride 102
Carbon Dioxide 27
BUN 12
Creatinine 0.6 L
Glucose 89
Calcium 9.0
Total Bilirubin 1.1
AST 33
ALT < 10
Alkaline Phosphatase 76
Vital Signs:
Vital Signs
Temp Pulse Resp BP Pulse Ox
98.2 F 68 16 164/97 93
07/09/24 07:46 07/09/24 07:46 07/09/24 07:46 07/09/24 07:46 07/09/24 07:46
Review of Systems
-
Unable to obtain full review of systems at this time due to: Acuity
Physical Exam
-
General: Comfortable and Cachectic
HEENT: Negative Oxygen
Respiratory: Clear to Auscultation
Cardiac: Regular Rhythm and S1/S2; Negative Murmur or Rub
GI: Soft and Nontender
Musculoskeletal: No Edema and Other (Left arm splint)
Neuro: Awake, Alert, Oriented, No Motor Deficits and Nonfocal/Grossly Intact
Psych: Calm
[2024-07-09] MEDS: B COMPLEX w/VITAMIN C 1 CAPLET PO (13:34)
[2024-07-09] MEDS: FEOSOL 325 MG PO (13:34)
--- NOTE | 2024-07-09 14:03 | PTOTSP ---
Speech Pathology
Clinical Swallow Evaluation
78M with admission s/p fall presents with s/s of a functional oropharyngeal swallow. Aspiration risk is increased due to AMS requiring intermittent assistance with feeding. [facility]ERY [facility] service to follow briefly to assess diet level tolerance.
Recommend:
1. Maintain Regular texture (IDDSI 7), thin liquids (IDDSI 0)
2. Meds as best tolerated
3. Safe swallowing strategies: partial assistance/supervision with meals
4. IF OVERT S/S of aspiration arise, MAKE NPO and reconsult DELIVERY [facility] service
5. DELIVERY [facility] service to follow up and assess diet level tolerance at the acute care level
[2024-07-09 15:05] VITALS: BP 139/77
--- NOTE | 2024-07-09 15:11 | CM ---
Addendum entered by DAYAMI Mcnamara 07/09/24 16:10:
Spouse called back and requested referral to [facility]. sent in allscripts
Original Note:
Spoke to SO. Asked her to look at [facility] and [facility] as no bed at other snfs referred to. Sent message in [facility] to [facility] to say the CSI is the medicare supplement to cover his copays. he had used 17 -18 days at [facility].
--- NOTE | 2024-07-09 15:35 | CON.ORTHO ---
Consultation
-
Date/Time Consultation Requested: 07/09/2024
Date/Time Consultation Performed: 07/09/2024
Requesting Provider: Dr. Foley.
Performing Provider: Jaci Choi PA-C, for Dr. Monroe
Reason for Consultation: Left midshaft radius fracture
Consultation - Orthopedics
History
HPI: This is a 78-year-old male who presented to [facility] after sustaining a fall while at home. In speaking with the patient, he reports he was walking up the stairs on when he fell, landing on his left forearm. In chart
review, it appears as though he has sustained multiple falls over the past month. He was discharged to [facility] after an initial hospitalization on 06/07/2024 that resulted in a left rib fracture. He had multiple medication changes and was noted
to be failing to thrive at home. He reportedly sustained an additional 2 falls, the most recent per his being on 07/08/2024. He was noted to have pain and bruising to his left upper arm and left forearm. He did not seem to be a very reliable
historian, so most of this history was obtained through chart review. He reports that he is tired and listless. He denied any current pain with the splint on his left upper extremity. He does use a walker to assist ambulation.
Past medical history: A-fib, CAD, cancer, COPD, GERD, hypertension, hypercholesterolemia, Parkinson's, TB in childhood.
Past surgical history: Bypass surgery CABG x 4 in 2020, umbilical hernia repair, surgical resection malignant melanoma.
Social history: Lives at home with . Former smoker, denies alcohol use.
Review of systems: Unable to be obtained secondary to mental status
Allergies / Home Medications
Allergy/AdvReac Type Severity Reaction Status Date / Time
atropine Allergy nose bleeds Verified 07/08/24 09:54
cat dander Allergy Hayfever Verified 07/08/24 09:54
house dust Allergy Hayfever Verified 07/08/24 09:54
house dust mite Allergy Hayfever Verified 07/08/24 09:54
lorazepam [From Ativan] Allergy change in Verified 07/08/24 09:54
mentation
midodrine Allergy hallucinati Verified 07/08/24 09:54
on
Opioids-Meperidine and Allergy parkinsons Verified 07/08/24 09:54
Related coma
zolpidem [From Ambien] Allergy hallucinations/ Verified 07/08/24 09:54
change in
mentation
�Medication �Instructions �Recorded
albuterol sulfate 90 mcg/actuation 2 puff inhalation R Q4HPRN PRN 10/22/20
aerosol inhaler sob,copd
atorvastatin 80 mg tablet 80 mg PO HS High cholesterol 10/22/20
fludrocortisone 0.1 mg tablet 0.1 mg PO DAILY Orthostatic 03/07/22
hypotension #30 tabs
ferrous sulfate 325 mg (65 mg 325 mg PO Q48H@1100 Supplement 06/20/22
iron) tablet
acetaminophen 500 mg tablet 1,000 mg PO TIDPRN PRN mild pain 07/24/23
benralizumab 30 mg/mL subcutaneous 30 mg SC .Q6-8WEEKS asthma COPD 07/24/23
syringe (Fasenra)
carbidopa ER 61.25 mg-levodopa 245 1 cap PO TID@0800,1400,2000 07/24/23
mg capsule,extended release Neurological Condition
(Rytary)
fluticasone fur. 100 mcg-umeclid 1 inh inhalation R DAILY 07/24/23
62.5 mcg-vilant 25 mcg Lung/Breathing Issues
inhalat.powder (Trelegy Ellipta)
melatonin 10 mg tablet,extended 10 mg PO HS Sleep 07/24/23
release
vitamin B complex 1 tab PO DAILY@1400 Supplement 07/24/23
aspirin 81 mg chewable tablet 81 mg PO DAILY #1 tab 08/03/23
(Children's Aspirin)
omeprazole 20 mg capsule,delayed 20 mg PO DAILY Gastrointestinal 02/17/24
release Issue
valerian root 500 mg capsule 500 mg PO HS Supplement 02/17/24
carbidopa ER 23.75 mg-levodopa 95 1 cap PO TID@0800,1400,2000 02/18/24
mg capsule,extended release Neurological Condition #90 caps
(Rytary)
duloxetine 60 mg capsule,delayed 60 mg PO DAILY Mental 07/08/24
release (Cymbalta) Health/Anxiety
magnesium oxide 250 mg PO DAILY Supplement 07/08/24
trazodone 50 mg tablet 50 mg PO HSPRN PRN sleep 07/08/24
lidocaine 4 % topical patch 2 patch topical DAILY Pain 07/09/24
Vital Signs / Lab Results
Temp Pulse Resp BP Pulse Ox
98.1 F 74 18 139/77 92
07/09/24 15:05 07/09/24 15:05 07/09/24 15:05 07/09/24 15:05 07/09/24 15:05
07/09/24 08:08
07/09/24 08:08
Physical examination:
General: Well-developed male in no acute distress at rest, mildly lethargic.
HEENT: Atraumatic, normocephalic, neck supple.
Lungs: Non labored breathing on room air, no audible wheezing.
Left arm: Splint in place of LUE. able to wiggle fingers. n/v intact distally.
Radiographic studies:
X-rays of the left forearm from 07/08/2024 shows evidence of a nondisplaced mid radial shaft fracture.
Assessment / Plan
Assessment: Left radial shaft fracture.
Plan: Patient was seen in tandem with Dr. Monroe. Unfortunately, Mr. Lucas sustained a nondisplaced fracture to the midshaft of his left radius. This is amenable to nonsurgical intervention with full-time immobilization and nonweightbearing on his
left upper extremity. His current splint is in good repair and adequately controlling his pain, so we will leave this in place for now. He may attempt to use a platform walker with his right upper extremity, but should remain nonweightbearing on
the left upper extremity until further notice. He should lift nothing heavier than a coffee cup in his left hand. He will likely be sent to rehab upon discharge, so we will plan to follow-up with him on an outpatient basis in 1 week for repeat
x-rays and transition into a cast. We will sign off on him from an inpatient standpoint for now. Please reengage with any further questions.
[2024-07-09] MEDS: LIPITOR 80 MG PO (21:07)
[2024-07-09] MEDS: MELATONIN 10 MG PO (21:07)
[2024-07-10 07:01] LABS: Hematocrit 41.1 % (39.0-52.0); Hemoglobin 14.4 g/dL (13.0-18.0); Mean Corpuscular Volume 88.4 fL (80.0-94.0); Mean Platelet Volume 10.9 fL (7.4-10.4); Platelet Count 151 10^3/uL (130-400); Red Blood Cell Count 4.65 10^6/uL (4.70-6.10); Red Cell Dist. Width 12.8 % (11.5-14.5); White Blood Cell Count 7.6 10^3/uL (4.8-10.8)
[2024-07-10 07:05] VITALS: BP 172/100
[2024-07-10 07:06] LABS: Blood Urea Nitrogen 13 mg/dl (9-20); Calcium 9.1 mg/dl (8.4-10.2); Carbon Dioxide 27 mmol/L (22-30); Chloride 101 mmol/L (98-107); Estimated Creatinine Clearance 104 ml/min; Glucose 94 mg/dl (70-99); Potassium 3.5 mmol/L (3.5-5.1); Sodium 137 mmol/L (135-145); eGFR > 60.00
[2024-07-10] MEDS: SYMBICORT 80/4.5 MCG INHALER 2 PUFF INH ×2 (08:23→19:45)
[2024-07-10] MEDS: SPIRIVA RESPIMAT 2.5 MCG 2 PUFF INH (08:24)
[2024-07-10] MEDS: MAGNESIUM OXIDE 250 MG PO (09:13)
[2024-07-10] MEDS: PROTONIX 40 MG PO (09:13)
[2024-07-10] MEDS: HEPARIN 5000 UNITS SC ×2 (09:13→21:03)
[2024-07-10] MEDS: NON-FORMULARY ITEM 1 CAP PO ×6 (09:14→21:02)
[2024-07-10] MEDS: FLORINEF 0.1 MG PO (09:14)
[2024-07-10] MEDS: LOW STRENGTH ASPIRIN 81 MG PO (09:14)
--- NOTE | 2024-07-10 13:34 | W.PN.HOSP.TC ---
Addendum entered and electronically signed by Len Foley MD 07/10/24 14:05:
Discussed care plan with patient spouse
Patient has been taken off of multiple medications in the past for concern of contributing to encephalopathy
Apparently in the near past patient was able to get around and participate with therapy a lot more
Discussed with spouse that patient may have worsening parkinsonian disease and have neuropsychiatric symptoms setting in.
Spouse willing to try low-dose trazodone 25 mg at nighttime to help with sleep pattern.
Original Note:
Today's Communication/Plan
-
check rsh/b12/folate
snf rehab placement
Assessment / Plan
Assessment / Plan
Fall with mildly displaced fracture distal shaft of left Radius
-Splinted
-CT head, cervical spine x-ray negative.
-Seen by PT/OT and had a bed at [facility] but bed was given away
-Orthopedic surgery recommendation reviewed - will need f/u in office in 1 week. contiue splint. NWB for LUE. Use platform walker for ambulation.
Episodic hallucinations
Episodic encephalopathy
-Thought to be secondary to medications so many sedating medications were previously held
-Urinalysis unremarkable
-COVID/influenza negative
-Check TSH/B12/Folate
-Patient may have advanced Parkinson's causing some of the mentation change/hallucination
CAD status post CABG
-Continue aspirin, statin
Parkinson's disease
-Continue Rytary
Dementia/depression
-Hold
COPD
-Continue albuterol, Trelegy
Hypertension
Orthostatic hypotension
-Continue fludrocortisone
GERD
-Continue omeprazole
BPH
Insomnia
-Hold trazodone
Full code
DVT prophylaxis�heparin
Anticipated Discharge: Within 24 hours
Subjective/Interval History
-
Date of Service: July 10, 2024
resting comfortably in bed
mentation remains waxing and waning
Objective Data
-
Labs:
Laboratory Results
07/10/24
06:22
WBC 7.6
Hgb 14.4
Hct 41.1
Plt Count 151
Sodium 137
Potassium 3.5
Chloride 101
Carbon Dioxide 27
BUN 13
Creatinine 0.6 L
Glucose 94
Calcium 9.1
Vital Signs:
Vital Signs
Temp Pulse Resp BP Pulse Ox
98.0 F 85 16 172/100 95
07/10/24 07:05 07/10/24 08:30 07/10/24 08:30 07/10/24 07:05 07/10/24 08:30
I&O
07/09/24 07/10/24 07/11/24
06:59 06:59 06:59
Intake Total 660 / 660
Balance 660 / 660
Review of Systems
-
Unable to obtain full review of systems at this time due to: Acuity
Physical Exam
-
General: Comfortable and Cachectic
HEENT: Negative Oxygen
Respiratory: Clear to Auscultation
Cardiac: Regular Rhythm and S1/S2; Negative Murmur or Rub
GI: Soft and Nontender
Musculoskeletal: No Edema and Other (Left arm splint)
Neuro: Awake, Alert, No Motor Deficits and Nonfocal/Grossly Intact
Psych: Calm
[2024-07-10] MEDS: B COMPLEX w/VITAMIN C 1 CAPLET PO (13:40)
[2024-07-10 15:03] LABS: TSH 1.29 uIU/ml (0.47-4.68)
[2024-07-10 15:05] VITALS: BP 126/75
[2024-07-10 15:39] LABS: Vitamin B12 767 pg/ml (239-931)
--- NOTE | 2024-07-10 18:26 | PTCARENOTE ---
Pt's mentation confused, shouting out occassionally during shift. Encouraged PO intake throughout shift. left menu with circled options that she says the pt will like. Those options were ordered for pt but during each meal, pt takes a few bites
and pushes food away. Pt incontinent and urinating frequently, condom cath applied. Will continue to monitor pt and encourage PO intake.
[2024-07-10] MEDS: DESYREL 25 MG PO (21:02)
[2024-07-10] MEDS: LIPITOR 80 MG PO (21:02)
[2024-07-10] MEDS: MELATONIN 10 MG PO (21:03)
[2024-07-10 23:00] VITALS: BP 164/89
[2024-07-11] MEDS: SYMBICORT 80/4.5 MCG INHALER 2 PUFF INH ×2 (07:27→20:08)
[2024-07-11] MEDS: SPIRIVA RESPIMAT 2.5 MCG 2 PUFF INH (07:27)
[2024-07-11 07:30] VITALS: BP 137/80
[2024-07-11 08:11] LABS: Hematocrit 42.2 % (39.0-52.0); Hemoglobin 14.6 g/dL (13.0-18.0); Mean Corp Hgb Conc. 34.6 g/dL (33.0-37.0); Mean Corpuscular Hgb 30.6 pg (27.0-31.0); Mean Corpuscular Volume 88.5 fL (80.0-94.0); Mean Platelet Volume 10.7 fL (7.4-10.4); Platelet Count 141 10^3/uL (130-400); Red Blood Cell Count 4.77 10^6/uL (4.70-6.10); Red Cell Dist. Width 12.8 % (11.5-14.5)
[2024-07-11 08:53] LABS: Blood Urea Nitrogen 14 mg/dl (9-20); Carbon Dioxide 27 mmol/L (22-30); Chloride 102 mmol/L (98-107); Estimated Creatinine Clearance 104 ml/min; Glucose 96 mg/dl (70-99); Potassium 3.8 mmol/L (3.5-5.1); Sodium 137 mmol/L (135-145); eGFR > 60.00
[2024-07-11] MEDS: FLORINEF 0.1 MG PO (09:32)
[2024-07-11] MEDS: PROTONIX 40 MG PO (09:32)
[2024-07-11] MEDS: MAGNESIUM OXIDE 250 MG PO (09:32)
[2024-07-11] MEDS: LOW STRENGTH ASPIRIN 81 MG PO (09:33)
[2024-07-11] MEDS: HEPARIN 5000 UNITS SC (09:33)
[2024-07-11] MEDS: NON-FORMULARY ITEM 1 CAP PO ×4 (09:34→13:38)
--- NOTE | 2024-07-11 13:05 | W.PN.HOSP.TC ---
Today's Communication/Plan
-
Bowel regimen
Diet changed to Pureed
Psycher eval
Discharge planning
Power of assistant attorney general confirms that patient is a DNR-I have changed.
Advised her to bring documents.
Assessment / Plan
Assessment / Plan
78-year-old male was discharged from [facility] a week ago comes back with fall
CT head-no acute changes. Kyphotic deformity of the cervical spine no gross abnormality.Multilevel DJD. 8.4 mm nodule in the right apex.
X Ray arm- Mildly displaced fracture through the distal shaft of the left ulna.
Awake Not much interactive
Cardiovascular system S1-S2 appreciated
Left arm splinted
Abdomen soft and nontender
#Dementia with behavioral disturbance-psychiatry evaluation
#Fall with mildly displaced fracture distal shaft of left Radius
-Splinted
-CT head, cervical spine x-ray negative.
-Seen by PT/OT and had a bed at [facility] but bed was given away
-Orthopedic surgery recommendation reviewed - will need f/u in office in 1 week. continue splint. NWB for LUE. Use platform walker for ambulation.
#Episodic hallucinations
Episodic encephalopathy
-Thought to be secondary to medications so many sedating medications were previously held with out benefit
-Urinalysis unremarkable
-COVID/influenza negative
-Check TSH/B12/Folate
-Patient may have advanced Parkinson's causing some of the mentation change/hallucination
#CAD status post CABG-Continue aspirin, statin
#8.4 mm nodule in the right apex-needs outpatient follow-up with pulmonary
#Parkinson's disease-Continue Rytary
#Depression-Off Cymbalta
#Asthma /COPD-Continue albuterol, Trelegy
#Hyperlipidemia-continue statin
#Orthostatic hypotension-Continue fludrocortisone
#GERD-Continue omeprazole
#BPH
#Insomnia- Trazodone restarted at 25 mg
#Ex Smoker
#Full code
#DVT prophylaxis�Lovenox
Spoke to patient's partner who is also his power of assistant attorney general. Patient was recently at [facility] and was taken off of gabapentin. , Trazodone and Cymbalta were weaned off at [facility].
Medications list say that patient is on Cymbalta and trazodone however POA er confirms that he is not on that at home now.
Trazodone 25 mg was started last night here..
Anticipated Discharge: Within 24 hours
Subjective/Interval History
-
Date of Service: July 11, 2024
Objective Data
-
Labs:
Laboratory Results
07/11/24
07:52
WBC 9.0
Hgb 14.6
Hct 42.2
Plt Count 141
Sodium 137
Potassium 3.8
Chloride 102
Carbon Dioxide 27
BUN 14
Creatinine 0.6 L
Glucose 96
Calcium 9.0
Vital Signs:
Vital Signs
Temp Pulse Resp BP Pulse Ox
97.5 F 61 20 137/80 94
07/11/24 07:30 07/11/24 07:30 07/11/24 07:30 07/11/24 07:30 07/11/24 07:30
I&O
07/10/24 07/11/24 07/12/24
06:59 06:59 06:59
Intake Total 660 / 660 570 / 570
Balance 660 / 660 570 / 570
[2024-07-11] MEDS: MIRALAX 17 GRAMS PO (13:37)
[2024-07-11] MEDS: SENOKOT 17.2 MG PO ×2 (13:37→22:21)
[2024-07-11] MEDS: FEOSOL 325 MG PO (13:38)
[2024-07-11] MEDS: B COMPLEX w/VITAMIN C 1 CAPLET PO (13:38)
--- NOTE | 2024-07-11 13:38 | PTOTSP ---
SPEECH THERAPY SWALLOW FOLLOW UP NOTE:
Patient continues to exhibit clinical signs of oropharyngeal dysphagia, likely chronic related to dementia, PD, COPD, GERD, and acutely exacerbated by encephalopathy. Patient remains at risk for aspiration and related complications due to
significant lethargy. Recommend holding on p.o. at this time given lethargy; SHOULD patient level of alertness improve later today, would recommend diet downgrade to IDDSI Level 4 Puree, continue thin liquids. Medications crushed in puree.
Aspiration precautions includin:1 assist, ensure patient swallows prior to next bite, alternate textures, and ONLY FEED IF AWAKE/ALERT. Consider instrumental assessment of swallowing when alertness improves should patient exhibit any signs
concerning for dysphagia/aspiration. Patient with history of VSE 08/30/2020 (recommending Dysphagia III and [place] thick liquids at that time), and history of repeated CSEs with ST at the acute care level multiple times between 2020 and 2023 with
diet recommendations ranging from NPO to Regular textures, thin liquids. Patient remains at risk for aspiration and related complications given waxing and waning alertness and multiple predisposing dysphagia risk factors, along with suboptimal
positioning. ST to continue to follow at the acute care level.
RECOMMEND:
1) diet downgrade to IDDSI Level 4 Puree, thin liquids only when awake/alert; HOLD on p.o. if continues to exhibit lethargy
2) Meds crushed in puree
3) Aspiration and Reflux precautions including 1:1 assist and only feeding when awake/alert, upright as able positioning
4) Oral care 3x/day
5) ST to continue to follow at the acute care level
6) Consider instrumental assessment of swallowing if any concern for aspiration
[2024-07-11 15:45] VITALS: BP 162/88
--- NOTE | 2024-07-11 16:07 | CM ---
[facility] and [facility]. Will await determination.
Plan: Case management will continue to follow and assist with discharge planning. Transfer to SNF once bed is found.
[2024-07-11] MEDS: LOVENOX 40 MG SC (17:44)
--- NOTE | 2024-07-11 20:00 | PTCARENOTE ---
Spoke with on the phone, concerned about patients mental status, patients care received and questions about discharge/disposition. Provided reassurance and emotional support. Patients would like update from care management and doctors
about plan of care moving forward.
[2024-07-11] MEDS: NON-FORMULARY ITEM 23.75 CAP PO (22:19)
[2024-07-11] MEDS: NON-FORMULARY ITEM 61.25 CAP PO (22:20)
[2024-07-11] MEDS: DESYREL 25 MG PO (22:21)
[2024-07-11] MEDS: LIPITOR 80 MG PO (22:22)
[2024-07-11] MEDS: MELATONIN 10 MG PO (22:23)
[2024-07-11 23:25] VITALS: BP 141/93
[2024-07-12 06:39] LABS: Hematocrit 42.7 % (39.0-52.0); Hemoglobin 15.2 g/dL (13.0-18.0); Mean Corp Hgb Conc. 35.6 g/dL (33.0-37.0); Mean Corpuscular Hgb 31.5 pg (27.0-31.0); Mean Corpuscular Volume 88.6 fL (80.0-94.0); Mean Platelet Volume 10.8 fL (7.4-10.4); Platelet Count 143 10^3/uL (130-400); Red Blood Cell Count 4.82 10^6/uL (4.70-6.10); White Blood Cell Count 8.5 10^3/uL (4.8-10.8)
[2024-07-12 07:00] LABS: Blood Urea Nitrogen 19 mg/dl (9-20); Calcium 9.2 mg/dl (8.4-10.2); Carbon Dioxide 28 mmol/L (22-30); Chloride 103 mmol/L (98-107); Estimated Creatinine Clearance 89 ml/min; Glucose 109 mg/dl (70-99); Potassium 4.1 mmol/L (3.5-5.1); Sodium 140 mmol/L (135-145); eGFR > 60.00
[2024-07-12] MEDS: SPIRIVA RESPIMAT 2.5 MCG INH (07:49)
[2024-07-12] MEDS: SYMBICORT 80/4.5 MCG INHALER INH ×2 (07:50→20:40)
[2024-07-12] MEDS: NON-FORMULARY ITEM 1 CAP PO ×6 (07:55→19:59)
[2024-07-12] MEDS: MAGNESIUM OXIDE 250 MG PO (07:56)
[2024-07-12] MEDS: MIRALAX 17 GRAMS PO (07:56)
[2024-07-12] MEDS: LOW STRENGTH ASPIRIN 81 MG PO (07:56)
[2024-07-12] MEDS: SENOKOT 17.2 MG PO ×2 (07:56→19:59)
[2024-07-12] MEDS: FLORINEF 0.1 MG PO (07:56)
[2024-07-12] MEDS: PROTONIX 40 MG PO (07:56)
[2024-07-12 08:24] VITALS: BP 150/74
--- NOTE | 2024-07-12 10:04 | CM ---
Addendum entered by Medina Irving 07/12/24 11:59:
Met with patient bedside with , requesting additional referrals to [facility], and [facility]. [facility].
Original Note:
CM reviewed chart, received call from patient to discuss SNF referrals, requesting [facility], [facility], and [facility]. reports she is not interested in facilities previously discussed in [facility], [facility].
hopeful psych will be able to see patient today. Message to Inga at [facility] regarding bed availability. reports fourth choice would be [facility]. CM will continue to follow for all discharge planning needs.
Plan; SNF pending accepting facility.
[2024-07-12] MEDS: B COMPLEX w/VITAMIN C 1 CAPLET PO (13:18)
--- NOTE | 2024-07-12 13:21 | CON.NEURO ---
Consultation
Order
Date of Consultation: 07/12/24
Requesting Provider: Ramesh Hernandez MD
Reason for Consult: PD, MS change
Neurology Consultation Note.
HPI: This is a 78-year-old man who presented to [facility] on 07/08/2024 with hypotension. Neurology consultation was requested for an evaluation and management of encephalopathy. Mr. Lucas is unable to provide the history.
According to . Chastity the patient has had progressive cognitive and functional decline for at least 3-4 years. Mr. Lucas has a history of Parkinson disease and is under care of DYLAN Arzate.
He reportedly has had significant worsening of his cognition following CABG with associated complications. The patient has not been able to take his medications unassisted or manage finances for the last several years. He has been ambulating with a
walker and had multiple hospital externalization and rehab stays over the last year. He was taken off Cymbalta that he has been on over the last 30 years and has reportedly had worsening of chronic insomnia.
ER VS: 88/62, 65, afebrile
EKG: Not available
PDMP: No recently prescribed medications.
MAR: Trazodone 25 mg nightly as needed
Labs: Normal WBCs, glucose, creatinine, sodium, urinalysis, TSH, vitamin B12, platelets�156, negative SARS-CoV-2.
CT head wo contrast(07/08/2024) atrophy, severe hypoattenuation of the periventricular, subcortical, and deep white matter. Probable old infarction versus artifact within the left temporal lobe.
PMH: IPD(2016), dementia, malignant melanoma, orthostatic hypotension on fludrocortisone, A-Fib on ASA, CAD, COPD on Fasenra, DLP, BPH, tubular adenoma, GERD, OA, insomnia on valerian root/melatonin, history of RLS, obstructive sleep apnea, REM
behavioral disorder, TB in childhood, h/o cocaine/ETOH addition in remission
PSH: CABG, umbilical hernia repair, left lateral chest melanoma resection
SH: lives with a partner, retired from television industry, former smoker, ambulates with a walker
FH: father at 68 from lung cancer, mother at 64 from ovarian cancer.
All: Atropine, lorazepam, midodrine, opioids, zolpidem
ROS: limited due to encephalopathy
General: Well developed. In no acute distress.
Neuro:
Mental Status: Lethargic,requires verbal and tactile stimulation to stay awake. Oriented to name, age, not to month season or age. Follows simple requests intermittently. Nonfluent. Poor attention and comprehension.
Cranial Nerves: Pupils are equally round, Horizontal EOMs full. BTT BL. No ptosis. No nystagmus. Face symmetric. Mild dysarthria.
Motor: all limbs are antigravity
Reflexes: limited exam to cooperation/position
Sensory: unable to to encephalopathy
Coordination: intermittent myoclonic movements
Gait: deferred
Assessment and Plan:
I. Multifactorial encephalopathy (neurodegenerative, vascular, delirium).
II. IPC with dementia
III. Paroxysmal A-fib
-Aspiration precautions
-Avoid cerebral hypoperfusion, LAY OUT FORMER suppressants and anticholinergic medications
-Continue Rytary 23.75 mg-levodopa 95 mg 1 cap PO TID
-Brain MRI wo brisa to rule out left temporal lobe subacute infarct.
-Continue aspirin 81 mg once a day
-Psychiatry consult
-DVT prophylaxis
I personally reviewed all radiology and labs along with past medical records pertinent to current medical problems. Total time spent in patient care is 60 minutes.
Thank you for allowing us to participate in the care of this patient. We will continue to follow. Please do not hesitate to contact us with any questions or concerns.
Subjective/Objective
Subjective Data
Date of Service: July 12, 2024
Objective Data
Vital Signs
Temp Pulse Resp BP Pulse Ox
36.8 C 72 18 150/74 94
07/12/24 08:24 07/12/24 08:24 07/12/24 08:24 07/12/24 08:24 07/12/24 09:43
Lab Results
07/12/24 06:06
07/12/24 06:06
Sodium 140 mmol/L (135-145) 07/12/24 06:06
Potassium 4.1 mmol/L (3.5-5.1) 07/12/24 06:06
BUN 19 mg/dl (9-20) 07/12/24 06:06
Glucose 109 mg/dl (70-99) H 07/12/24 06:06
Calcium 9.2 mg/dl (8.4-10.2) 07/12/24 06:06
Vitamin B12 767 pg/ml (239-931) 07/10/24 06:22
Patient Allergies
atropine Allergy (Verified 07/08/24 09:54)
nose bleeds
cat dander Allergy (Verified 07/08/24 09:54)
Hayfever
house dust Allergy (Verified 07/08/24 09:54)
Hayfever
house dust mite Allergy (Verified 07/08/24 09:54)
Hayfever
lorazepam [From Ativan] Allergy (Verified 07/08/24 09:54)
change in mentation
midodrine Allergy (Verified 07/08/24 09:54)
hallucination
Opioids-Meperidine and Related Allergy (Verified 07/08/24 09:54)
parkinsons coma
zolpidem [From Ambien] Allergy (Verified 07/08/24 09:54)
hallucinations/ change in mentation
Medications
-
Active Medications
Generic Name Dose Route Start Last Admin
Trade Name Freq PRN Reason Stop Dose Admin
Acetaminophen 1,000 mg 07/08/24 20:17 07/09/24 03:05
Acetaminophen 500 Mg Tablet PO 08/05/24 20:16 1,000 mg
TIDPRN PRN Administration
mild pain
Albuterol 2 puff 07/08/24 20:17
Albuterol Hfa [90 Mcg/Dose] Inhaler INH
R Q4HPRN PRN
sob,copd
Protocol
Aspirin 81 mg 07/09/24 08:00 07/12/24 07:56
Aspirin 81 Mg Chewable Tablet PO 08/06/24 07:59 81 mg
DAILY SEAN Administration
Atorvastatin Calcium 80 mg 07/08/24 22:00 07/11/24 22:22
Atorvastatin (Lipitor) 80 Mg Tablet PO 08/05/24 21:59 80 mg
HS SEAN Administration
Budesonide/Formoterol Fumarate 2 puff 07/09/24 08:00 07/12/24 07:50
Symbicort Inhaler 80/4.5 INH 08/06/24 07:59 Not Given
R BID SEAN
Protocol
Enoxaparin Sodium 40 mg 07/11/24 18:00 07/11/24 17:44
Enoxaparin Sodium 40 Mg/0.4 Ml Syringe SC 08/08/24 17:59 40 mg
QPM SEAN Administration
Ferrous Sulfate 325 mg 07/09/24 11:00 07/11/24 13:38
Ferrous Sulfate 325 Mg Tablet PO 08/06/24 10:59 325 mg
Q48H SEAN Administration
Fludrocortisone Acetate 0.1 mg 07/09/24 08:00 07/12/24 07:56
Fludrocortisone Acetate 0.1 Mg Tablet PO 08/06/24 07:59 0.1 mg
DAILY SEAN Administration
Magnesium Oxide 250 mg 07/09/24 08:00 07/12/24 07:56
Magnesium Oxide 500 Mg Tablet PO 08/06/24 07:59 250 mg
DAILY SEAN Administration
Melatonin 10 mg 07/08/24 22:00 07/11/24 22:23
Melatonin 5 Mg Tablet PO 08/05/24 21:59 10 mg
HS SEAN Administration
Carbidopa-Levodopa [ 0 cap 07/08/24 20:17 07/12/24 07:55
Rytary] 61.25-245 Mg PO 08/05/24 20:16 1 cap
Capsule Er Po Tid@ TID@0800,1400,1999 SEAN Administration
0800,1399,1999
Carbidopa-Levodopa [ 0 cap 07/08/24 20:17 07/12/24 07:55
Rytary] 23.75-95 Mg PO 08/05/24 20:16 1 cap
Capsule Xr Po Tid@ TID@0800,1400,1999 SEAN Administration
08,1399,1999
Pantoprazole Sodium 40 mg 07/09/24 08:00 07/12/24 07:56
Pantoprazole 40 Mg Delayed Release Tablet PO 08/06/24 07:59 40 mg
DAILY SEAN Administration
Polyethylene Glycol 17 grams 07/11/24 14:00 07/12/24 07:56
Polyethylene Glycol Powder 17 Grams Packet PO 08/08/24 13:59 17 grams
DAILY SEAN Administration
Sennosides 17.2 mg 07/11/24 20:00 07/12/24 07:56
Sennosides (Senokot) 8.6 Mg Tablet PO 08/08/24 19:59 17.2 mg
BID SEAN Administration
Tiotropium [place] 2 puff 07/09/24 08:00 07/12/24 07:49
Tiotropium (Spiriva Respimat) 2.5 Mcg Inhaler INH 08/06/24 07:59 Not Given
R DAILY SEAN
Protocol
Trazodone HCl 25 mg 07/10/24 22:00 07/11/24 22:21
Trazodone 50 Mg Tablet PO 08/07/24 21:59 25 mg
HS SEAN Administration
Vitamin B Complex/Vitamin C 1 caplet 07/09/24 14:00 07/11/24 13:38
Vitamin B Complex With Vitamin C Caplet PO 08/06/24 13:59 1 caplet
DAILY@1400 SEAN Administration
Home Medications
�Medication �Instructions �Recorded
albuterol sulfate 90 mcg/actuation 2 puff inhalation R Q4HPRN PRN 10/22/20
aerosol inhaler sob,copd
atorvastatin 80 mg tablet 80 mg PO HS High cholesterol 10/22/20
fludrocortisone 0.1 mg tablet 0.1 mg PO DAILY Orthostatic 03/07/22
hypotension #30 tabs
ferrous sulfate 325 mg (65 mg 325 mg PO Q48H@1100 Supplement 06/20/22
iron) tablet
acetaminophen 500 mg tablet 1,000 mg PO TIDPRN PRN mild pain 07/24/23
benralizumab 30 mg/mL subcutaneous 30 mg SC .Q6-8WEEKS asthma COPD 07/24/23
syringe (Fasenra)
carbidopa ER 61.25 mg-levodopa 245 1 cap PO TID@0800,1400,199907/24/23
mg capsule,extended release Neurological Condition
(Rytary)
fluticasone fur. 100 mcg-umeclid 1 inh inhalation R DAILY 07/24/23
62.5 mcg-vilant 25 mcg Lung/Breathing Issues
inhalat.powder (Trelegy Ellipta)
melatonin 10 mg tablet,extended 10 mg PO HS Sleep 07/24/23
release
vitamin B complex 1 tab PO DAILY@1400 Supplement 07/24/23
aspirin 81 mg chewable tablet 81 mg PO DAILY #1 tab 08/03/23
(Children's Aspirin)
omeprazole 20 mg capsule,delayed 20 mg PO DAILY Gastrointestinal 02/17/24
release Issue
valerian root 500 mg capsule 500 mg PO HS Supplement 02/17/24
carbidopa ER 23.75 mg-levodopa 95 1 cap PO TID@0800,1400,199902/18/24
mg capsule,extended release Neurological Condition #90 caps
(Rytary)
duloxetine 60 mg capsule,delayed 60 mg PO DAILY Mental 07/08/24
release (Cymbalta) Health/Anxiety
magnesium oxide 250 mg PO DAILY Supplement 07/08/24
trazodone 50 mg tablet 50 mg PO HSPRN PRN sleep 07/08/24
lidocaine 4 % topical patch 2 patch topical DAILY Pain 07/09/24
Vital Signs and Labs
-
Vital Signs and Labs:
Vital Signs
Temp Pulse Resp BP Pulse Ox
36.8 C 72 18 150/74 94
07/12/24 08:24 07/12/24 08:24 07/12/24 08:24 07/12/24 08:24 07/12/24 09:43
Lab Results
07/12/24 06:06
07/12/24 06:06
Sodium 140 mmol/L (135-145) 07/12/24 06:06
Potassium 4.1 mmol/L (3.5-5.1) 07/12/24 06:06
BUN 19 mg/dl (9-20) 07/12/24 06:06
Glucose 109 mg/dl (70-99) H 07/12/24 06:06
Calcium 9.2 mg/dl (8.4-10.2) 07/12/24 06:06
Vitamin B12 767 pg/ml (239-931) 07/10/24 06:22
Medications
-
Medications:
Generic Name Dose Route Start Last Admin
Trade Name Freq PRN Reason Stop Dose Admin
Acetaminophen 1,000 mg 07/08/24 20:17 07/09/24 03:05
Acetaminophen 500 Mg Tablet PO 08/05/24 20:16 1,000 mg
TIDPRN PRN Administration
mild pain
Albuterol 2 puff 07/08/24 20:17
Albuterol Hfa [90 Mcg/Dose] Inhaler INH
R Q4HPRN PRN
sob,copd
Protocol
Aspirin 81 mg 07/09/24 08:00 07/12/24 07:56
Aspirin 81 Mg Chewable Tablet PO 08/06/24 07:59 81 mg
DAILY SEAN Administration
Atorvastatin Calcium 80 mg 07/08/24 22:00 07/11/24 22:22
Atorvastatin (Lipitor) 80 Mg Tablet PO 08/05/24 21:59 80 mg
HS SEAN Administration
Budesonide/Formoterol Fumarate 2 puff 07/09/24 08:00 07/12/24 07:50
Symbicort Inhaler 80/4.5 INH 08/06/24 07:59 Not Given
R BID SEAN
Protocol
Enoxaparin Sodium 40 mg 07/11/24 18:00 07/11/24 17:44
Enoxaparin Sodium 40 Mg/0.4 Ml Syringe SC 08/08/24 17:59 40 mg
QPM SEAN Administration
Ferrous Sulfate 325 mg 07/09/24 11:00 07/11/24 13:38
Ferrous Sulfate 325 Mg Tablet PO 08/06/24 10:59 325 mg
Q48H SEAN Administration
Fludrocortisone Acetate 0.1 mg 07/09/24 08:00 07/12/24 07:56
Fludrocortisone Acetate 0.1 Mg Tablet PO 08/06/24 07:59 0.1 mg
DAILY SEAN Administration
Magnesium Oxide 250 mg 07/09/24 08:00 07/12/24 07:56
Magnesium Oxide 500 Mg Tablet PO 08/06/24 07:59 250 mg
DAILY SEAN Administration
Melatonin 10 mg 07/08/24 22:00 07/11/24 22:23
Melatonin 5 Mg Tablet PO 08/05/24 21:59 10 mg
HS SEAN Administration
Carbidopa-Levodopa [ 0 cap 07/08/24 20:17 07/12/24 13:16
Rytary] 61.25-245 Mg PO 08/05/24 20:16 1 cap
Capsule Er Po Tid@ TID@0800,1400,2000 SEAN Administration
0800,1400,2000
Carbidopa-Levodopa [ 0 cap 07/08/24 20:17 07/12/24 13:16
Rytary] 23.75-95 Mg PO 08/05/24 20:16 1 cap
Capsule Xr Po Tid@ TID@0800,1399,1999 SEAN Administration
08,1399,1999
Pantoprazole Sodium 40 mg 07/09/24 08:00 07/12/24 07:56
Pantoprazole 40 Mg Delayed Release Tablet PO 08/06/24 07:59 40 mg
DAILY SEAN Administration
Polyethylene Glycol 17 grams 07/11/24 14:00 07/12/24 07:56
Polyethylene Glycol Powder 17 Grams Packet PO 08/08/24 13:59 17 grams
DAILY SEAN Administration
Sennosides 17.2 mg 07/11/24 20:00 07/12/24 07:56
Sennosides (Senokot) 8.6 Mg Tablet PO 08/08/24 19:59 17.2 mg
BID SEAN Administration
Tiotropium [place] 2 puff 07/09/24 08:00 07/12/24 07:49
Tiotropium (Spiriva Respimat) 2.5 Mcg Inhaler INH 08/06/24 07:59 Not Given
R DAILY SEAN
Protocol
Trazodone HCl 25 mg 07/10/24 22:00 07/11/24 22:21
Trazodone 50 Mg Tablet PO 08/07/24 21:59 25 mg
HS SEAN Administration
Vitamin B Complex/Vitamin C 1 caplet 07/09/24 14:00 07/12/24 13:18
Vitamin B Complex With Vitamin C Caplet PO 08/06/24 13:59 1 caplet
DAILY@1400 SEAN Administration
Home Medications
-
Home Medications
albuterol sulfate 90 mcg/actuation aerosol inhaler 2 puff inhalation R Q4HPRN PRN sob,copd 10/22/20
atorvastatin 80 mg tablet 80 mg PO HS High cholesterol 10/22/20
fludrocortisone 0.1 mg tablet 0.1 mg PO DAILY Orthostatic hypotension #30 tabs 09/23/22
ferrous sulfate 325 mg (65 mg iron) tablet 325 mg PO Q48H@1100 Supplement 06/20/22
acetaminophen 500 mg tablet 1,000 mg PO TIDPRN PRN mild pain 07/24/23
benralizumab 30 mg/mL subcutaneous syringe (Fasenra) 30 mg SC .Q6-8WEEKS asthma COPD 07/24/23
carbidopa ER 61.25 mg-levodopa 245 mg capsule,extended release (Rytary) 1 cap PO TID@0800,1400,1999 Neurological Condition 07/24/23
fluticasone fur. 100 mcg-umeclid 62.5 mcg-vilant 25 mcg inhalat.powder (Trelegy Ellipta) 1 inh inhalation R DAILY Lung/Breathing Issues 07/24/23
melatonin 10 mg tablet,extended release 10 mg PO HS Sleep 07/24/23
vitamin B complex 1 tab PO DAILY@1400 Supplement 07/24/23
aspirin 81 mg chewable tablet (Children's Aspirin) 81 mg PO DAILY #1 tab 08/03/23
omeprazole 20 mg capsule,delayed release 20 mg PO DAILY Gastrointestinal Issue 02/17/24
valerian root 500 mg capsule 500 mg PO HS Supplement 02/17/24
carbidopa ER 23.75 mg-levodopa 95 mg capsule,extended release (Rytary) 1 cap PO TID@0800,1400,1999 Neurological Condition #90 caps 02/18/24
duloxetine 60 mg capsule,delayed release (Cymbalta) 60 mg PO DAILY Mental Health/Anxiety 07/08/24
magnesium oxide 250 mg PO DAILY Supplement 07/08/24
trazodone 50 mg tablet 50 mg PO HSPRN PRN sleep 07/08/24
lidocaine 4 % topical patch 2 patch topical DAILY Pain 07/09/24
[2024-07-12 14:22] LABS: Creatine Phosphokinase 80 U/L (55-170)
--- NOTE | 2024-07-12 14:33 | PTCARENOTE ---
Walked into pt. room to check on pt. Found feeding pt. chocolate and doughnuts even though pt. is on a puree diet. Educated on reason for being on puree diet and the dangers of feeing pt. solids foods. not in agreement with this and
said 'pt. will not eat puree food so if you will keep him on this diet you might as well give him IV nutrition.' unable to see this nurses education, consulted with speech and MD. Due to pt. mental status, speech does not feel comfortable
changing diet. Asked MD to discuss decision with . Pt. refusing lunch stating he wants to be let alone. Will try again with the puree food later if pt. is more awake.
--- NOTE | 2024-07-12 14:42 | CS.PSYCHR ---
Consult Summary - Psychiatry
-
Pt is a 78 yo male with history of Parkinson's dz, dementia, who presented with increased wandering, falls, reported hallucinations, reaching for things that are not there. Patient was discharged from [facility] 1 week ago after a fall on 06/07
causing left rib fracture. While at [facility] Cymbalta, Trazodone and Gabapentin were tapered off. This seemed to help initially, but pt reportedly having more insomnia, hallucinations, worsened mental status. At home, pt waking frequently, fell
twice, found to have distal radius fx.
Psych hx: none noted other than previous consults- for delirium 2020, Jul 2023, possible hx of depression. POA reported pt is no longer on Cymbalta or Trazodone. Reportedly does not tolerate benzo's or opioids.
PMH: CAD S/P CABG 2020 with post-op delirium, COPD, GERD, HLD, KASSANDRA, Parkinson's dz
Neurology eval at 2021- cognitive impairment with some hallucinations, sx typical of Parkinson's dz/treatment
SH: unable to obtain
MSE: Pt sleeping, slumped forward in bed. Pt unable to give any history. No overt signs of psychosis
Imp: Dementia in setting of Parkinson's disease, with behavior disturbance
R/o superimposed delirium
Rec: Agree with resuming low dose of Trazodone for insomnia. Could use Seroquel- 12.5 to 25 mg as needed for agitation/hallucinations, given Parkinson's dz
Will follow
--- NOTE | 2024-07-12 14:58 | W.PN.HOSP.TC ---
Today's Communication/Plan
-
Psyche and neuro eval
Encourage PO intake
Assessment / Plan
Assessment / Plan
78-year-old male was discharged from [facility] a week ago comes back with fall
CT head-no acute changes. Kyphotic deformity of the cervical spine no gross abnormality.Multilevel DJD. 8.4 mm nodule in the right apex.
X Ray arm- Mildly displaced fracture through the distal shaft of the left ulna.
Awake Not much interactive
Cardiovascular system S1-S2 appreciated
Left arm splinted
Abdomen soft and nontender
#Dementia with behavioral disturbance-psychiatry evaluation
Psych also recommended neurology evaluation given Parkinson disease
Patient is refusing to eat most times.
#Fall with mildly displaced fracture distal shaft of left Radius
-Splinted
-CT head, cervical spine x-ray negative.
-Seen by PT/OT and had a bed at [facility] but bed was given away
-Orthopedic surgery recommendation reviewed - will need f/u in office in 1 week. continue splint. NWB for LUE. Use platform walker for ambulation.
#Episodic hallucinations
Episodic encephalopathy
-Thought to be secondary to medications so many sedating medications were previously held with out benefit
-Urinalysis unremarkable
-COVID/influenza negative
-Check TSH/B12/Folate
-Patient may have advanced Parkinson's causing some of the mentation change/hallucination
#CAD status post CABG-Continue aspirin, statin
#8.4 mm nodule in the right apex-needs outpatient follow-up with pulmonary
#Parkinson's disease-Continue Rytary
#Depression-Off Cymbalta
#Asthma /COPD-Continue albuterol, Trelegy
#Hyperlipidemia-continue statin
#Orthostatic hypotension-Continue fludrocortisone
#GERD-Continue omeprazole
#BPH
#Insomnia- Trazodone restarted at 25 mg
#Ex Smoker
#Full code
#DVT prophylaxis�Lovenox
07/11/24-Spoke to patient's partner who is also his power of patent attorney. Patient was recently at [facility] and was taken off of gabapentin. , Trazodone and Cymbalta were weaned off at [facility].
Medications list say that patient is on Cymbalta and trazodone however POA er confirms that he is not on that at home now.
Anticipated Discharge: Within 24 hours
Subjective/Interval History
-
Date of Service: July 12, 2024
Objective Data
-
Labs:
Laboratory Results
07/12/24
06:06
WBC 8.5
Hgb 15.2
Hct 42.7
Plt Count 143
Sodium 140
Potassium 4.1
Chloride 103
Carbon Dioxide 28
BUN 19
Creatinine 0.7
Glucose 109 H
Calcium 9.2
Vital Signs:
Vital Signs
Temp Pulse Resp BP Pulse Ox
98.3 F 72 18 150/74 94
07/12/24 08:24 07/12/24 08:24 07/12/24 08:24 07/12/24 08:24 07/12/24 09:43
I&O
07/11/24 07/12/24 07/13/24
06:59 06:59 06:59
Intake Total 570 / 570 240 / 240
Balance 570 / 570 240 / 240
[2024-07-12 15:09] VITALS: BP 120/78
[2024-07-12] MEDS: LOVENOX 40 MG SC (17:16)
[2024-07-12 20:08] LABS: Ammonia < 9 umol/L (9-30)
[2024-07-12] MEDS: MELATONIN 10 MG PO (21:07)
[2024-07-12] MEDS: DESYREL 25 MG PO (21:07)
[2024-07-12] MEDS: LIPITOR 80 MG PO (21:07)
[2024-07-12 23:15] VITALS: BP 137/66
[2024-07-13] MEDS: SPIRIVA RESPIMAT 2.5 MCG 2 PUFF INH (07:53)
[2024-07-13] MEDS: SYMBICORT 80/4.5 MCG INHALER 2 PUFF INH ×2 (07:53→20:00)
[2024-07-13 08:10] VITALS: BP 138/73
[2024-07-13] MEDS: NON-FORMULARY ITEM 1 CAP PO ×6 (08:34→20:51)
[2024-07-13] MEDS: LOW STRENGTH ASPIRIN 81 MG PO (08:35)
[2024-07-13] MEDS: PROTONIX 40 MG PO (08:35)
[2024-07-13] MEDS: MAGNESIUM OXIDE 250 MG PO (08:35)
[2024-07-13] MEDS: FLORINEF 0.1 MG PO (08:35)
[2024-07-13] MEDS: MIRALAX PO (08:36)
[2024-07-13] MEDS: SENOKOT PO ×2 (08:36→20:51)
--- NOTE | 2024-07-13 10:09 | W.PN.NEURO.1 ---
Today's Communication / Plan
-
.
Subjective/Objective
Subjective Data
Date of Service: July 13, 2024
Neurology progress note.
No acute events overnight. Patient remains somnolent, normotensive and afebrile.
MAR: Trazodone 25 mg given on 07/12/24 at 21:07
PMH: IPD(2016), dementia, malignant melanoma, orthostatic hypotension on fludrocortisone, A-Fib on ASA, CAD, COPD on Fasenra, DLP, BPH, tubular adenoma, GERD, OA, insomnia on valerian root/melatonin, history of RLS, obstructive sleep apnea, REM
behavioral disorder, TB in childhood, h/o cocaine/ETOH addition in remission
PSH: CABG, umbilical hernia repair, left lateral chest melanoma resection
SH: lives with a partner, retired from television industry, former smoker, ambulates with a walker
FH: father at 68 from lung cancer, mother at 64 from ovarian cancer.
All: Atropine, lorazepam, midodrine, opioids, zolpidem
ROS: limited due to encephalopathy
General: Well developed. In no acute distress. Severe anterocollis
Neuro:
Mental Status: Lethargic, requires verbal and tactile stimulation to stay awake. Oriented to name, location.. Follows simple requests intermittently. Nonfluent. Poor attention and comprehension.
Cranial Nerves: Pupils are equally round, Horizontal EOMs full. BTT BL. No ptosis. No nystagmus. Face symmetric. Mild dysarthria.
Motor: all limbs are antigravity
Reflexes: limited exam to cooperation/position
Sensory: unable to to encephalopathy
Coordination: intermittent myoclonic movements
Gait: deferred
Assessment and Plan:
I. Multifactorial encephalopathy (neurodegenerative, vascular, toxic).
II. IPC with dementia
III. Paroxysmal A-fib
-Aspiration and delirium precautions
-Continue Rytary 23.75 mg-levodopa 95 mg 1 cap PO TID
-Repeat CT head without contrast to monitor the left temporal signal abnormality
-Outpatient open brain MRI if feasible
-Continue aspirin 81 mg once a day
-DVT prophylaxis
-Please recall neurology services any questions or concerns
I personally reviewed all radiology and labs along with past medical records pertinent to current medical problems. Total time spent in patient care is 35 minutes.
Thank you for allowing us to participate in the care of this patient. Please do not hesitate to contact us with any questions or concerns
Objective Data
Vital Signs
Temp Pulse Resp BP Pulse Ox
36.8 C 66 24 138/73 94
07/13/24 08:10 07/13/24 08:10 07/13/24 08:10 07/13/24 08:10 07/13/24 09:44
Lab Results
07/12/24 06:06
07/12/24 06:06
Sodium 140 mmol/L (135-145) 07/12/24 06:06
Potassium 4.1 mmol/L (3.5-5.1) 07/12/24 06:06
BUN 19 mg/dl (9-20) 07/12/24 06:06
Glucose 109 mg/dl (70-99) H 07/12/24 06:06
Calcium 9.2 mg/dl (8.4-10.2) 07/12/24 06:06
Vitamin B12 767 pg/ml (239-931) 07/10/24 06:22
Patient Allergies
atropine Allergy (Verified 07/08/24 09:54)
nose bleeds
cat dander Allergy (Verified 07/08/24 09:54)
Hayfever
house dust Allergy (Verified 07/08/24 09:54)
Hayfever
house dust mite Allergy (Verified 07/08/24 09:54)
Hayfever
lorazepam [From Ativan] Allergy (Verified 07/08/24 09:54)
change in mentation
midodrine Allergy (Verified 07/08/24 09:54)
hallucination
Opioids-Meperidine and Related Allergy (Verified 07/08/24 09:54)
parkinsons coma
zolpidem [From Ambien] Allergy (Verified 07/08/24 09:54)
hallucinations/ change in mentation
Vital Signs and Labs
-
Vital Signs and Labs:
Vital Signs
Temp Pulse Resp BP Pulse Ox
36.8 C 66 24 138/73 94
07/13/24 08:10 07/13/24 08:10 07/13/24 08:10 07/13/24 08:10 07/13/24 09:44
Lab Results
07/12/24 06:06
07/12/24 06:06
Sodium 140 mmol/L (135-145) 07/12/24 06:06
Potassium 4.1 mmol/L (3.5-5.1) 07/12/24 06:06
BUN 19 mg/dl (9-20) 07/12/24 06:06
Glucose 109 mg/dl (70-99) H 07/12/24 06:06
Calcium 9.2 mg/dl (8.4-10.2) 07/12/24 06:06
Vitamin B12 767 pg/ml (239-931) 07/10/24 06:22
Medications
-
Medications:
Generic Name Dose Route Start Last Admin
Trade Name Freq PRN Reason Stop Dose Admin
Acetaminophen 1,000 mg 07/08/24 20:17 07/09/24 03:05
Acetaminophen 500 Mg Tablet PO 08/05/24 20:16 1,000 mg
TIDPRN PRN Administration
mild pain
Albuterol 2 puff 07/08/24 20:17
Albuterol Hfa [90 Mcg/Dose] Inhaler INH
R Q4HPRN PRN
sob,copd
Protocol
Aspirin 81 mg 07/09/24 08:00 07/13/24 08:35
Aspirin 81 Mg Chewable Tablet PO 08/06/24 07:59 81 mg
DAILY SEAN Administration
Atorvastatin Calcium 80 mg 07/08/24 22:00 07/12/24 21:07
Atorvastatin (Lipitor) 80 Mg Tablet PO 08/05/24 21:59 80 mg
HS SEAN Administration
Budesonide/Formoterol Fumarate 2 puff 07/09/24 08:00 07/13/24 07:53
Symbicort Inhaler 80/4.5 INH 08/06/24 07:59 2 puff
R BID SEAN Administration
Protocol
Enoxaparin Sodium 40 mg 07/11/24 18:00 07/12/24 17:16
Enoxaparin Sodium 40 Mg/0.4 Ml Syringe SC 08/08/24 17:59 40 mg
QPM SEAN Administration
Ferrous Sulfate 325 mg 07/09/24 11:00 07/11/24 13:38
Ferrous Sulfate 325 Mg Tablet PO 08/06/24 10:59 325 mg
Q48H SEAN Administration
Fludrocortisone Acetate 0.1 mg 07/09/24 08:00 07/13/24 08:35
Fludrocortisone Acetate 0.1 Mg Tablet PO 08/06/24 07:59 0.1 mg
DAILY SEAN Administration
Magnesium Oxide 250 mg 07/09/24 08:00 07/13/24 08:35
Magnesium Oxide 500 Mg Tablet PO 08/06/24 07:59 250 mg
DAILY SEAN Administration
Melatonin 10 mg 07/08/24 22:00 07/12/24 21:07
Melatonin 5 Mg Tablet PO 08/05/24 21:59 10 mg
HS SEAN Administration
Carbidopa-Levodopa [ 0 cap 07/08/24 20:17 07/13/24 08:34
Rytary] 61.25-245 Mg PO 08/05/24 20:16 1 cap
Capsule Er Po Tid@ TID@0800,1400,2000 SEAN Administration
0800,1399,1999
Carbidopa-Levodopa [ 0 cap 07/08/24 20:17 07/13/24 08:34
Rytary] 23.75-95 Mg PO 08/05/24 20:16 1 cap
Capsule Xr Po Tid@ TID@0800, SEAN Administration
799,
Pantoprazole Sodium 40 mg 07/09/24 08:00 07/13/24 08:35
Pantoprazole 40 Mg Delayed Release Tablet PO 08/06/24 07:59 40 mg
DAILY SEAN Administration
Polyethylene Glycol 17 grams 07/11/24 14:00 07/13/24 08:36
Polyethylene Glycol Powder 17 Grams Packet PO 08/08/24 13:59 Not Given
DAILY SEAN
Sennosides 17.2 mg 07/11/24 20:00 07/13/24 08:36
Sennosides (Senokot) 8.6 Mg Tablet PO 08/08/24 19:59 Not Given
BID SEAN
Tiotropium [place] 2 puff 07/09/24 08:00 07/13/24 07:53
Tiotropium (Spiriva Respimat) 2.5 Mcg Inhaler INH 08/06/24 07:59 2 puff
R DAILY SEAN Administration
Protocol
Trazodone HCl 25 mg 07/10/24 22:00 07/12/24 21:07
Trazodone 50 Mg Tablet PO 08/07/24 21:59 25 mg
HS SEAN Administration
Vitamin B Complex/Vitamin C 1 caplet 07/09/24 14:00 07/12/24 13:18
Vitamin B Complex With Vitamin C Caplet PO 08/06/24 13:59 1 caplet
DAILY@1400 SEAN Administration
Home Medications
-
Home Medications
albuterol sulfate 90 mcg/actuation aerosol inhaler 2 puff inhalation R Q4HPRN PRN sob,copd 10/22/20
atorvastatin 80 mg tablet 80 mg PO HS High cholesterol 10/22/20
fludrocortisone 0.1 mg tablet 0.1 mg PO DAILY Orthostatic hypotension #30 tabs 03/07/22
ferrous sulfate 325 mg (65 mg iron) tablet 325 mg PO Q48H@1100 Supplement 06/20/22
acetaminophen 500 mg tablet 1,000 mg PO TIDPRN PRN mild pain 07/24/23
benralizumab 30 mg/mL subcutaneous syringe (Fasenra) 30 mg SC .Q6-8WEEKS asthma COPD 07/24/23
carbidopa ER 61.25 mg-levodopa 245 mg capsule,extended release (Rytary) 1 cap PO TID@0800,1400,1999 Neurological Condition 07/24/23
fluticasone fur. 100 mcg-umeclid 62.5 mcg-vilant 25 mcg inhalat.powder (Trelegy Ellipta) 1 inh inhalation R DAILY Lung/Breathing Issues 07/24/23
melatonin 10 mg tablet,extended release 10 mg PO HS Sleep 07/24/23
vitamin B complex 1 tab PO DAILY@1400 Supplement 07/24/23
aspirin 81 mg chewable tablet (Children's Aspirin) 81 mg PO DAILY #1 tab 08/03/23
omeprazole 20 mg capsule,delayed release 20 mg PO DAILY Gastrointestinal Issue 02/17/24
valerian root 500 mg capsule 500 mg PO HS Supplement 02/17/24
carbidopa ER 23.75 mg-levodopa 95 mg capsule,extended release (Rytary) 1 cap PO TID@0800,1400,1999 Neurological Condition #90 caps 02/18/24
duloxetine 60 mg capsule,delayed release (Cymbalta) 60 mg PO DAILY Mental Health/Anxiety 07/08/24
magnesium oxide 250 mg PO DAILY Supplement 07/08/24
trazodone 50 mg tablet 50 mg PO HSPRN PRN sleep 07/08/24
lidocaine 4 % topical patch 2 patch topical DAILY Pain 07/09/24
[2024-07-13] MEDS: B COMPLEX w/VITAMIN C 1 CAPLET PO (13:01)
[2024-07-13] MEDS: FEOSOL 325 MG PO (13:01)
--- NOTE | 2024-07-13 15:13 | W.PN.HOSP.TC ---
Today's Communication/Plan
-
Stable for discharge to rehab
D/W Case manegement
Assessment / Plan
Assessment / Plan
78-year-old male was discharged from [facility] a week ago comes back with fall
CT head-no acute changes. Kyphotic deformity of the cervical spine no gross abnormality.Multilevel DJD. 8.4 mm nodule in the right apex.
X Ray arm- Mildly displaced fracture through the distal shaft of the left ulna.
Awake Not much interactive
Cardiovascular system S1-S2 appreciated
Left arm splinted
Abdomen soft and nontender
#Dementia with behavioral disturbance-psychiatry evaluation
Psych also recommended neurology evaluation given Parkinson disease
Patient is refusing to eat most times.
states that she came and fed him yesterday and today.
He will not eat when the staff tries to feed him.
#Fall with mildly displaced fracture distal shaft of left Radius
-Splinted
-CT head, cervical spine x-ray negative.
-Seen by PT/OT and had a bed at [facility] but bed was given away
-Orthopedic surgery recommendation reviewed - will need f/u in office in 1 week. continue splint. NWB for LUE. Use platform walker for ambulation.
#Episodic hallucinations
Episodic encephalopathy
-Thought to be secondary to medications so many sedating medications were previously held with out benefit
-Urinalysis unremarkable
-COVID/influenza negative
-Check TSH/B12/Folate
-Patient may have advanced Parkinson's causing some of the mentation change/hallucination
-I do not think with his kyphosis he will be able to undergo MRI
#CAD status post CABG-Continue aspirin, statin
#8.4 mm nodule in the right apex-needs outpatient follow-up with pulmonary
#Parkinson's disease-Continue Rytary
#Depression-Off Cymbalta
#Asthma /COPD-Continue albuterol, Trelegy
#Hyperlipidemia-continue statin
#Orthostatic hypotension-Continue fludrocortisone
#GERD-Continue omeprazole
#BPH
#Insomnia- Trazodone restarted at 25 mg
#Ex Smoker
#Full code
#DVT prophylaxis�Lovenox
07/11/24-Spoke to patient's partner who is also his power of patent prosecution attorney. Patient was recently at [facility] and was taken off of gabapentin. , Trazodone and Cymbalta were weaned off at [facility].
Medications list say that patient is on Cymbalta and trazodone however POA er confirms that he is not on that at home now.
07/13/2024-spoke to significant other. She will send the power of patent prosecution attorney documents to transplant case manager email.
Discussed with nursing
Anticipated Discharge: Today
Subjective/Interval History
-
Date of Service: July 13, 2024
Objective Data
-
Vital Signs:
Vital Signs
Temp Pulse Resp BP Pulse Ox
98.3 F 66 24 138/73 94
07/13/24 08:10 07/13/24 08:10 07/13/24 08:10 07/13/24 08:10 07/13/24 09:44
I&O
07/12/24 07/13/24 07/14/24
06:59 06:59 06:59
Intake Total 240 / 240 240 / 240
Balance 240 / 240 240 / 240
--- NOTE | 2024-07-13 15:36 | W.PN.UPDATE ---
Update Note
Progress Note Update
patient seen chart reviewed. discussed w nursing and with at bedside. the patient is known to me from prior admission. he had been here in may after a fall where he sustained rib fx. he then went to [facility]. he is here given change in
mental status thought perhaps due to medication. since going to [facility] psych meds had been tapered. he is quiet today and appeared in no acute distress. feels that many of his issues stem from inadequate sleep. seen by dr romo yesterday
trazodone was resumed. will see how he does over the next day or so. agree with use of seroquel. 12.5 to 25 mg for agitation if needed.
[2024-07-13 15:41] VITALS: BP 113/70
[2024-07-13] MEDS: LOVENOX 40 MG SC (16:36)
[2024-07-13] MEDS: LIPITOR 80 MG PO (20:51)
[2024-07-13] MEDS: MELATONIN 10 MG PO (20:51)
[2024-07-13] MEDS: DESYREL 25 MG PO (20:58)
[2024-07-13 23:13] VITALS: BP 137/86
[2024-07-14 06:15] LABS: Hematocrit 43.3 % (39.0-52.0); Hemoglobin 14.8 g/dL (13.0-18.0); Mean Corp Hgb Conc. 34.2 g/dL (33.0-37.0); Mean Corpuscular Hgb 30.9 pg (27.0-31.0); Mean Corpuscular Volume 90.4 fL (80.0-94.0); Mean Platelet Volume 10.4 fL (7.4-10.4); Platelet Count 145 10^3/uL (130-400); Red Blood Cell Count 4.79 10^6/uL (4.70-6.10); Red Cell Dist. Width 13.1 % (11.5-14.5); White Blood Cell Count 8.5 10^3/uL (4.8-10.8)
[2024-07-14 06:31] LABS: Blood Urea Nitrogen 24 mg/dl (9-20); Carbon Dioxide 26 mmol/L (22-30); Chloride 105 mmol/L (98-107); Estimated Creatinine Clearance 89 ml/min; Glucose 106 mg/dl (70-99); Potassium 3.6 mmol/L (3.5-5.1); Sodium 138 mmol/L (135-145); eGFR > 60.00
[2024-07-14] MEDS: SYMBICORT 80/4.5 MCG INHALER 2 PUFF INH ×2 (07:20→19:33)
[2024-07-14] MEDS: SPIRIVA RESPIMAT 2.5 MCG 2 PUFF INH (07:20)
[2024-07-14 07:26] VITALS: BP 146/76
[2024-07-14] MEDS: PROTONIX 40 MG PO (08:42)
[2024-07-14] MEDS: MIRALAX 17 GRAMS PO (08:42)
[2024-07-14] MEDS: FLORINEF 0.1 MG PO (08:42)
[2024-07-14] MEDS: MAGNESIUM OXIDE 250 MG PO (08:42)
[2024-07-14] MEDS: SENOKOT 17.2 MG PO ×2 (08:42→21:09)
[2024-07-14] MEDS: NON-FORMULARY ITEM 1 CAP PO ×6 (08:44→21:09)
[2024-07-14] MEDS: LOW STRENGTH ASPIRIN 81 MG PO (09:15)
[2024-07-14 12:47] VITALS: BP 153/125
--- NOTE | 2024-07-14 12:59 | W.PN.UPDATE ---
Update Note
Progress Note Update
patient seen chart reviewed. discussed w nursing and patient was seen in the company or nursing and PT. the patient was rather loquacious. he asked a lot of questions 'do you know my 's name?' he was rather suspicious of our efforts to engage
him. asked about the cast on his arm...explained to him that it was fractured. he is clearly very confused. while he never became combative or agitated there was a bit of paranoid flavor in his presentation. he has not required any prn's however.
would continue as is w meds. can use prn seroquel. 12.5 to 25 mg if needed for agitation as noted in previous psych recs. psych will sign off. please call us if you need us to return.
[2024-07-14] MEDS: B COMPLEX w/VITAMIN C 1 CAPLET PO (13:36)
--- NOTE | 2024-07-14 15:08 | W.PN.HOSP.TC ---
Today's Communication/Plan
-
Medically stable for discharge to rehab
Assessment / Plan
Assessment / Plan
78-year-old male was discharged from [facility] a week ago comes back with fall
CT head-no acute changes. Kyphotic deformity of the cervical spine no gross abnormality.Multilevel DJD. 8.4 mm nodule in the right apex.
X Ray arm- Mildly displaced fracture through the distal shaft of the left ulna.
Awake and alert. Communicating well with his friend at bedside. Very pleasant
Cardiovascular system S1-S2 appreciated
Left arm splinted
Abdomen soft and nontender
#Dementia with behavioral disturbance-psychiatry evaluation
Psych also recommended neurology evaluation given Parkinson disease
He was looking into the menu today to eat
was able to feed him
#Fall with mildly displaced fracture distal shaft of left Radius
-Splinted
-CT head, cervical spine x-ray negative.
-Orthopedic surgery recommendation reviewed - will need f/u in office in 1 week. continue splint. NWB for LUE. Use platform walker for ambulation.
#Episodic hallucinations
Episodic encephalopathy
-Thought to be secondary to medications so many sedating medications were previously held with out benefit
-Urinalysis unremarkable
-COVID/influenza negative
-Check TSH/B12/Folate
-Patient may have advanced Parkinson's causing some of the mentation change/hallucination
-I do not think with his kyphosis he will be able to undergo MRI
#CAD status post CABG-Continue aspirin, statin
#8.4 mm nodule in the right apex-needs outpatient follow-up with pulmonary
#Parkinson's disease-Continue Rytary
#Depression-Off Cymbalta
#Asthma /COPD-Continue albuterol, Trelegy
#Hyperlipidemia-continue statin
#Orthostatic hypotension-Continue fludrocortisone
#GERD-Continue omeprazole
#BPH
#Insomnia- Trazodone restarted at 25 mg
#Ex Smoker
#Full code
#DVT prophylaxis�Lovenox
07/11/24-Spoke to patient's partner who is also his power of ip technology transactions attorney. Patient was recently at [facility] and was taken off of gabapentin. , Trazodone and Cymbalta were weaned off at [facility].
Medications list say that patient is on Cymbalta and trazodone however POA er confirms that he is not on that at home now.
07/13/2024-spoke to significant other. She will send the power of ip technology transactions attorney documents to case packer email.
Discussed with nursing
D/W Case management
Anticipated Discharge: Today
Subjective/Interval History
-
Date of Service: July 14, 2024
Objective Data
-
Labs:
Laboratory Results
07/14/24
05:51
WBC 8.5
Hgb 14.8
Hct 43.3
Plt Count 145
Sodium 138
Potassium 3.6
Chloride 105
Carbon Dioxide 26
BUN 24 H
Creatinine 0.7
Glucose 106 H
Calcium 9.0
Vital Signs:
Vital Signs
Temp Pulse Resp BP Pulse Ox
97.7 F 83 16 146/76 95
07/14/24 07:26 07/14/24 07:26 07/14/24 07:26 07/14/24 07:26 07/14/24 07:26
I&O
07/13/24 07/14/24 07/15/24
06:59 06:59 06:59
Intake Total 240 / 240 80 / 80
Output Total 100 / 100
Balance 240 / 240 -20 / -20
--- NOTE | 2024-07-14 15:14 | W.DS.TRANS ---
DC Summary - Saddle Stitch Operator
-
Discharge Instructions:
Discharge Diagnosis/Procedures Dementia with behavioral disturbance
Parkinson disease
Episodic hallucinations and encephalopathy
Mildly displaced distal shaft of the left radius
fracture
Coronary disease with history of CABG
8.4 mm nodule in the right apex
Asthma/COPD
Hyperlipidemia
Diet Other diet
Additional Diets IDDSI [id number] diet
Activity As tolerated,With assistance
Driving Restrictions No driving
Other Services PT,OT
Instructions:
Stand-Alone Forms:
Changes to Home Medications: Yes
Discharge Medications:
DC Medications w/original date entered in [facility]
albuterol sulfate 90 mcg/actuation aerosol inhaler 2 puff inhalation R Q4HPRN PRN sob,copd 10/22/20
atorvastatin 80 mg tablet 80 mg PO HS High cholesterol 10/22/20
fludrocortisone 0.1 mg tablet 0.1 mg PO DAILY Orthostatic hypotension #30 tabs 03/07/22
ferrous sulfate 325 mg (65 mg iron) tablet 325 mg PO Q48H@1100 Supplement 06/20/22
acetaminophen 500 mg tablet 1,000 mg PO TIDPRN PRN mild pain 07/24/23
benralizumab 30 mg/mL subcutaneous syringe (Fasenra) 30 mg SC .Q6-8WEEKS asthma COPD 07/24/23
carbidopa ER 61.25 mg-levodopa 245 mg capsule,extended release (Rytary) 1 cap PO TID@0800,1400,2000 Neurological Condition 07/24/23
fluticasone fur. 100 mcg-umeclid 62.5 mcg-vilant 25 mcg inhalat.powder (Trelegy Ellipta) 1 inh inhalation R DAILY Lung/Breathing Issues 07/24/23
melatonin 10 mg tablet,extended release 10 mg PO HS Sleep 07/24/23
vitamin B complex 1 tab PO DAILY@1400 Supplement 07/24/23
aspirin 81 mg chewable tablet (Children's Aspirin) 81 mg PO DAILY #1 tab 08/03/23
omeprazole 20 mg capsule,delayed release 20 mg PO DAILY Gastrointestinal Issue 02/17/24
carbidopa ER 23.75 mg-levodopa 95 mg capsule,extended release (Rytary) 1 cap PO TID@0800,1400,2000 Neurological Condition #90 caps 02/18/24
magnesium oxide 250 mg PO DAILY Supplement 07/08/24
lidocaine 4 % topical patch 2 patch topical DAILY Pain 07/09/24
polyethylene glycol 3350 17 gram oral powder packet 17 g PO DAILY Constipation #0 ea 07/14/24
quetiapine 25 mg tablet (Seroquel) 12.5 mg (1/2 x 25 mg) PO BID PRN agitation #30 tabs 07/14/24
trazodone 50 mg tablet 25 mg (1/2 x 50 mg) PO HSPRN PRN sleep #0 tabs 07/14/24
Home Medication Changes
Cymbalta stopped
Trazodone decreased to 25 mg
Seroquel is new
Pending Results: No
[2024-07-14 15:26] VITALS: BP 140/80
--- NOTE | 2024-07-14 16:25 | CM ---
Placed a f/u call to Faye at [facility] who confirmed bed availability for patient, however, she stated that she spoke with patient's and she does not want him to transfer to their facility.
Will need to confirm that patient still meets criteria for 30 day admission for Medicare Coverage. Messaged Perla at [facility] to determine if patient part of [facility] Waiver.
Placed a call to patient's , however had to leave a voice mail message. Provided CM contact information and encouraged return call to discuss the facility where patient will transfer.
Plan: Case management will continue to follow and assist with discharge planning. SNF when bound is found and returns calls.
[2024-07-14] MEDS: LOVENOX 40 MG SC (17:09)
[2024-07-14] MEDS: LIPITOR 80 MG PO (21:09)
[2024-07-14] MEDS: DESYREL 25 MG PO (21:09)
[2024-07-14] MEDS: MELATONIN 10 MG PO (21:13)
[2024-07-14 23:55] VITALS: BP 114/71
[2024-07-15] MEDS: TYLENOL 1000 MG PO (06:10)
[2024-07-15 07:52] VITALS: BP 129/76
[2024-07-15] MEDS: SPIRIVA RESPIMAT 2.5 MCG 2 PUFF INH (07:54)
[2024-07-15] MEDS: SYMBICORT 80/4.5 MCG INHALER 2 PUFF INH (07:54)
[2024-07-15] MEDS: FLORINEF 0.1 MG PO (08:23)
[2024-07-15] MEDS: MIRALAX 17 GRAMS PO (08:23)
[2024-07-15] MEDS: NON-FORMULARY ITEM 1 CAP PO ×4 (08:23→13:42)
[2024-07-15] MEDS: MAGNESIUM OXIDE 250 MG PO (08:23)
[2024-07-15] MEDS: PROTONIX 40 MG PO (08:25)
[2024-07-15] MEDS: SENOKOT 17.2 MG PO (08:25)
[2024-07-15] MEDS: LOW STRENGTH ASPIRIN 81 MG PO (08:25)
[2024-07-15] MEDS: FEOSOL 325 MG PO (13:42)
[2024-07-15] MEDS: B COMPLEX w/VITAMIN C 1 CAPLET PO (13:42)
--- NOTE | 2024-07-15 14:40 | CM ---
Placed a call to Lynn in admissions at [facility] to determine patient's dates of admission. She stated that patient was there from 06/14-07/01.
Placed a call to admissions at [facility], [facility], [facility] and [facility]. Only Faye in admissions at [facility] was able to accept.
Spoke with patient's S.O who stated that she did not want for patient to transfer to [facility]. She was advised that as no alternate facility this week has been able to offer a bed, patient as he is discharged, would have to go where there is
availability and while patient at the facility, she can work with CM to transfer him to an alternate facility if she does not like the care there that patient receives. She was agreeable
# For report [phone]
Medical necessity and transfer sheet completed and provided to [employer] community development director. RN,
Plan: Case management will continue to follow and assist with discharge planning. [facility].
[2024-07-15 15:03] VITALS: BP 135/78
--- NOTE | 2024-07-15 15:41 | W.PN.HOSP.TC ---
Addendum entered and electronically signed by Ramesh Hernandez MD 07/15/24 18:28:
More than 30 minutes spent in discharge including
Final examination of the patient
Summarizing hospital stay
Instructions for continuing care to all relevant caregivers
Preparation of discharge records, prescriptions, and referral forms
Total time spent (in minutes): 34 min
Dictation- [id number]
Original Note:
Today's Communication/Plan
-
Discharge to rehab
Per discussion with case management even the [facility] is not patient is partners preferred rehab she is agreeable for him to go there and explore further options from there.
Assessment / Plan
Assessment / Plan
78-year-old male was discharged from [facility] a week ago comes back with fall
CT head-no acute changes. Kyphotic deformity of the cervical spine no gross abnormality.Multilevel DJD. 8.4 mm nodule in the right apex.
X Ray arm- Mildly displaced fracture through the distal shaft of the left ulna.
Awake and alert. Answers questions
Cardiovascular system S1-S2 appreciated
Left arm splinted
Abdomen soft and nontender
#Dementia with behavioral disturbance-psychiatry evaluation
Psych also recommended neurology evaluation given Parkinson disease
He was looking into the menu today to eat
#Fall with mildly displaced fracture distal shaft of left Radius
-Splinted
-CT head, cervical spine x-ray negative.
-Orthopedic surgery recommendation reviewed - will need f/u in office in 1 week. continue splint. NWB for LUE. Use platform walker for ambulation.
#Episodic hallucinations
Episodic encephalopathy
-Thought to be secondary to medications so many sedating medications were previously held with out benefit
-Urinalysis unremarkable
-COVID/influenza negative
-Check TSH/B12/Folate
-Patient may have advanced Parkinson's causing some of the mentation change/hallucination
-I do not think with his kyphosis he will be able to undergo MRI
#CAD status post CABG-Continue aspirin, statin
#8.4 mm nodule in the right apex-needs outpatient follow-up with pulmonary
#Parkinson's disease-Continue Rytary
#Depression-Off Cymbalta
#Asthma /COPD-Continue albuterol, Trelegy
#Hyperlipidemia-continue statin
#Orthostatic hypotension-Continue fludrocortisone
#GERD-Continue omeprazole
#BPH
#Insomnia- Trazodone restarted at 25 mg
#Ex Smoker
#Full code
#DVT prophylaxis�Lovenox
07/11/24-Spoke to patient's partner who is also his power of transactional attorney. Patient was recently at [facility] and was taken off of gabapentin. , Trazodone and Cymbalta were weaned off at [facility].
Medications list say that patient is on Cymbalta and trazodone however POA er confirms that he is not on that at home now.
07/13/2024-spoke to significant other. She will send the power of transactional attorney documents to behavioral health case manager email.
Discussed with nursing
D/W Case management
Anticipated Discharge: Today
Subjective/Interval History
-
Date of Service: July 15, 2024
Objective Data
-
Vital Signs:
Vital Signs
Temp Pulse Resp BP Pulse Ox
97.4 F 62 12 135/78 94
07/15/24 15:03 07/15/24 15:03 07/15/24 15:03 07/15/24 15:03 07/15/24 15:03
I&O
07/14/24 07/15/24 07/16/24
06:59 06:59 06:59
Intake Total 80 / 80 510 / 510
Output Total 100 / 100 950 / 950
Balance -20 / -20 -440 / -440
[2024-07-15] MEDS: LOVENOX SC (18:28)
[2024-07-15 18:29] VITALS: BP 123/70
== END 2024-07-15 19:33 ==
LOC: 3 WEST ACU 18:13
PROVIDERS: Hospitalist; Physician Assistant; ADMITTING PHYSICIAN Hospitalist; ATTENDING PHYSICIAN Hospitalist; CONSULT PHYSICIAN Psychiatry & Neurology Neurology; CONSULT PHYSICIAN Psychiatry & Neurology Psychiatry; CONSULT PHYSICIAN Specialist; EMERGENCY PHYSICIAN Emergency Medicine; FAMILY PHYSICIAN Internal Medicine
DX: S52.692A Other fracture of lower end of left ulna, initial encounter for closed fracture (principal); S52.392A Other fracture of shaft of radius, left arm, initial encounter for closed fracture; G20.A1 Parkinson's disease without dyskinesia, without mention of fluctuations; F02.818 Dementia in other diseases classified elsewhere, unspecified severity, with other behavioral disturbance; F02.82 Dementia in other diseases classified elsewhere, unspecified severity, with psychotic disturbance; F02.83 Dementia in other diseases classified elsewhere, unspecified severity, with mood disturbance; R29.6 Repeated falls; G93.49 Other encephalopathy; S09.90XA Unspecified injury of head, initial encounter; F32.A Depression, unspecified; I95.1 Orthostatic hypotension; G47.00 Insomnia, unspecified; I10 Essential (primary) hypertension; N40.0 Benign prostatic hyperplasia without lower urinary tract symptoms; I25.10 Atherosclerotic heart disease of native coronary artery without angina pectoris; J44.89 Other specified chronic obstructive pulmonary disease; G47.33 Obstructive sleep apnea (adult) (pediatric); M48.54XA Collapsed vertebra, not elsewhere classified, thoracic region, initial encounter for fracture; M19.012 Primary osteoarthritis, left shoulder; G31.9 Degenerative disease of nervous system, unspecified; E78.00 Pure hypercholesterolemia, unspecified; J30.81 Allergic rhinitis due to animal (cat) (dog) hair and dander; G25.81 Restless legs syndrome; K21.9 Gastro-esophageal reflux disease without esophagitis; I48.0 Paroxysmal atrial fibrillation; W06.XXXA Fall from bed, initial encounter; Y93.89 Activity, other specified; Y92.003 Bedroom of unspecified non-institutional (private) residence as the place of occurrence of the external cause; Z79.01 Long term (current) use of anticoagulants; Z86.11 Personal history of tuberculosis; Z85.820 Personal history of malignant melanoma of skin; Z87.891 Personal history of nicotine dependence; Z95.1 Presence of aortocoronary bypass graft; Z88.5 Allergy status to narcotic agent; Z88.8 Allergy status to other drugs, medicaments and biological substances; Z11.52 Encounter for screening for COVID-19; Z80.1 Family history of malignant neoplasm of trachea, bronchus and lung; Z80.41 Family history of malignant neoplasm of ovary; Z79.82 Long term (current) use of aspirin; Z79.51 Long term (current) use of inhaled steroids; Z66 Do not resuscitate
CPT/HCPCS: 29125; 51701; 70450; 72125; 73060; 73090; 80048; 80053; 81003; 82140; 82550; 82607; 82746; 84443; 85025; 85027; 87502; 87811; 92526; 92610; 94640; 97530; 99285; G0378

== ENCOUNTER → 2024-07-26 06:26 | Day surgery (SDC) | payer MEDICARE, OTHER, SELFPAY ==
[2024-07-26] VITALS (8 sets, daily range): BP systolic 146–187; BP diastolic 87–110
[2024-07-26] MEDS: TYLENOL 1000 MG PO (16:03)
[2024-07-26] MEDS: CELEBREX 200 MG PO (16:03)
[2024-07-26] MEDS: NORMOSOL-R/PLASMALYTE-A 1000 IV (16:04)
[2024-07-26 16:42] LABS: ALT (SGPT) < 10 U/L (0-50); AST (SGOT) 21 U/L (17-59); Albumin 3.7 g/dl (3.5-5.0); Alkaline Phosphatase 101 U/L (38-126); Blood Urea Nitrogen 19 mg/dl (9-20); Calcium 9.1 mg/dl (8.4-10.2); Carbon Dioxide 28 mmol/L (22-30); Chloride 104 mmol/L (98-107); Glucose 97 mg/dl (70-99); Potassium 4.2 mmol/L (3.5-5.1); Sodium 137 mmol/L (135-145); Total Bilirubin 1.6 mg/dl (0.2-1.3); eGFR > 60.00
== END ==
LOC: SDS 06:26
PROVIDERS: ATTENDING PHYSICIAN Orthopaedic Surgery Hand Surgery
DX: S52.592A Other fractures of lower end of left radius, initial encounter for closed fracture (principal); X58.XXXA Exposure to other specified factors, initial encounter
CPT/HCPCS: 25607; C1713; 80053; 93005

== ENCOUNTER 2024-11-17 11:26 | Emergency (ER) | payer MEDICARE, OTHER, SELFPAY ==
[2024-11-17 11:32] VITALS: BP 140/81; BMI 18.0
--- NOTE | 2024-11-17 11:48 | EDRN ---
Dressing to pt's head was unwrapped and area under it checked and only avulsion to pt's ear noted that is starting to clot. Area redressed w/ wet saline gauze and cyrus.
[2024-11-17 12:00] VITALS: BP 131/82
[2024-11-17 13:00] VITALS: BP 115/81
[2024-11-17 14:00] VITALS: BP 118/83
--- NOTE | 2024-11-17 15:48 | ED.GENMED ---
History of Present Illness
General
Chief Complaint: Fall
Time Seen by Provider: 11/17/24 13:58
History of Present Illness
History of Present Illness:
78-year-old male history of dementia, Parkinson's, atrial fibrillation, CAD, hypertension presenting status post mechanical fall. Patient states that he lost his balance while walking not using walker/cane and fell striking his head. Patient
denies loss of consciousness. Patient is not on blood thinners. Tetanus unknown. Patient reports laceration to his right ear. Patient denies numbness, weakness, tingling, neck pain, abdominal pain or extremity pain.
Past History
Past History
ED Past Medical History: Arrthythmia (A. 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
ED Past Surgical History: Cardiac (Bypass surgery CABG times 09/2020) and Other (umbilical herniorrhaphy, surgical resection malignant melanoma)
Social History
Tobacco: Former smoker
Alcohol: Former (discontinued approximately 1989)
Drug: None
Personal: Single
Living: with family
Employment: Employed
Family History
Family History: Other
Phy Exam
Physical Exam
Physical Exam:
General: Alert, no acute distress
Head: 3 cm laceration to helix of right ear, partially through and through. No active bleeding. Otherwise NCAT
Eyes: clear conjunctiva
Neck: supple. No midline cervical tenderness to palpation
Cardiac: regular rate and rhythm, no murmur
Lungs: clear to auscultation bilaterally. No wheezes, rales, or rhonchi. Speaking full unlabored sentences. No respiratory distress.
Abdomen: soft, nondistended nontender. No rebound or guarding.
MSK: no lower extremity edema bilaterally. No deformity
Skin: warm, dry
Neuro: Baseline. No focal deficits.
Course
Orders/Labs/Results
Orders:
Orders
11/17/24 13:03
CT Cervical Spine W/o Iv Contr Urgent
Comment:
Reason For Exam: fall w/ head strike
CT Head W/o Iv Contrast Urgent
Comment:
Reason For Exam: fall w/ head strike
11/17/24 15:51
Tetanus/Diphth/Acelpertussis [Adacel] 0.5 ml IM .ONCE ONE
Vital Signs
Initial and Last Documented VS:
Initial Vital Signs
Temp Pulse Resp BP Pulse Ox
97.8 F 54 16 140/81 95
11/17/24 11:32 11/17/24 11:32 11/17/24 11:32 11/17/24 11:32 11/17/24 11:32
Last Documented Vital Signs
Temp Pulse Resp BP Pulse Ox
97.8 F 56 18 158/96 95
11/17/24 11:32 11/17/24 17:01 11/17/24 14:00 11/17/24 17:01 11/17/24 17:01
Procedures
Laceration Closure
right ear:
Status of Wound: clean
Size of Wound in cm: 3
Preparation: cleaned with saline
Anesthesia: 1% Lidocaine
Revision/Debridement: routine- no revision
Wound exploration: explored to base- no FB
Type of Closure: single layer closure
Skin Closure Material: other (5-0 vicryl rapide)
Number of sutures: 16
MDM/Problems Addressed
MDM/Problems Addressed:
78-year-old male history of dementia, Parkinson's, ambulatory dysfunction presenting status post mechanical fall. Patient states he lost his balance and fell striking his head. No loss of consciousness. CT head/ cervical spine reviewed, no acute
trauma. Repaired right ear laceration. Updated tetanus. Stable for discharge with PCP follow-up
*Critical Care Note
Total Time (30-74mins, 75-104mins- exclusive of procedures): Not Applicable
ED Attending Note
-
Portions of this chart may have been created with voice recognition software.� Occasional wrong word or��sound alike� substitutions may have occurred due to the inherent limitations of voice recognition software.
Discharge Plan
Departure
Patient Disposition: Home (Routine Discharge)
Date of Disposition: 11/17/24
Time of Disposition: 17:01
Patient with high blood pressure during this ER visit?: Yes
Discharge Problem:
Laceration of ear
Instructions: Wound Care (DC), Laceration Repair With Stitches (DC), BLOOD PRESSURE
Prescriptions:
No Action
atorvastatin 80 MG tablet
80 mg PO HS
albuterol sulfate 1 PUFF HFA aerosol inhaler
2 puff inhalation R Q4HPRN PRN (Reason: sob)
fludrocortisone 0.1 mg Tablet
0.1 mg PO DAILY Qty: 30 0RF
ferrous sulfate 325 mg (65 mg iron) Tablet
325 mg PO Q48H@1100
vitamin B complex Tablet Extended Release
1 tab PO DAILY@1400
melatonin 10 mg Tablet Extended Release
10 mg PO HS
Rytary 61.25-245 mg capsule, extended release
1 cap PO TID
acetaminophen 500 mg tablet
1,000 mg PO TIDPRN PRN (Reason: mild pain)
aspirin [Children's Aspirin] 81 mg Tablet,Chewable
81 mg PO DAILY Qty: 1 0RF
magnesium oxide 250 mg magnesium Tablet
400 mg PO DAILY
lidocaine 4 % adhesive patch,medicated
2 patch topical DAILY
polyethylene glycol 3350 17 gram Powder In Packet
17 g PO DAILY Qty: 0 0RF
acetaminophen 325 mg Tablet
650 mg PO Q4HPRN PRN (Reason: mild pain/temp >101.0)
magnesium hydroxide 400 mg/5 mL Suspension
400 mg PO DAILYPRN PRN (Reason: if no bm by 3rd day)
bisacodyl 10 mg Suppository
10 mg [place] DAILYPRN PRN (Reason: if no bm aftr mom)
Fleet Enema 19-7 gram/118 mL Enema
118 ml [place] DAILYPRN PRN (Reason: if no bm aftr dulolcax)
jicvzhyfigz-uslgwmaup-gzqsnlql 100-62.5-25 mcg Blister With Device
1 inh INHALATION R DAILY
buspirone [BuSpar] 10 mg Tablet
10 mg PO BID
omeprazole 20 mg Capsule,Delayed Release(Dr/Ec)
20 mg PO DAILY
Rytary 23.75-95 mg capsule, extended release
1 cap PO TID
Referrals:
Baldev Dalal MD [Family Provider]
Activity Restrictions/Additional Instructions:
Keep pressure dressing in place until tomorrow. Then you may wash gently with soap and water. Dissolvable sutures were used, you do not need to have them removed as they will dissolve on their own.
Follow up with primary care doctor in 1-2 days
Return to the emergency department for new/worsening symptoms.
Interventions
Interventions:
*Risk Screen - Suicide Last Done: 11/17/24 11:32
*General Assessment Last Done: 11/17/24 11:32
*Neglect/Abuse Screening Last Done: 11/17/24 11:32
*ED- Fall Risk Assessment Last Done: 11/17/24 11:32
*ED COVID-19 Vaccine History Last Done: 11/17/24 20:01
*Nursing Disposition Last Done: 11/17/24 20:01
ED-Musculoskeletal Assessment Last Done: 11/17/24 11:44
ED- Neurological Assessment Last Done: 11/17/24 11:44
ED-Skin Assessment Last Done: 11/17/24 11:44
Discharge Date and Time
Discharge Date/Time: 11/17/24 20:02
Print Language: VIETNAMESE
[2024-11-17] MEDS: ADACEL 0.5 ML IM (16:57)
[2024-11-17 17:01] VITALS: BP 158/96
== END 2024-11-17 20:02 | disposition home or self-care (01) ==
LOC: EMR 11:26
PROVIDERS: EMERGENCY PHYSICIAN Emergency Medicine; FAMILY PHYSICIAN Internal Medicine
DX: S01.311A Laceration without foreign body of right ear, initial encounter (principal); Y93.01 Activity, walking, marching and hiking; Z23 Encounter for immunization; F02.80 Dementia in other diseases classified elsewhere, unspecified severity, without behavioral disturbance, psychotic disturbance, mood disturbance, and anxiety; G20.A1 Parkinson's disease without dyskinesia, without mention of fluctuations; I10 Essential (primary) hypertension; I25.10 Atherosclerotic heart disease of native coronary artery without angina pectoris; I48.91 Unspecified atrial fibrillation; E78.00 Pure hypercholesterolemia, unspecified; J44.9 Chronic obstructive pulmonary disease, unspecified; Z79.01 Long term (current) use of anticoagulants; Z85.820 Personal history of malignant melanoma of skin; Z87.891 Personal history of nicotine dependence; Z95.1 Presence of aortocoronary bypass graft
CPT/HCPCS: 99284; 90471; 70450; 72125; 90715

== ENCOUNTER 2024-12-27 10:10 | Emergency (ER) | payer MEDICARE, OTHER, SELFPAY ==
[2024-12-27 10:17] VITALS: BP 109/70
--- NOTE | 2024-12-27 10:19 | ED.GENMED ---
History of Present Illness
General
Chief Complaint: Change in Mental Status
Source: patient
Exam Limitations: none
Time Seen by Provider: 12/27/24 10:15
History of Present Illness
History of Present Illness:
See MDM
Past History
Past History
ED Past Medical History: Arrthythmia (A. 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
ED Past Surgical History: Cardiac (Bypass surgery CABG times 09/2020) and Other (umbilical herniorrhaphy, surgical resection malignant melanoma)
Social History
Tobacco: Former smoker
Alcohol: Former (discontinued approximately 1989)
Drug: None
Personal: Single
Living: with family
Employment: Employed
Family History
Family History: Other
Phy Exam
Physical Exam
Physical Exam:
See MDM
Course
Orders/Labs/Results
Orders:
Orders
12/27/24 10:26
Complete Blood Count/With Diff Urgent
Comprehensive Metabolic Panel Urgent
12/27/24 10:49
Urinalysis Reflex To Culture Urgent
Date Specimen was Collected: 12/27/24
Time Specimen was Collected: 10:48
Urine Microscopic Reflex Cult Urgent
Urine Culture Urgent
LALA Source: U
Specimen Description:
Date Specimen was Collected: 12/27/24
Time Specimen was Collected: 10:48
12/27/24 11:45
Potassium Chloride [KCl] 40 meq PO NOW STA
Abnormal Lab Results
12/27/24 12/27/24
10:26 10:49
RBC 4.33 L 10^6/uL
(4.70-6.10)
MCH 31.2 H pg
(27.0-31.0)
MPV 10.6 H fL
(7.4-10.4)
Absolute Lymphs (auto) 0.9 L 10^3/uL
(1.2-3.4)
Neutrophils % 77.1 H %
(42.2-75.2)
Lymphocytes % 13.8 L %
(20.5-51.1)
Potassium 3.2 L mmol/L
(3.5-5.1)
Chloride 110 H mmol/L
(98-107)
Carbon Dioxide 21 L mmol/L
(22-30)
Creatinine 0.5 L mg/dL
(0.7-1.3)
Glucose 131 H mg/dl
(70-99)
Total Protein 6.1 L g/dl
(6.3-8.2)
Urine Ketones 1+ A
(Negative)
Leukocyte Esterase Rfl 1+ A
(Negative)
Urine Bacteria (Reflex) Few A
(Negative)
12/27/24 10:26
12/27/24 10:26
Vital Signs
Initial and Last Documented VS:
Initial Vital Signs
Temp Pulse Resp BP Pulse Ox
98.1 F 64 16 109/70 95
12/27/24 10:17 12/27/24 10:17 12/27/24 10:17 12/27/24 10:17 12/27/24 10:17
Last Documented Vital Signs
Temp Pulse Resp BP Pulse Ox
98.1 F 60 22 98/78 94
12/27/24 10:17 12/27/24 11:05 12/27/24 11:05 12/27/24 11:05 12/27/24 11:05
MDM/Problems Addressed
Differential Diagnosis Includes:
HPI and MDM Narrative:
79-year-old male presenting for evaluation of altered mental status. Apparently, patient more combative at his facility. Patient does have a baseline of dementia and Parkinson's. On examination, patient states he was angry at staff. He denies
any complaints. Patient states he wants to go home. On my exam he is well-appearing nontoxic. Will obtain basic blood work and urinalysis. Patient offers no complaint
Physical exam
General: Well appearing and non-toxic
HEENT: protecting airway
Neck: appears supple
CV: No evidence of cyanosis. Regular rate and rhythm
Resp: No accessory muscle use. Lungs clear
Abd: Non-distended. Nontender
Extremities: No deformities
Neuro: alert
Psych: Normal affect
Skin: Intact
Problems Addressed including Acute and Chronic Conditions affecting care:
1. Increased aggression
Acuity: acute
Prognosis: stable
Details: Appears to be a stress response. He offers no complaints. Will obtain basic blood work and urinalysis. Patient calm on my exam
Updates
Patient remains calm and appropriate. Potassium mildly low. Will replete orally. Patient feels comfortable going home
Differential Diagnosis (but not limited to): Stress response, UTI
Testing considered: CT head
Drug therapy (if applicable): OTC meds, please see d/c instruction regarding Rx drugs
Amount and/or Complexity of Data Reviewed
Clinical info obtained from: Patient
External data reviewed: N/A
Labs I independently reviewed (but not limited to): Mild hyponatremia
Radiology: N/A
Pulse Ox: not hypoxic
EKG independently reviewed: N/A
Program Consultant: N/A
Critical Care: N/A
Risk of Complication:
Social Determinants of health: Good social support
Discussed with other providers: N/A
Escalation of Care includes Admit/Obs: After being observed in the Emergency Department, pt stable for discharge.
Occasional wrong word or 'sound a like' substitutions may have occurred due to the inherent limitations of voice recognition software. Read the chart carefully and recognize, using context, where substitutions have occurred.
*Pulse Oximetry
SaO2: 95
Oxygen Mode of Delivery: Room air
Patient hypoxic: no
*Critical Care Note
Total Time (30-74mins, 75-104mins- exclusive of procedures): Not Applicable
ED Attending Note
-
Portions of this chart may have been created with voice recognition software.� Occasional wrong word or��sound alike� substitutions may have occurred due to the inherent limitations of voice recognition software.
Discharge Plan
Departure
Patient Disposition: Home (Routine Discharge)
Date of Disposition: 12/27/24
Time of Disposition: 11:48
Patient with high blood pressure during this ER visit?: No
Discharge Problem:
Agitation, Hypokalemia
Prescriptions:
No Action
atorvastatin 80 MG tablet
80 mg PO HS
albuterol sulfate 1 PUFF HFA aerosol inhaler
2 puff inhalation R Q4HPRN PRN (Reason: sob)
fludrocortisone 0.1 mg Tablet
0.1 mg PO DAILY Qty: 30 0RF
ferrous sulfate 325 mg (65 mg iron) Tablet
325 mg PO DAILY@1200
vitamin B complex Tablet Extended Release
1 tab PO DAILY@1400
melatonin 10 mg Tablet Extended Release
10 mg PO HS
Rytary 61.25-245 mg capsule, extended release
1 cap PO TID
acetaminophen 500 mg tablet
1,000 mg PO TIDPRN PRN (Reason: mild pain)
aspirin [Children's Aspirin] 81 mg Tablet,Chewable
81 mg PO DAILY Qty: 1 0RF
magnesium oxide 250 mg magnesium Tablet
400 mg PO DAILY
lidocaine 4 % adhesive patch,medicated
2 patch topical DAILY
polyethylene glycol 3350 17 gram Powder In Packet
17 g PO DAILY Qty: 0 0RF
acetaminophen 325 mg Tablet
650 mg PO Q4HPRN PRN (Reason: mild pain/temp >101.0)
magnesium hydroxide 400 mg/5 mL Suspension
400 mg PO DAILYPRN PRN (Reason: if no bm by 3rd day)
bisacodyl 10 mg Suppository
10 mg [place] DAILYPRN PRN (Reason: if no bm aftr mom)
Fleet Enema 19-7 gram/118 mL Enema
118 ml [place] DAILYPRN PRN (Reason: if no bm aftr dulolcax)
pqacdqifias-vorqcpffq-qbmnjfns 100-62.5-25 mcg Blister With Device
1 inh INHALATION R DAILY
buspirone [BuSpar] 10 mg Tablet
10 mg PO BID
omeprazole 20 mg Capsule,Delayed Release(Dr/Ec)
20 mg PO DAILY
Rytary 23.75-95 mg capsule, extended release
1 cap PO TID
Referrals:
Baldev Dalal MD [Family Provider]
Activity Restrictions/Additional Instructions:
Please return for any worsening symptoms.
You may return at any time if you have further concerns.
Please follow up with your doctor at the first available appointment, preferably this week.
Thank you for choosing [facility].
Interventions
Interventions:
*Risk Screen - Suicide Last Done: 12/27/24 10:19
*General Assessment Last Done: 12/27/24 10:19
*Neglect/Abuse Screening Last Done: 12/27/24 10:19
*ED- Fall Risk Assessment Last Done: 12/27/24 10:17
*ED COVID-19 Vaccine History Last Done: 12/27/24 10:17
ED- Neurological Assessment Last Done: 12/27/24 10:20
Discharge Date and Time
Print Language: MAC[place]ON[place]
[2024-12-27 10:37] LABS: Hematocrit 39.1 % (39.0-52.0); Hemoglobin 13.5 g/dL (13.0-18.0); Mean Corp Hgb Conc. 34.5 g/dL (33.0-37.0); Mean Corpuscular Volume 90.3 fL (80.0-94.0); Nucleated Red Blood Cells % 0 % (-); Platelet Count 157 10^3/uL (130-400); Red Cell Dist. Width 13.2 % (11.5-14.5)
[2024-12-27 11:05] VITALS: BP 98/78
[2024-12-27 11:07] LABS: Urine Character Clear (Clear)
[2024-12-27 11:22] LABS: ALT (SGPT) < 10 U/L (0-50); AST (SGOT) 17 U/L (17-59); Albumin 3.8 g/dl (3.5-5.0); Alkaline Phosphatase 76 U/L (38-126); Blood Urea Nitrogen 17 mg/dl (9-20); Calcium 9.3 mg/dl (8.4-10.2); Carbon Dioxide 21 mmol/L (22-30); Chloride 110 mmol/L (98-107); Glucose 131 mg/dl (70-99); Potassium 3.2 mmol/L (3.5-5.1); Sodium 137 mmol/L (135-145); Total Protein 6.1 g/dl (6.3-8.2); eGFR > 60.00
[2024-12-27 11:22] LABS: Urine Red Blood Cell 0-2 /HPF (0-2); Urine Squamous Cell 0-2 /LPF (Few)
[2024-12-27] MEDS: KCL 40 MEQ PO (11:52)
[2024-12-27 13:18] VITALS: BP 124/78
== END 2024-12-27 14:28 | disposition home or self-care (01) ==
LOC: EMR 10:10
PROVIDERS: EMERGENCY PHYSICIAN Student in an Organized Health Care Education/Training Program; FAMILY PHYSICIAN Internal Medicine
DX: R45.1 Restlessness and agitation (principal); E87.6 Hypokalemia; G20.A1 Parkinson's disease without dyskinesia, without mention of fluctuations; F02.80 Dementia in other diseases classified elsewhere, unspecified severity, without behavioral disturbance, psychotic disturbance, mood disturbance, and anxiety; I48.91 Unspecified atrial fibrillation; E78.00 Pure hypercholesterolemia, unspecified; I10 Essential (primary) hypertension; I25.10 Atherosclerotic heart disease of native coronary artery without angina pectoris; J44.9 Chronic obstructive pulmonary disease, unspecified; Z79.01 Long term (current) use of anticoagulants; Z95.1 Presence of aortocoronary bypass graft; Z87.891 Personal history of nicotine dependence
CPT/HCPCS: 99283; 80053; 81003; 81015; 85025; 87086